=== PATIENT | female | born 1980 | race Caucasian/White ===

== ENCOUNTER 2023-02-23 18:36 | Emergency (ER) | payer BC, SELFPAY ==
[2023-02-23 18:38] VITALS: BP 162/80; PULSE 113; RESP 18; TEMP 36.6; O2SAT 100; BMI 31.6
--- NOTE | 2023-02-23 18:49 | EKG12_ITS ---
Test Reason : PALPS Blood Pressure : / mmHG Vent. Rate : 094 BPM Atrial Rate : 094 BPM P-R Int : 140 ms QRS Dur : 094 ms QT Int : 356 ms P-R-T Axes : 067 045 053 degrees QTc Int : 445 ms Normal sinus rhythm RSR' or QR pattern in V1 suggests right ventricular conduction delay Borderline ECG Confirmed by LEANDRA KRAFT ([id number]), scientific publications editor YESICA BARON ([id number]) on 02/25/2023 11:19:06 AM Referred By: AMIRA Confirmed By:LEANDRA KRAFT
[2023-02-23 19:04] LABS: Absolute Lymphocyte Count 4.34 X10^3/uL (0.83-4.51); Absolute Neutrophil Count 5.8 X10^3/uL (2.0-7.7); Basophil# 0.09 X10^3/uL; Basophil% 0.8 % (0-1); Eosinophil# 0.29 X10^3/uL; Eosinophils% 2.5 % (0-5); Hematocrit 42.1 % (37-47); Hemoglobin 13.9 g/dL (12.0-15.0); Lymphocyte # 4.34 X10^3/ul (0.83-4.51); Lymphocyte % 37.8 % (19-41); Mean Corpuscular Hgb 30.2 pg (27.0-32.0); Mean Corpuscular Volume 91.3 fL (81-99); Mean Platelet Vol. 9.3 fl (6.2-12.0); Monocyte# 0.88 X10^3/uL; Monocyte% 7.7 % (0-10); NRBC Flagged by Analyzer 0 % (0-5); Neutrophil # 5.82 X10^3/uL (2.7-7.7); Neutrophil % 50.8 % (47-70); Platelet Count 314 K/mm3 (150-450); RBC Distribution Width CV 12.6 % (11.6-14.6); RBC Distribution Width SD 41.4 fl (35.1-43.9); Red Blood Count 4.61 M/mm3 (4.2-5.4); White Blood Count 11.5 K/mm3 (4.4-11.0)
--- NOTE | 2023-02-23 19:10 | RAD_ITS ---
INDICATION: palpitations EXAMINATION/TECHNIQUE: X-RAY - XR Chest 1 View COMPARISON: None. FINDINGS: The lungs are clear. The cardiomediastinal silhouette is unremarkable. No pleural effusion or pneumothorax. No acute osseous abnormalities. RAD/Chest 1 View (Portable) IMPRESSION: No acute radiographic abnormalities. Electronically Signed: Tyrell Kruger MD at 19:52 EDT ,
[2023-02-23 19:27] LABS: Anion Gap 5 (5-15); BUN 9 mg/dL (7-18); BUN/Creat Ratio 10.4 RATIO (10-20); Calcium,Total 9.6 mg/dL (8.5-10.1); Chloride 109 mmol/L (98-107); Creatinine, Serum 0.86 mg/dL (0.55-1.02); EST Glomerular Filtration Rate 77 mL/min (>60); Est Glom Filt Rate - Afr Amer 93 mL/min (>60); Estimated Creatinine Clearance 68.77 ml/min; Glucose 118 mg/dL (74-106); Potassium 3.7 mmol/L (3.5-5.1); Sodium Level 139 mmol/L (136-145); Troponin-I HS (w/2H Reflex) < 3 pg/mL (3.0-54.0)
[2023-02-23 19:39] VITALS: BP 129/76; PULSE 89; RESP 16
--- NOTE | 2023-02-23 19:57 | ED.VIS.CHEST ---
HPI History of Present Illness Chief Complaint: Palpitations Informant: patient Narrative Narrative: Patient has had 2 major episodes since last night of feeling near syncopal, sweaty, and flushed. She has checked her blood pressure several times today, and it was high in the 150-160 range, systolic. She is very nervous about this. She had 1 episode last night and one this day around lunchtime. Since having the episode around lunchtime, she has had palpitations off and on for the rest of the afternoon and evening that have lasted 15 or 20 minutes and feel like skipping or racing. The palpitations have not been associated with these episodes necessarily. The 2 main episodes lasted 30-60 minutes each. States she drinks a lot of caffeine, she does not do any illicit drugs such as cocaine. States she had this happen a couple years ago, she wore a 30-day event monitor and followed up with cardiology, they released her after the event monitor was unremarkable, but she states she did not have any of the symptoms while wearing the 30-day monitor. She has not passed out from these episodes in the last 48 hours. She denies any dyspnea although at times the symptoms feel like they are taking my breath away. Also at times, she has sharp stabbing brief pains in her chest, just left of sternal when they occur. Currently asymptomatic. CVD Risk Factors: Positive for Hypercholesterolemia and Smoking; Negative for Hypertension, Diabetes or Family History 1' </=55 PE Risk Factors: Negative for Recent Travel/Surgery, Recent Immobilization, Prior DVT or PE, Cancer or OCP + Smoking + >/=35 PFSH [facility] Medical History Anxiety Bipolar 1 disorder Depression High cholesterol Home Medications aripiprazole 10 mg tablet (Abilify) 10 mg PO DAILY 02/23/23 [History Last Taken Unknown] atorvastatin 10 mg tablet 10 mg PO DAILY 02/23/23 [History Last Taken Unknown] buspirone 7.5 mg tablet 7.5 mg PO BID 02/23/23 [History Last Taken Unknown] lamotrigine 200 mg tablet (Lamictal) 200 mg PO DAILY 02/23/23 [History Last Taken Unknown] lithium carbonate 300 mg tablet,extended release 900 mg PO DAILY 02/23/23 [History Last Taken Unknown] Allergy/AdvReac Type Severity Reaction Status Date / Time doxycycline Allergy Hives Verified 02/23/23 18:40 methocarbamol [From Robaxin] Allergy Hives Verified 02/23/23 18:40 NSAIDS (Non-Steroidal Allergy Hives Verified 02/23/23 18:40 Anti-Inflamma sertraline [From Zoloft] Allergy HIVES Verified 02/23/23 18:40 tramadol Allergy Anaphylaxis Verified 02/23/23 18:40 Social History Smoking Status: Current every day smoker tobacco type: cigarettes ROS ROS ED Constitutional Constitutional ED: Denies chills or fever(s) Eyes Eyes: Denies change in vision or diplopia ENT ENT ED: Reports other Details: Facial flushing ; Denies rhinorrhea or sore throat Cardiovascular Cardiovascular: Reports as per HPI, chest pain and palpitations Respiratory/Chest Respiratory/Chest: Denies cough or dyspnea Gastrointestinal Gastrointestinal: Denies abdominal pain, diarrhea, nausea or vomiting Genitourinary Genitourinary ED: Denies dysuria or hematuria Musculoskeletal Musculoskeletal: Denies back pain or neck pain Integumentary Denies abscess or rash Neurologic Neurologic: Denies headache(s), paresthesias or weakness Psychiatric Psychiatric: Reports anxiety; Denies suicidal thoughts EXAM Physical Exam Const Vital Signs: 02/23/23 18:38 02/23/23 19:34 02/23/23 19:39 Temperature 97.8 F Temperature Source Temporal Pulse Rate 113 H 89 Respiratory Rate 18 16 Blood Pressure 162/80 H 129/76 H Blood Pressure Mean 107 93 Pulse Ox 100 Oxygen Delivery Method Room Air Room Air Room Air 02/23/23 20:00 02/23/23 21:00 Temperature Temperature Source Pulse Rate 82 85 Respiratory Rate 15 17 Blood Pressure 109/58 L 105/61 Blood Pressure Mean 75 75 Pulse Ox 96 96 Oxygen Delivery Method Positive well nourished and well developed General Appearance ED: well developed and NAD HEENT Reports moist mucous membranes normocephalic and atraumatic Eyes PERRL and EOMs intact bilaterally Neck full ROM and supple Chest Wall inspection of chest normal and palpation of chest normal Resp normal respiratory effort and clear to auscultation bilaterally Cardio regular rate, regular rhythm and no murmurs Rate: Negative for tachycardic GI non-tender and non-distended Auscultation: normoactive bowel sounds Palpation: soft Back/Spine no CVA tenderness General Back: other FROM Extremity normal to inspection and no calf tenderness General Extremety ED: Negative for edema, pulses abnormal or tenderness General Extremity: Negative for edema or pulses abnormal Neuro oriented x3, CN's II-XII intact bilaterally and no sensory deficits noted Sensorium / Orientation: awake and alert Motor Exam: strength 5/5 throughout Psych mental status grossly normal Skin no rashes or lesions noted and no wounds MDM MDM MDM Narrative Medical decision making narrative: Performed a cardiac work-up with 2 separate troponin measurements, both negative. TSH also negative, patient is on lithium and had a high level the last time she was measured, we sent that and it is actually on the low side, reassuring. Also did a D-dimer to rule out PE, it is negative ruling out pulmonary embolus in this acute situation. Patient was here for several hours on the monitor and had no symptoms or telemetry events. I advised that she decrease her caffeine intake and follow-up with her PCP, she has a scheduled appointment in a few days, and then she can decide with her PCP whether they want to do another event monitor or Holter monitor; when she saw cardiology in the past for this it was in [facility] [place], not here. She is comfortable with that overall plan. History & Record Review Additional record(s) reviewed:: No prior records Lab Data Attestation: I reviewed the patient's lab results. Labs: Laboratory Results - last 24 hr 02/23/23 02/23/23 18:56 21:08 WBC 11.5 H RBC 4.61 Hgb 13.9 Hct 42.1 MCV 91.3 MCH 30.2 MCHC 33.0 RDW Std Deviation 41.4 RDW Coeff of Cecile 12.6 Plt Count 314 MPV 9.3 Immature Gran % (Auto) 0.400 Neut % (Auto) 50.8 Lymph % (Auto) 37.8 [place] % (Auto) 7.7 Eos % (Auto) 2.5 Baso % (Auto) 0.8 Absolute Neuts (auto) 5.8 Absolute Lymphs (auto) 4.34 Nucleated RBC % 0 D-Dimer Quant (PE/DVT) < 0.27 L Sodium 139 Potassium 3.7 Chloride 109 H Carbon Dioxide 25.0 Anion Gap 5 BUN 9 Creatinine 0.86 Estim Creat Clear Calc 68.77 Est GFR (MDRD) Af Amer 93 Est GFR (MDRD) Non-Af 77 BUN/Creatinine Ratio 10.4 Glucose 118 H Calcium 9.6 Troponin I High Sens < 3 L 3 TSH 1.18 Crane 0.30 L Radiography Diagnostic Testing: Clinical Impression(s) from Imaging Studies Chest X-Ray 02/23/23 19:10 IMPRESSION: No acute radiographic abnormalities. Electronically Signed: Tyrell Kruger MD at 19:52 EDT , 2 view chest x-ray my interpretation negative/normal, radiology in agreement. Rhythm Strip Rhythm Strip: Sinus Rhythm Rate: 90 Ectopy: None EKG Initial EKG: Attestation: I personally reviewed and interpreted this EKG as follows: Interpretation: Sinus Rhythm and No Acute Injury Pattern Comments: nml Discharge Plan Triage Chief Complaint: Palpitations ED Provider: Wilfrido Issa Dx/Rx/DC Orders Clinical Impression: Palpitations, Near syncope Instructions: ED Palpitations Prescriptions: No Action atorvastatin 10 mg tablet 10 mg PO DAILY lithium carbonate 300 mg tablet extended release 900 mg PO DAILY lamotrigine [Lamictal] 200 mg tablet 200 mg PO DAILY aripiprazole [Abilify] 10 mg tablet 10 mg PO DAILY buspirone 7.5 mg tablet 7.5 mg PO BID Primary Care Provider: Krista Umanzor Referrals: Krista Umanzor, DEBEAKER-C [Primary Care Provider] - Keep Ever appointment Disposition Disposition: Home, Self Care
[2023-02-23 20:00] VITALS: BP 109/58; PULSE 82; RESP 15; O2SAT 96
[2023-02-23 20:14] LABS: D-Dimer Quantitative (DVT/PE) < 0.27 FEU/ug/m (0.27-0.49)
[2023-02-23 20:26] LABS: Thyroid Stim Hormone (TSH) 1.18 uIU/mL (0.358-3.74)
[2023-02-23 21:00] VITALS: BP 105/61; PULSE 85; RESP 17; O2SAT 96
[2023-02-23 21:00] LABS: Reflex Troponin-HS? (from REC) Y
[2023-02-23 21:40] LABS: Troponin-I HS 3 pg/mL (3.0-54.0)
[2023-02-23 22:49] VITALS: BP 110/65; PULSE 85; RESP 16; O2SAT 99
== END 2023-02-23 22:50 | disposition home or self-care (01) ==
PROVIDERS: Emergency Medicine; Emergency Provider Emergency Medicine; PCP Nurse Practitioner Family; Visit Provider Emergency Medicine
DX: R55 Syncope and collapse (principal); F31.9 Bipolar disorder, unspecified; F17.210 Nicotine dependence, cigarettes, uncomplicated; E78.00 Pure hypercholesterolemia, unspecified; R00.2 Palpitations; F41.9 Anxiety disorder, unspecified
CPT/HCPCS: 71045; 80048; 80178; 84443; 84484; 85025; 85379; 93005; 99284; A4216

== ENCOUNTER 2023-06-21 19:27 | Emergency (ER) | payer BC, SELFPAY ==
[2023-06-21 19:28] VITALS: BP 157/88; PULSE 101; RESP 16; TEMP 36.2; O2SAT 99; BMI 30.7
--- NOTE | 2023-06-21 20:35 | EX.ED.DYSGE1 ---
HPI History of Present Illness Chief Complaint: Other, Pain/Inj Informant: patient Narrative Narrative: Presents with some neck shoulder and intermittent left arm pain. Patient has a history of back pain spinal stenosis and disc disease. But this is mostly been lumbar. She states over the last couple days she has had pain in the left lower neck really in the suprascapular area. Sometimes it will radiate or shoot down her left arm to her elbow. She describes it as burning. She denies any injury. No fevers or chills. No chest pain or trouble breathing. No headaches. No weakness. PFSH [facility] Medical History Anxiety Bipolar 1 disorder Depression High cholesterol Home Medications aripiprazole 10 mg tablet (Abilify) 10 mg PO DAILY 02/23/23 [History Last Taken Unknown] atorvastatin 10 mg tablet 10 mg PO DAILY 02/23/23 [History Last Taken Unknown] buspirone 7.5 mg tablet 7.5 mg PO BID 02/23/23 [History Last Taken Unknown] lamotrigine 200 mg tablet (Lamictal) 200 mg PO DAILY 02/23/23 [History Last Taken Unknown] lithium carbonate 300 mg tablet,extended release 900 mg PO DAILY 02/23/23 [History Last Taken Unknown] oxycodone-acetaminophen 5 mg-325 mg tablet 1 tab PO Q6H PRN PRN Pain 3 days #10 TABLETS 06/21/23 [Rx Last Taken Unknown] prednisone 20 mg tablet 60 mg (3 x 20 mg) PO DAILY #15 TABLETS 06/21/23 [Rx Last Taken Unknown] Allergy/AdvReac Type Severity Reaction Status Date / Time doxycycline Allergy Hives Verified 06/21/23 20:28 methocarbamol [From Robaxin] Allergy Hives Verified 06/21/23 20:28 NSAIDS (Non-Steroidal Allergy Hives Verified 06/21/23 20:28 Anti-Inflamma sertraline [From Zoloft] Allergy HIVES Verified 06/21/23 20:28 tramadol Allergy Anaphylaxis Verified 06/21/23 20:28 Social History Smoking Status: Current every day smoker tobacco type: cigarettes ROS ROS ED Constitutional Constitutional ED: Denies chills, fever(s) or sweats Eyes Eyes: Denies blurry vision, change in vision or diplopia ENT ENT ED: Denies rhinorrhea Cardiovascular Cardiovascular: Denies chest pain, palpitations or racing heartbeat Respiratory/Chest Respiratory/Chest: Denies cough or dyspnea Gastrointestinal Gastrointestinal: Denies nausea or vomiting Musculoskeletal Musculoskeletal: Reports neck pain; Denies arthralgias Integumentary Denies abscess, Abrasions or rash Neurologic Neurologic: Reports paresthesias; Denies headache(s) or weakness Hematologic/Lymphatic Hematologic/Lymphatic: Denies easy bleeding or easy bruising Allergic/Immunologic Allergic/Immunologic ED: Denies urticaria EXAM Physical Exam Narrative Exam Narrative: General: Patient awake alert sitting comfortably on bed. She does have her left hand up on the left suprascapular region. HEENT.: No erythema of ears. No facial tenderness. No vesicles or rash. Mucous membranes are moist. Neck: Patient has tenderness most of the left paraspinal down very low. This is almost in the supraspinatus area. No midline tenderness. She can look to the right easily. When she looks to the left it causes some soreness but she can do so pretty well. No meningismus. Chest is clear bilaterally. Saturations are normal at 99% on room air showing no hypoxia. Heart is regular. I hear no murmur. Peripheral pulses including left upper extremity are normal. Abdomen nontender Extremities: There is no tenderness over the left arm. There is some supraspinatus tenderness on the left. Pulses are excellent in the left arm. Sensation is intact distally. She has excellent brick grader strength as well as bicep and tricep strength. There is no indication of neurologic deficit. By history she has paresthesias and burning but no loss of sensation or weakness. Const Vital Signs: 06/21/23 19:28 Temperature 97.2 F L Temperature Source Temporal Pulse Rate 101 H Respiratory Rate 16 Blood Pressure 157/88 H Blood Pressure Mean 111 Pulse Ox 99 Oxygen Delivery Method Room Air MDM MDM MDM Narrative Medical decision making narrative: Patient's history and exam are consistent more with a cervical radiculopathy. I did do an online prescribing report that shows no narcotics. She has problems with hives and has had her throat closed with Toradol. The chart says tramadol but it is Toradol that she tells me caused anaphylaxis. She has taken Percocet in the past without problems but it has been many years. She is also taken prednisone that has helped her back in the past. She does not have diabetes. Patient has no fevers chills or any indication of checking electrolytes. I do not think imaging including x-ray of the neck would be appropriate. I discussed with the patient and she agrees. We will start her on prednisone, few Percocet, ice rest and she will follow-up. I do not think this represents stroke and no indication for workup of that is appropriate. We did discuss reasons that would bring her back. Discharge Plan Triage Chief Complaint: Other, Pain/Inj ED Provider: Jw Ennis Dx/Rx/DC Orders Clinical Impression: Neck pain on left side, Cervical radiculopathy Instructions: ED Neck Pain, ED Radiculopathy, Cervical Prescriptions: New prednisone 20 mg tablet 60 mg PO DAILY Qty: 15 0RF oxycodone-acetaminophen [oxycodone-acetaminophen] 5-325 mg tablet 1 tab PO Q6H PRN PRN (Reason: Pain) 3 Days Qty: 10 0RF No Action atorvastatin 10 mg tablet 10 mg PO DAILY lithium carbonate 300 mg tablet extended release 900 mg PO DAILY lamotrigine [Lamictal] 200 mg tablet 200 mg PO DAILY aripiprazole [Abilify] 10 mg tablet 10 mg PO DAILY buspirone 7.5 mg tablet 7.5 mg PO BID Stand Alone Forms: ED Work / School Excuse Primary Care Provider: Krista Umanzor Referrals: Krista Umanzor, MICRO LAB ANALYST-C [Primary Care Provider] - 3-5 Days Disposition Disposition: Home, Self Care
[2023-06-21 20:59] VITALS: BP 135/57; PULSE 89; RESP 18
== END 2023-06-21 21:01 | disposition home or self-care (01) ==
PROVIDERS: Emergency Provider Emergency Medicine; PCP Nurse Practitioner Family; Referring Provider Emergency Medicine; Visit Provider Emergency Medicine
DX: M54.12 Radiculopathy, cervical region (principal); F31.9 Bipolar disorder, unspecified; E78.00 Pure hypercholesterolemia, unspecified; F17.210 Nicotine dependence, cigarettes, uncomplicated; M54.2 Cervicalgia; F41.9 Anxiety disorder, unspecified; Z79.899 Other long term (current) drug therapy
CPT/HCPCS: 99282

== ENCOUNTER 2024-10-11 13:42 | Emergency (ER) | payer BC, SELFPAY ==
[2024-10-11 13:43] VITALS: BP 148/81; PULSE 95; RESP 17; TEMP 36.4; O2SAT 99; BMI 33.5
--- NOTE | 2024-10-11 15:40 | VDLE_ITS ---
Reason For Study Reason For Study: Pain RIGHT LEFT GSV is normal. CFV is compressible, spontaneous, phasic, competent, CFV is compressible, spontaneous, phasic, competent and demonstrates normal augmentation. and demonstrates normal augmentation. FV is compressible, spontaneous, phasic, competent and demonstrates normal augmentation. POP V is compressible, spontaneous, phasic, competent and demonstrates normal augmentation. T/P Trunk is compressible. PTV is compressible. RT PerV is compressible. Procedure This is a venous duplex using B-mode, color flow and spectral Doppler. Exam performed portable in ED. A preliminary report was called and/or faxed to Dr. Pappas. VL/Venous Duplex US, Unilateral Interpretation Summary Deep veins of the right lower extremity are patent and compressible segmentally . There is no evidence of right lower extremity deep vein thrombosis. The right great saphenous vein appears patent a nd compressible segmentally. Ordering Physician: Shantell Gastelum Performed By: Heather Fox RVT
--- NOTE | 2024-10-11 15:41 | EDS_ITS ---
HPI History of Present Illness Chief Complaint: Lower Extremity Injury Detail of Chief Complaint: Right calf pain Informant: patient Narrative Narrative: Patient presents with right calf pain that started this morning around 9:00. Patient states that she stood up to walk and had sudden onset of severe pain in the right calf. Pain worse with certain movements and pushing on the calf. She denies recent travel or surgery. She denies chest pain or shortness of breath. She denies history of PE or DVT. [facility] Medical History Anxiety Bipolar 1 disorder Depression High cholesterol Home Medications ?Medication ?Instructions ?Recorded ?Last Taken ?Type aripiprazole 10 mg tablet (Abilify) 10 mg PO DAILY Unknown History atorvastatin 10 mg tablet 10 mg PO DAILY 02/23/23 Unkn own History lamotrigine 200 mg tablet 200 mg PO DAILY 02/23/23 Unk nown History (Lamictal) lithium carbonate 300 mg 750 mg PO DAILY 02/23/23 Unk nown History tablet,extended release escitalopram oxalate 10 mg tablet 10 mg PO DAILY 06/21 Unknown History (Lexapro) oxycodone-acetaminophen 5 mg-325 1 tab PO Q6H PRN PRN Pain 3 days 06/21/23 Unknown Rx mg tablet #10 TABLETS prednisone 20 mg tablet 60 mg (3 x 20 mg) PO DAILY # 15 06/21/23 Unknown Rx TABLETS oxycodone-acetaminophen 5 mg-325 1 tab PO Q6H PRN PRN Pain 3 days 10/11/24 Unknown Rx mg tablet #12 TABLETS Allergy/AdvReac Type Severity Reaction Status Date / Time acetaminophen (From Vicodin) Allergy Mild Hives Verified 10/11/24 13:43 hydrocodone (From Vicodin) Allergy Mild Hives Verified 10/11/24 13:43 doxycycline Allergy Hives Verified 10/11/24 13:42 methocarbamol (From Robaxin) Allergy Hives Verified 10/11/24 13:42 NSAIDS (Non-Steroidal Allergy Hives Verified 10/11/24 13:42 Anti-Inflamma sertraline (From Zoloft) Allergy HIVES Verified 10/11/24 13:42 tramadol Allergy Anaphylaxis Verified 10/11/24 13:42 Social History (Updated 10/11/24 @ 15:44 by Caity Harden) current occupational status: employed Smoking Status: Current every day smoker tobacco type: cigarettes ROS ROS ED Review of Systems ROS Unobtainable: other Constitutional Constitutional ED: Reports lethargy; Denies chills, fever(s), sweats or weight loss Eyes Eyes: Denies blurry vision, change in vision or diplopia ENT ENT ED: Denies rhinorrhea or sore throat Cardiovascular Cardiovascular: Denies chest pain, orthopnea or racing heartbeat Respiratory/Chest Respiratory/Chest: Denies cough, dyspnea, dyspnea on exertion, orthopnea or sputum Gastrointestinal Gastrointestinal: Denies abdominal pain, diarrhea, nausea or vomiting Genitourinary Genitourinary ED: Denies dysuria, hematuria or urinary frequency Musculoskeletal Musculoskeletal: Denies arthralgias, back pain, myalgias or neck pain Integumentary Reports other Details: Right calf pain ; Denies abscess, Abrasions or rash Neurologic Neurologic: Denies headache(s) or weakness Psychiatric Psychiatric: Denies anxiety, depression or suicidal thoughts Endocrine Endocrinology: Denies polydipsia, polyphagia or polyuria Hematologic/Lymphatic Hematologic/Lymphatic: Denies easy bleeding, easy bruising or lymphadenopathy Allergic/Immunologic Allergic/Immunologic ED: Denies mouth swelling, tongue swelling or urticaria EXAM Physical Exam Const Vital Signs: 10/11/24 13:43 Temperature 97.6 F L Temperature Source Temporal Pulse Rate 95 Respiratory Rate 17 Blood Pressure 148/81 H Blood Pressure Mean 103 Pulse Ox 99 Oxygen Delivery Method Room Air Positive well nourished and well developed General Appearance ED: well developed and NAD HEENT Reports TM's clear and moist mucous membranes normocephalic and atraumatic; Negative for trauma or tenderness Tympanic Membrane ED: Yes TM's clear Eyes PERRL and EOMs intact bilaterally General Eye ED: Negative for pale conjunctiva or scleral icterus Neck no lymphadenopathy, supple and no JVD General: Negative for tenderness Chest Wall inspection of chest normal and palpation of chest normal Chest: Negative for tenderness Resp normal respiratory effort and clear to auscultation bilaterally Effort and Inspection: Negative for respiratory distress or pain with movement Auscultation: Negative for rhonchi, wheezes or diminished lung sounds Cardio regular rate, regular rhythm, S1 normal heart sound, S2 normal heart sound and no murmurs Peripheral Pulses: pulses 2+ throughout GI normal to inspection, nondistended, normoactive bowel sounds, soft to palpation, non-tender, non-distended and no masses Back/Spine no CVA tenderness and no thoracic nor lumbar tenderness Extremity Extremity Narrative: Right lower extremity-patient has tenderness palpation over the lateral aspect of the right calf that seems to reproduce her pain. There is no significant ecchymosis or bruising noted. No erythema or cellulitic changes. She is neurovascular intact distally. She does have pain with plantarflexion of the f oot. General Extremety ED: Negative for edema General Extremity: Negative for edema Neuro oriented x3, CN's II-XII intact bilaterally, no sensory deficits noted and gait normal Sensorium / Orientation: awake, alert, oriented to person, oriented to place and oriented to time Motor Exam: strength 5/5 throughout and strength abnormal Psych mental status grossly normal Skin no rashes or lesions noted and no wounds MDM MDM MDM Narrative Medical decision making narrative: Patient presents with sudden onset of right calf pain. No trauma. I do not feel imaging is indicated. I did obtain a venous Doppler to rule out DVT and this was negative. This point suspect likely muscle strain. She does not want crutches. I will write her for a few [place] for pain. Will give work restrictions. Advised to follow-up with her primary care physician within next 5 to 7 days. Lab Data Attestation: I reviewed the patient's lab results. Discharge Plan Triage Chief Complaint: Lower Extremity Injury ED Provider: Shantell Gastelum Dx/Rx/DC Orders Clinical Impression: Strain of right calf muscle Instructions: ED Muscle Strain, Extremity Prescriptions: New oxycodone-acetaminophen 5-325 mg tablet 1 tab PO Q6H PRN PRN (Reason: Pain) 3 Days Qty: 12 0RF No Action atorvastatin 10 mg tablet 10 mg PO DAILY lithium carbonate 300 mg tablet extended release 750 mg PO DAILY lamotrigine [Lamictal] 200 mg tablet 200 mg PO DAILY aripiprazole [Abilify] 10 mg tablet 10 mg PO DAILY prednisone 20 mg tablet 60 mg PO DAILY Qty: 15 0RF oxycodone-acetaminophen [oxycodone-acetaminophen] 5-325 mg tablet 1 tab PO Q6H PRN PRN (Reason: Pain) 3 Days Qty: 10 0RF escitalopram oxalate [Lexapro] 10 mg tablet 10 mg PO DAILY Primary Care Provider: Krista Umanzor Referrals: Krista Umanzor, MANUFACTURER'S SERVICE REPRESENTATIVE-C [Primary Care Provider] - 5-7 Days Print Language: Macedonian Disposition Disposition: Home, Self Care
[2024-10-11 16:12] VITALS: BP 153/79; PULSE 85; RESP 16; TEMP 36.4; O2SAT 98
== END 2024-10-11 16:23 | disposition home or self-care (01) ==
LOC: ED 16:22
PROVIDERS: Emergency Provider Emergency Medicine; PCP Nurse Practitioner Family; Visit Provider Emergency Medicine
DX: S86.111A Strain of other muscle(s) and tendon(s) of posterior muscle group at lower leg level, right leg, initial encounter (principal); F31.9 Bipolar disorder, unspecified; X58.XXXA Exposure to other specified factors, initial encounter; Y93.01 Activity, walking, marching and hiking; E78.00 Pure hypercholesterolemia, unspecified; F17.210 Nicotine dependence, cigarettes, uncomplicated; Z79.899 Other long term (current) drug therapy
CPT/HCPCS: 93971; 99282

== ENCOUNTER 2024-12-10 13:15 | Emergency (ER) | payer BC, SELFPAY ==
[2024-12-10 13:15] VITALS: BP 139/84; PULSE 92; RESP 18; TEMP 36.7; O2SAT 100; BMI 32.9
--- NOTE | 2024-12-10 13:53 | EDS_ITS ---
HPI <LYLY Hernandez - Last Filed: 12/10/24 14:46> History of Present Illness Chief Complaint: Back Narrative Narrative: 44-year-old female presents with thoracic back pain. Yesterday she was moving houses and was lifting a lot of boxes and furniture. This morning she lifted a few more things. She was lifting her grocery bags out of the trunk when she developed bilateral thoracic back pain. If she sits completely still she has no pain but any movement it starts up again. She has no pain in her chest or abdomen. No pain in her upper or lower extremities. No weakness or paresthesias. She took Tylenol and used ice but it only helped a little bit. She cannot have NSAIDs because it causes hives and Toradol because of throat swelling. [facility] <LYLY Hernandez - Last Filed: 12/10/24 14:46> [facility] Medical History Anxiety Bipolar 1 disorder Depression High cholesterol Home Medications ?Medication ?Instructions ?Recorded ?Last Taken ?Type aripiprazole 10 mg tablet (Abilify) 10 mg PO DAILY Unknown History atorvastatin 10 mg tablet 10 mg PO DAILY 02/23/23 Unkn own History lamotrigine 200 mg tablet 200 mg PO DAILY 02/23/23 Unk nown History (Lamictal) lithium carbonate 300 mg 750 mg PO DAILY 02/23/23 Unk nown History tablet,extended release escitalopram oxalate 10 mg tablet 10 mg PO DAILY 06/21 Unknown History (Lexapro) oxycodone-acetaminophen 5 mg-325 1 tab PO Q6H PRN PRN Pain 3 days 06/21/23 Unknown Rx mg tablet #10 TABLETS prednisone 20 mg tablet 60 mg (3 x 20 mg) PO DAILY # 15 06/21/23 Unknown Rx TABLETS oxycodone-acetaminophen 5 mg-325 1 tab PO Q6H PRN PRN Pain 3 days 10/11/24 Unknown Rx mg tablet #12 TABLETS cyclobenzaprine 10 mg tablet 10 mg PO BID #14 TABLETS 12/10/24 Unknown Rx oxycodone-acetaminophen 5 mg-325 1 tab PO Q6H PRN PRN pain 3 days 12/10/24 Unknown Rx mg tablet (Percocet) #12 tabs Allergy/AdvReac Type Severity Reaction Status Date / Time acetaminophen (From Vicodin) Allergy Mild Hives Verified 12/10/24 13:16 hydrocodone (From Vicodin) Allergy Mild Hives Verified 12/10/24 13:16 doxycycline Allergy Hives Verified 12/10/24 13:16 methocarbamol (From Robaxin) Allergy Hives Verified 12/10/24 13:16 NSAIDS (Non-Steroidal Allergy Hives Verified 12/10/24 13:16 Anti-Inflamma sertraline (From Zoloft) Allergy HIVES Verified 12/10/24 13:16 tramadol Allergy Anaphylaxis Verified 12/10/24 13:16 Social History (Updated 10/11/24 @ 15:44 by Caity Harden) current occupational status: employed Smoking Status: Current every day smoker tobacco type: cigarettes ROS <LYLY Hernandez - Last Filed: 12/10/24 14:46> ROS ED ROS Narrative Constitutional: Negative for fever, chills, malaise. CVS: Negative for palpitations, chest pain, syncope. Respiratory: Negative for shortness of breath. GI: Negative for abdominal pain, nausea, vomiting. EXAM <LYLY Hernandez - Last Filed: 12/10/24 14:46> Physical Exam Narrative Exam Narrative: CONST: Patient sitting in no acute distress. EYES: Normal inspection. NECK: Normal inspection. RESP: No respiratory distress, CTAB. CVS: Regular rate and rhythm, no murmur, no gallop. ABD: Soft and nontender, no guarding or rebound, nondistended. Back: Normal inspection, no midline tenderness. Tender over bilateral thoracic musculature. SKIN: Color normal, no rash, warm, dry, intact. EXTREMITIES: Normal appearance, no pedal edema. Full range of motion upper and lower extremities, 5/5 strength, normal sensation to light touch, 2+ radial and DP pulses. NEURO: Alert and answering questions appropriately. PSYCH: Normal affect. Const Vital Signs: 12/10/24 13:15 Temperature 98.1 F Temperature Source Oral Pulse Rate 92 Respiratory Rate 18 Blood Pressure 139/84 H Blood Pressure Mean 102 Pulse Ox 100 Oxygen Delivery Method Room Air <Dr. Shantell Gastelum DO - Last Filed: 12/10/24 14:05> Physical Exam Const Vital Signs: 12/10/24 13:15 Temperature 98.1 F Temperature Source Oral Pulse Rate 92 Respiratory Rate 18 Blood Pressure 139/84 H Blood Pressure Mean 102 Pulse Ox 100 Oxygen Delivery Method Room Air [facility] <LYLY Hernandez - Last Filed: 12/10/24 14:46> [facility] Narrative Medical decision making narrative: Differential includes back strain, fracture, radiculopathy Patient has no midline tenderness and no focal neurological deficits so there is no indication for x-ray. Feeling better after Percocet and Norflex. She cannot take NSAIDs so I will prescribe muscle relaxers and Percocet for home. Lifting restrictions. Follow- up with PCP. I have personally performed a face to face assessment of the patient and have reviewed the CON Note. I performed a substantive portion of the visit including all aspects of the following. My spann findings include: History is [patient presents with back pain that started prior to arrival in the emergency department. Patient states that she was lifting some groceries when she had sudden onset of pain behind both scapulas. Pain only with movement and not pleuritic. She has history of chronic low back pain but this is different. Patient states that she was moving some furniture yesterday and was expecting today to have maybe some discomfort in her low back which did not happen. She denies recent travel or surgery. At rest she is not having any pain unless she moves.] Exam is [HEENT-PERRLA, EOMI. Cranial nerves II through XII grossly intact. TMs clear. Mucous membranes moist. No adenopathy. Cardiovascular-regular rate and rhythm without murmur or ectopy Lungs-clear to auscultation, chest wall stable without crepitus or subcu emphysema Abdomen-normoactive bowel sounds, soft, nontender, no rebound or rigidity, no peritoneal signs. Back exam-patient has tenderness palpation over the thoracic paraspinal musculature medial to the scapula bilaterally. This seems to reproduce her pain. She has no tenderness in the midline. Negative straight leg raises. Deep tendon reflexes plus 2 out of 4 bilaterally at the patella and Achilles. She has normal L5 extension bilaterally. She has normal sensation to light touch. Extremities-intact ?4, normal range of motion, normal pulses, atraumatic] Medical Decison Making [patient presents with sudden onset of back pain while lifting groceries. She had no fall or direct trauma. I do not think x-rays are indicated. Will treat with muscle relaxer and Percocet for pain. Recommended some heat to the area. Suspect likely muscle spasm. Advised to follow-up with primary care physician within next 3 to 5 days.] Other additions or changes: [None] <Dr. Shantell Gastelum, - Last Filed: 12/10/24 14:05> [facility] Narrative Medical decision making narrative: I have personally performed a face to face assessment of the patient and have reviewed the CON Note. I performed a substantive portion of the visit including all aspects of the following. My spann findings include: History is [patient presents with back pain that started prior to arrival in the emergency department. Patient states that she was lifting some groceries when she had sudden onset of pain behind both scapulas. Pain only with movement and not pleuritic. She has history of chronic low back pain but this is different. Patient states that she was moving some furniture yesterday and was expecting today to have maybe some discomfort in her low back which did not happen. She denies recent travel or surgery. At rest she is not having any pain unless she moves.] Exam is [HEENT-PERRLA, EOMI. Cranial nerves II through XII grossly intact. TMs clear. Mucous membranes moist. No adenopathy. Cardiovascular-regular rate and rhythm without murmur or ectopy Lungs-clear to auscultation, chest wall stable without crepitus or subcu emphysema Abdomen-normoactive bowel sounds, soft, nontender, no rebound or rigidity, no peritoneal signs. Back exam-patient has tenderness palpation over the thoracic paraspinal musculature medial to the scapula bilaterally. This seems to reproduce her pain. She has no tenderness in the midline. Negative straight leg raises. Deep tendon reflexes plus 2 out of 4 bilaterally at the patella and Achilles. She has normal L5 extension bilaterally. She has normal sensation to light touch. Extremities-intact ?4, normal range of motion, normal pulses, atraumatic] Medical Decison Making [patient presents with sudden onset of back pain while lifting groceries. She had no fall or direct trauma. I do not think x-rays are indicated. Will treat with muscle relaxer and Percocet for pain. Recommended some heat to the area. Suspect likely muscle spasm. Advised to follow-up with primary care physician within next 3 to 5 days.] Other additions or changes: [None] Discharge Plan Triage Chief Complaint: Back ED Midlevel Provider: Eileen Urbina ED Provider: Shantell Gastelum Dx/Rx/DC Orders Clinical Impression: Acute thoracic myofascial strain Instructions: ED Thoracic Spine Strain Prescriptions: New oxycodone-acetaminophen [Percocet] 5-325 mg tablet 1 tab PO Q6H PRN PRN (Reason: pain) 3 Days Qty: 12 0RF cyclobenzaprine 10 mg tablet 10 mg PO BID Qty: 14 0RF No Action atorvastatin 10 mg tablet 10 mg PO DAILY lithium carbonate 300 mg tablet extended release 750 mg PO DAILY lamotrigine [Lamictal] 200 mg tablet 200 mg PO DAILY aripiprazole [Abilify] 10 mg tablet 10 mg PO DAILY prednisone 20 mg tablet 60 mg PO DAILY Qty: 15 0RF oxycodone-acetaminophen [oxycodone-acetaminophen] 5-325 mg tablet 1 tab PO Q6H PRN PRN (Reason: Pain) 3 Days Qty: 10 0RF escitalopram oxalate [Lexapro] 10 mg tablet 10 mg PO DAILY oxycodone-acetaminophen 5-325 mg tablet 1 tab PO Q6H PRN PRN (Reason: Pain) 3 Days Qty: 12 0RF Primary Care Provider: Krista Umanzor Referrals: Krista Umanzor, [employer] [Primary Care Provider] - Activity Restrictions/Additional Instructions: You have a thoracic back muscle strain. Ice and 20-minute sessions multiple times a day. Take the Percocet as needed for pain. This medication has side effects of nausea, sedation, and constipation. I recommend taking a stool softener or MiraLAX while using it. I also prescribed muscle relaxers. Follow- up with your primary care doctor. Print Language: Italian Disposition Disposition: Home, Self Care
[2024-12-10] MEDS: oxyCODONE 5 MG Tablet PO (14:13)
[2024-12-10] MEDS: Orphenadrine 60 MG/2 ML Ampul IM (14:13)
[2024-12-10 14:54] VITALS: BP 139/84; PULSE 92; RESP 18; TEMP 36.7; O2SAT 100
== END 2024-12-10 14:55 | disposition home or self-care (01) ==
LOC: ED 14:10
PROVIDERS: Emergency Provider Emergency Medicine; PCP Nurse Practitioner Family; Visit Provider Emergency Medicine
DX: S29.012A Strain of muscle and tendon of back wall of thorax, initial encounter (principal); F31.9 Bipolar disorder, unspecified; X50.0XXA Overexertion from strenuous movement or load, initial encounter; Y92.019 Unspecified place in single-family (private) house as the place of occurrence of the external cause; E78.00 Pure hypercholesterolemia, unspecified; F41.9 Anxiety disorder, unspecified; F17.210 Nicotine dependence, cigarettes, uncomplicated; Z79.899 Other long term (current) drug therapy
CPT/HCPCS: 96372; 99282

== ENCOUNTER 2025-01-29 08:23 | Emergency (ER) | payer OTHER, SELFPAY ==
[2025-01-29 08:24] VITALS: BP 144/90; PULSE 78; RESP 16; TEMP 36.5; O2SAT 99; BMI 31.9
--- NOTE | 2025-01-29 08:39 | EKG12_ITS ---
Test Reason : Blood Pressure : */* mmHG Vent. Rate : 74 BPM Atrial Rate : 74 BPM P-R Int : 158 ms QRS Dur : 88 ms QT Int : 382 ms P-R-T Axes : 39 12 41 degrees QTcB Int : 424 ms Normal sinus rhythm Low voltage QRS Otherwise normal ECG Confirmed by Jonathan Puga ([id number]), web editor YESICA BARON ([id number]) on 01/30/2025 1:15:03 PM Referred By: TL/BB Confirmed By: Jonathan Puga
--- NOTE | 2025-01-29 08:39 | EX.ED.DYSGE1 ---
HPI History of Present Illness Chief Complaint: Syncope Detail of Chief Complaint: Near syncope while driving Informant: patient Onset/Context/Timing Onset: Today and Hours Context: Sudden Onset Timing: Intermittent Quality: Detailed HPI narrative Location: Driving to work Current Severity: Gone Maximum Severity: Severe Worsened by: Suspect menstrual cramps Relieved by: Not applicable Associated Symptoms Associated Symptoms: Vagal-like response Narrative Narrative: Patient is a 44-year-old woman. She has history of depression hypercholesterolemia who reports having similar episodes once monthly. She followed up with her PCP. She did blood work and determined that she had iron deficiency anemia. She is on iron. Today's episode occurred while driving to work. She felt she was a little behind. Apparently she had's significant menstrual cramps prior to having total bottle tingling followed by lightheadedness, nausea and vomiting and diaphoresis. Patient states when she felt the total body tingling which proceeds the other episodes she pulled the car off the road. She contacted her [id number]. She states this occurs about once a month. She denies black or maroon-colored stool. She denied headache. She denied double vision blurred vision loss of vision. She denies ringing or ears. She denied chest discomfort or shortness of breath. She denied blood or coffee-ground appearing emesis. She has had no change in her medications. She has never been referred to a flatwork finisher. Prior similar symptoms: Yes Recent Illness/Hospitalization: No PFSH PFS Medical History High cholesterol Anxiety Depression Bipolar 1 disorder Home Medications ?Medication ?Instructions ?Recorded ?Last Taken ?Type atorvastatin 10 mg tablet 10 mg PO DAILY 02/23/23 01/28/25 History lamotrigine 200 mg tablet 200 mg PO DAILY 02/23/23 01/29/25 History (Lamictal) amlodipine 2.5 mg tablet 2.5 mg PO DAILY 01/29/25 01/28/25 History cholecalciferol (vitamin D3) 50 50 mcg PO DAILY 01/29/25 01/29/25 History mcg (2,000 unit) capsule clonidine HCl 0.1 mg tablet 0.1 mg PO DAILY 01/29/25 01/29/25 History diphenhydramine HCl 25 mg capsule 25 mg PO Q8H PRN allergy symptoms 01/29/25 Unknown History (Allergy (diphenhydramine)) ferrous sulfate 325 mg (65 mg 325 mg PO DAILY 01/29/25 01/29/25 History iron) tablet (FeroSul) lithium carbonate 300 mg tablet 900 mg PO DAILY 01/29/25 01/29/25 History lurasidone 120 mg tablet (Latuda) 120 mg PO QPM 01/29/25 01/28/25 History Allergy/AdvReac Type Severity Reaction Status Date / Time acetaminophen (From Vicodin) Allergy Mild Hives Verified 01/29/25 08:27 hydrocodone (From Vicodin) Allergy Mild Hives Verified 01/29/25 08:27 doxycycline Allergy Hives Verified 01/29/25 08:27 ketorolac (From Toradol) Allergy THROAT Verified 01/29/25 08:27 ITCHING/CLOSING methocarbamol (From Robaxin) Allergy Hives Verified 01/29/25 08:27 NSAIDS (Non-Steroidal Allergy Hives Verified 01/29/25 08:27 Anti-Inflamma sertraline (From Zoloft) Allergy HIVES Verified 01/29/25 08:27 tramadol Allergy Anaphylaxis Verified 01/29/25 08:27 Social History housing: apartment current occupational status: employed Smoking Status: Current every day smoker tobacco type: cigarettes ROS ROS ED Constitutional Constitutional ED: Denies chills, fever(s), subjective or sweats Eyes Eyes: Denies blurry vision, change in vision or diplopia ENT ENT ED: Denies ear pain, rhinorrhea or sore throat Cardiovascular Cardiovascular: Reports other Details: Patient states when this occurred her heart rate was 43. She was able to monitor her heart rate on her watch. She was not able to record a tracing. ; Denies chest pain, orthopnea, palpitations, paroxysmal nocturnal dyspnea or racing heartbeat Respiratory/Chest Respiratory/Chest: Denies cough, dyspnea, dyspnea on exertion, orthopnea or paroxysmal nocturnal dyspnea Gastrointestinal Gastrointestinal: Reports abdominal pain, nausea and vomiting; Denies constipation, diarrhea or melena Genitourinary Genitourinary ED: Reports LMP (females 10-50) Details: Comment: (Presently); Denies dysuria, hematuria or urinary frequency Musculoskeletal Musculoskeletal: Denies arthralgias, back pain or myalgias Integumentary Denies rash Neurologic Neurologic: Reports paresthesias RUE, RLE, LUE and LLE; Denies headache(s) or weakness Psychiatric Psychiatric: Reports anxiety and depression Endocrine Endocrinology: Denies cold intolerance or heat intolerance Hematologic/Lymphatic Hematologic/Lymphatic: Reports systems reviewed and no addt'l complaints, except as documented EXAM Physical Exam Const Vital Signs: 01/29/25 08:24 01/29/25 08:53 01/29/25 08:54 Temperature 97.7 F L Temperature Source Oral Pulse Rate 78 Pulse Rate [Lying] 77 Pulse Rate [Sitting (for 1 minute prior to obtaining)] 88 Pulse Rate [Standing (for 1 minute prior to obtaining)] 82 Respiratory Rate 16 Respiratory Pattern Normal Blood Pressure 144/90 H Blood Pressure [Lying] 129/78 H Blood Pressure [Sitting (for 1 minute prior to obtaining)] 159/86 H Blood Pressure [Standing (for 1 minute prior to obtaining)] 135/88 H Blood Pressure Mean 108 Blood Pressure Mean [Lying] 95 Blood Pressure Mean [Sitting (for 1 minute prior to obtaining)] 110 Blood Pressure Mean [Standing (for 1 minute prior to obtaining)] 103 Pulse Ox 99 Oxygen Delivery Method Room Air 01/29/25 10:24 Temperature Temperature Source Pulse Rate Pulse Rate [Lying] Pulse Rate [Sitting (for 1 minute prior to obtaining)] Pulse Rate [Standing (for 1 minute prior to obtaining)] Respiratory Rate Respiratory Pattern Blood Pressure 114/74 Blood Pressure [Lying] Blood Pressure [Sitting (for 1 minute prior to obtaining)] Blood Pressure [Standing (for 1 minute prior to obtaining)] Blood Pressure Mean 87 Blood Pressure Mean [Lying] Blood Pressure Mean [Sitting (for 1 minute prior to obtaining)] Blood Pressure Mean [Standing (for 1 minute prior to obtaining)] Pulse Ox Oxygen Delivery Method Positive well nourished and well developed Constitutional Narrative: BMI 32.0. General Appearance ED: well developed and NAD; Negative for pallor HEENT Reports moist mucous membranes HEENT Narrative: Head is atraumatic and normocephalic. Ears are normal. Nares are patent. Mucosa is moist. Eyes PERRL and EOMs intact bilaterally Neck no lymphadenopathy, supple and no JVD Resp normal respiratory effort and clear to auscultation bilaterally Cardio regular rate, regular rhythm, S1 normal heart sound, S2 normal heart sound and no murmurs GI normal to inspection, nondistended, normoactive bowel sounds, non-tender, non-distended and no masses; Negative for hepatosplenomegaly Extremity normal to inspection General Extremety ED: Negative for edema or tenderness General Extremity: Negative for edema Neuro oriented x3, CN's II-XII intact bilaterally and no sensory deficits noted Sensorium / Orientation: alert Skin no rashes or lesions noted and no wounds General Skin Exam: elasticity normal; Negative for jaundice or pallor MDM MDM MDM Narrative Medical decision making narrative: Patient's history and physical is suggestive of a vasovagal episode. Since she has this once a month per patient and [id number] if workup is negative will refer to cardiology for possible table tilt test. Since she reports history of iron deficiency anemia will obtain CBC to assess H&H. BMP was obtained to assess electrolytes and specifically potassium. She states she was told she has SVT. When asked how fast her heart rate was she reported 140. This would be unlikely SVT. Will place on monitor to determine if there is any ectopy or dysrhythmia. EKG was obtained to assess for any inferior ischemic changes. History & Record Review Additional record(s) reviewed:: Prior ED visit (December 24 seen by physician chemist assistant and problem was acute thoracic myofascial strain. Seen in October of this year for right calf strain by Dr. Madrigal and in 2022 for cervical radiculopathy by Dr. Barroso.) and Prior labs (Blood work from February 23, 2023 was reviewed.) Lab Data Labs: Laboratory Results - last 24 hr 01/29/25 08:50 WBC 12.5 H RBC 4.57 Hgb 13.9 Hct 41.0 MCV 89.7 MCH 30.4 MCHC 33.9 RDW Std Deviation 39.8 RDW Coeff of Cecile 12.2 Plt Count 341 MPV 9.6 Sodium 139 Potassium 3.8 Chloride 106 Carbon Dioxide 20.8 L Anion Gap 12 BUN 6 Creatinine 0.93 Estim Creat Clear Calc 76.85 Est GFR (MDRD) Non-Af 78 BUN/Creatinine Ratio 6.9 L Glucose 146 H Calcium 9.5 EKG Initial EKG: Attestation: I personally reviewed and interpreted this EKG as follows: Interpretation: Sinus Rhythm (Rate is 74. There is low voltage. Parables 150 ms Rickers. 80 ms. QT duration [place] 82 ms. [place] is normal. There is an RR prime in V1 and V2. This is unchanged from EKG obtained February 23, 2023. There is artifact in V4 and V5 which the computer is reading ST T wave abnormality consider ische) Management Discussion w/another healthcare provider: Greige Goods Examiner (Spoke to Dr. Nilson Puga who is on-call for flatwork finisher. He is going to see the patient in the ER. He asked for me to order an event monitor. Currently we have not available. The litigation legal secretary will call and verify.) Treatment and Re-Evaluation :: Dr. Kaminski recommends discontinuing her Norvasc. He will set up outpatient echo and table tilt test. Discharge Plan Triage Chief Complaint: Syncope ED Provider: John Mcfadden Dx/Rx/DC Orders Clinical Impression: Vasovagal near syncope, Nondiabetic hyperglycemia, Adult BMI 32.0-32.9 kg/sq m Instructions: ED Near-Fainting- Vagal Reaction, ED Hyperglycemia New Poss Diabetes Prescriptions: No Action atorvastatin 10 mg tablet 10 mg PO DAILY lamotrigine [Lamictal] 200 mg tablet 200 mg PO DAILY clonidine HCl 0.1 mg tablet 0.1 mg PO DAILY amlodipine 2.5 mg tablet 2.5 mg PO DAILY ferrous sulfate [FeroSul] 325 mg (65 mg iron) tablet 325 mg PO DAILY lithium carbonate 300 mg tablet 900 mg PO DAILY cholecalciferol (vitamin D3) 50 mcg (2,000 unit) capsule 50 mcg PO DAILY lurasidone [Latuda] 120 mg tablet 120 mg PO QPM Rx Instructions: must administer with food (at least 350 calories) diphenhydramine HCl [Allergy (diphenhydramine)] 25 mg capsule 25 mg PO Q8H PRN (Reason: allergy symptoms) Primary Care Provider: Krista Umanzor Referrals: Jonathan Puga MD [Med Staff - Active Staff] - 5-7 Days Krista Umanzor [employer] [Primary Care Provider] - 1 Week Activity Restrictions/Additional Instructions: Stop your Norvasc. And call Dr. Kaminski for follow-up appointment Print Language: Czech Disposition Disposition: Home, Self Care
[2025-01-29 08:54] VITALS: BP 129/78; BP 135/88; BP 159/86; PULSE 77; PULSE 82; PULSE 88
[2025-01-29 09:13] LABS: Hematocrit 41.0 % (37-47); Hemoglobin 13.9 g/dL (12.0-15.0); Mean Corp Hgb Conc 33.9 g/dL (32-36); Mean Corpuscular Volume 89.7 fL (81-99); Mean Platelet Vol. 9.6 fl (6.2-12.0); Platelet Count 341 K/mm3 (150-450); RBC Distribution Width CV 12.2 % (11.6-14.6); RBC Distribution Width SD 39.8 fl (35.1-43.9); Red Blood Count 4.57 M/mm3 (4.2-5.4); White Blood Count 12.5 K/mm3 (4.4-11.0)
[2025-01-29 09:49] LABS: Anion Gap 12 (5-15); BUN 6 mg/dL (4-19); BUN/Creat Ratio 6.9 RATIO (10-20); Calcium,Total 9.5 mg/dL (7.6-11.0); Carbon Dioxide 20.8 mmol/L (21.0-32.0); Chloride 106 mmol/L (98-108); Estimated Creatinine Clearance 76.85 ml/min (50-250); Glucose 146 mg/dL (70-99); Potassium 3.8 mmol/L (3.3-5.1)
[2025-01-29 10:24] VITALS: BP 114/74
--- NOTE | 2025-01-29 11:07 | PCM.CONS.C ---
Assessment & Plan Assessment/Plan (1) Vasovagal near syncope: PLAN: This appears to be vasovagal syncope. There is always a prodrome where the patient feels a sensation coming over her she is able to sit down or lay down and with a cold towel the symptoms slowly resolved. These have been occurring about once per month for the last 18 months. The patient has not fallen or hurt herself. The patient had a -30-day event monitor but she had no symptoms during the wearing of the monitor. She has not had an echocardiogram done or tilt table. I feel the patient should discontinue the Norvasc but stay on the clonidine 0.1 mg daily. The patient should also have a tilt table test and mobile cardiac telemetry for 30 days. We will set this up through the [facility] the patient will be evaluated there in the next 7 days by advanced practitioner and an echocardiogram will also be performed. The patient and her family member voiced understanding of this plan and agreed to proceed. I did caution her about if she starts to feel the sensation she should not sit down but lay down and elevate her feet above her heart level. PLAN: Plan 1. DC Norvasc. 2. Patient instructed to follow-up with the [facility] in the next week. Will obtain echocardiogram, mobile cardiac telemetry for 30 days, and tilt table ordered at that time. Will also reevaluate her response to discontinuing Norvasc. 3. Encouraged the patient to increase her salt intake and consider compression stockings/hose. HPI Consult Data Date of Consult: 01/29/25 HPI Narrative Reason for Consultation: Syncope HPI Narrative: ALESIA SMITH, is a 44 F who presents with an 18-month history of episodic syncope and near syncope. The patient has worn an event monitor for 30 days within the past year but had no events and no significant arrhythmias by her report. This was done through the [facility]. Patient reports that these events are always preceded by a prodrome where she feels a sensation coming on she is able to sit down or lay down and it resolves spontaneously without chayito syncope. She has not passed out she did have an episode today when she had been driving. She did not pass completely out she did pull off the side of the road and resolved the issue without any significant intervention. The patient denies any symptoms at this point in time. ECG since admission has shown heart rate in the 60-80 bpm range. Telemetry in the emergency department shows sinus rhythm at 77 bpm. The patient's iWatch does not capture an ECG but it did notify her that her heart rate was 40 bpm during the time of this sensation. The patient notes that these have been happening about once a month they are not predictable as far as the time of the month she does seem to think they have become more prominent around the time of her menses. The patient has never fallen or hurt herself with 1 of these events. To her knowledge she has never had an echocardiogram or tilt table test she is on Norvasc 2.5 mg daily. She is also on clonidine 0.1 mg daily. The patient has been treated for iron deficiency anemia and her hemoglobin was normal in the emergency department. Electrolytes and renal function are normal as well. The patient carries a history of vasovagal near syncope. She has multiple drug intolerances and had anaphylaxis to tramadol. Patient also carries a history of anxiety and depression. 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 [facility] Medical History High cholesterol Anxiety Depression Bipolar 1 disorder Home Medications ?Medication ?Instructions ?Recorded ?Last Taken ?Type atorvastatin 10 mg tablet 10 mg PO DAILY 02/23/23 01/28/25 History lamotrigine 200 mg tablet 200 mg PO DAILY 02/23/23 01/29/25 History (Lamictal) amlodipine 2.5 mg tablet 2.5 mg PO DAILY 01/29/25 01/28/25 History cholecalciferol (vitamin D3) 50 50 mcg PO DAILY 01/29/25 01/29/25 History mcg (2,000 unit) capsule clonidine HCl 0.1 mg tablet 0.1 mg PO DAILY 01/29/25 01/29/25 History diphenhydramine HCl 25 mg capsule 25 mg PO Q8H PRN allergy symptoms 01/29/25 Unknown History (Allergy (diphenhydramine)) ferrous sulfate 325 mg (65 mg 325 mg PO DAILY 01/29/25 01/29/25 History iron) tablet (FeroSul) lithium carbonate 300 mg tablet 900 mg PO DAILY 01/29/25 01/29/25 History lurasidone 120 mg tablet (Latuda) 120 mg PO QPM 01/29/25 01/28/25 History Allergy/AdvReac Type Severity Reaction Status Date / Time acetaminophen (From Vicodin) Allergy Mild Hives Verified 01/29/25 08:27 hydrocodone (From Vicodin) Allergy Mild Hives Verified 01/29/25 08:27 doxycycline Allergy Hives Verified 01/29/25 08:27 ketorolac (From Toradol) Allergy THROAT Verified 01/29/25 08:27 ITCHING/CLOSING methocarbamol (From Robaxin) Allergy Hives Verified 01/29/25 08:27 NSAIDS (Non-Steroidal Allergy Hives Verified 01/29/25 08:27 Anti-Inflamma sertraline (From Zoloft) Allergy HIVES Verified 01/29/25 08:27 tramadol Allergy Anaphylaxis Verified 01/29/25 08:27 Social History housing: apartment current occupational status: employed Smoking Status: Current every day smoker tobacco type: cigarettes ROS Constitutional Constitutional: Reports as per HPI Eyes Eyes: Reports systems reviewed and no addt'l complaints, except as documented ENT HEENT: Reports systems reviewed and no addt'l complaints, except as documented Cardiovascular Cardiovascular: Reports as per HPI Respiratory/Chest Respiratory/Chest: Reports as per HPI Gastrointestinal Gastrointestinal: Reports systems reviewed and no addt'l complaints, except as documented Genitourinary Genitourinary: Reports systems reviewed and no addt'l complaints, except as documented Musculoskeletal Musculoskeletal: Reports systems reviewed and no addt'l complaints, except as documented Integumentary Integumentary: Reports systems reviewed and no addt'l complaints, except as documented Neurologic Neurologic: Reports as per HPI Psychiatric Psychiatric: Reports as per HPI Endocrine Endocrinology: Reports systems reviewed and no addt'l complaints, except as documented Hematologic/Lymphatic Hematologic/Lymphatic: Reports systems reviewed and no addt'l complaints, except as documented Allergic/Immunologic Allergic/Immunologic: Reports as per HPI Physical Exam Const alert and oriented x3 HEENT normocephalic Eyes EOMs intact bilaterally Neck no JVD and no carotid bruits Chest inspection of chest normal Resp normal respiratory effort and clear to auscultation bilaterally Cardio Rate: regular rate Rhythm: regular rhythm Heart Sounds: S1 normal and S2 normal; Negative for click, gallop or murmur GI soft to palpation Extremity no pedal edema Neuro Neuro Narrative: Alert and oriented x 3 Psych mental status grossly normal Risk Stratification Risk Stratification Applicable: No Charges/Coding Visit Charges Inpatient E&M: 61137 Init Hosp L2 Objective Data Vital Signs: Vital Signs Temp Pulse Resp BP Pulse Ox O2 Del Method 97.7 F L 77 16 114/74 99 Room Air 01/29/25 08:24 01/29/25 08:54 01/29/25 08:24 01/29/25 10:24 01/29/25 08:24 01/29/25 08:24 Oxygen Delivery Method Room Air Weight: 174 lb 12.8 oz Body Mass Index (BMI) 31.9 Lab / Micro Data Attestation: I reviewed the patient's lab results. 01/29/25 08:50 01/29/25 08:50 Labs: Laboratory Results - last 24 hr 01/29/25 08:50: WBC 12.5 H, RBC 4.57, Hgb 13.9, Hct 41.0, MCV 89.7, MCH 30.4, MCHC 33.9, RDW Std Deviation 39.8, RDW Coeff of Cecile 12.2, Plt Count 341, MPV 9.6, Sodium 139, Potassium 3.8, Chloride 106, Carbon Dioxide 20.8 L, Anion Gap 12, BUN 6, Creatinine 0.93, Estim Creat Clear Calc 76.85, Est GFR (MDRD) Non-Af 78, BUN/Creatinine Ratio 6.9 L, Glucose 146 H, Calcium 9.5 Rhythm Strip Rhythm Strip: Sinus Rhythm Rate: 77 Ectopy: None Cardiology Labs/Tests 01/29/25 08:50: WBC 12.5 H, RBC 4.57, Hgb 13.9, Hct 41.0, MCV 89.7, MCH 30.4, MCHC 33.9, Plt Count 341, MPV 9.6, Sodium 139, Potassium 3.8, Chloride 106, Carbon Dioxide 20.8 L, Anion Gap 12, BUN 6, Creatinine 0.93, Est GFR (MDRD) Non-Af 78, BUN/Creatinine Ratio 6.9 L, Glucose 146 H, Calcium 9.5 Rhythm: EKG: ECHO: Stress Test: Cardiac Cath: PCI: CT Surgery: Holter monitor: EPS: PPM: CXR: Chest CT Scan:
[2025-01-29 12:00] VITALS: PULSE 75; RESP 16; O2SAT 97
[2025-01-29 12:30] VITALS: BP 129/86; PULSE 77; RESP 18; TEMP 37.1; O2SAT 100
--- OUTSIDE RECORDS SUMMARY | 2025-01-29 18:28 | XMS RPT_ITS | CCD ---
Author Organization [facility] CliniSyid Care Team Providers Care Psychiatry Physician Name Role Phone Unavailable Primary Care Provider UnavailCATALINO Conde Attending Unavailable Knoble DIE STAMPER.OUTBOUND SALES EXECUTIVE, Scott Primary Care Provider KNOBLE, SCOTT Referring Unavailable KNOBLE, SCOTT Primary Care Unavailable Knoble DIE STAMPER.OUTBOUND SALES EXECUTIVE, Scott Primary Care Provider Unavailable Primary Care Provider Unavailmir Jones COMMERCIAL CARPENTER-C, Scott Primary Care Provider Dr. Shantell Gastelum DO Emergency Provider Dr. Shantell Gastelum DO Attending Provider [phone] Dr. Castro Serrano MD Attending Provider Oriana HAYWARD, Dr. Stinson Referring Provider [phone] KNOBLE, SCOTT Primary Care Unavailable ORAL MAYER Attending Unavailable KNOBLE, SCOTT Referring Unavailable KNOBLE, SCOTT Primary Care Unavailable KNOBLE, SCOTT Primary Care Unavailable KNOBLE, SCOTT Attending Unavailable KNOBLE, SCOTT Primary Care Unavailable DEREJE DEL VALLE Attending Unavailable KNOBLE, SCOTT Primary Care Unavailable KNOBLE, SCOTT Referring Unavailable KNOBLE, SCOTT Primary Care Unavailable KNOBLE, SCOTT Primary Care Unavailable KNOBLE, SCOTT Primary Care Unavailable WILFRIDO CHAPA Attending Unavailable KNOBLE, SCOTT Referring Unavailable KNOBLE, SCOTT Primary Care Unavailable Ungur, Remus Referring Unavailable Castro Serrano Attending Unavailable Knoble, Scott Primary Care Unavailable Knoble, Scott Primary Care Unavailable Ungur, Remus Attending Unavailable Knoble, Scott Primary Care Unavailable Ungur, Remus Attending Unavailable Bogdan CRISTOBAL, Dr. Lopez Emergency Provider [phone] Jonathan Puga MD Attending Provider Allergies Allergy Classification Reported Allergen(s) Allergy Type Date of Onset Reaction(s) Facility Doxycycline (1 source) Doxycycline Drug Allergy 2 [facility] Methocarbamol (1 source) Methocarbamol Drug Allergy 2 [facility] NSAIDs (3 sources) Ibuprofen Drug Allergy 2 [facility], [facility] Opioid Agonists (1 source) traMADol Drug Allergy 2 [facility] (20 sources) Doxycycline; Translations: [DOXYCYCLINE] Drug Allergy 2 [facility] (20 sources) Ibuprofen; Translations: [IBUPROFEN] Drug Allergy 2 [facility] (20 sources) Ketorolac; Translations: [KETOROLAC] Drug Allergy 2 [facility] (20 sources) Methocarbamol; Translations: [METHOCARBAMOL] Drug Allergy 2 [facility] (20 sources) Naproxen; Translations: [NAPROXEN SODIUM] Drug Allergy 2 [facility] (20 sources) Non-steroidal anti-inflammatory agent; Translations: [NSAIDS (NON-STEROIDAL ANTI-INFLAMMATORY DRUG)] Propensity to adverse reactions to drug 3 [facility] (20 sources) traMADol; Translations: [TRAMADOL] Drug Allergy 2 [facility] (4 sources) Nonsteroidal Anti-inflammatory Compounds Allergy to substance 3 [facility] (4 sources) Sertraline Drug Allergy 3 [facility] (3 sources) Acetaminophen Drug Allergy 5 [facility] (3 sources) HYDROcodone Drug Allergy 5 [facility] (1 source) Acetaminophen Drug Allergy 5 [facility] (1 source) Doxycycline Drug Allergy 5 [facility] (1 source) HYDROcodone Drug Allergy 5 [facility] (1 source) Methocarbamol Drug Allergy 5 [facility] (1 source) NSAIDs Drug allergy (disorder) 5 [facility] (1 source) Sertraline Drug Allergy 5 [facility] (1 source) traMADol Drug Allergy [facility] Medications Current Medications Medication Drug Class(es) Dates Sig (Normalized) Sig (Original) amLODIPine 2.5 mg oral tablet (20 sources) Dihydropyridine Calcium Channel Hermila Start: 01-29-2025 take 1 tablet by mouth once daily Amlodipine 2.5 mg tablet Active 2.5 mg PO DAILY January 29, 2025 12:00am Start: 01-01-2025 take 1 tablet by [facility] once daily amLODIPine (NORVASC) 2.5 mg tablet Indications: Hypertension, essential Take 1 tablet by mouth once daily. 30 tablet 01/01/2025 Active Start: 03-30-2024 End: 12-27-2024 take 1 tablet by mouth once daily amLODIPine (NORVASC) 2.5 mg tablet Indications: Hypertension, essential Take 1 tablet by mouth once daily. 30 tablet 11/17/2024 12/27/2024 Discontinued Start: 01-17-2024 End: 03-28-2024 take 1 tablet by mouth once daily amLODIPine (NORVASC) 2.5 mg tablet Indications: Hypertension, essential Take 1 tablet by mouth once daily. 30 tablet 02/22/2024 03/28/2024 Discontinued Start: 11-18-2023 End: 01-13-2024 take 1 tablet by mouth once daily amLODIPine (NORVASC) 2.5 mg tablet Indications: Hypertension, essential Take 1 tablet by mouth once daily. 30 tablet 11/18/2023 01/13/2024 Discontinued Start: 08-27-2023 End: 11-16-2023 take 1 tablet by mouth once daily amLODIPine (NORVASC) 2.5 mg tablet Indications: Hypertension, essential Take 1 tablet by mouth once daily. 30 tablet 0 10/04/2023 11/16/2023 Discontinued Start: 02-25-2023 End: 08-25-2023 take 1 tablet by mouth once daily amLODIPine (NORVASC) 2.5 mg tablet Indications: Hypertension, essential Take 1 tablet by mouth once daily. 30 tablet 05/05/2023 08/25/2023 Discontinued Comment on above: Take 1 tablet by [facility] once daily. amoxicillin 875 mg / clavulanate 125 mg oral tablet (1 source) Penicillin-class Antibacterial Start: 2023 End: 2023 take 1 tablet by mouth twice daily amoxicillin-clavulan ate potassium (AUGMENTIN) 875-125 mg per tablet Indications: Bronchitis Take 1 tablet by mouth two times a day for 5 days. 10 tablet 0 12/05/2023 12/10/2023 Active atorvastatin 10 mg oral tablet (20 sources) HMG-CoA Reductase Inhibitor Start: 2022 End: 2024 take 1 tablet by mouth once daily at bedtime for hyperlipidemia atorvastatin (LIPITOR) 10 mg tablet Indications: Hyperlipidemia, mixed Take 1 tablet by mouth daily at bedtime. For cholesterol. 90 tablet 1 07/28/2024 Active Comment on above: Take 1 tablet by [facility] daily at bedtime. For cholesterol. azithromycin 250 mg oral tablet (1 source) Macrolide Antimicrobial Start: 2023 End: 2023 take 2 tablets by mouth once daily, then take 1 tablet by mouth once daily azithromycin (ZITHROMAX) 250 mg tablet Indications: Bronchitis Take 2 tablets by mouth once daily for 1 day, THEN 1 tablet once daily for 4 days. 6 tablet 0 12/05/2023 12/10/2023 Active cholecalciferol 0.05 mg oral capsule (20 sources) Vitamin D Start: 2024 take 1 capsule by mouth once daily Cholecalciferol (Vitamin D3) 50 mcg (2,000 unit) capsule Active 50 ug PO DAILY January 29, 2025 12:00am Start: 08-25-2022 take 1 capsule by mo [facility] once daily VITAMIN D-3 50 mcg (2,000 unit) cap Take 1 capsule (2,000 units) by mouth daily 08/25/2022 Active Comment on above: Take 1 capsule (2,00 0 units) by mouth daily cloNIDine hydrochloride 0.1 mg oral tablet (5 sources) Central alpha-2 Adrenergic Agonist Start: take 1 tablet by mouth once daily Clonidine Hcl 0.1 mg tablet Active 0.1 mg PO DAILY January 29, 2025 12:00am Start: 08-22-2024 take 1 tablet by [facility] every twelve hours cloNIDine HCl (CATAPRES) 0.1 mg tablet Take 1 tablet by mouth every 12 hours. 08/22/2024 Active codeine phosphate 2 mg/ml / guaiFENesin 20 mg/ml oral solution (1 source) Opioid Agonist Start: 12-05-2023 End: 12-08-2023 take 10 mL by mouth four times daily as needed for cough codeine-guaiFENesin (GUAIFENESIN AC) 10-100 mg/5 mL syrup Indications: Bronchitis Take 10 mL by mouth four times a day as needed for cough for up to 3 days. 118 mL 0 12/05/2023 12/08/2023 Active diphenhydrAMINE hydrochloride 25 mg oral capsule (20 sources) Histamine-1 Receptor Antagonist Start: 01-29-2025 take 1 capsule by mouth every eight hours as needed Diphenhydramine Hcl (Allergy (Diphenhydramine)) 25 mg capsule Active 25 mg PO Q8H as needed for allergy symptoms January 29, 2025 12:00am take 1 tablet by [facility] every eight hours as needed diphenhydrAMINE (BENADRYL) 25 mg tablet Take 25 mg by mouth three times daily as needed. Active Comment on above: Take 25 mg by mouth three times daily as needed. ferrous sulfate 325 mg oral tablet (20 sources) Start: 11-04-19 End: 11-17-19 take 1 tablet by mouth once daily ferrous sulfate 325 mg (65 mg iron) tablet Indications: Iron deficiency anemia, unspecified iron deficiency anemia type Take 1 tablet by mouth once daily. 90 tablet 11/17/2024 Active Ferrous Sulfate (Ferrous Sulfate 325 Mg (65 Mg Iron) Tablet) 325 mg (65 mg iron) tablet (1 source) Start: 01-30-20 Ferrous Sulfate (Ferrous Sulfate 325 Mg (65 Mg Iron) Tablet) 325 mg (65 mg iron) tablet Active 325 mg PO DAILY January 29, 2025 12:00am fluticasone propionate 0.05 mg/actuat metered dose nasal spray (4 sources) Corticosteroid Start: 11-11-19 take 2 spray(s) by mouth once daily fluticasone (FLONASE) 50 mcg/actuation nasal spray Indications: Seasonal allergic rhinitis, unspecified trigger Use 2 sprays in each nostril once daily. Rinse mouth after use. 16 g 11/10/2024 Active Inhalational Spacing Device (1 source) Start: 08-16-19 End: 08-16-19 Inhalational Spacing Device Indications: Mild intermittent asthma, uncomplicated 1 Device one time only for 1 dose. 1 Each 08/16/2024 08/16/2024 Active lamoTRIgine 200 mg oral tablet (20 sources) Mood Stabilizer, Anti-epileptic Agent Start: 07-20-19 take 1 tablet by mouth once daily Lamotrigine (Lamictal) 200 mg tablet Active 200 mg PO DAILY February 23, 2023 12:00am Comment on above: Take 1 tablet by [facility] once daily. lithium carbonate 300 mg oral tablet (20 sources) Start: 01-30-20 take 3 tablets by mouth once daily [place] Carbonate 300 mg tablet Active 900 mg PO DAILY January 29, 2025 12:00am Start: 10-16-2024 take 3 tablets by mo uth once daily lithium carbonate 300 mg tablet Take 3 tablets by mouth once daily. 10/16/2024 Active Start: 02-23-2023 End: 01-29-2025 [place] Carbonate 300 mg tab let extended release Discontinued 750 mg PO DAILY February 23, 2023 12:00am January 29, 2025 9:41am Start: 02-23-2023 take 900 mg by mouth once ev y [place] Carbonate Active 900 MG PO DAILY February 23, 2023 12:00am Start: 07-20-2022 End: 11-10-2024 take 1 capsule by mouth once daily lithium carbonate 600 mg capsule Indications: Bipolar affective disorder, current episode mixed, current episode severity unspecified (HCC) Take 1 capsule by mouth once daily. 90 capsule 07/20/2022 11/10/2024 Discontinued Comment on above: Take 1 capsule by mo uth once daily. lurasidone hydrochloride 120 mg oral tablet (18 sources) Atypical Antipsychotic Start: 01-29-2025 Lurasidone (Latuda) 120 mg tablet Active 120 mg PO EVERY EVENING January 29, 2025 12:00am must administer with food (at least 350 calories) Start: 01-27-2024 End: 11-10-2024 lurasidone (LATUDA) 60 mg ta b tablet 60 mg daily with dinner. 120mg daily 01/27/2024 11/10/2024 Discontinued take 1 tablet by [facility] once daily LATUDA 120 mg tablet Take 120 mg by mouth once daily. Active predniSONE 20 mg oral tablet (10 sources) Start: 08-16-2024 End: 08-21-2024 take 1 tablet by mouth twice daily predniSONE (DELTASONE) 20 mg tablet Indications: Mild intermittent asthma, uncomplicated Take 1 tablet by mouth two times a day for 5 days. 10 tablet 08/16/2024 08/21/2024 Active Start: 12-05-2023 End: 12-10-2023 take 1 tablet by mouth once daily predniSONE (DELTASONE) 50 mg Indications: Bronchitis Take 1 tablet by mouth once daily for 5 days. 5 tablet 0 12/05/2023 12/10/2023 Active Start: 08-11-2023 End: 11-01-2023 predniSONE (DELTASONE) 10 mg tablet Take 4 tabs daily for 3 days, then 2 tabs daily for 3 days, then 1 tab daily for 3 days with food. 21 tablet 0 08/11/2023 11/01/2023 Discontinued Start: 06-21-2023 End: 01-29-2025 take 3 tablets by mouth once daily Prednisone 20 mg tablet Discontinued 60 mg PO DAILY 15 0 June 21, 2023 1:00am January 29, 2025 9:40am Comment on above: Take 4 tabs daily fo r 3 days, then 2 tabs daily for 3 days, then 1 tab daily for 3 days with food. Completed/Discontinued Medications Medication Drug Class(es) Dates Sig (Normalized) Sig (Original) acetaminophen 325 mg / oxyCODONE hydrochloride 5 mg oral tablet (8 sources) Opioid Agonist Start: 06-21-2023 End: 01-29-2025 Oxycodone-Acetamin ophen (Percocet) 5-325 mg tablet Discontinued 1 {tbl} PO EVERY 6 HOURS NEEDED as needed for pain 12 3 0 December 10, 2024 January 29, 2025 9:40am Acute thoracic myofascial strain Strain of muscle and tendon of unspecified wall of thorax, initial encounter [id number] actuat albuterol 0.09 mg/actuat metered dose inhaler (20 sources) beta2-Adrenergic Agonist Start: 12-05-2023 End: 11-10-2024 take 2 puff(s) by inhalation every four hours as needed for wheezing albuterol HFA (PROVENTIL HFA, VENTOLIN HFA) 90 mcg/actuation inhaler Indications: Bronchitis Inhale 2 Puffs as instructed every 4 hours as needed for wheezing/shortness of breath. 8 g 12/05/2023 11/10/2024 Discontinued Start: 03-17-2023 End: 11-10-2024 take 2 puff(s) by inhalation every four hours as needed for wheezing albuterol HFA (PROVENTIL HFA, VENTOLIN HFA) 90 mcg/actuation inhaler Indications: Moderate persistent asthma, uncomplicated (HCC) Inhale 2 Puffs as instructed every 4 hours as needed for wheezing/shortness of breath. 1 Each 3 03/17/2023 Active Comment on above: Inhale 2 Puffs as in structed every 4 hours as needed for wheezing/shortness of breath. ARIPiprazole 10 mg oral tablet (20 sources) Atypical Antipsychotic Start: 023 End: 025 take 1 tablet by mouth once daily Aripiprazole (Abilify) 10 mg tablet Discontinued 10 mg PO DAILY February 23, 2023 12:00am January 29, 2025 10:32am Start: 07-20-2022 End: 11-10-2024 take 1 tablet by mouth once daily ARIPiprazole (ABILIFY) 5 mg tablet Indications: Bipolar affective disorder, current episode mixed, current episode severity unspecified (HCC) Take 1 tablet by mouth once daily. 90 tablet 07/20/2022 11/10/2024 Discontinued Comment on above: Take 1 tablet by [facility] once daily. ascorbic acid 1000 mg oral tablet (20 sources) Vitamin C Start: 11-04-19 24 End: 11-11-19 take 1 tablet by mouth once daily Ascorbic Acid (VITAMIN C) 1,000 mg tablet Indications: Iron deficiency anemia, unspecified iron deficiency anemia type Take 1 tablet by mouth once daily. Take wit Iron supplement. 90 tablet 1 11/04/2023 11/10/2024 Discontinued benzonatate 100 mg oral capsule (5 sources) Non-narcotic Antitussive Start: 08-11-19 24 End: 11-01-19 take 1 capsule by mouth every eight hours as needed benzonatate (TESSALON PERLES) 100 mg capsule Take 1 capsule by mouth three times a day as needed for cough. 21 capsule 0 08/11/2023 11/01/2023 Discontinued Comment on above: Take 1 capsule by mo [facility] three times a day as needed for cough. busPIRone hydrochloride 7.5 mg oral tablet (20 sources) Start: 02-24-20 End: 06-21-20 take 1 tablet by mouth twice daily Buspirone 7.5 mg tablet Discontinued 7.5 mg PO TWICE A DAY February 23, 2023 12:00am June 21, 2023 9:53pm End: 11-01-2023 take 1 tablet by mouth twice daily busPIRone (BUSPAR) 5 mg tablet Take 5 mg by mouth twice daily. 11/01/2023 Discontinued Comment on above: Take 5 mg by mouth t wice daily. cyclobenzaprine hydrochloride 10 mg oral tablet (20 sources) Muscle Relaxant Start: 12-11-19 End: 01-30-20 take 1 tablet by mouth twice daily Cyclobenzaprine 10 mg tablet Discontinued 10 mg PO TWICE A DAY 14 0 December 10, 2024 12:00am January 29, 2025 10:33am Start: 08-05-2023 End: 11-10-2024 take 1 tablet by mouth every twenty-four hours as needed cyclobenzaprine (FLEXERIL) 5 mg tablet Take 1 tablet by mouth at bedtime as needed. 30 tablet 08/05/2023 11/10/2024 Discontinued Comment on above: Take 1 tablet by [facility] at bedtime as needed. escitalopram 10 mg oral tablet (20 sources) Serotonin Reuptake Inhibitor Start: End: take 1 tablet by mouth once daily Escitalopram Oxalate (Lexapro) 10 mg tablet Discontinued 10 mg PO DAILY June 21, 2023 1:00am January 29, 2025 10:33am Start: 05-31-2023 End: 11-10-2024 take 0.5 tablet by mouth once daily, then take 1 tablet by mouth once daily escitalopram oxalate (LEXAPRO) 10 mg tablet TAKE 1/2 (ONE-HALF) OF A TABLET BY MOUTH ONCE DAILY xd, then INCREASE to ONE TABLET ONCE DAILY 05/31/2023 11/10/2024 Discontinued Comment on above: TAKE 1/2 (ONE-HALF) OF A TABLET BY MOUTH ONCE DAILY xd, then INCREASE to ONE TABLET ONCE DAILY FLUoxetine 20 mg oral capsule (3 sources) Serotonin Reuptake Inhibitor Start: 07-20-19 End: 09-22-19 take 1 capsule by mouth once daily FLUoxetine (PROZAC) 20 mg capsule Indications: Bipolar affective disorder, current episode mixed, current episode severity unspecified (HCC) Take 1 capsule by mouth once daily. 90 capsule 07/20/2022 09/21/2022 Discontinued Comment on above: Take 1 capsule by [facility] once daily. fluticasone / salmeterol (20 sources) Corticosteroid, beta2-Adrenergic Agonist Start: 03-17-20 End: 11-11-19 take 1 puff(s) by inhalation twice daily fluticasone-salmetero l (ADVAIR DISKUS) 100-50 mcg/dose inhaler Indications: Moderate persistent asthma, uncomplicated (HCC) Inhale 1 Puff as instructed twice daily. 180 Each 1 03/17/2023 11/10/2024 Discontinued Start: 03-17-2023 take 1 puff(s) by in halation twice daily fluticasone-salmeterol (ADVAIR DISKUS) 100-50 mcg/dose inhaler Indications: Moderate persistent asthma, uncomplicated (HCC) Inhale 1 Puff as instructed twice daily. 180 Each 1 03/17/2023 Active Start: 03-17-2023 take 1 puff(s) by in halation twice daily fluticasone-salmeterol (ADVAIR DISKUS) 100-50 mcg/dose inhaler Indications: Moderate persistent asthma, uncomplicated Inhale 1 Puff as instructed twice daily. 180 Each 1 03/17/2023 Active Comment on above: Inhale 1 Puff as ins tructed twice daily. gabapentin 300 mg oral capsule (20 sources) Anti-epileptic Agent Start: 4 End: 5 take 1 capsule by mouth three times daily gabapentin (NEURONTIN) 300 mg capsule Take 1 capsule by mouth three times a day for 30 days. 90 capsule 08/05/2023 11/10/2024 Discontinued Comment on above: Take 1 capsule by [facility] three times a day for 30 days. propranolol hydrochloride 10 mg oral tablet (8 sources) beta-Adrenergic Hermila Start: 3 End: 4 take 1 tablet by mouth once daily propranolol (INDERAL) 10 mg tablet Indications: SVT (supraventricular tachycardia) (HCC) Take 1 tablet by mouth once daily. 30 tablet 04/05/2023 11/01/2023 Discontinued Comment on above: Take 1 tablet by [facility] once daily. Problems Active Problems Problem Classification Problem Date Documented Date Episodic/Chronic Acquired foot deformities (1 source) Acquired left hallux valgus; Translations: [Hallux valgus (acquired), left foot] Chronic Asthma (2 sources) Uncomplicated moderate persistent asthma; Translations: [Moderate persistent asthma, uncomplicated] 03-17-2023 Chronic Cardiac dysrhythmias (20 sources) Supraventricular tachycardia; Translations: [Supraventricular tachycardia] Onset: 03-28-2023 04-05-2023 Chronic Cardiac dysrhythmias (6 sources) Palpitations; Translations: [Palpitations] 02-23-2023 Episodic Chronic obstructive pulmonary disease and bronchiectasis (1 source) Bronchitis; Translations: [Bronchitis, not specified as acute or chronic] 12-05-2023 Episodic Deficiency and other anemia (4 sources) Iron deficiency anemia; Translations: [Iron deficiency anemia, unspecified] 11-04-2023 Episodic Diabetes mellitus without complication (1 source) Non-diabetic hyperglycemia; Translations: [Hyperglycemia, unspecified] 01-29-2025 Episodic Disorders of lipid metabolism (9 sources) Mixed hyperlipidemia; Translations: [Mixed hyperlipidemia] 08-25-2023 Chronic Essential hypertension (15 sources) Essential hypertension; Translations: [Essential (primary) hypertension] 02-25-2023 Chronic Mood disorders (1 source) Bipolar affective disorder, current episode mixed; Translations: [Bipolar disorder, current episode mixed, unspecified] Chronic Nutritional deficiencies (1 source) Vitamin D deficiency; Translations: [Vitamin D deficiency, unspecified] Chronic Other circulatory disease (1 source) Abnormal peripheral pulse; Translations: [Other specified symptoms and signs involving the circulatory and respiratory systems] Episodic Other connective tissue disease (3 sources) Pain of left hand; Translations: [Pain in left hand] 12-23-2023 Episodic Other connective tissue disease (1 source) Pain in left arm; Translations: [Pain in left arm] 07-26-2023 Episodic Other connective tissue disease (1 source) Pain in right lower leg; Translations: [Pain in right lower leg] Onset: 10-16-2024 Episodic Other nutritional; endocrine; and metabolic disorders (1 source) Body mass index 30+ - obesity; Translations: [Body mass index (BMI) 32.0-32.9, adult] 01-29-2025 Chronic Other screening for suspected conditions (not mental disorders or infectious disease) (4 sources) Patient encounter status; Translations: [Encounter for screening mammogram for malignant neoplasm of breast] Onset: 09-22-2024 02-24-2023 Episodic Other upper respiratory disease (1 source) Seasonal allergic rhinitis; Translations: [Other seasonal allergic rhinitis] 11-10-2024 Chronic Other upper respiratory disease (1 source) Other seasonal allergic rhinitis; Translations: [Seasonal allergic rhinitis, unspecified trigger] Onset: 11-10-2024 Chronic Residual codes; unclassified (1 source) Obstructive sleep apnea (adult) (pediatric); Translations: [JUAN R (obstructive sleep apnea)] Onset: 02-26-2023 Chronic Residual codes; unclassified (1 source) Obstructive sleep apnea syndrome; Translations: [Obstructive sleep apnea (adult) (pediatric)] 03-11-2023 Chronic Residual codes; unclassified (1 source) Pain; Translations: [Pain, unspecified] 11-02-2022 Episodic Residual codes; unclassified (1 source) Procedure not done; Translations: [Procedure and treatment not carried out, unspecified reason] 12-10-2024 Episodic Residual codes; unclassified (1 source) Procedure and treatment not carried out, unspecified reason; Translations: [Procedure not carried out] Onset: 12-10-2024 Episodic Spondylosis; intervertebral disc disorders; other back problems (7 sources) Neck pain; Translations: [Cervicalgia] Onset: 12-16-2024 06-29-2023 Episodic Sprains and strains (5 sources) Strain of calf muscle; Translations: [Strain of other muscle(s) and tendon(s) at lower leg level, right leg, initial encounter] 10-11-2024 Episodic Syncope (6 sources) Near syncope; Translations: [Syncope and collapse] 02-23-2023 Episodic Viral infection (1 source) Viral disease; Translations: [Viral infection, unspecified] 08-16-2024 Episodic Past or Other Problems Problem Classification Problem Date Documented Da te Episodic/Chronic Other aftercare (2 sources) Other intermodal dispatcher (current) drug therapy; Translations: [Drug therapy] Onset: 01-10-2024 Episodic Other aftercare (1 source) Encounter for therapeutic drug level monitoring; Translations: [Encounter for therapeutic drug monitoring] Onset: 01-10-2024 Episodic Other connective tissue disease (1 source) Pain in left hand; Translations: [Left hand pain] Onset: 12-23-2023 Episodic Results Test Name Value Interpretation Reference Range Facility Anion gap in Serum or Plasma Ordered By: John Mcfadden on 01-29-2025 Anion gap [Moles/Vol] 12 mmol/L 5-15 [facility] BUN/creatinine ratioOrdered By: John Mcfadden on 01-29-2025 Urea nitrogen/Creatinine [Mass ratio] 6.9 mg/mg Low 10-20 [facility] Carbon dioxide, total [Moles /volume] in Central venous bloodOrdered By: John Mcfadden on 01-29-2025 CO2 [Moles/Vol] 20.8 mmol/L Low 21.0-32.0 [facility] Chloride assayOrdered By: Leo Mcfadden on 01-29-2025 Chloride [Moles/Vol] 106 mmol/L 98-108 [facility] Erythrocyte distribution wid th ratioOrdered By: John Mcfadden on 01-29-2025 Erythrocyte distribution width (RBC) [Ratio] 12.2 % 11.6-14.6 [facility] Erythrocyte distribution wid th standard deviationOrdered By: Johnlance Mcfadden on 01-29-2025 Erythrocyte distribution width (RBC) [Ratio] 39.8 fl 35.1-43.9 [facility] Glomerular filtration rate ( GFR) estimation/1.73 sq m using serum, plasma, or whole bOrdered By: John Mcfadden on 01-29-2025 GFR/1.73 sq M.predicted among non-blacks MDRD (S/P/Bld) [Vol rate/Area] 78 mL/min/{1.73_m2} >60 [facility] Comment on above: mL/min/1.73m2 CKD-EP I Creatinine Equation (2020) Hematocrit Auto (Bld) [Volum e fraction]Ordered By: John Mcfadden on 01-29-2025 Hematocrit (Bld) [Volume fraction] 41.0 % 37-47 [facility] Hemoglobin measurementOrdere d By: John Mcfadden on 01-29-2025 Hemoglobin (Bld) [Mass/Vol] 13.9 g/dL 12.0-15.0 [facility] MCV (mean corpuscular volume ) determinationOrdered By: John Mcfadden on 01-29-2025 MCV (RBC) [Entitic vol] 89.7 fL 81-99 [facility] Mean corpuscular hemoglobin (MCH) determinationOrdered By: Johnlance Mcfadden on 01-29-2025 MCH (RBC) [Entitic mass] 30.4 pg 27.0-32.0 [facility] Mean corpuscular hemoglobin concentration (MCHC) determinationOrdered By: Johnlance Mcfadden on 01-29-2025 MCHC (RBC) [Mass/Vol] 33.9 g/dL 32-36 [facility] Mean platelet volume determi nationOrdered By: John Mcfaddne on 01-29-2025 Platelet mean volume (Bld) [Entitic vol] 9.6 fL 6.2-12.0 [facility] Platelet countOrdered By: [facility] Bogdan on 01-29-2025 Platelets (Bld) [#/Vol] 341 10*3/uL 150-450 [facility] Potassium measurement (mass/ volume)Ordered By: Johnlance Mcfadden on 01-29-2025 Potassium (Unsp spec) [Mass/Vol] 3.8 mmol/L 3.3-5.1 [facility] RBC Auto (Bld) [#/Vol]Ordere d By: John Mcfadden on 01-29-2025 RBC (Bld) [#/Vol] 4.57 10*6/uL 4.2-5.4 [facility] Serum creatinine measurement (mass/volume)Ordered By: John Mcfadden on 01-29-2025 Creatinine [Mass/Vol] 0.93 mg/dL 0.70-1.20 [facility] Serum glucose measurement (m ass/volume)Ordered By: John Mcfadden on 01-29-2025 Glucose [Mass/Vol] 146 mg/dL High 70-99 [facility] Serum or plasma calcium meagan urement (mass/volume)Ordered By: Johnlance Mcfadden on 01-29-2025 Calcium [Mass/Vol] 9.5 mg/dL 7.6-11.0 [facility] Serum or plasma urea nitroge n measurement (mass/volume)Ordered By: John Mcfadden on 01-29-2025 Urea nitrogen [Mass/Vol] 6 mg/dL 4-19 [facility] Sodium levelOrdered By: John Mcfadden on 01-29-2025 Sodium [Moles/Vol] 139 mmol/L 133-145 [facility] White blood cell (WBC) count Ordered By: John Mcfadden on 01-29-2025 WBC (Bld) [#/Vol] 12.5 10*3/uL High 4.4-11.0 [facility] CNOVon 12-10-2024 CNOV Office Visit (UCWSTR ) CADY VALLE ([id number]) 1980 F Date Time Provider Department 12/10/24 1:00 PM DEREJE DEL VALLE [facility] During your visit today, we recorded the following information about you: Dereje Del Valle APRN.CNP 12/10/2024 3:10 PM Signed 44-year-old female presents urgent care chief complaint severe back pain. Patient states back pain started this morning. Is on unable to find a comfortable position. Describes it as a sharp burning stabbing pain between her shoulder blades. Has taken Tylenol. States she cannot take NSAIDs or prednisone. We discussed treatment options. Patient states she would like to be seen in the ED for pain management. 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 - amLODIPine (NORVASC) 2.5 mg tablet Take 1 tablet by mouth once daily. - lithium carbonate 300 mg tablet Take 3 tablets by mouth once daily. - LATUDA 120 mg tablet Take 120 mg by mouth once daily. - cloNIDine HCl (CATAPRES) 0.1 mg tablet Take 1 tablet by mouth every 12 hours. - fluticasone (FLONASE) 50 mcg/actuation nasal spray Use 2 sprays in each nostril once daily. Rinse mouth after use. - atorvastatin (LIPITOR) 10 mg tablet Take 1 tablet by mouth daily at bedtime. For cholesterol. - albuterol HFA (PROVENTIL HFA, VENTOLIN HFA) 90 mcg/actuation inhaler Inhale 2 Puffs as instructed every 4 hours as needed for wheezing/shortness of breath. - VITAMIN D-3 50 mcg (2,000 unit) cap Take 1 capsule (2,000 units) by mouth daily - diphenhydrAMINE (BENADRYL) 25 mg tablet Take 25 mg by mouth three times daily as needed. - lamoTRIgine (LAMICTAL) 200 mg tablet Take 1 tablet by mouth once daily. Problem List As Of Date 12/10/2024 Noted Resolved SVT (supraventricular tachycardia) (HCC) [I47.1*03/28/2023 Encounter Status:Closed by DEREJE DEL VALLE on 12/10/24 Normal [facility] Emergency Department Summary on 12-10-2024 Emergency Department Summary [facility] Medical Records Department [address] [place] [address] Emergency Department Summary 12/10/24 MR#: [id number] Acct: [id number] Name: CADY VALLE Rep #: [id number] : 1980 44 From: Eileen DESOUZA PCP: YUMI Aburto Status:DEP ER Location: ED HPI History of Present Illness Chief Complaint: Back Narrative Narrative: 44-year-old female presents with thoracic back pain. Yesterday she was moving houses and was lifting a lot of boxes and furniture. This morning she lifted a few more things. She was lifting her grocery bags out of the trunk when she developed bilateral thoracic back pain. If she sits completely still she has no pain but any movement it starts up again. She has no pain in her chest or abdomen. No pain in her upper or lower extremities. No weakness or paresthesias. She took Tylenol and used ice but it only helped a little bit. She cannot have NSAIDs because it causes hives and Toradol because of throat swelling. [facility] Medical History Anxiety Bipolar 1 disorder Depression High cholesterol Home Medications ???Medication ???Instructions ???Recorded ???Last Taken ???Type aripiprazole 10 mg tablet (Abilify) 10 mg PO DAILY 02/23/23 Unknown History atorvastatin 10 mg tablet 10 mg PO DAILY 02/23/23 Unknown Hi story lamotrigine 200 mg tablet 200 mg PO DAILY 02/23/23 Unknown H istory (Lamictal) lithium carbonate 300 mg 750 mg PO DAILY 02/23/23 Unknown H istory tablet,extended release escitalopram oxalate 10 mg tablet 10 mg PO DAILY 06/21/23 Unknown H istory (Lexapro) oxycodone-acetaminoph en 5 mg-325 1 tab PO Q6H PRN PRN Pain 3 days 1 08/22/22 Unknown Rx mg tablet #10 TABLETS prednisone 20 mg tablet 60 mg (3 x 20 mg) PO DAILY #15 06/03 Unknown Rx TABLETS oxycodone-acetaminoph en 5 mg-325 1 tab PO Q6H PRN PRN Pain 3 days 0 10/11/24 Unknown Rx mg tablet #12 TABLETS cyclobenzaprine 10 mg tablet 10 mg PO BID #14 TABLETS 12/10/24 Unknown Rx oxycodone-acetaminoph en 5 mg-325 1 tab PO Q6H PRN PRN pain 3 days 0 12/10/24 Unknown Rx mg tablet (Percocet) #12 tabs Allergy/AdvReac Type Severity Reaction Status Date / Time acetaminophen (From Vicodin) Allergy Mild Hives Verified 12/10/24 13:16 hydrocodone (From Vicodin) Allergy Mild Hives Verified 12/10/24 13:16 doxycycline Allergy Hives Verified 12/10/24 13:16 methocarbamol (From Robaxin) Allergy Hives Verified 12/10/24 13:16 NSAIDS (Non-Steroidal Allergy Hives Verified 12/10/24 13:16 Anti-Inflamma sertraline (From Zoloft) Allergy HIVES Verified 12/10/24 13:16 tramadol Allergy Anaphylaxis Verified 12/10/24 13:16 Social History (Updated 10/11/24 @ 15:44 by Caity Harden) current occupational status: employed Smoking Status: Current every day smoker tobacco type: cigarettes ROS ROS ED ROS Narrative Constitutional: Negative for fever, chills, malaise. CVS: Negative for palpitations, chest pain, syncope. Respiratory: Negative for shortness of breath. GI: Negative for abdominal pain, nausea, vomiting. EXAM Physical Exam Narrative Exam Narrative: CONST: Patient sitting in no acute distress. EYES: Normal inspection. NECK: Normal inspection. RESP: No respiratory distress, CTAB. CVS: Regular rate and rhythm, no murmur, no gallop. ABD: Soft and nontender, no guarding or rebound, nondistended. Back: Normal inspection, no midline tenderness. Tender over bilateral thoracic musculature. SKIN: Color normal, no rash, warm, dry, intact. EXTREMITIES: Normal appearance, no pedal edema. Full range of motion upper and lower extremities, 5/5 strength, normal sensation to light touch, 2+ radial and DP pulses. NEURO: Alert and answering questions appropriately. PSYCH: Normal affect. Const Vital Signs: 12/10/24 13:15 Temperature 98.1 F Temperature Source Oral Pulse Rate 92 Respiratory Rate 18 Blood Pressure 139/84 H Blood Pressure Mean 102 Pulse Ox 100 Oxygen Delivery Method Room Air Physical Exam Const Vital Signs: 12/10/24 13:15 Temperature 98.1 F Temperature Source Oral Pulse Rate 92 Respiratory Rate 18 Blood Pressure 139/84 H Blood Pressure Mean 102 Pulse Ox 100 Oxygen Delivery Method Room Air MDM MDM MDM Narrative Medical decision making narrative: Differential includes back strain, fracture, radiculopathy Patient has no midline tenderness and no focal neurological deficits so there is no indication for x-ray. Feeling better after Percocet and Norflex. She cannot take NSAIDs so I will prescribe muscle relaxers and Percocet for home. Lifting restrictions. Follow-up with PCP. I have personally performed a face to f (more content not included)... 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 Patient presents with: Cough: Chest congestion, nasal congestion, loose barky wet productive cough, mucous changing colors, x 2 weeks Patient reports 10 to 14 days of alternating nasal congestion and rhinorrhea. She comes in for evaluation because she has developed a cough and chest congestion and her nasal mucus and chest phlegm has turned yellow. She has no sinus pain or pressure. She has had a slight headache and her chest romero after she coughs. Denies fever, sore throat, or shortness of breath. She uses Benadryl for seasonal allergies Cough Review of Systems Respiratory: Positive for cough. Objective BP 125/85 Pulse 85 Temp 37 ?C (98.6 ?F) Resp 18 Wt 81 kg (178 lb 9.2 oz) LMP 10/27/2024 (Approximate) SpO2 98% BMI 31.76 kg/m? Physical Exam Constitutional: General: She is not in acute distress. HENT: Right Ear: Tympanic membrane and ear canal normal. Left Ear: Tympanic membrane and ear canal normal. Nose: Congestion present. Right Sinus: No maxillary sinus tenderness or frontal sinus tenderness. Left Sinus: No maxillary sinus tenderness or frontal sinus tenderness. Mouth/Throat: Mouth: Mucous membranes are moist. Pharynx: No oropharyngeal exudate or posterior oropharyngeal erythema. Eyes: Extraocular Movements: Extraocular movements intact. Conjunctiva/sclera: Conjunctivae normal. Pupils: Pupils are equal, round, and reactive to light. Cardiovascular: Rate and Rhythm: Normal rate and regular rhythm. Heart sounds: No murmur heard. Pulmonary: Effort: No respiratory distress. Breath sounds: No wheezing, rhonchi or rales. Musculoskeletal: Cervical back: Neck supple. Lymphadenopathy: Cervical: No cervical adenopathy. Neurological: Mental Status: She is alert. {ASSESSMENT/PLAN: 1. Seasonal allergic rhinitis, unspecified trigger - ICD9: 477.9, ICD10: J30.2 Continue antihistamine Add - FLUTICASONE PROPIONATE 50 MCG/ACTUATION NASAL SPRAY,SUSPENSION Oral Mayer MD Differential Diagnoses - Seasonal allergies is more likely for the following reason(s): suggested by HANDP - Bacterial sinusitis or pneumonia is less likely for the following reason(s): HANDP not suggestive Procedures Allergies As of Date: 11/10/2024 Noted Allergy Reaction DOXYCYCLINE 01/26/2022 4 - Hives IBUPROFEN 01/26/2022 4 - Hives KETOROLAC 01/26/2022 16 - Unknown METHOCARBAMOL 01/26/2022 16 - Unknown NAPROXEN SODIUM 01/26/2022 16 - Unknown NSAIDS (NON-STEROIDAL ANTI-INFLAM* 3 4 - Hives TRAMADOL 01/26/2022 4 - Hives Date Reviewed: 11/10/2024 Reviewed by: Whitley Romano LPN - Fully Assessed Reason for Visit: Cough [28] Cmt: Chest congestion, nasal congestion, loose barky wet productive cough, mucous changing colors, x 2 weeks Primary Visit Diagnosis:Seasonal allergic rhinitis, unspecified trigger [J30.2] Order(s):fluticasone (FLONASE) 50 mcg/actuation nasal sprayUse 2 sprays in each nostril once daily. Rinse mouth after use.Disp: 16 gRfl: 0 Prescriptions as of 11/10/2024 - lithium carbonate 300 mg tablet Take 3 tablets by mouth once daily. - LATUDA 120 mg tablet Take 120 mg by mouth once daily. - cloNIDine HCl (CATAPRES) 0.1 mg tablet Take 1 tablet by mouth every 12 hours. - fluticasone (FLONASE) 50 mcg/actuation nasal spray Use 2 sprays in each nostril once daily. Rinse mouth after use. - amLODIPine (NORVASC) 2.5 mg tablet Take 1 tablet by mouth once daily. - atorvastatin (LIPITOR) 10 mg tablet Take 1 tablet by mouth daily at bedtime. For cholesterol. - ferrous sulfate 325 mg (65 mg iron) tablet Take 1 tablet by mouth once daily. - albuterol HFA (PROVENTIL HFA, VENTOLIN HFA) 90 mcg/actuation inhaler Inhale 2 Puffs as instructed every 4 hours as needed for wheezing/shortness of breath. - VITAMIN D-3 50 mcg (2,000 unit) cap Take 1 capsule (2,000 units) by mouth daily - diphenhydrAMINE (BENADRYL) 25 mg tablet Take 25 mg by mouth three times daily as needed. - lamoTRIgine (LAMICTAL) 200 mg tablet Take 1 tablet by mouth once daily. Problem List As Of Date 11/10/2024 Noted Resolved SVT (supraventricular tachycardia) (HCC) [I47.1*03/28/2023 Prescriptions ordered this encounter Disp Refills Start End FLUTICASONE PROPIONATE 50 MCG/ACTUAT* 16 g 0 11/10/2024 Route: EACH NOSTRIL Sig: Use 2 sprays in each nostril once daily. Rinse mouth after use. Medications Discontinued During This Encoun (more content not included)... Normal [facility] Emergency Department Summary on 10-11-2024 Emergency Department Summary [facility] Medical Records Department [address] [place] [address] Emergency Department Summary 10/11/24 MR#: [id number] Acct: [id number] Name: CADY VALLE Rep #: [id number] : 1980 44 From: Shantell Gastelum DO PCP: Scott Jones NP-C Status:DEP ER Location: ED HPI History of Present Illness Chief Complaint: Lower Extremity Injury Detail of Chief Complaint: Right calf pain Informant: patient Narrative Narrative: Patient presents with right calf pain that started this morning around 9:00. Patient states that she stood up to walk and had sudden onset of severe pain in the right calf. Pain worse with certain movements and pushing on the calf. She denies recent travel or surgery. She denies chest pain or shortness of breath. She denies history of PE or DVT. [facility] Medical History Anxiety Bipolar 1 disorder Depression High cholesterol Home Medications ???Medication ???Instructions ???Recorded ???Last Taken ???Type aripiprazole 10 mg tablet (Abilify) 10 mg PO DAILY 02/23/23 Unknown History atorvastatin 10 mg tablet 10 mg PO DAILY 02/23/23 Unknown Hi story lamotrigine 200 mg tablet 200 mg PO DAILY 02/23/23 Unknown H istory (Lamictal) lithium carbonate 300 mg 750 mg PO DAILY 02/23/23 Unknown H istory tablet,extended release escitalopram oxalate 10 mg tablet 10 mg PO DAILY 06/21/23 Unknown H istory (Lexapro) oxycodone-acetaminoph en 5 mg-325 1 tab PO Q6H PRN PRN Pain 3 days 1 08/22/22 Unknown Rx mg tablet #10 TABLETS prednisone 20 mg tablet 60 mg (3 x 20 mg) PO DAILY #15 06/03 Unknown Rx TABLETS oxycodone-acetaminoph en 5 mg-325 1 tab PO Q6H PRN PRN Pain 3 days 0 10/11/24 Unknown Rx mg tablet #12 TABLETS Allergy/AdvReac Type Severity Reaction Status Date / Time acetaminophen (From Vicodin) Allergy Mild Hives Verified 10/11/24 13:43 hydrocodone (From Vicodin) Allergy Mild Hives Verified 10/11/24 13:43 doxycycline Allergy Hives Verified 10/11/24 13:42 methocarbamol (From Robaxin) Allergy Hives Verified 10/11/24 13:42 NSAIDS (Non-Steroidal Allergy Hives Verified 10/11/24 13:42 Anti-Inflamma sertraline (From Zoloft) Allergy HIVES Verified 10/11/24 13:42 tramadol Allergy Anaphylaxis Verified 10/11/24 13:42 Social History (Updated 10/11/24 @ 15:44 by Caity Harden) current occupational status: employed Smoking Status: Current every day smoker tobacco type: cigarettes ROS ROS ED Review of Systems ROS Unobtainable: other Constitutional Constitutional ED: Reports lethargy; Denies chills, fever(s), sweats or weight loss Eyes Eyes: Denies blurry vision, change in vision or diplopia ENT ENT ED: Denies rhinorrhea or sore throat Cardiovascular Cardiovascular: Denies chest pain, orthopnea or racing heartbeat Respiratory/Chest Respiratory/Chest: Denies cough, dyspnea, dyspnea on exertion, orthopnea or sputum Gastrointestinal Gastrointestinal: Denies abdominal pain, diarrhea, nausea or vomiting Genitourinary Genitourinary ED: Denies dysuria, hematuria or urinary frequency Musculoskeletal Musculoskeletal: Denies arthralgias, back pain, myalgias or neck pain Integumentary Reports other Details: Right calf pain ; Denies abscess, Abrasions or rash Neurologic Neurologic: Denies headache(s) or weakness Psychiatric Psychiatric: Denies anxiety, depression or suicidal thoughts Endocrine Endocrinology: Denies polydipsia, polyphagia or polyuria Hematologic/Lymphatic Hematologic/Lymphatic : Denies easy bleeding, easy bruising or lymphadenopathy Allergic/Immunologic Allergic/Immunologic ED: Denies mouth swelling, tongue swelling or urticaria EXAM Physical Exam Const Vital Signs: 10/11/24 13:43 Temperature 97.6 F L Temperature Source Temporal Pulse Rate 95 Respiratory Rate 17 Blood Pressure 148/81 H Blood Pressure Mean 103 Pulse Ox 99 Oxygen Delivery Method Room Air Positive well nourished and well developed General Appearance ED: well developed and NAD HEENT Reports TM's clear and moist mucous membranes normocephalic and atraumatic; Negative for trauma or tenderness Tympanic Membrane ED: Yes TM's clear Eyes PERRL and EOMs intact bilaterally General Eye ED: Negative for pale conjunctiva or scleral icterus Neck no lymphadenopathy, supple and no JVD General: Negative for tenderness Chest Wall inspection of chest normal and palpation of chest normal Chest: Negative for tenderness Resp normal respiratory effort and clear to auscultation bilaterally Effort and Inspection: Negative for respiratory distress or pain with movement Auscultation: Negative for rhonchi, wheezes or diminished lung sounds Cardio regular rate, regular rhythm, S1 normal heart soun (more content not included)... Normal [facility] Venous Duplex US, Unilateral on 10-11-2024 Venous Duplex US, Unilateral [facility] [place] [address] Venous Duplex US, Unilateral 10/11/24 1544 MR#: [id number] Acct: [id number] Name: CADY VALLE Rep #: [id number] : 1980 44 From: Castro Serrano MD Attending Dr: Status: DEP ER Ordering Dr: Shantell Gastelum DO Date: 10/11/24 Location: ED Sex: F C Admitted: Reason For Study Reason For Study: Pain RIGHT LEFT GSV is normal. CFV is compressible, spontaneous, phasic, competent, CFV is compressible, spontaneous, phasic, competent and demonstrates normal augmentation. and demonstrates normal augmentation. FV is compressible, spontaneous, phasic, competent and demonstrates normal augmentation. POP V is compressible, spontaneous, phasic, competent and demonstrates normal augmentation. T/P Trunk is compressible. PTV is compressible. RT PerV is compressible. Procedure This is a venous duplex using B-mode, color flow and spectral Doppler. Exam performed portable in ED. A preliminary report was called and/or faxed to Dr. Pappas. VL/Venous Duplex US, Unilateral Interpretation Summary Deep veins of the right lower extremity are patent and compressible segmentally. There is no evidence of right lower extremity deep vein thrombosis. The right great saphenous vein appears patent and compressible segmentally. Ordering Physician: Shantell Gastelum Performed By: Heather Fox, RVT 10/11/24 1710 Date Castro Serrano MD CC: [employer]-Rusty Jones; Dr. Shantell Gastelum, Date Dictated: 10/11/24 1544 Date Transcribed: 10/11/24 1710 Bakery Machine Mechanic Supervisor: Signed Quinn [facility] SCREENING W TOMBia 09-22 MELVA SCREENING W DAYANARA * * *Final Report* * * DATE OF EXAM: Sep 22 2024 2:37PM W [id number] - MELVA SCREENING W DAYANARA / PROCEDURE REASON: Encounter for screening mammogram for breast cancer * * * * Physician Interpretation * * * * RESULT: [facility] [address] [place] [address] #[id number] - MELVA SCREENING W DAYANARA HISTORY: 44 year-old patient seen for screening. Patient is asymptomatic in both breasts. Patient states no personal history of breast cancer. COMPARISON STUDIES: This is a baseline study. MAMMOGRAM TECHNIQUE: The study was acquired using full field digital technology and interpreted from soft copy. Digital Breast Tomosynthesis (DBT) images were obtained and used to assist in the interpretation of this examination. MAMMOGRAM FINDINGS: There are scattered areas of fibroglandular density. No suspicious masses, calcifications or other abnormalities are seen in either breast. IMPRESSION: There is no mammographic evidence of malignancy in either breast. Routine screening mammogram is recommended. Annual mammogram will be due in 1 year. BI-RADS Category 1: Negative RISK: Based on the Tyrer-Cuzick (TC) risk assessment model, this patient has a 7.2% lifetime risk of developing breast cancer, meaning they are at average risk for developing breast cancer. However, this is only an estimate based on available history provided on the patient's questionnaire. We encourage all patients to talk with their providers about these results, further recommendations for managing breast health, and appropriate supplemental screening options if the patient has dense breast tissue. Interpreting Radiologist: Lisbeth Simmons M.D. Electronically signed on: 09/24/2024 Bakery Machine Mechanic Supervisor: CARLOTA Transcribe Date/Time: Sep 22 2024 2:35P Dictated by: LISBETH SIMMONS MD This examination was interpreted and the report reviewed and electronically signed by: LISBETH SIMMONS MD on Sep 24 2024 5:37PM EST [id number] Normal [facility] CNOVon 08-16-2024 CNOV Office Visit (UCWSTR ) CADY VALLE ([id number]) 1980 F Date Time Provider Department 08/16/24 11:00 AM ELEAZAR JOSE UCWSTR During your visit today, we recorded the following information about you: Temperature Pulse Respiration Blood pressure 98 degrees 96/minute 16/minute 122/80 Weight 81.9 kg Jose Bush PA-C 08/16/2024 11:24 AM Signed This note was created using Divvyshot. Subjective Cady Valle is a 44 year old female. Patient is a 44-year-old female who complains of fever, chills, body aches, throat irritation and cough that she has been experiencing for the past 6 days. Patient states that she actually was feeling improved yesterday, however her fever and bodyaches returned again this morning. Patient does have asthma but reports no increased episodes of wheezing. Patient does have an albuterol MDI, however she is not certain that it is current. Patient states that her niece and nephew recently developed similar symptoms and they both tested negative for group A strep. Patient reports that her niece and nephew were not tested for influenza. 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 Cough Associated symptoms include chills, sore throat and myalgias. Review of Systems Constitutional: Positive for chills and fever. HENT: Positive for sore throat. Respiratory: Positive for cough. Musculoskeletal: Positive for myalgias. All other systems reviewed and are negative. Objective BP 122/80 Pulse 96 Temp 36.7 ?C (98 ?F) Resp 16 Wt 81.9 kg (180 lb 8.9 oz) LMP 07/15/2023 (Approximate) SpO2 100% BMI 32.11 kg/m? Physical Exam Vitals and nursing note reviewed. Constitutional: Appearance: Normal appearance. She is normal weight. HENT: Head: Normocephalic and atraumatic. Right Ear: Tympanic membrane, ear canal and external ear normal. Left Ear: Tympanic membrane, ear canal and external ear normal. Nose: Nose normal. Mouth/Throat: Mouth: Mucous membranes are moist. Pharynx: Oropharynx is clear. Eyes: Extraocular Movements: Extraocular movements intact. Conjunctiva/sclera: Conjunctivae normal. Pupils: Pupils are equal, round, and reactive to light. Cardiovascular: Rate and Rhythm: Normal rate and regular rhythm. Pulses: Normal pulses. Heart sounds: Normal heart sounds. Pulmonary: Effort: Pulmonary effort is normal. Breath sounds: Normal breath sounds. Musculoskeletal: Cervical back: Normal range of motion and neck supple. Skin: General: Skin is warm and dry. Capillary Refill: Capillary refill takes less than 2 seconds. Neurological: General: No focal deficit present. Mental Status: She is alert and oriented to person, place, and time. Psychiatric: Mood and Affect: Mood normal. Behavior: Behavior normal. Thought Content: Thought content normal. Judgment: Judgment normal. Assessment and Plan Physical exam findings as noted above. Patient was provided with prescriptions for prednisone 20 mg and Tessalon 100 mg. Supportive care instructions were discussed and the patient verbalizes excellent understanding of same. CLINICAL IMPRESSION: Viral Illness; Asthma; Medication Refill ASSESSMENT/PLAN: 1. Viral illness - ICD9: 079.99, ICD10: B34.9 (primary diagnosis) 2. Mild intermittent asthma, uncomplicated - ICD9: 493.90, ICD10: J45.20 - PREDNISONE 20 MG TABLET - ALBUTEROL SULFATE HFA 90 MCG/ACTUATION AEROSOL INHALER - INHALATIONAL SPACING DEVICE Jose Bush PA-C Allergies As of Date: 08/16/2024 Noted Allergy Reaction DOXYCYCLINE 01/26/2022 4 - Hives IBUPROFEN 01/26/2022 4 - Hives KETOROLAC 01/26/2022 16 - Unknown METHOCARBAMOL 01/26/2022 16 - Unknown NAPROXEN SODIUM 01/26/2022 16 - Unknown NSAIDS (NON-STEROIDAL ANTI-INFLAM* 3 4 - Hives TRAMADOL 01/26/2022 4 - Hives Date Reviewed: 08/16/2024 Reviewed by: Irlanda Milan MA - Fully Assessed Reason for Visit: Cough [28] Cmt: nasal congestion, chills, bodyaches, headaches and fever x 6 days Primary Visit Diagnosis:Viral illness [B34.9] Other Visit Diagnosis:Mild intermittent asthma, uncomplicated [J45.20] Order(s):predniSONE (DELTASONE) 20 mg tabletTake 1 tablet by mouth two times a day for 5 days.Disp: 10 tabletRfl: 0 albuterol HFA (PROVENTIL HFA, VENTOLIN HFA) 90 mcg/actuation inhalerInhale 2 Puffs as instructed every 4 hours as needed for wheezing/shortness of breath.Disp: 1 EachRfl: 0 Inhalational Spacing Device1 Device one time only for 1 dose.Disp: 1 EachRfl: 0 Prescriptions as of 08/16/2024 - predniSONE (DELTASONE) 20 mg tablet Take 1 tablet by mouth two times a day for 5 days. - albuterol HFA (PROVENTIL HFA, VENTOLIN HFA) 90 mcg/actuation inhaler Inhale 2 Puffs as instructed every 4 hours as needed for wheezing/shortness of breath. - Inhalational Spacing Device 1 Device one time only for 1 (more content not included)... Normal [facility] CADY VALLE ([id number]) 1980 F Date Time Provider Department 05/23/24 SCOTT JONES [facility] During your visit today, we recorded the following information about you: Allergies As of Date: 05/23/2024 Noted Allergy Reaction DOXYCYCLINE 01/26/2022 4 - Hives IBUPROFEN 01/26/2022 4 - Hives KETOROLAC 01/26/2022 16 - Unknown METHOCARBAMOL 01/26/2022 16 - Unknown NAPROXEN SODIUM 01/26/2022 16 - Unknown NSAIDS (NON-STEROIDAL ANTI-INFLAM* 3 4 - Hives TRAMADOL 01/26/2022 4 - Hives Date Reviewed: 02/14/2024 Reviewed by: Kamala Brady MA - Fully Assessed Prescriptions as of 05/23/2024 - ferrous sulfate 325 mg (65 mg iron) tablet Take 1 tablet by mouth once daily. - atorvastatin (LIPITOR) 10 mg tablet Take 1 tablet by mouth daily at bedtime. For cholesterol. - amLODIPine (NORVASC) 2.5 mg tablet Take 1 tablet by mouth once daily. - lurasidone (LATUDA) 60 mg tab tablet 60 mg daily with dinner. - albuterol HFA (PROVENTIL HFA, VENTOLIN HFA) 90 mcg/actuation inhaler Inhale 2 Puffs as instructed every 4 hours as needed for wheezing/shortness of breath. - Ascorbic Acid (VITAMIN C) 1,000 mg tablet Take 1 tablet by mouth once daily. Take wit Iron supplement. - escitalopram oxalate (LEXAPRO) 10 mg tablet TAKE 1/2 (ONE-HALF) OF A TABLET BY MOUTH ONCE DAILY xd, then INCREASE to ONE TABLET ONCE DAILY - gabapentin (NEURONTIN) 300 mg capsule Take 1 capsule by mouth three times a day for 30 days. - cyclobenzaprine (FLEXERIL) 5 mg tablet Take 1 tablet by mouth at bedtime as needed. - albuterol HFA (PROVENTIL HFA, VENTOLIN HFA) 90 mcg/actuation inhaler Inhale 2 Puffs as instructed every 4 hours as needed for wheezing/shortness of breath. - fluticasone-salmetero l (ADVAIR DISKUS) 100-50 mcg/dose inhaler Inhale 1 Puff as instructed twice daily. - VITAMIN D-3 50 mcg (2,000 unit) cap Take 1 capsule (2,000 units) by mouth daily - diphenhydrAMINE (BENADRYL) 25 mg tablet Take 25 mg by mouth three times daily as needed. - lamoTRIgine (LAMICTAL) 200 mg tablet Take 1 tablet by mouth once daily. - lithium carbonate 600 mg capsule Take 1 capsule by mouth once daily. - ARIPiprazole (ABILIFY) 5 mg tablet Take 1 tablet by mouth once daily. Problem List As Of Date 05/23/2024 Noted Resolved SVT (supraventricular tachycardia) (HCC) [I47.1*03/28/2023 Encounter Status:Closed by SCOTT JONES on 05/23/24 Normal [facility] [place], Bld SerPl-sCncon [place] [Moles/Vol] 0.7 mmol/L Normal 0.6-1.2 [facility] Comment on above: Order Comment: Valentinei yan Type: BLOOD SPECIMENOrdering Facility: External Submitter Address: , , Result Comment: Refe rence ranges and high/low indicator flags are provided as general guidelines only. The treating physician must determine appropriate target levels/dosing based on the specific clinical situation. Performed By: #### 1 4334-7 ####[facility] [id number] [facility] [place] [address] [facility] CNOVon 02-14-2024 CNOV Office Visit (ORTHWS ) CADY VALLE ([id number]) 1980 F Date Time Provider Department 02/14/24 9:15 AM WILFRIDO CHAPA During your visit today, we recorded the following information about you: Wilfrido Chapa MD 02/14/2024 9:52 AM Signed Wilfrido Chapa MD Department of Orthopaedics Orthopaedics [address] [facility] [address] Dept: [phone] Dept February 14, 2024 CHIEF COMPLAINT: Established Patient and Pain of the Left Hand and Referred by Scott Jones (Last seen 09/17/22 Right shoulder impingement) HPI Patient here for evaluation for left hand pain. Patient states here middle and ring fingers are stuck. She is able to bend them but then they will go back to being stuck. Patient is right hand dominant. She had x-rays done on 12/23/23. Tried taking Tylenol for the pain but does not help. ASSESSMENT: M79.642 Left hand pain [M79.642] PLAN: It appears as she had an extensor tendon subluxation that she previously had surgery for about 2 years ago to rebalance the middle digit extensor. It looks to be in appropriate alignment at this time but may be just inflamed or aggravated for some reason. My recommendation is just for some anti-inflammatories. She certainly could also nelsy tape it the opposite way for some continued alignment exercises. Parenthetically, she has subluxation of the middle extensor tendon on the contralateral hand which does not cause her any troubles at this time. Ms. Cady Valle was advised as to contrast therapies and/or to take analgesics/anti-infla mmatories as needed and all contraindications were reviewed. OBJECTIVE: Ms. Cady Valle is a pleasant 43 year old in no apparent distress. Gen:LMP 07/15/2023 nl development, non obese, no deformities ENT: Normocephalic, normal hearing, moist mucosa CV: Pulses:Radial= 2+ and symmetric, capillary refill < 2 secs, no peripheral edema/varicosities Skin: no rash, bruising or lesions. Good turgor. Psych: cooperative and appropriate, alert and oriented x 3, good mood and affect. Musculoskeletal: Prior surgical scar noted over the middle MCP joint. She has just a slight asymmetry of the finger at resting posture. However with flexion and extension of the digit appears the tendon is in the midline. Just some very minor fullness which is typical of postoperative, however over the MCP and just in the first segment on the dorsal side. No signs or symptoms of infection however. Contralateral middle extensor tendon has slight subluxation. Nontender at the A1 jose sites and there is no locking catching or clicking secondary to a traditional trigger finger. Imaging: * * *Final Report* * * DATE OF EXAM: Dec 23 2023 5:29PM WOX [id number] - XR HAND 3V PA/LAT/OBL LT / PROCEDURE REASON: Left hand pain * * * * Physician Interpretation * * * * HAND RADIOGRAPHS - LEFT HISTORY: Left hand pain TECHNOLOGIST PROVIDED HISTORY (if applicable): Left hand pain x3 days, no known injury. Pain on dorsal side of hand in area of 3rd metacarpal. Hx of surgery of left hand. TECHNIQUE: XR HAND 3V PA/LAT/OBL LT COMPARISON: None available RESULT: Bone mineralization appears normal. Left hand: There are no visualized articular erosions in the hand. No focal bony abnormality is identified. Joint spaces are preserved, and there is no soft tissue swelling. Supporting Subjective Information Below: Past Surgical History: PAST SURGICAL HISTORY No date: PAST SURGICAL HISTORY OF Comment: Diskectomy L4-L5 x2 12/2021: PAST SURGICAL HISTORY OF; Left Comment: Left hand tendon surgery 09/2020: REPAIR UMBILICAL MAURICE,5+Y/O,REDUC Medications: Current Outpatient Medications Medication Sig lurasidone (LATUDA) 60 mg tab tablet 60 mg daily with dinner. amLODIPine (NORVASC) 2.5 mg tablet Take 1 tablet by mouth once daily. atorvastatin (LIPITOR) 10 mg tablet Take 1 tablet by mouth daily at bedtime. For cholesterol. albuterol HFA (PROVENTIL HFA, VENTOLIN HFA) 90 mcg/actuation inhaler Inhale 2 Puffs as instructed every 4 hours as needed for wheezing/shortness of breath. ferrous sulfate 325 mg (65 mg iron) tablet Take 1 tablet by mouth once daily. Ascorbic Acid (VITAMIN C) 1,000 mg tablet Take 1 tablet by mouth once daily. Take wit Iron supplement. cyclobenzaprine (FLEXERIL) 5 mg tablet Take 1 tablet by mouth at bedtime as needed. albuterol HFA (PROVENTIL HFA, VENTOLIN HFA) 90 mcg/actuation inhaler Inhale 2 Puffs as instructed every 4 hours as needed for wheezing/shortness of breath. VITAMIN D-3 50 mcg (2,000 unit) cap Take 1 capsule (2,000 units) by mouth daily diphenhydrAMINE (BENADRYL) 25 mg tablet Take 25 mg by mouth three times daily as needed. lamoTRIgine (LAMICTAL) 200 mg tablet Take 1 tablet by mouth once daily. lithium carbonate 600 mg capsule Take 1 capsule (more content not included)... [facility] CADY VALLE ([id number]) 1980 F Date Time Provider Department 01/27/24 SCOTT JONES During your visit today, we recorded the following information about you: Cecy Oro RN 01/27/2024 11:54 AM Signed Jessie from [place] [facility] calls and is requesting lab results from 01/10/2024 to be faxed to [phone]. Faxed as requested. Cecy Oro RN Allergies As of Date: 01/27/2024 Noted Allergy Reaction DOXYCYCLINE 01/26/2022 4 - Hives IBUPROFEN 01/26/2022 4 - Hives KETOROLAC 01/26/2022 16 - Unknown METHOCARBAMOL 01/26/2022 16 - Unknown NAPROXEN SODIUM 01/26/2022 16 - Unknown NSAIDS (NON-STEROIDAL ANTI-INFLAM* 3 4 - Hives TRAMADOL 01/26/2022 4 - Hives Date Reviewed: 12/23/2023 Reviewed by: Sarah Bowles MA - Fully Assessed Reason for Visit: Faxed Lab Results [Other] Prescriptions as of 01/27/2024 - amLODIPine (NORVASC) 2.5 mg tablet Take 1 tablet by mouth once daily. - atorvastatin (LIPITOR) 10 mg tablet Take 1 tablet by mouth daily at bedtime. For cholesterol. - albuterol HFA (PROVENTIL HFA, VENTOLIN HFA) 90 mcg/actuation inhaler Inhale 2 Puffs as instructed every 4 hours as needed for wheezing/shortness of breath. - ferrous sulfate 325 mg (65 mg iron) tablet Take 1 tablet by mouth once daily. - Ascorbic Acid (VITAMIN C) 1,000 mg tablet Take 1 tablet by mouth once daily. Take wit Iron supplement. - escitalopram oxalate (LEXAPRO) 10 mg tablet TAKE 1/2 (ONE-HALF) OF A TABLET BY MOUTH ONCE DAILY xd, then INCREASE to ONE TABLET ONCE DAILY - gabapentin (NEURONTIN) 300 mg capsule Take 1 capsule by mouth three times a day for 30 days. - cyclobenzaprine (FLEXERIL) 5 mg tablet Take 1 tablet by mouth at bedtime as needed. - albuterol HFA (PROVENTIL HFA, VENTOLIN HFA) 90 mcg/actuation inhaler Inhale 2 Puffs as instructed every 4 hours as needed for wheezing/shortness of breath. - fluticasone-salmetero l (ADVAIR DISKUS) 100-50 mcg/dose inhaler Inhale 1 Puff as instructed twice daily. - VITAMIN D-3 50 mcg (2,000 unit) cap Take 1 capsule (2,000 units) by mouth daily - diphenhydrAMINE (BENADRYL) 25 mg tablet Take 25 mg by mouth three times daily as needed. - lamoTRIgine (LAMICTAL) 200 mg tablet Take 1 tablet by mouth once daily. - lithium carbonate 600 mg capsule Take 1 capsule by mouth once daily. - ARIPiprazole (ABILIFY) 5 mg tablet Take 1 tablet by mouth once daily. Problem List As Of Date 01/27/2024 Noted Resolved SVT (supraventricular tachycardia) ([facility]) [I47.1*03/28/2023 Encounter Status:Closed by CECY ORO on 01/27/24 Normal [facility] 25(OH)D3 SerPl-ncon 2023 25-hydroxyvitamin D3 [Mass/Vol] 36.3 ng/mL Normal 31.0-80.0 [facility] Comment on above: Order Comment: Speci men Type: BLOOD SPECIMENOrdering Facility: External Submitter Address: , , Result Comment: Clas sification of 25 [place] Vitamin D status: Deficiency/Insufficiency: < or = 30 ng/ml. Sufficiency/Optimal Levels: 31-80 ng/mL Toxicity: > 100 ng/mL. Test performed by chemiluminescent immunoassay. Performed By: #### 1 989-3 ####[facility] LABIA [id number] [place] [address] [place] Basic metabolic 2000 panelon 01-10-2024 Anion gap [Moles/Vol] 11 mmol/L Normal 8-15 [facility] Comment on above: Order Comment: Speci men Type: BLOOD SPECIMENOrdering Facility: External Submitter Address: , , Performed By: #### 3 053-6, 80390-6, 9186-3, 1006-2 ####[facility]IA [id number] [address] [address] [place] Calcium [Mass/Vol] 9.9 mg/dL Normal 8.5-10.2 [facility] Comment on above: Order Comment: Speci men Type: BLOOD SPECIMENOrdering Facility: External Submitter Address: , , Performed By: #### 3 053-6, 51293-6, 3016-3, 302-2 ####[facility] LABCL[facility] [id number] [address] [address] [place] Chloride [Moles/Vol] 105 mmol/L Normal 98-107 [facility] Comment on above: Order Comment: Speci men Type: BLOOD SPECIMENOrdering Facility: External Submitter Address: , , Performed By: #### 3 053-6, 58486-3, 3015-3, 302-2 ####[facility]CL[facility] [id number] [place] [address] [place] CO2 [Moles/Vol] 23 mmol/L Normal 22-30 [facility] Comment on above: Order Comment: Speci men Type: BLOOD SPECIMENOrdering Facility: External Submitter Address: , , Performed By: #### 3 053-6, 06187-1, 3015-3, 302-2 ####[facility]CL[facility] [id number] [place] [address] [place] Creatinine [Mass/Vol] 0.76 mg/dL Normal 0.58-0.96 [facility] Comment on above: Order Comment: Speci men Type: BLOOD SPECIMENOrdering Facility: External Submitter Address: , , Performed By: #### 3 053-6, 15166-3, 3015-3, 3022 ####[facility] LABCLIA [id number] [place] [id number] [place] Creatinine and Glomerular filtration rate.predicted panel (S/P/Bld) 101 mL/min/1.73m??? Normal >=60 [facility] Comment on above: Order Comment: Speci men Type: BLOOD SPECIMENOrdering Facility: External Submitter Address: , , Result Comment: Elvia mated Glomerular Filtration Rate (eGFR) is calculated using the 2020 CKD-EPI creatinine equation. This equation utilizes serum creatinine, sex, and age as parameters. The creatinine assay has traceable calibration to isotope dilution-mass spectrometry. Refer to KDIGO guidelines for clinical interpretation. In patients with unstable renal function, e.g. those with acute kidney injury, the eGFR may not accurately reflect actual GFR. Performed By: #### 3 053-6, 47436-1, 3015-3, 3025- ####[facility] [id number] [place] [address] [place] Glucose [Mass/Vol] 96 mg/dL Normal 74-99 [facility] Comment on above: Order Comment: aJime heredia Type: BLOOD SPECIMENOrdering Facility: External Submitter Address: , , Result Comment: The [place] Diabetes Association (ADA) provides guidance for cutoff values for fasting glucose and random glucose. The ADA defines fasting as no caloric intake for at least 8 hours. Fasting plasma glucose results between 100 to 125 mg/dL indicate increased risk for diabetes (prediabetes). Fasting plasma glucose results greater than or equal to 126 mg/dL meet the criteria for diagnosis of diabetes. In the absence of unequivocal hyperglycemia, results should be confirmed by repeat testing. In a patient with classic symptoms of hyperglycemia or hyperglycemic crisis, random plasma glucose results greater than or equal to 200 mg/dL meet the criteria for diagnosis of diabetes. Reference: Standards of Medical Care in Diabetes 2016, [place] [employer] Association. Diabetes Care. 2016.39(Suppl 1). Performed By: #### 3 053-6, 28444-4, 3015-, 3025-08 ####[facility]IA [id number] [place] [id number] [place] Potassium [Moles/Vol] 4.2 mmol/L Normal 3.7-5.1 [facility] Comment on above: Order Comment: Jaime heredia Type: BLOOD SPECIMENOrdering Facility: External Submitter Address: , , Performed By: #### 3 053-6, 22870-2, 3015-3, 3025-2 ####[facility] LABIA [id number] [address] [address] [place] Sodium [Moles/Vol] 139 mmol/L Normal 136-144 [facility] Comment on above: Order Comment: Valentinei yan Type: BLOOD SPECIMENOrdering Facility: External Submitter Address: , , Performed By: #### 3 053-6, 20339-3, 3, 3025-08 ####[facility]CL[facility] [id number] [place] [address] [place] Urea nitrogen [Mass/Vol] 8 mg/dL Normal 7-21 [facility] Comment on above: Order Comment: Speci men Type: BLOOD SPECIMENOrdering Facility: External Submitter Address: , , Performed By: #### 3 053-6, 26116-8, 3015-09, 3025-08 ####[facility] LABCLIA [id number] [place] [address] [place], Bld SerPl-sCncon [place] [Moles/Vol] 0.7 mmol/L Normal 0.6-1.2 [facility] Comment on above: Order Comment: Jaime heredia Type: BLOOD SPECIMENOrdering Facility: External Submitter Address: , , Result Comment: Refe rence ranges and high/low indicator flags are provided as general guidelines only. The treating physician must determine appropriate target levels/dosing based on the specific clinical situation. Performed By: #### 1 4334-7 ####[facility]CL[facility] [id number] [place] [address] [place] T3 SerPl-mCncon 01-10-2024 T3 [Mass/Vol] 95 ng/dL Normal 79-165 [facility] Comment on above: Order Comment: Jaime heredia Type: BLOOD SPECIMENOrdering Facility: External Submitter Address: , , Performed By: #### 3 053-6, 10785-5, 3, 3025-08 ####[facility]CL[facility] [id number] [place] [address] [place] T4 SerPl-mCncon 01-10-2024 T4 [Mass/Vol] 6.6 ug/dL Normal 5.5-10.2 [facility] Comment on above: Order Comment: Jaime heredia Type: BLOOD SPECIMENOrdering Facility: External Submitter Address: , , Performed By: #### 3 053-6, 29842-5, 3016-3, 3026-2 ####[facility] LABIA [id number] [address] TSH SerPl-aCncon 01-10-2024 TSH Qn 0.972 m[IU]/L Normal 0.270-4.200 [facility] Comment on above: Order Comment: Jaime heredia Type: BLOOD SPECIMENOrdering Facility: External Submitter Address: , , Result Comment: If t he patient is , TSH reference range varies by gestational period: First Trimester (weeks 9-12): 0.180-2.990 mIU/L Second Trimester: 0.110-3.980 mIU/L Third Trimester: 0.480-4.710 mIU/L Marek Menjivar, et al. A Practical Approach for the Verifications and Determination of Site- and Trimester-Specific Reference Intervals for Thyroid Function tests in . Thyroid, 2019:29:3:412-420. Maikol Espitia, et al. 2017 Guidelines of the [place] Thyroid Association for the Diagnosis and Management of Thyroid Disease during and the . Thyroid, 2017:27:3:315-389. Performed By: #### 3 053-6, 51088-9, 6-3, 3026-2 ####[facility] [id number] [place] [id number] [facility] CNPMelissa 12-28-2023 CNPN Telephone ([facility]) CADY VALLE ([id number]) 1980 F Date Time Provider Department 12/28/23 SCOTT JONES During your visit today, we recorded the following information about you: Scott Jones APRN.OUTBOUND SALES EXECUTIVE 12/28/2023 8:34 AM Signed Please let patient know their xray is normal. Chencho Reyes RN 12/28/2023 9:03 AM Signed Patient calls and notified of results. Patient verbalizes understanding with no further questions. Chencho Reyes RN Allergies As of Date: 12/28/2023 Noted Allergy Reaction DOXYCYCLINE 01/26/2022 4 - Hives IBUPROFEN 01/26/2022 4 - Hives KETOROLAC 01/26/2022 16 - Unknown METHOCARBAMOL 01/26/2022 16 - Unknown NAPROXEN SODIUM 01/26/2022 16 - Unknown NSAIDS (NON-STEROIDAL ANTI-INFLAM* 3 4 - Hives TRAMADOL 01/26/2022 4 - Hives Date Reviewed: 12/23/2023 Reviewed by: Sarah Bowles MA - Fully Assessed Reason for Visit: Results [95] Prescriptions as of 12/28/2023 - albuterol HFA (PROVENTIL HFA, VENTOLIN HFA) 90 mcg/actuation inhaler Inhale 2 Puffs as instructed every 4 hours as needed for wheezing/shortness of breath. - amLODIPine (NORVASC) 2.5 mg tablet Take 1 tablet by mouth once daily. - atorvastatin (LIPITOR) 10 mg tablet Take 1 tablet by mouth daily at bedtime. For cholesterol. - ferrous sulfate 325 mg (65 mg iron) tablet Take 1 tablet by mouth once daily. - Ascorbic Acid (VITAMIN C) 1,000 mg tablet Take 1 tablet by mouth once daily. Take wit Iron supplement. - escitalopram oxalate (LEXAPRO) 10 mg tablet TAKE 1/2 (ONE-HALF) OF A TABLET BY MOUTH ONCE DAILY xd, then INCREASE to ONE TABLET ONCE DAILY - gabapentin (NEURONTIN) 300 mg capsule Take 1 capsule by mouth three times a day for 30 days. - cyclobenzaprine (FLEXERIL) 5 mg tablet Take 1 tablet by mouth at bedtime as needed. - albuterol HFA (PROVENTIL HFA, VENTOLIN HFA) 90 mcg/actuation inhaler Inhale 2 Puffs as instructed every 4 hours as needed for wheezing/shortness of breath. - fluticasone-salmetero l (ADVAIR DISKUS) 100-50 mcg/dose inhaler Inhale 1 Puff as instructed twice daily. - VITAMIN D-3 50 mcg (2,000 unit) cap Take 1 capsule (2,000 units) by mouth daily - diphenhydrAMINE (BENADRYL) 25 mg tablet Take 25 mg by mouth three times daily as needed. - lamoTRIgine (LAMICTAL) 200 mg tablet Take 1 tablet by mouth once daily. - lithium carbonate 600 mg capsule Take 1 capsule by mouth once daily. - ARIPiprazole (ABILIFY) 5 mg tablet Take 1 tablet by mouth once daily. Problem List As Of Date 12/28/2023 Noted Resolved SVT (supraventricular tachycardia) (HCC) [I47.1*03/28/2023 Encounter Status:Closed by CHENCHO REYES on 12/28/23 Normal [facility] XR Hand - left PA and Latera l and Obliqueon 12-27-2023 IMPRESSION: 1. 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 Pain on dorsal side of hand in area of 3rd metacarpal. Hx of surgery of left hand. TECHNIQUE: XR HAND 3V PA/LAT/OBL LT COMPARISON: None available RESULT: Bone mineralization appears normal. Left hand: There are no visualized articular erosions in the hand. No focal bony abnormality is identified. Joint spaces are preserved, and there is no soft tissue swelling. DIVISION OF RADIOLOGY Provider, Cc Juan Manuel [facility] - 12/27/2023 * * *Final Report* * * DATE OF EXAM: Dec 23 2023 5:29PM WOX 5345 - XR HAND 3V PA/LAT/OBL LT / PROCEDURE REASON: Left hand pain * * * * Physician Interpretation * * * * HAND RADIOGRAPHS - LEFT HISTORY: Left hand pain TECHNOLOGIST PROVIDED HISTORY (if applicable): Left hand pain x3 days, no known injury. Pain on dorsal side of hand in area of 3rd metacarpal. Hx of surgery of left hand. TECHNIQUE: XR HAND 3V PA/LAT/OBL LT COMPARISON: None available RESULT: Bone mineralization appears normal. Left hand: There are no visualized articular erosions in the hand. No focal bony abnormality is identified. Joint spaces are preserved, and there is no soft tissue swelling. IMPRESSION IMPRESSION: 1. No acute radiographic abnormality of the left hand Bakery Machine Mechanic Supervisor: [facility] Transcribe Date/Time: Dec 27 2023 5:00P Dictated by : SHADIA STEVE MD This examination was interpreted and the report reviewed and electronically signed by: SHADIA STEVE MD on Dec 27 2023 5:01PM EST [facility] XR Hand - left PA and Latera l and ObliqueOrdered By: Ccf Provider on 12-27-2023 [facility] CNOVon 12-23-2023 CNOV Office Visit (GWYNWS ) CADY VALLE ([id number]) 1980 F Date Time Provider Department 12/23/23 5:20 PM SCOTT JONES During your visit today, we recorded the following information about you: Pulse Respiration Blood pressure Weight 80/minute 14/minute 121/78 79.4 kg Scott Jones APRN.OUTBOUND SALES EXECUTIVE 12/23/2023 5:14 PM Signed Chief Complaint Patient presents with: Hand Pain: Left hand X 3 days HPI Cady Valle is a 43 year old female who presents here today for Above Complaints.. Patient presents for left hand pain x3 days. Has history of surgery on left hand in 2021. Patient reports reduced ROM, pain with movement and white spot that appears in knuckle of middle finger. Past medical history, appointments, medications, allergies reviewed. Previous Medical History PAST MEDICAL HISTORY Diagnosis Date Bipolar 1 disorder, mixed, full remission (HCC) DDD (degenerative disc disease), lumbar Generalized anxiety disorder Sleep apnea uses cpap Previous Surgical History PAST SURGICAL HISTORY Procedure Laterality Date PAST SURGICAL HISTORY OF Diskectomy L4-L5 x2 PAST SURGICAL HISTORY OF Left 12/2021 Left hand tendon surgery REPAIR UMBILICAL MAURICE,5+Y/O,REDUC 09/2020 Family History FAMILY HISTORY Problem Relation Age of Onset Hyperlipidemia Mother Hypertension Mother Rheumatologic disease Mother Fibromyalgia Mother Hyperlipidemia Father Glaucoma Father Cancer Father Esophageal Hyperlipidemia Maternal Grandmother Hyperlipidemia Paternal Grandmother Patient Allergies ALLERGIES Allergen Reactions Doxycycline Hives Ibuprofen Hives Ketorolac Unknown Methocarbamol Unknown Naproxen Sodium Unknown Nsaids (Non-Steroid* Hives Tramadol Hives Current Medications Current Outpatient Medications on File Prior to Visit Medication Sig albuterol HFA (PROVENTIL HFA, VENTOLIN HFA) 90 mcg/actuation inhaler Inhale 2 Puffs as instructed every 4 hours as needed for wheezing/shortness of breath. amLODIPine (NORVASC) 2.5 mg tablet Take 1 tablet by mouth once daily. atorvastatin (LIPITOR) 10 mg tablet Take 1 tablet by mouth daily at bedtime. For cholesterol. ferrous sulfate 325 mg (65 mg iron) tablet Take 1 tablet by mouth once daily. Ascorbic Acid (VITAMIN C) 1,000 mg tablet Take 1 tablet by mouth once daily. Take wit Iron supplement. escitalopram oxalate (LEXAPRO) 10 mg tablet TAKE 1/2 (ONE-HALF) OF A TABLET BY MOUTH ONCE DAILY xd, then INCREASE to ONE TABLET ONCE DAILY gabapentin (NEURONTIN) 300 mg capsule Take 1 capsule by mouth three times a day for 30 days. cyclobenzaprine (FLEXERIL) 5 mg tablet Take 1 tablet by mouth at bedtime as needed. albuterol HFA (PROVENTIL HFA, VENTOLIN HFA) 90 mcg/actuation inhaler Inhale 2 Puffs as instructed every 4 hours as needed for wheezing/shortness of breath. fluticasone-salmetero l (ADVAIR DISKUS) 100-50 mcg/dose inhaler Inhale 1 Puff as instructed twice daily. VITAMIN D-3 50 mcg (2,000 unit) cap Take 1 capsule (2,000 units) by mouth daily diphenhydrAMINE (BENADRYL) 25 mg tablet Take 25 mg by mouth three times daily as needed. lamoTRIgine (LAMICTAL) 200 mg tablet Take 1 tablet by mouth once daily. lithium carbonate 600 mg capsule Take 1 capsule by mouth once daily. ARIPiprazole (ABILIFY) 5 mg tablet Take 1 tablet by mouth once daily. No current facility-administered medications on file prior to visit. Social History Social History Tobacco Use Smoking status: Every Day Packs/day: 1 Types: Cigarettes Smokeless tobacco: Never Vaping Use Vaping Use: Never used Substance Use Topics Alcohol use: Not Currently Drug use: Not Currently Types: Marijuana, Cocaine, Opiates, Benzodiazepines, Crystal Meth Comment: Recovery for 5 years Review of Symptoms REVIEW OF SYSTEMS SEE HPI EXAM: BP 121/78 Pulse 80 Resp 14 Wt 79.4 kg (175 lb) LMP 07/15/2023 (Approximate) BMI 31.12 kg/m? General Appearance: Well appearing, alert, in no acute distress, well-hydrated, well nourished.. Extremities: Positive findings: joint location: third on left mcp(s) swelling, painful movement, loss of ROM, and tendonitis. Health Maintenance List Hepatitis C Screening Never done HIV Screening Never done Cervical Cancer Screening Never done Mammogram Screening Never done Covid-19 Vaccine(2 - 2022- season) due on 03/12/2023 Behavioral Health Screening Never done Pneumococcal Vaccine(2 of 2 - PCV) due on 09/22/2023 Influenza Vaccine(Season Ended) due on 03/12/2024 DTaP,Tdap,Td Vaccine(2 - Tdap) due on 01/10/2032 HPV Vaccine Aged Out Hepatitis B Vaccine Discontinued ASSESSMENT/PLAN: 1. Left hand pain [M79.642] - ICD9: 729.5, ICD10: M79.642 - XR HAND GENERAL 3V PA/LAT/OBL LEFT - CONSULT TO ORTHOPAEDICS - Continue ice, tylenol and ibuprofen prn Scott Jones, DIE STAMPER.OUTBOUND SALES EXECUTIVE Allergies As of Date: 06 (more content not included)... Normal [facility] XR HAND 3V PA/LAT/OBL LTon 0 12-23-2023 XR HAND 3V PA/LAT/OBL LT * * *Final Repo rt* * * DATE OF EXAM: Dec 23 2023 5:29PM WOX 5345 - XR HAND 3V PA/LAT/OBL LT / PROCEDURE REASON: Left hand pain * * * * Physician Interpretation * * * * HAND RADIOGRAPHS - LEFT HISTORY: Left hand pain TECHNOLOGIST PROVIDED HISTORY (if applicable): Left hand pain x3 days, no known injury. Pain on dorsal side of hand in area of 3rd metacarpal. Hx of surgery of left hand. TECHNIQUE: XR HAND 3V PA/LAT/OBL LT COMPARISON: None available RESULT: Bone mineralization appears normal. Left hand: There are no visualized articular erosions in the hand. No focal bony abnormality is identified. Joint spaces are preserved, and there is no soft tissue swelling. IMPRESSION: 1. No acute radiographic abnormality of the left hand Bakery Machine Mechanic Supervisor: [facility] Transcribe Date/Time: Dec 27 2023 5:00P Dictated by : SHADIA STEVE MD This examination was interpreted and the report reviewed and electronically signed by: SHADIA STEVE MD on Dec 27 2023 5:01PM EST [id number] Normal [facility] XR Hand - left PA and Latera l and Obliqueon 12-23-2023 Radiology Study observation (narrative) [facility] CBC W Auto Differential pane l (Bld)on 11-01-2023 Basophils (Bld) [#/Vol] 0.04 10*3/uL [facility] Basophils/100 WBC (Bld) 0.5 % [facility] Differential cell count method Nom (Bld) Auto [facility] Eosinophils (Bld) [#/Vol] 0.16 10*3/uL [facility] Eosinophils/100 WBC (Bld) 1.8 % [facility] Erythrocyte distribution width (RBC) [Ratio] 12.6 % 11.5 - 15.0 % [facility] Hematocrit (Bld) [Volume fraction] 43.1 % 36.0 - 46.0 % [facility] Hemoglobin (Bld) [Mass/Vol] 14.2 g/dL 11.5 - 15.5 g/dL [facility] Immature granulocytes (Bld) [#/Vol] 0.03 10*3/uL [facility] Immature granulocytes/100 WBC (Bld) 0.3 % [facility] Lymphocytes (Bld) [#/Vol] 2.51 10*3/uL [facility] Lymphocytes/100 WBC (Bld) 29.0 % [facility] MCH (RBC) [Entitic mass] 30.6 pg 26. 0 - 34.0 pg [facility] MCHC (RBC) [Mass/Vol] 32.9 g/dL 30.5 - 36.0 g/dL [facility] MCV (RBC) [Entitic vol] 92.9 fL 80.0 - 100.0 fL [facility] Monocytes (Bld) [#/Vol] 0.68 10*3/uL [facility] Monocytes/100 WBC (Bld) 7.9 % [facility] Neutrophils (Bld) [#/Vol] 5.23 10*3/uL [facility] Neutrophils/100 WBC (Bld) 60.5 % [facility] Nucleated RBC (Bld) [#/Vol] [facility] Nucleated RBC/100 WBC (Bld) [Ratio] 0.0 % /100 WBC [facility] Platelet mean volume (Bld) [Entitic vol] 10.0 fL 9.0 - 12.7 fL [facility] Platelets (Bld) [#/Vol] 326 10*3/uL [facility] RBC (Bld) [#/Vol] 4.64 10*6/uL 3.90 - 5.2 0 m/uL [facility] WBC (Bld) [#/Vol] 8.65 10*3/uL [facility] Comprehensive metabolic 2000 panelon 11-01-2023 Albumin [Mass/Vol] 4.5 g/dL 3.9 - 4.9 g/dL [facility] ALP [Catalytic activity/Vol] 83 U/L 34 - 123 U/L [facility] ALT [Catalytic activity/Vol] 19 U/L 7 - 38 U/L [facility] Anion gap [Moles/Vol] 10 mmol/L 9 - 18 mmol/L [facility] AST [Catalytic activity/Vol] 25 U/L 13 - 35 U/L [facility] Bilirubin [Mass/Vol] 0.5 mg/dL 0.2 - 1 .3 mg/dL [facility] Calcium [Mass/Vol] 9.8 mg/dL 8.5 - 10. 2 mg/dL [facility] Chloride [Moles/Vol] 105 mmol/L 97 - 10 5 mmol/L [facility] CO2 [Moles/Vol] 24 mmol/L 22 - 30 mmol/L [facility] Creatinine [Mass/Vol] 0.85 mg/dL 0.58 - 0.96 mg/dL [facility] GFR/1.73 sq M.predicted among non-blacks MDRD (S/P/Bld) [Vol rate/Area] 88 mL/min/{1.73_m2} - PINF [facility] Comment on above: Estimated Glomerular Filtration Rate (eGFR) is calculated using the 2020 CKD-EPI creatinine equation. This equation utilizes serum creatinine, sex, and age as parameters. The creatinine assay has traceable calibration to isotope dilution-mass spectrometry. Refer to KDIGO guidelines for clinical interpretation. In patients with unstable renal function, e.g. those with acute kidney injury, the eGFR may not accurately reflect actual GFR. Glucose [Mass/Vol] 89 mg/dL 74 - 99 mg/dL [facility] Comment on above: The [place] Diabete s Association (ADA) provides guidance for cutoff values for fasting glucose and random glucose. The ADA defines fasting as no caloric intake for at least 8 hours. Fasting plasma glucose results between 100 to 125 mg/dL indicate increased risk for diabetes (prediabetes). Fasting plasma glucose results greater than or equal to 126 mg/dL meet the criteria for diagnosis of diabetes. In the absence of unequivocal hyperglycemia, results should be confirmed by repeat testing. In a patient with classic symptoms of hyperglycemia or hyperglycemic crisis, random plasma glucose results greater than or equal to 200 mg/dL meet the criteria for diagnosis of diabetes. Reference: Standards of Medical Care in Diabetes 2016, [place] Diabetes Association. Diabetes Care. 2016.39(Suppl 1). Potassium [Moles/Vol] 3.9 mmol/L 3.7 - 5.1 mmol/L [facility] Protein [Mass/Vol] 7.5 g/dL 6.3 - 8.0 g/dL [facility] Sodium [Moles/Vol] 139 mmol/L 136 - 144 mmol/L [facility] Urea nitrogen [Mass/Vol] 6 mg/dL Low 7 - 21 mg/d L [facility] FERRITINon 11-01-2023 Ferritin [Mass/Vol] 111.0 ng/mL 14.7 - 2 05.1 ng/mL [facility] HbA1c (Bld)on 11-01-2023 Average glucose Estimated from glycated hemoglobin (Bld) [Mass/Vol] 97 mg/dL [facility] Comment on above: eAG: (Estimated aver age glucose) is a calculated value from HgbA1c and is termite control representative of the average blood glucose level in the last 2-3 month period. HbA1c (Bld) [Mass fraction] 5.0 % 4.3 - 5.6 % [facility] Comment on above: [place] Diabetes As sociation guidelines indicate that patients with HgbA1c in the range 5.7-6.4% are at increased risk for development of diabetes, and intervention by lifestyle modification may be beneficial. HgbA1c greater or equal to 6.5% is considered diagnostic of diabetes. [facility] Iron and Iron binding capaci ty panelon 11-01-2023 Iron [Mass/Vol] 30 ug/dL Low 41 - 186 ug/dL [facility] Iron binding capacity [Mass/Vol] 297 ug/dL 232 - 386 ug/dL [facility] Iron/TIBC [Molar ratio] 10.1 % Low 15.0 - 57.0 % [facility] LITHIUMon 11-01-2023 [place] [Moles/Vol] 0.4 mmol/L Low 0.6 - 1. 2 mmol/L [facility] Comment on above: Reference ranges and high/low indicator flags are provided as general guidelines only. The treating physician must determine appropriate target levels/dosing based on the specific clinical situation. [place] [Moles/Vol]on 2023 Interpretation and review of laboratory results Abnormal [facility] No Panel Informationon 10-31 Interpretation and review of laboratory results Normal [facility] Interpretation and review of laboratory results Abnormal [facility] THYROID STIMULATING HORMONEo n 11-01-2023 TSH Qn 2.200 m[IU]/L [facility] Comment on above: If the patient is pr egnant, TSH reference range varies by gestational period: First Trimester (weeks 9-12): 0.180-2.990 mIU/L Second Trimester: 0.110-3.980 mIU/L Third Trimester: 0.480-4.710 mIU/L Marek Menjivar et al. A Practical Approach for the Verifications and Determination of Site- and Trimester-Specific Reference Intervals for Thyroid Function tests in . Thyroid, 2019:29:3:412-420. Maikol Espitia, et al. 2017 Guidelines of the [place] Thyroid Association for the Diagnosis and Management of Thyroid Disease during and the . Thyroid, 2017:27:3:315-389. Urinalysis complete panel (U )on 11-01-2023 Bacteria LM.HPF (Urine sed) [#/Area] Negative Negative /HPF [facility] Bilirubin Ql (U) Negative Negative [facility] Clarity (Unsp spec) Clear Clear [facility] Color (U) Yellow Yellow [facility] Epithelial cells LM.HPF (Urine sed) [#/Area] Few /HPF [facility] Glucose Test strip (U) [Mass/Vol] Negative Negative [facility] Hemoglobin Ql (U) 1+ Abnormal Negative [facility] Hyaline casts (Urine sed) [#/Area] 0 /[LPF] 0 /LPF [facility] Interpretation and review of laboratory results Abnormal [facility] Ketones Ql (U) Negative Negative [facility] Leukocyte esterase Test strip Ql (U) Negative Negative [facility] Nitrite Ql (U) Negative Negative [facility] pH (U) 7.0 [pH] NINF - 8.5 [facility] Protein (U) [Mass/Vol] Negative Negative [facility] RBC LM.HPF (Urine sed) [#/Area] 0-2 /HPF 0-2 /HPF [facility] Specific gravity (U) [Rel density] 1.008 1.005 - 1.030 [facility] Urobilinogen Ql (U) 0.2 EU/dL 0.2-1.0 EU/dL [facility] WBC LM.HPF (Urine sed) [#/Area] 0-5 /HPF 0-5 /HPF [facility] This test was developed and its performance characteristics determined by [facility]'s Luis Fernando Lundy [facility] Pathology and Laboratory Medicine [place] [facility]). It has not been cleared or approved by the FDA. [facility] is regulated under CLIA as qualified to perform high-complexity testing. This test is used for clinical purposes. It should not be regarded as investigational or for research. [facility] XR Shoulder - left 2 Viewson 07-27-2023 Addendum by Provider , [facility] [place] on 07/27/2023 4:26 PM EST * * *Final Report* * * DATE OF EXAM: Jul 26 2023 9:56AM WOX 5254 - XR SHOULDER 2V AP/TRUE AP LT / PROCEDURE REASON: Left arm pain * * * * Physician Interpretation * * * * EXAM TITLE: XR SHOULDER 2V AP/TRUE AP LT EXAM DATE/TIME: 07/26/2023 9:56 AM COMPARISON: None. CLINICAL INDICATION/HISTORY: Left arm pain. TECHNIQUE: AP, true AP and Y views of the left shoulder are presented FINDINGS: No acute fractures or subluxations are noted. There is acromioclavicular joint space narrowing, with osteophyte formation. The glenohumeral joint appears unremarkable. Normal acromiohumeral interval. The mineralization of the bones is normal. There is no significant soft tissue swelling. IMPRESSION: Degenerative changes in the acromioclavicular joint as described above. Bakery Machine Mechanic Supervisor: BETTY Transcribe Date/Time: Jul 27 2023 4:22P Dictated by : TRISTEN BEAVER MD This examination was interpreted and the report reviewed and electronically signed by: TRISTEN BEAVER MD on Jul 27 2023 4:24PM EST [facility] No Panel Informationon 07-26 Radiology Study observation (narrative) [facility] XR Cervical spine AP and Lat eral and obliqueon 07-26-2023 IMPRESSION: DEGENERATIVE CHANGES DESCRIBED Bakery Machine Mechanic Supervisor: [facility] Transcribe Date/Time: Jul 26 2023 11:19A Dictated by : LIZZ HARDY MD This examination was interpreted and the report reviewed and electronically signed by: LIZZ HARDY MD on Jul 26 2023 11:21AM EST DIVISION OF RADIOLOGY * * *Final Report* * * DATE OF EXAM: Jul 26 2023 9:56AM WOX 5311 - XR CERVICAL 4V AP/LAT/OBL / PROCEDURE REASON: Left arm pain * * * * Physician Interpretation * * * * Examination: XR CERVICAL 4V AP/LAT/OBL History: Left arm pain Technique: XR CERVICAL 4V AP/LAT/OBL Comparison: None RESULT: Normal alignment. Normal lordosis. Normal mineralization. Moderate anterior osteophytosis at C4-5, C5-6 and to a lesser extent at C6-7. Disc spaces are maintained. No fracture or prevertebral swelling. Multilevel foraminal encroachment on the right from C3-4, to C7-T1. Foraminal encroachment on the left from C4-5, through C6 -C7, DIVISION OF RADIOLOGY Provider, Daly vyas [place] - 07/26/2023 * * *Final Report* * * DATE OF EXAM: Jul 26 2023 9:56AM WOX 5311 - XR CERVICAL 4V AP/LAT/OBL / PROCEDURE REASON: Left arm pain * * * * Physician Interpretation * * * * Examination: XR CERVICAL 4V AP/LAT/OBL History: Left arm pain Technique: XR CERVICAL 4V AP/LAT/OBL Comparison: None RESULT: Normal alignment. Normal lordosis. Normal mineralization. Moderate anterior osteophytosis at C4-5, C5-6 and to a lesser extent at C6-7. Disc spaces are maintained. No fracture or prevertebral swelling. Multilevel foraminal encroachment on the right from C3-4, to C7-T1. Foraminal encroachment on the left from C4-5, through C6 -C7, IMPRESSION IMPRESSION: DEGENERATIVE CHANGES DESCRIBED Bakery Machine Mechanic Supervisor: BETTY Transcribe Date/Time: Jul 26 2023 11:19A Dictated by : LIZZ HARDY MD This examination was interpreted and the report reviewed and electronically signed by: LIZZ HARDY MD on Jul 26 2023 11:21AM EST [facility] XR Cervical spine AP and Lat eral and obliqueOrdered By: [facility]cf Provider on 07-26-2023 [facility] Absolute lymphocyte countOrd ered By: ED PROVIDER on 02-23-2023 Lymphocytes Auto (Unsp spec) [#/Vol] 4.34 10*3/uL 0.83-4.51 [facility] Basophil percentageOrdered B y: ED PROVIDER on 02-23-2023 Basophils/100 WBC (Bld) 0.8 % 0-1 [facility] Chloride [Moles/Vol] 109 mmol/L 98-107 [facility] Eosinophils/100 WBC (Bld) 2.5 % 0-5 [facility] Glucose [Mass/Vol] 118 mg/dL 74-106 [facility] Comment on above: Fasting Glucose resu lt from 100 to 125 mg/dL suggests IMPAIRED HOMEOSTASIS per A.D.A. criteria. Neutrophils (Bld) [#/Vol] 5.8 10*3/uL 2.0-7.7 [facility] Neutrophils/100 WBC (Bld) 50.8 % 47-70 [facility] Potassium [Moles/Vol] 3.7 mmol/L 3.5-5.1 [facility] Sodium [Moles/Vol] 139 mmol/L 136-145 [facility] WBC (Bld) [#/Vol] 11.5 10*3/uL 4.4-11.0 [facility] Blood erythrocytes count (nu mber/volume)Ordered By: ED PROVIDER on 02-23-2023 RBC (Bld) [#/Vol] 4.61 10*6/uL 4.2-5.4 [facility] Blood hemoglobin measurement (mass/volume)Ordered By: ED PROVIDER on 02-23-2023 Hemoglobin (Bld) [Mass/Vol] 13.9 g/dL 12.0-15.0 [facility] Blood lymphocytes/100 leukoc ytesOrdered By: ED PROVIDER on 02-23-2023 Lymphocytes/100 WBC (Bld) 37.8 % 19-41 [facility] Blood monocytes/100 leukocyt esOrdered By: ED PROVIDER on 02-23-2023 Monocytes/100 WBC (Bld) 7.7 % 0-10 [facility] Blood platelet mean volumeOr dered By: ED PROVIDER on 02-23-2023 Platelet mean volume (Bld) [Entitic vol] 9.3 fL 6.2-12.0 [facility] Determination of erythrocyte mean corpuscular volume (MCV)Ordered By: ED PROVIDER on 02-23-2023 MCV (RBC) [Entitic vol] 91.3 fL 81-99 [facility] Hematocrit Auto (Bld) [Volum e fraction]Ordered By: ED PROVIDER on 02-23-2023 Hematocrit (Bld) [Volume fraction] 42.1 % 37-47 [facility] Laboratory - Chemistry and C hemistry - challengeOrdered By: ED PROVIDER on 02-23-2023 CO2 [Moles/Vol] 25.0 mmol/L 21.0-32.0 [facility] Urea nitrogen/Creatinine [Mass ratio] 10.4 mg/mg 10-20 [facility] - Hematology and Cell countsOrdered By: ED PROVIDER on 02-23-2023 Erythrocyte distribution width (RBC) [Entitic vol] 41.4 fL 35.1-43.9 [facility] Erythrocyte distribution width (RBC) [Ratio] 12.6 % 11.6-14.6 [facility] Immature granulocytes/100 WBC (Bld) 0.400 % 0.0-0.9 [facility] Comment on above: IG% - Immature Granu locytes (promyelocytes, myelocytes and metamyelocytes) > 1% indicates that a LEFT SHIFT is Present. MCH (RBC) [Entitic mass] 30.2 pg 27.0-32.0 [facility] Nucleated RBC/100 WBC (Bld) [Ratio] 0 % 0-5 [facility] MCHC Auto (RBC) [Mass/Vol]Or dered By: ED PROVIDER on 02-23-2023 MCHC (RBC) [Mass/Vol] 33.0 g/dL 32-36 [facility] No Panel InformationOrdered By: Wilfrido Issa on 02-23-2023 [place] Level 0.30 mmol/L 0.60-1.20 [facility] D-Dimer Quantitative (PE/DVT) < 0.27 FEU/ug/m 0.27-0.49 [facility] Comment on above: NORMAL D-Dimer level (<0.50) indicates no DVT or PE. No Panel InformationOrdered By: ED PROVIDER on 02-23-2023 Troponin I High Sensitivity 3 pg/mL 3.0-54.0 [facility] Comment on above: Please Note: New Abena t Units and Gender Specific Reference Ranges. For more information see Policy Stat Procedure [place] High Sensitivity Troponin (TNIH) and attachments. Estimated Creatinine Clearance Calc 68.77 ml/min [facility] Estimated GFR (MDRD) Amer 93 mL/min >60 [facility] Comment on above: GFR Calc Estimated GFR (MDRD) Non-Af Amer 77 mL/min >60 [facility] Comment on above: Non- GFR Calc No Panel InformationOrdered By: Marissa Cardoza on 02-23-2023 Thyroid Stimulating Hormone (TSH) 1.18 uIU/mL 0.358-3.74 [facility] Platelets bldOrdered By: ED PROVIDER on 02-23-2023 Platelets (Bld) [#/Vol] 314 10*3/uL 150-450 [facility] Serum or plasma calcium meagan urement (mass/volume)Ordered By: ED PROVIDER on 02-23-2023 Calcium [Mass/Vol] 9.6 mg/dL 8.5-10.1 [facility] Serum or plasma creatinine m easurement (mass/volume)Ordered By: ED PROVIDER on 02-23-2023 Creatinine [Mass/Vol] 0.86 mg/dL 0.55-1.02 [facility] Comment on above: The validity of the calculated GFR & GFRAA in patients over 70 years has not been determined. Clinical correlation is essential. Serum or plasma urea nitroge n measurement (mass/volume)Ordered By: ED PROVIDER on 02-23-2023 Urea nitrogen [Mass/Vol] 9 mg/dL 7-18 [facility] Thin prep Papanicolaou smear with manual screeningOrdered By: ED PROVIDER on 02-23-2023 Thin prep Papanicolaou smear with manual screening 5 5- [facility] XR FOOT GENERAL 3V AP/LAT/OB L BILATERALon 11-02-2022 [facility] XR Humerus - right AP and La teralon 08-25-2022 IMPRESSION: No radiographic evidence of acute osseous abnormality Bakery Machine Mechanic Supervisor: BETTY Transcribe Date/Time: Aug 25 2022 11:54A Dictated by : VALENTIN ROMAN MD This examination was interpreted and the report reviewed and electronically signed by: VALENTIN ROMAN MD on Aug 25 2022 11:55AM [facility] DIVISION OF RADIOLOGY * * *Final Report* * * DATE OF EXAM: Aug 25 2022 10:56AM [id number] - XR HUMERUS 2V AP/LAT RT / PROCEDURE REASON: Arm pain, central, right * * * * Physician Interpretation * * * * TITLE: XR HUMERUS 2V AP/LAT RT CLINICAL INDICATION: Pain TECHNIQUE: AP and lateral radiographs of the right humerus COMPARISON: None FINDINGS: No acute fracture or dislocation identified. No radiographic evidence of destructive osseous lesion. DIVISION OF RADIOLOGY Provider, [facility] Juan Manuel [facility] - 08/25/2022 * * *Final Report* * * DATE OF EXAM: Aug 25 2022 10:56AM [id number] - XR HUMERUS 2V AP/LAT RT / PROCEDURE REASON: Arm pain, central, right * * * * Physician Interpretation * * * * TITLE: XR HUMERUS 2V AP/LAT RT CLINICAL INDICATION: Pain TECHNIQUE: AP and lateral radiographs of the right humerus COMPARISON: None FINDINGS: No acute fracture or dislocation identified. No radiographic evidence of destructive osseous lesion. IMPRESSION IMPRESSION: No radiographic evidence of acute osseous abnormality Bakery Machine Mechanic Supervisor: BETTY Transcribe Date/Time: Aug 25 2022 11:54A Dictated by : VALENTIN ROMAN MD This examination was interpreted and the report reviewed and electronically signed by: VALENTIN ROMAN MD on Aug 25 2022 11:55AM EST [facility] Radiology Study observation (narrative) Mary Ellen franks [facility] XR Humerus - right AP and La teralOrdered By: Ccf Provider on 08-25-2022 [facility] CNPNon 07-21-2022 CNPN Telephone ([facility]) CADY VALLE ([id number]) 1980 F Date Time Provider Department 07/21/22 ELA HUITRON [facility] During your visit today, we recorded the following information about you: Nan Tyler 07/21/2022 2:39 PM Signed No Show Documentation Cady Valle no showed for an appointment on 07/20/2022 with Ela Huitron APRN.OUTBOUND SALES EXECUTIVE at 10:20am. She was scheduled for [facility] care. I called and spoke with the patient regarding her missed appointment. Cady stated that she had called and spoke to a nurse status controller on Wednesday and told them to cancel the appointment. She got rescheduled elsewhere. Resources discussed/offered to patient: n/a No show determined to be fault of patient: No This is the patients first no show in the last 12 months. Patient was rescheduled for n/a. Letter mailed : No Is this the Third or Fourth No Show? No Nan Tyler July 21, 2022 2:37 PM Allergies As of Date: 07/21/2022 (Not on File) Date Reviewed: 07/19/2022 Reviewed by: Janes Khan RN - Fully Assessed Reason for Visit: Missed Appointment [1304] Prescriptions as of 07/21/2022 - lamoTRIgine (LAMICTAL) 200 mg tablet Take 1 tablet by mouth once daily. - FLUoxetine (PROZAC) 20 mg capsule Take 1 capsule by mouth once daily. - lithium carbonate 600 mg capsule Take 1 capsule by mouth once daily. - ARIPiprazole (ABILIFY) 5 mg tablet Take 1 tablet by mouth once daily. Problem List As Of Date: 07/21/2022 (None) Encounter Status:Closed by NAN REAL on 07/21/22 Normal [facility] Vital Signs Date Time Vital Sign Value Performing Clinician Facility 01-29-2025 12:30-0400 Body temperature 98.7 [degF] Scott SANTANAC Work Phone: [facility] 01-29-2025 12:30-0400 Diastolic blood pressure 86 mm[Hg] Scott Jones NP-C Work Phone: [facility] 01-29-2025 12:30-0400 Heart rate 77 /min Scott Jones NP-C Work Phone: [facility] 01-29-2025 12:30-0400 Respiratory rate 18 /min Scott Jones NP-C Work Phone: [facility] 01-29-2025 12:30-0400 SaO2% (BldA) [Mass fraction] 100 % Scott Jones NP-C Work Phone: [facility] 01-29-2025 12:30-0400 Systolic blood pressure 129 mm[Hg] Scott Jones COMMERCIAL CARPENTER-C Work Phone: 4(870)877-983629 [place] [address] 01-29-2025 08:24-0400 Body height 157.48 cm Scott Jones COMMERCIAL CARPENTER-C Work Phone: 6(291)735-247066 [place] [address] 01-29-2025 08:24-0400 Body mass index (BMI) [Ratio] 31.9 kg/m2 Scott Jones COMMERCIAL CARPENTER-C Work Phone: 0(669)123-728866 [place] [address] 01-29-2025 08:24-0400 Body weight 79.28 kg Scott Jones COMMERCIAL CARPENTER-C Work Phone: 8(296)209-956166 [place] [address] 12-10-2024 14:54-0400 Body temperature 98.1 [degF] Scott Jones COMMERCIAL CARPENTER-C Work Phone: 3(477)861-169666 [place] [address] 12-10-2024 14:54-0400 Diastolic blood pressure 84 mm[Hg] Scott Jones COMMERCIAL CARPENTER-C Work Phone: 5(654)968-320566 [place] [address] 12-10-2024 14:54-0400 Heart rate 92 /min Scott Jones COMMERCIAL CARPENTER-C Work Phone: 8(312)757-174966 [place] [address] 12-10-2024 14:54-0400 Respiratory rate 18 /min Scott Jones COMMERCIAL CARPENTER-C Work Phone: 9(066)845-263866 [place] [address] 12-10-2024 14:54-0400 SaO2% (BldA) [Mass fraction] 100 % Scott Jones COMMERCIAL CARPENTER-C Work Phone: 1(978)096-054266 [place] [address] 12-10-2024 14:54-0400 Systolic blood pressure 139 mm[Hg] Scott Jones COMMERCIAL CARPENTER-C Work Phone: 2(546)788-916666 [place] [address] 12-10-2024 13:15-0400 Body height 157.48 cm Scott Jones COMMERCIAL CARPENTER-C Work Phone: 6(217)023-960566 [place] [address] 12-10-2024 13:15-0400 Body mass index (BMI) [Ratio] 32.9 kg/m2 Scott Jones COMMERCIAL CARPENTER-C Work Phone: 6(837)596-440466 [place] [address] 12-10-2024 13:15-0400 Body weight 81.73 kg Scott Jones COMMERCIAL CARPENTER-C Work Phone: [facility] 11-10-2024 13:20-0400 Body mass index (BMI) [Ratio] 31.76 kg/m2 Oral Mayer MD Work Phone: [facility] 11-10-2024 13:20-0400 Body temperature 98.6 [degF] Oral Mayer MD Work Phone: [facility] 11-10-2024 13:20-0400 Body weight 81 kg Oral Mayer MD Work Phone: [facility] 11-10-2024 13:20-0400 Diastolic blood pressure 85 mm[Hg] Oral Mayer MD Work Phone: [facility] 11-10-2024 13:20-0400 Heart rate 85 /min Oral Mayer MD Work Phone: [facility] 11-10-2024 13:20-0400 Respiratory rate 18 /min Oral Mayer MD Work Phone: [facility] 11-10-2024 13:20-0400 SaO2% (BldA) [Mass fraction] 98 % Oral Mayer MD Work Phone: [facility] 11-10-2024 13:20-0400 Systolic blood pressure 125 mm[Hg] Oral Mayer MD Work Phone: [facility] 10-11-2024 16:12-0400 Body temperature 97.5 [degF] Scott Jones COMMERCIAL CARPENTER-C Work Phone: [facility] 10-11-2024 16:12-0400 Diastolic blood pressure 79 mm[Hg] Scott Jones COMMERCIAL CARPENTER-C Work Phone: [facility] 10-11-2024 16:12-0400 Heart rate 85 /min Scott Jones COMMERCIAL CARPENTER-C Work Phone: [facility] 10-11-2024 16:12-0400 Respiratory rate 16 /min Scott Jones COMMERCIAL CARPENTER-C Work Phone: [facility] 10-11-2024 16:12-0400 SaO2% (BldA) [Mass fraction] 98 % Scott Jones COMMERCIAL CARPENTER-C Work Phone: [facility] 10-11-2024 16:12-0400 Systolic blood pressure 153 mm[Hg] Scott Jones COMMERCIAL CARPENTER-C Work Phone: [facility] 10-11-2024 13:43-0400 Body height 157.48 cm Scott Jones COMMERCIAL CARPENTER-C Work Phone: [facility] 10-11-2024 13:43-0400 Body mass index (BMI) [Ratio] 33.5 kg/m2 Scott Jones COMMERCIAL CARPENTER-C Work Phone: [facility] 10-11-2024 13:43-0400 Body weight 83.2 kg Scott Jones COMMERCIAL CARPENTER-C Work Phone: [facility] 08-16-2024 11:04-0500 Body mass index (BMI) [Ratio] 32.11 kg/m2 Jose Clutter PA-C Work Phone: [facility] 08-16-2024 11:04-0500 Body temperature 98.01 [degF] Jose Clutter PA-C Work Phone: [facility] 08-16-2024 11:04-0500 Body weight 81.9 kg Jose Clutter PA-C Work Phone: [facility] 08-16-2024 11:04-0500 Diastolic blood pressure 80 mm[Hg] Jose Clutter PA-C Work Phone: [facility] 08-16-2024 11:04-0500 Heart rate 96 /min Jose Clutter PA-C Work Phone: [facility] 08-16-2024 11:04-0500 Respiratory rate 16 /min Jose Clutter PA-C Work Phone: [facility] 08-16-2024 11:04-0500 SaO2% (BldA) [Mass fraction] 100 % Jose Clutter PA-C Work Phone: [facility] 08-16-2024 11:04-0500 Systolic blood pressure 122 mm[Hg] Jose Bush PA-C Work Phone: [facility] 12-23-2023 17:05-0400 Body mass index (BMI) [Ratio] 31.12 kg/m2 Scott Jones DIE STAMPER.OUTBOUND SALES EXECUTIVE Work Phone: [facility] 12-23-2023 17:05-0400 Body weight 79.38 kg Scott Jones DIE STAMPER.OUTBOUND SALES EXECUTIVE Work Phone: [facility] 12-23-2023 17:05-0400 Diastolic blood pressure 78 mm[Hg] Scott Jones DIE STAMPER.OUTBOUND SALES EXECUTIVE Work Phone: [facility] 12-23-2023 17:05-0400 Heart rate 80 /min Scott Jones DIE STAMPER.OUTBOUND SALES EXECUTIVE Work Phone: [facility] 12-23-2023 17:05-0400 Respiratory rate 14 /min Scott Jones DIE STAMPER.OUTBOUND SALES EXECUTIVE Work Phone: [facility] 12-23-2023 17:05-0400 Systolic blood pressure 121 mm[Hg] Scott Jones DIE STAMPER.OUTBOUND SALES EXECUTIVE Work Phone: [facility] 12-05-2023 08:19-0400 Body mass index (BMI) [Ratio] 30.74 kg/m2 Jose Kelly DIE STAMPER.OUTBOUND SALES EXECUTIVE Work Phone: [facility] 12-05-2023 08:19-0400 Body temperature 98.29 [degF] Jose Kelly DIE STAMPER.OUTBOUND SALES EXECUTIVE Work Phone: [facility] 12-05-2023 08:19-0400 Body weight 78.4 kg Jose Kelly DIE STAMPER.OUTBOUND SALES EXECUTIVE Work Phone: [facility] 12-05-2023 08:19-0400 Diastolic blood pressure 84 mm[Hg] Jose Velascoomaw DIE STAMPER.OUTBOUND SALES EXECUTIVE Work Phone: [facility] 12-05-2023 08:19-0400 Heart rate 110 /min Jose Moomaw DIE STAMPER.OUTBOUND SALES EXECUTIVE Work Phone: [facility] 12-05-2023 08:19-0400 Respiratory rate 21 /min Jose Moomaw DIE STAMPER.OUTBOUND SALES EXECUTIVE Work Phone: [facility] 12-05-2023 08:19-0400 SaO2% (BldA) [Mass fraction] 99 % Jose Moomaw DIE STAMPER.OUTBOUND SALES EXECUTIVE Work Phone: [facility] 12-05-2023 08:19-0400 Systolic blood pressure 110 mm[Hg] Jose Moomaw DIE STAMPER.OUTBOUND SALES EXECUTIVE Work Phone: [facility] 11-01-2023 09:01-0400 Body mass index (BMI) [Ratio] 30.59 kg/m2 Scott Jones DIE STAMPER.OUTBOUND SALES EXECUTIVE Work Phone: [facility] 11-01-2023 09:01-0400 Body weight 78.02 kg Scott Jones DIE STAMPER.OUTBOUND SALES EXECUTIVE Work Phone: [facility] 11-01-2023 09:01-0400 Diastolic blood pressure 78 mm[Hg] Scott Jones DIE STAMPER.OUTBOUND SALES EXECUTIVE Work Phone: [facility] 11-01-2023 09:01-0400 Heart rate 76 /min Scott Jones DIE STAMPER.OUTBOUND SALES EXECUTIVE Work Phone: [facility] 11-01-2023 09:01-0400 Respiratory rate 14 /min Scott Jones DIE STAMPER.OUTBOUND SALES EXECUTIVE Work Phone: [facility] 11-01-2023 09:01-0400 Systolic blood pressure 125 mm[Hg] Scott Jones DIE STAMPER.OUTBOUND SALES EXECUTIVE Work Phone: [facility] 04-05-2023 08:07-0400 Body weight 79.38 kg Scott Jones DIE STAMPER.OUTBOUND SALES EXECUTIVE Work Phone: [facility] 04-05-2023 08:07-0400 Diastolic blood pressure 72 mm[Hg] Scott Jones DIE STAMPER.OUTBOUND SALES EXECUTIVE Work Phone: [facility] 04-05-2023 08:07-0400 Heart rate 82 /min Scott Jones APRN.OUTBOUND SALES EXECUTIVE Work Phone: [facility] 04-05-2023 08:07-0400 Respiratory rate 16 /min Scott Jones APRN.OUTBOUND SALES EXECUTIVE Work Phone: [facility] 04-05-2023 08:07-0400 Systolic blood pressure 134 mm[Hg] Scott Jones APRN.OUTBOUND SALES EXECUTIVE Work Phone: [facility] 03-17-2023 14:19-0400 Body temperature 99.61 [degF] Scott Jones APRN.OUTBOUND SALES EXECUTIVE Work Phone: [facility] 03-17-2023 14:19-0400 Body weight 78.02 kg Scott Jones APRN.OUTBOUND SALES EXECUTIVE Work Phone: [facility] 03-17-2023 14:19-0400 Diastolic blood pressure 78 mm[Hg] Scott Jones APRN.OUTBOUND SALES EXECUTIVE Work Phone: [facility] 03-17-2023 14:19-0400 Heart rate 100 /min Scott Jones APRN.OUTBOUND SALES EXECUTIVE Work Phone: [facility] 03-17-2023 14:19-0400 Respiratory rate 14 /min Scott Jones APRN.OUTBOUND SALES EXECUTIVE Work Phone: [facility] 03-17-2023 14:19-0400 SaO2% (BldA) [Mass fraction] 97 % Scott Jones APRN.OUTBOUND SALES EXECUTIVE Work Phone: [facility] 03-17-2023 14:19-0400 Systolic blood pressure 140 mm[Hg] Scott Jones APRN.OUTBOUND SALES EXECUTIVE Work Phone: [facility] 03-11-2023 07:53-0400 Body weight 78.47 kg Scott Jones APRN.OUTBOUND SALES EXECUTIVE Work Phone: [facility] 03-11-2023 07:53-0400 Diastolic blood pressure 74 mm[Hg] Scott Jones APRN.OUTBOUND SALES EXECUTIVE Work Phone: [facility] 03-11-2023 07:53-0400 Heart rate 78 /min Scott Knoble DIE STAMPER.OUTBOUND SALES EXECUTIVE Work Phone: [facility] 03-11-2023 07:53-0400 Respiratory rate 14 /min Scott Erna DIE STAMPER.OUTBOUND SALES EXECUTIVE Work Phone: [facility] 03-11-2023 07:53-0400 Systolic blood pressure 122 mm[Hg] Scott Jones DIE STAMPER.OUTBOUND SALES EXECUTIVE Work Phone: [facility] 02-27-2023 04:21-0400 Body height 157.5 cm [facility] Work Phone: [facility] 02-27-2023 04:21-0400 Body weight 77.6 kg Sleep Main Work Phone: [facility] 02-25-2023 08:32-0400 Body weight 77.56 kg Scott Erna DIE STAMPER.OUTBOUND SALES EXECUTIVE Work Phone: [facility] 02-25-2023 08:32-0400 Diastolic blood pressure 80 mm[Hg] Scott Jones DIE STAMPER.OUTBOUND SALES EXECUTIVE Work Phone: [facility] 02-25-2023 08:32-0400 Heart rate 86 /min Scott Jones DIE STAMPER.OUTBOUND SALES EXECUTIVE Work Phone: [facility] 02-25-2023 08:32-0400 Respiratory rate 14 /min Scott Jones DIE STAMPER.OUTBOUND SALES EXECUTIVE Work Phone: [facility] 02-25-2023 08:32-0400 Systolic blood pressure 134 mm[Hg] Scott Jones DIE STAMPER.OUTBOUND SALES EXECUTIVE Work Phone: [facility] 02-23-2023 22:49-0400 Diastolic blood pressure 65 mm[Hg] [facility] 02-23-2023 22:49-0400 Heart rate 85 /min [facility] 02-23-2023 22:49-0400 Respiratory rate 16 /min [facility] 02-23-2023 22:49-0400 SaO2% (BldA) [Mass fraction] 99 % [facility] 02-23-2023 22:49-0400 Systolic blood pressure 110 mm[Hg] [facility] 02-23-2023 18:38-0400 Body height 157.48 cm [facility] 02-23-2023 18:38-0400 Body mass index (BMI) [Ratio] 31.6 kg/m2 [facility] 02-23-2023 18:38-0400 Body temperature 97.8 [degF] [facility] 02-23-2023 18:38-0400 Body weight 78.47 kg [facility] Encounters Encounter Date Encounter Type Care Provider Facility Start: 01-29-2025 Non-patient / Non-visit Dr. Jonathan Puga MD -[facility] Start: 01-29-2025 End: 01-29-2025 Emergency department patient visit Scott SANTANAC Work Phone: -Emergency Department Work Phone: Start: 12-27-2024 End: 01-01-2025 Refill Sumi PITTC Work Phone: [facility] Comment on above: Refill Request Start: 12-10-2024 End: 12-10-2024 Emergency department patient visit Soctt SANTANAC Work Phone: -Emergency Department Work Phone: Start: 12-10-2024 End: 12-10-2024 Patient encounter procedure Dereje Del Valle DIE STAMPER.OUTBOUND SALES EXECUTIVE Work Phone: [facility] Comment on above: Procedure not ruth d out (Primary Dx) Start: 12-10-2024 End: 12-10-2024 ambulatory SCOTT JONES Facility:[facility] Start: 11-16-2024 End: 11-17-2024 Refill Scott Jones DIE STAMPER.OUTBOUND SALES EXECUTIVE Work Phone: [facility] Comment on above: Refill Request Start: 11-10-2024 End: 11-10-2024 Office outpatient visit 15 minutes Oral Mayer MD Work Phone: [facility] Comment on above: Seasonal allergic rh initis, unspecified trigger (Primary Dx) Start: 11-10-2024 End: 11-10-2024 ambulatory SCOTT JONES Facility:[facility] Start: 10-11-2024 ambulatory Shantell Gastelum Facility:[facility] Start: 10-11-2024 Non-patient / Non-visit Dr. Castro xiao MD -[facility] Start: 10-11-2024 End: 10-11-2024 Emergency department patient visit Scott EASON Work Phone: -Emergency Department Work Phone: Start: 10-09-2024 End: 10-10-2024 Refill Sumi Roca PA-C Work Phone: [facility] Comment on above: Refill Request Start: 09-25-2024 End: 11-27-2024 Follow-up encounter Scott Jones APRN.CNP Work Phone: [facility] Start: 09-22-2024 End: 09-22-2024 ambulatory SCOTT JONES Facility:[facility] Start: 09-22-2024 End: 09-22-2024 Subsequent hospital visit by physician Screen Mammo [facility] Comment on above: Encounter for screen ing mammogram for breast cancer [Z12.31] Start: 09-05-2024 End: 09-13-2024 ambulatory Scott Jones APRN.CNP Work Phone: [facility] Comment on above: Vitamins Start: 08-30-2024 End: 08-30-2024 Refill Scott Jones APRN.CNP Work Phone: [facility] Comment on above: Refill Request Start: 08-16-2024 End: 08-16-2024 ambulatory SCOTT JONES Facility:[facility] Start: 08-16-2024 End: 08-16-2024 Office outpatient new 30 minutes Jose Bush PA-C Work Phone: [facility] Comment on above: Viral illness (Prima ry Dx); Mild intermittent asthma, uncomplicated Start: 07-28-2024 End: 07-28-2024 Refill Scott Jones APRN.CNP Work Phone: [facility] Comment on above: Refill Request Start: 06-26-2024 End: 06-27-2024 Refill Scott Jones DIE STAMPER.OUTBOUND SALES EXECUTIVE Work Phone: [facility] Comment on above: Refill Request Start: 05-23-2024 End: 05-23-2024 Telephone encounter Scott Jones APRN.OUTBOUND SALES EXECUTIVE Work Phone: [facility] [place] Start: 05-22-2024 End: 05-22-2024 ambulatory SCOTT JONES Facility:[facility] Start: 05-14-2024 End: 05-15-2024 Refill Scott Jones DIE STAMPER.OUTBOUND SALES EXECUTIVE Work Phone: [facility] Comment on above: Refill Request Start: 03-28-2024 End: 03-30-2024 Refill Scott Jones DIE STAMPER.OUTBOUND SALES EXECUTIVE Work Phone: [facility] Comment on above: Refill Request Start: 02-22-2024 Refill Scott espitia DIE STAMPER.OUTBOUND SALES EXECUTIVE Work Phone: [facility] Comment on above: Refill Request Start: 02-14-2024 End: 02-14-2024 ambulatory SCOTT JONES Facility:[facility] Start: 02-14-2024 End: 02-14-2024 Patient encounter procedure Wilfrido Chapa MD Work Phone: Orthopaedics Comment on above: Left hand pain [M79. 642] Start: 02-02-2024 ambulatory Scott espitia DIE STAMPER.OUTBOUND SALES EXECUTIVE Work Phone: [facility] [place] Start: 01-27-2024 Telephone encounter Scott kaiser APRN.OUTBOUND SALES EXECUTIVE Work Phone: [facility] [place] Comment on above: Faxed Lab Results Start: 01-13-2024 Refill Scott espitia DIE STAMPER.OUTBOUND SALES EXECUTIVE Work Phone: [facility] Comment on above: Refill Request Start: 01-10-2024 End: 01-10-2024 ambulatory SCOTT JONES Facility:[facility] Start: 12-28-2023 Telephone encounter Scott kaiser DIE STAMPER.OUTBOUND SALES EXECUTIVE Work Phone: [facility] Comment on above: Results Start: 12-23-2023 End: 12-23-2023 Patient encounter procedure Scott Jones APRN.OUTBOUND SALES EXECUTIVE Work Phone: [facility] Comment on above: Left hand pain [M79. 642] (Primary Dx) Start: 12-23-2023 End: 12-23-2023 Subsequent hospital visit by physician Xr [facility] Work Phone: Radiology Comment on above: Left hand pain [M79. 642] Start: 12-23-2023 End: 12-23-2023 ambulatory SCOTT JONES Facility:[facility] Start: 12-05-2023 End: 12-05-2023 Patient encounter procedure Jose Rodreji GONZALEZ.OUTBOUND SALES EXECUTIVE Work Phone: [facility] Comment on above: Bronchitis (Primary Dx) Start: 11-25-2023 Telephone encounter Scott kaiser APRN.OUTBOUND SALES EXECUTIVE Work Phone: [facility] [place] Comment on above: Results Start: 11-16-2023 Refill Scott espitia APRN.OUTBOUND SALES EXECUTIVE Work Phone: [facility] [place] Comment on above: Refill Request Start: 11-04-2023 Telephone encounter Scott kaiser APRN.OUTBOUND SALES EXECUTIVE Work Phone: [facility] Comment on above: Results Start: 11-03-2023 ambulatory Scott espitia APRN.OUTBOUND SALES EXECUTIVE Work Phone: [facility] Comment on above: Test results Start: 11-01-2023 End: 11-01-2023 Patient encounter procedure Scott Jones APRN.OUTBOUND SALES EXECUTIVE Work Phone: [facility] [place] Comment on above: Near syncope (Primar y Dx); Bradycardia Start: 10-14-2023 Telephone encounter Neurology Provid er Neurology Comment on above: Patient Update Start: 10-04-2023 Refill Scott espitia APRN.OUTBOUND SALES EXECUTIVE Work Phone: [facility] [place] Comment on above: Refill Request Start: 08-25-2023 ambulatory Megan Ojeda [facility] Comment on above: Refill Request Start: 07-26-2023 End: 07-26-2023 Subsequent hospital visit by physician Sarah [facility] Work Phone: Radiology Comment on above: Left arm pain [M79.6 02] Start: 05-04-2023 Refill Scott espiita APRN.OUTBOUND SALES EXECUTIVE Work Phone: [facility] [place] Comment on above: Refill Request Start: 04-05-2023 End: 04-05-2023 Patient encounter procedure Scott Jones APRN.OUTBOUND SALES EXECUTIVE Work Phone: [facility] Comment on above: SVT (supraventricula r tachycardia) (HCC) (Primary Dx) Start: 03-23-2023 Telephone encounter Scott kaiser APRN.OUTBOUND SALES EXECUTIVE Work Phone: [facility] [place] Comment on above: Results Start: 03-17-2023 End: 03-17-2023 Patient encounter procedure Scott Jones APRN.OUTBOUND SALES EXECUTIVE Work Phone: [facility] [place] Comment on above: Moderate persistent asthma, uncomplicated (Primary Dx) Start: 03-12-2023 Telephone encounter Scott kaiser APRN.OUTBOUND SALES EXECUTIVE Work Phone: [facility] [place] Comment on above: Results Start: 03-11-2023 End: 03-11-2023 Patient encounter procedure Scott Jones APRN.OUTBOUND SALES EXECUTIVE Work Phone: [facility] [place] Comment on above: JUAN R (obstructive sle ep apnea) (Primary Dx) Start: 03-04-2023 Telephone encounter Scott kaiser APRN.OUTBOUND SALES EXECUTIVE Work Phone: [facility] [place] Comment on above: Results Start: 02-26-2023 End: 02-27-2023 ambulatory SCOTT JONES Facility:[facility] Start: 02-25-2023 End: 02-25-2023 Patient encounter procedure Scott Jones APRN.OUTBOUND SALES EXECUTIVE Work Phone: [facility] [place] Comment on above: Heart palpitations ( Primary Dx); Hypertension, essential Start: 02-24-2023 ambulatory Scott espitia APRN.OUTBOUND SALES EXECUTIVE Work Phone: [facility] [place] Start: 02-23-2023 End: 02-23-2023 Emergency department patient visit [facility] Work Phone: Start: 02-18-2023 [facility] Work Phone: Neurology Start: 11-02-2022 End: 11-02-2022 Patient encounter procedure Frankie Simmons Work Phone: Podiatry Comment on above: Acquired hallux valg us of left foot (Primary Dx); Diminished pulses in lower extremity; Vitamin D deficiency Start: 11-02-2022 End: 11-02-2022 Subsequent hospital visit by physician Xr [facility] Work Phone: Radiology Comment on above: Pain [R52] Start: 08-25-2022 End: 08-25-2022 Subsequent hospital visit by physician Xr [facility] Work Phone: Radiology Comment on above: Arm pain, central, r ight [M79.601] Start: 07-21-2022 Telephone encounter Ela schneider DIE STAMPER.OUTBOUND SALES EXECUTIVE Work Phone: [facility] Comment on above: Missed Appointment Start: 07-21-2022 End: 07-21-2022 ambulatory [facility] Facility:[facility] Start: 07-20-2022 End: 07-20-2022 [facility] Ingrid Brown MD Work Phone: [facility] [place] Comment on above: Bipolar affective di sorder, current episode mixed, current episode severity unspecified (HCC) (Primary Dx) Procedures Date Procedure Procedure Detail Performing Clinician Start: 01-29-2025 Estimated creatinine clearance Scott Jones COMMERCIAL CARPENTER-C Work Phone: Start: 12-23-2023 Radex hand minimum 3 views Scott Jones DIE STAMPER.OUTBOUND SALES EXECUTIVE Work Phone: Start: 07-26-2023 Radex spine cervical 4 or 5 views Scott Jones DIE STAMPER.OUTBOUND SALES EXECUTIVE Work Phone: Start: 02-23-2023 Plain chest X-ray Start: 11-02-2022 Radex foot complete minimum 3 views Frankie Simmons Work Phone: Start: 08-25-2022 Radex humerus minimu m 2 views Louie King APRN.OUTBOUND SALES EXECUTIVE Work Phone: Plan of Treatment Date Care Activity Detail Author Start: 01-10-2032 Urine microalbumin profile [facility] Start: 09-22-2025 Screening for malign ant neoplasm of breast Mammogram Screening [facility] Start: 03-12-2025 Influenza vaccination Influenz a Vaccine (Season Ended) [facility] Start: 01-29-2025 [facility] Start: 12-22-2024 Annual PCP Team Gm/Svp [employer] carole Disease Visit Annual PCP Team Chronic Disease Visit [facility] Start: 12-10-2024 [facility] Start: 10-11-2024 [facility] Start: 10-11-2024 End: 10-11-2024 Patient encounter procedure 10/11/2024 10:45 AM EDT Office Visit OB/Gynecology [address] [place], [place] [id number] Caity Corado APRN.OUTBOUND SALES EXECUTIVE [address] [place] [id number] Annual OB/Gynecology Comment on above: Annual Start: 03-12-2024 Covid-19 Vaccine ( season) Covid-19 Vaccine ( season) [facility] Start: 03-12-2024 Covid-19 Vaccine ( season) Covid-19 Vaccine ( season) [facility] Start: 03-12-2024 Influenza vaccination [facility] Start: 02-14-2024 End: 02-14-2024 Patient encounter procedure 02/14/2024 9:15 AM EDT Office Visit Orthopaedics [address] [place] [id number] Wilfrido Chapa MD [address] [place] [id number] Left hand pain [M79.642] Orthopaedics Comment on above: Left hand pain [M79. 642] Start: 11-01-2023 End: 01-31-2024 lamoTRIgine [Mass/volume] in Serum or Plasma [facility] Work Phone: Comment on above: Expected: 11/01/2023 , Expires: 01/31/2024 Start: 09-22-2023 HEPATITIS C SCREENING HEPATITIS C [facility] Comment on above: Postponed from 07/31 (Declined at this time) Start: 09-22-2023 Hepatitis C screening Hepatitis C [facility] Comment on above: Postponed from 07/31 (Declined at this time) Start: 09-22-2023 HIV SCREENING HIV SCREENING [facility] Comment on above: Postponed from 07/31 (Declined at this time) Start: 09-22-2023 HIV screening HIV Screening [facility] Comment on above: Postponed from 07/31 (Declined at this time) Start: 09-22-2023 PNEUMOCOCCAL (2 - PCV) PNEUMOCOCCAL (2 - PCV) [facility] Start: 09-22-2023 Pneumococcal vaccination [facility] Start: 07-12-2023 Behavioral Health Screening Behavioral Health Screening [facility] Start: 07-12-2023 Depression Assessment Depression Ass essment [facility] Start: 03-12-2023 Covid-19 Vaccine ( season) Covid-19 Vaccine () [facility] Start: 03-12-2023 Influenza vaccination [facility] Start: 02-23-2023 [facility] Start: 11-02-2022 End: 01-02-2023 25-hydroxyvitamin D3 [Mass/volume] in Serum or Plasma VITAMIN D 25 HYDROXY Lab Routine Acquired hallux valgus of left foot Diminished pulses in lower extremity Vitamin D deficiency Expected: 11/02/2022, Expires: 01/02/2023 [facility] Work Phone: Comment on above: Expected: 11/02/2022 , Expires: 01/02/2023 Start: 10-12-2022 COVID-19 VACCINE (2 - Pfizer series) COVID-19 VACCINE (2 - Pfizer series) [facility] Start: 2022 Mammography [facility] Start: 2022 Screening for malign ant neoplasm of breast Mammogram Screening [facility] Start: 07-12-2022 DEPRESSION ASSESSMENT DEPRESSION ASS ESSMENT [facility] Start: 03-12-2022 Influenza vaccination INFLUENZA (#1) [facility] Start: 2012 HPV TESTING HPV TESTING [facility] Start: 2012 Screening for malign ant neoplasm of cervix HPV Testing [facility] Start: 2003 PAP TESTING PAP TESTING [facility] Start: 2003 Screening for malign ant neoplasm of cervix [facility] Start: 2001 Urine microalbumin profile DTAP,TDAP,TD (1 - Tdap) [facility] Start: 2000 Anxiety Screening Anxiety Screening [facility] Start: 2000 Depression Screening Depression Scre ening [facility] Start: 2000 HEPATITIS C SCREENING HEPATITIS C [facility] Start: 2000 Hepatitis C screening Hepatitis C [facility] Start: 2000 HIV SCREENING HIV SCREENING [facility] Start: 2000 HIV screening HIV Screening [facility] Start: 2000 Spirometry Spirometry [facility] Start: 01-28-1983 COVID-19 VACCINE (#1) COVID-19 VACCI NE (#1) [facility] Start: 1982 HEPATITIS B (1 of 3 - 3-dose series) HEPATITIS B (1 of 3 - 3-dose series) [facility] End: 03-03-2025 DBT Breast - bilateral screening MELVA SCREENING [facility] Radiology Routine Encounter for screening mammogram for breast cancer 1 Occurrences starting 02/02/2024 until 03/03/2025 [facility] Work Phone: Comment on above: 1 Occurrences starti ng 02/02/2024 until 03/03/2025 DBT Breast - bilater al screening MELVA SCREENING [facility] Radiology Routine Encounter for screening mammogram for breast cancer 09/22/2024 2:37 PM EDT [facility] Work Phone: ECG COMPLETE ECG COMPLETE ECG Routine Bradycardia Ordered: 11/01/2023 [facility] Comment on above: Ordered: 11/01/2023 End: 03-25-2024 MELVA SCREENING MELVA SCREENING Radiology Routine Encounter for screening mammogram for breast cancer 1 Occurrences starting 02/24/2023 until 03/25/2024 [facility] Work Phone: Comment on above: 1 Occurrences starti ng 02/24/2023 until 03/25/2024 OUTSIDE VENDOR CARDI AC OUTPATIENT EXTENDED RHYTHM RECORDING (WITHOUT TELEMETRY) OUTSIDE VENDOR CARDIAC OUTPATIENT EXTENDED RHYTHM RECORDING (WITHOUT TELEMETRY) Holter Routine Heart palpitations Ordered: 02/25/2023 [facility] Work Phone: Comment on above: Ordered: 02/25/2023 OUTSIDE VENDOR CARDI AC OUTPATIENT EXTENDED RHYTHM RECORDING (WITHOUT TELEMETRY) OUTSIDE VENDOR CARDIAC OUTPATIENT EXTENDED RHYTHM RECORDING (WITHOUT TELEMETRY) Holter Routine Near syncope Bradycardia Ordered: 11/01/2023 [facility] Comment on above: Ordered: 11/01/2023 Patient Education [facility] Work Phone: Patient referral [facility] Work Phone: End: 03-10-2024 Polysomnogram POLYSOMNOGRAM (PSG) Procedures Routine JUAN R (obstructive sleep apnea) 1 Occurrences starting 03/11/2023 until 03/10/2024 [facility] Work Phone: Comment on above: 1 Occurrences starti ng 03/11/2023 until 03/10/2024 End: 11-03-2023 PVR ANK PRESS SERENITY VAS LAB PVR ANK PRESS SERENITY VAS LAB Vascular Lab Routine Acquired hallux valgus of left foot Diminished pulses in lower extremity Vitamin D deficiency 1 Occurrences starting 11/02/2022 until 11/03/2023 [facility] Work Phone: Comment on above: 1 Occurrences starti ng 11/02/2022 until 11/03/2023 End: 01-21-2025 XR Hand - left PA and Lateral and Oblique XR HAND GENERAL 3V PA/LAT/OBL LEFT Radiology Routine Left hand pain [M79.642] 1 Occurrences starting 12/23/2023 until 01/21/2025 [facility] Work Phone: Comment on above: 1 Occurrences starti ng 12/23/2023 until 01/21/2025 XR Hand - left PA an d Lateral and Oblique XR HAND GENERAL 3V PA/LAT/OBL LEFT Radiology Routine Left hand pain [M79.642] 12/23/2023 5:29 PM EDT [facility] Immunizations Immunization Date Immunization Notes Care Provider Fa cility 09-21-2022 COVID-19 vaccine, ag e 12+ yr, bivalent ([employer]) Frankie Simmons Work Phone: [facility] 09-21-2022 pneumococcal polysaccharide vaccine, 23 valent Frankie Hopelajena Work Phone: [facility] 01-09-2022 diphtheria, tetanus toxoids and acellular pertussis vaccine, unspecified formulation Frankieab Simmons Work Phone: [facility] Work Phone: Payers Date Payer Category Payer Self-pay 2022 [employer] Blue Shield [id number] 2022 Unknown [employer] BLUE CARD PPO OOS [id number] 2022-Present [phone] [id number] [place] [address] PPO [id number] 2022 Unknown [id number] 2022 Unknown [id number] Unknown [id number] Unknown [id number] Unknown [id number] Social History Date Type Detail Facility [facility]: [facility] Start: 07-20-2022 History SDOH Alcohol Frequency 1 [facility] Start: 07-20-2022 History SDOH Alcohol Std Drinks 0 [facility] Start: 07-20-2022 History SDOH Social Connections Phone 5 [facility] Start: 07-20-2022 History SDOH Social Connections Membership 2 [facility] Start: 07-20-2022 History SDOH Social Connections Living 7 [facility] Start: 1980 Sex Assigned At Not on file [facility] Start: 09-17-2022 End: 01-29-2025 Tobacco smoking status NHIS Smokes tobacco daily [facility] History of tobacco use Cigarette Smoker [facility] Start: 09-17-2022 End: 02-18-2023 Cigarettes smoked current (pack per day) - Reported 0.5 [facility] Start: 09-17-2022 End: 08-16-2024 Tobacco use and exposure Smokeless tobacco non-user [facility] Start: 11-02-2022 End: 11-10-2024 Alcohol intake Ex-drinker (finding) [facility] Start: 1980 Sex Assigned At Female [facility] Start: 07-20-2022 End: 02-18-2023 Social connection and isolation panel [facility] Do you belong to any clubs or organizations such as rastafari groups, unions, fraternal or athletic groups, or school groups? No [facility] Are you now , , , , never or living with a partner? Never [facility] How often to you hav e a drink containing alcohol? Never [facility] How many standard drinks containing alcohol do you have on a typical day? Patient does not drink [facility] Do you feel stress - tense, restless, nervous, or anxious, or unable to sleep at night because your mind is troubled all the time - these days [OSQ] Very much [facility] (I/We) worried wheth er (my/our) food would run out before (I/we) got money to buy more. Never true [facility] Do you feel stress - tense, restless, nervous, or anxious, or unable to sleep at night because your mind is troubled all the time - these days [OSQ] Not at all [facility] Start: 08-25-2022 [facility] Start: 10-11-2024 Sex Female (finding) [facility] NEGATED: Highlighted row [facility] Mental Status Date Assessment Result Facility 01-29-2025 Cognitive function Level Of Cons ciousness Awake;Alert;Appropriate;Follow s Commands [facility] Work Phone: 02-23-2023 Cognitive function Awake;Alert;Appropriat e [facility] Work Phone: Clinical Notes 07-20-2022 to 01-29-2025 Telephone Encounter - Rebecca Conrell LPN - 01/01/2025 7:31 AM EDTTelephone Encounter - Rebecca Cornell LPN - 01/01/2025 7:31 AM Dereje Gomez APRN.OUTBOUND SALES EXECUTIVE - 12/10/2024 3:09 PM EDT Note Date & Type Note Facility 01-29-2025 Consult note [facility] 01-29-2025 Discharge summary [facility] 01-01-2025 Telephone encounter Note Pt was sent a My Chart message that she is due for her yearly physical and needs to schedule this Prescription Refill Information The patient has been identified by name and date of : Yes Caregiver verified no other encounters exist for this prescription request: Yes Caregiver confirmed with patient/requestor that no other refills are due, in the near future, with this provider at this time: Yes The last office visit in the department: 07/24/23 Does the patient have a future office visit with this provider/department: No Requested Prescriptions Pending Prescriptions Disp Refills amLODIPine (NORVASC) 2.5 mg tablet 30 tablet 0 Sig: Take 1 tablet by mouth once daily. Rebecca Cornell LPN January 01, 2025 7:31 AM [facility] 01-01-2025 Miscellaneous Notes Pt was sent a My Chart message that she is due for her yearly physical and needs to schedule this Prescription Refill Information The patient has been identified by name and date of : Yes Caregiver verified no other encounters exist for this prescription request: Yes Caregiver confirmed with patient/requestor that no other refills are due, in the near future, with this provider at this time: Yes The last office visit in the department: 07/24/23 Does the patient have a future office visit with this provider/department: No Requested Prescriptions Pending Prescriptions Disp Refills amLODIPine (NORVASC) 2.5 mg tablet 30 tablet 0 Sig: Take 1 tablet by mouth once daily. Rebecca Cornell LPN January 01, 2025 7:31 AM documented in this encounter [facility] 12-10-2024 Note HNO ID: [id number] Author: DEREJE DEL VALLE APRN.CHATO Service: ? Author Type: Nurse Practitioner Type: Progress Notes Filed: 12/10/2024 15:10 Note Text: 44-year-old female presents urgent care chief complaint severe back pain. Patient states back pain started this morning. Is on unable to find a comfortable position. Describes it as a sharp burning stabbing pain between her shoulder blades. Has taken Tylenol. States she cannot take NSAIDs or prednisone. We discussed treatment options. Patient states she would like to be seen in the ED for pain management. Will be seen at [facility] Dereje Del Valle APRN.CNP [facility] 12-10-2024 History of Present illness Narrative 44-year-old female presents urgent care chief complaint severe back pain. Patient states back pain started this morning. Is on unable to find a comfortable position. Describes it as a sharp burning stabbing pain between her shoulder blades. Has taken Tylenol. States she cannot take NSAIDs or prednisone. We discussed treatment options. Patient states she would like to be seen in the ED for pain management. Will be seen at [facility] Dereje Del Valle APRN.CNP documented in this encounter [facility] 11-17-2024 Telephone encounter Note Prescription Refill Information The patient has been identified by name and date of : Yes Caregiver verified no other encounters exist for this prescription request: Yes Caregiver confirmed with patient/requestor that no other refills are due, in the near future, with this provider at this time: Yes The last office visit in the department: 12/23/23 Does the patient have a future office visit with this provider/department: No Requested Prescriptions Pending Prescriptions Disp Refills ferrous sulfate 325 mg (65 mg iron) tablet 90 tablet 0 Sig: Take 1 tablet by mouth once daily. amLODIPine (NORVASC) 2.5 mg tablet 30 tablet 0 Sig: Take 1 tablet by mouth once daily. Sarah Bowles MA November 17, 2024 8:32 AM / [facility] 11-17-2024 Miscellaneous Notes Prescription Refill Information The patient has been identified by name and date of : Yes Caregiver verified no other encounters exist for this prescription request: Yes Caregiver confirmed with patient/requestor that no other refills are due, in the near future, with this provider at this time: Yes The last office visit in the department: 12/23/23 Does the patient have a future office visit with this provider/department: No Requested Prescriptions Pending Prescriptions Disp Refills ferrous sulfate 325 mg (65 mg iron) tablet 90 tablet 0 Sig: Take 1 tablet by mouth once daily. amLODIPine (NORVASC) 2.5 mg tablet 30 tablet 0 Sig: Take 1 tablet by mouth once daily. Sarah Bowles MA November 17, 2024 8:32 AM / documented in this encounter [facility] 11-10-2024 Note HNO ID: [id number] Author: ORAL MAYER MD Service: ? Author Type: Physician Type: Progress Notes Filed: 11/10/2024 13:39 Note Text: [facility] Subjective Cady Valle is a 44 year old female. Patient presents with: Cough: Chest congestion, nasal congestion, loose barky wet productive cough, mucous changing colors, x 2 weeks Patient reports 10 to 14 days of alternating nasal congestion and rhinorrhea. She comes in for evaluation because she has developed a cough and chest congestion and her nasal mucus and chest phlegm has turned yellow. She has no sinus pain or pressure. She has had a slight headache and her chest romero after she coughs. Denies fever, sore throat, or shortness of breath. She uses Benadryl for seasonal allergies Cough Review of Systems Respiratory: Positive for cough. Objective BP 125/85 Pulse 85 Temp 37 ?C (98.6 ?F) Resp 18 Wt 81 kg (178 lb 9.2 oz) LMP 10/27/2024 (Approximate) SpO2 98% BMI 31.76 kg/m? Physical Exam Constitutional: General: She is not in acute distress. HENT: Right Ear: Tympanic membrane and ear canal normal. Left Ear: Tympanic membrane and ear canal normal. Nose: Congestion present. Right Sinus: No maxillary sinus tenderness or frontal sinus tenderness. Left Sinus: No maxillary sinus tenderness or frontal sinus tenderness. Mouth/Throat: Mouth: Mucous membranes are moist. Pharynx: No oropharyngeal exudate or posterior oropharyngeal erythema. Eyes: Extraocular Movements: Extraocular movements intact. Conjunctiva/sclera: Conjunctivae normal. Pupils: Pupils are equal, round, and reactive to light. Cardiovascular: Rate and Rhythm: Normal rate and regular rhythm. Heart sounds: No murmur heard. Pulmonary: Effort: No respiratory distress. Breath sounds: No wheezing, rhonchi or rales. Musculoskeletal: Cervical back: Neck supple. Lymphadenopathy: Cervical: No cervical adenopathy. Neurological: Mental Status: She is alert. {ASSESSMENT/PLAN: 1. Seasonal allergic rhinitis, unspecified trigger - ICD9: 477.9, ICD10: J30.2 Continue antihistamine Add - FLUTICASONE PROPIONATE 50 MCG/ACTUATION NASAL SPRAY,SUSPENSION Oral Mayer MD Differential Diagnoses - Seasonal allergies is more likely for the following reason(s): suggested by HANDP - Bacterial sinusitis or pneumonia is less likely for the following reason(s): HANDP not suggestive Procedures [facility] 11-10-2024 History of Present illness Narrative [facility] Silvestre Cady Valle is a 44 year old female. Patient presents with: Cough: Chest congestion, nasal congestion, loose barky wet productive cough, mucous changing colors, x 2 weeks Patient reports 10 to 14 days of alternating nasal congestion and rhinorrhea. She comes in for evaluation because she has developed a cough and chest congestion and her nasal mucus and chest phlegm has turned yellow. She has no sinus pain or pressure. She has had a slight headache and her chest romero after she coughs. Denies fever, sore throat, or shortness of breath. She uses Benadryl for seasonal allergies Cough Review of Systems Respiratory: Positive for cough. Objective BP 125/85 Pulse 85 Temp 37 C (98.6 F) Resp 18 Wt 81 kg (178 lb 9.2 oz) LMP 10/27/2024 (Approximate) SpO2 98% BMI 31.76 kg/m Physical Exam Constitutional: General: She is not in acute distress. HENT: Right Ear: Tympanic membrane and ear canal normal. Left Ear: Tympanic membrane and ear canal normal. Nose: Congestion present. Right Sinus: No maxillary sinus tenderness or frontal sinus tenderness. Left Sinus: No maxillary sinus tenderness or frontal sinus tenderness. Mouth/Throat: Mouth: Mucous membranes are moist. Pharynx: No oropharyngeal exudate or posterior oropharyngeal erythema. Eyes: Extraocular Movements: Extraocular movements intact. Conjunctiva/sclera: Conjunctivae normal. Pupils: Pupils are equal, round, and reactive to light. Cardiovascular: Rate and Rhythm: Normal rate and regular rhythm. Heart sounds: No murmur heard. Pulmonary: Effort: No respiratory distress. Breath sounds: No wheezing, rhonchi or rales. Musculoskeletal: Cervical back: Neck supple. Lymphadenopathy: Cervical: No cervical adenopathy. Neurological: Mental Status: She is alert. {ASSESSMENT/PLAN: 1. Seasonal allergic rhinitis, unspecified trigger - ICD9: 477.9, ICD10: J30.2 Continue antihistamine Add - FLUTICASONE PROPIONATE 50 MCG/ACTUATION NASAL SPRAY,SUSPENSION Oral Mayer MD Differential Diagnoses - Seasonal allergies is more likely for the following reason(s): suggested by H&P - Bacterial sinusitis or pneumonia is less likely for the following reason(s): H&P not suggestive Procedures documented in this encounter [facility] 10-10-2024 Telephone encounter Note Prescription Refill Information The patient has been identified by name and date of : Yes Caregiver verified no other encounters exist for this prescription request: Yes Caregiver confirmed with patient/requestor that no other refills are due, in the near future, with this provider at this time: Yes The last office visit in the department: 12/23/2023 Does the patient have a future office visit with this provider/department: No Requested Prescriptions Pending Prescriptions Disp Refills amLODIPine (NORVASC) 2.5 mg tablet 30 tablet 0 Sig: Take 1 tablet by mouth once daily. Dianne Saha LPN October 10, 2024 7:12 AM [facility] 10-10-2024 Miscellaneous Notes Prescription Refill Information The patient has been identified by name and date of : Yes Caregiver verified no other encounters exist for this prescription request: Yes Caregiver confirmed with patient/requestor that no other refills are due, in the near future, with this provider at this time: Yes The last office visit in the department: 12/23/2023 Does the patient have a future office visit with this provider/department: No Requested Prescriptions Pending Prescriptions Disp Refills amLODIPine (NORVASC) 2.5 mg tablet 30 tablet 0 Sig: Take 1 tablet by mouth once daily. Dianne Saha LPN October 10, 2024 7:12 AM documented in this encounter [facility] 09-25-2024 Telephone encounter Note Pt active on [employer]- message sent Sarah Bowles MA [facility] 09-25-2024 Miscellaneous Notes Pt active on [employer]- message sent Sarah Bowles MA Please let patient know her mammogram is negative. Patient should continue with annual screenings. documented in this encounter [facility] 09-25-2024 Telephone encounter Note Please let patient know her mammogram is negative. Patient should continue with annual screenings. [facility] 09-22-2024 History of Present illness Narrative Radiology Service Progress Note PATIENT NAME: Cady Valle DATE OF SERVICE: September 22, 2024 TIME: 3:00 PM PATIENT IDENTITY VERIFICATION COMPLETED USING TWO (2) IDENTIFIERS: Name and Date of confirmed by patient verbally. FALL SCREENING: Has the patient had 2 falls in the last year or 1 fall with injury or currently using an Ambulatory Assistive Device (Walker, Cane, Wheelchair, Crutches, etc.)? No PATIENT GENDER DATA: Assigned female at . status: : No status: NO. PATIENT RELEVANT IMPLANT DATA REVIEWED: Not Applicable PATIENT PRESENTS WITH AN IMPLANTABLE OR ATTACHED OPERATIONS DEVELOPER: No RADIOLOGY DEPARTMENT: Mammography PERIPHERAL IV DATA: Not applicable SIGNED BY: ANISA Moore) September 22, 2024 3:00 PM documented in this encounter [facility] 09-22-2024 Note HNO ID: [id number] Author: GLORIA PÉREZ RT(R) Service: ? Author Type: Technologist Type: Progress Notes Filed: 09/22/2024 15:00 Note Text: Radiology Service Progress Note PATIENT NAME: Cady Valle DATE OF SERVICE: September 22, 2024 TIME: 3:00 PM PATIENT IDENTITY VERIFICATION COMPLETED USING TWO (2) IDENTIFIERS: Name and Date of confirmed by patient verbally. FALL SCREENING: Has the patient had 2 falls in the last year or 1 fall with injury or currently using an Ambulatory Assistive Device (Walker, Cane, Wheelchair, Crutches, etc.)? No PATIENT GENDER DATA: Assigned female at . status: : No status: NO. PATIENT RELEVANT IMPLANT DATA REVIEWED: Not Applicable PATIENT PRESENTS WITH AN IMPLANTABLE OR ATTACHED OPERATIONS DEVELOPER: No RADIOLOGY DEPARTMENT: Mammography PERIPHERAL IV DATA: Not applicable SIGNED BY: RT Teresa(R) September 22, 2024 3:00 PM [facility] 08-30-2024 Telephone encounter Note Prescription Refill Information The patient has been identified by name and date of : Yes Caregiver verified no other encounters exist for this prescription request: Yes Caregiver confirmed with patient/requestor that no other refills are due, in the near future, with this provider at this time: Yes The last office visit in the department: 12/23/23 Does the patient have a future office visit with this provider/department: No Requested Prescriptions Pending Prescriptions Disp Refills atorvastatin (LIPITOR) 10 mg tablet 90 tablet 1 Sig: Take 1 tablet by mouth daily at bedtime. For cholesterol. amLODIPine (NORVASC) 2.5 mg tablet 30 tablet 0 Sig: Take 1 tablet by mouth once daily. *Last rx Lipitor written 07/28/24 #90 with 1 refill. Pt not due for Lipitor. [facility] message to pt advising of the same. Janes Bal LPN August 30, 2024 12:45 PM [facility] 08-30-2024 Miscellaneous Notes Prescription Refill Information The patient has been identified by name and date of : Yes Caregiver verified no other encounters exist for this prescription request: Yes Caregiver confirmed with patient/requestor that no other refills are due, in the near future, with this provider at this time: Yes The last office visit in the department: 12/23/23 Does the patient have a future office visit with this provider/department: No Requested Prescriptions Pending Prescriptions Disp Refills atorvastatin (LIPITOR) 10 mg tablet 90 tablet 1 Sig: Take 1 tablet by mouth daily at bedtime. For cholesterol. amLODIPine (NORVASC) 2.5 mg tablet 30 tablet 0 Sig: Take 1 tablet by mouth once daily. *Last rx Lipitor written 07/28/24 #90 with 1 refill. Pt not due for Lipitor. MC message to pt advising of the same. Janes Bal LPN August 30, 2024 12:45 PM documented in this encounter [facility] 08-16-2024 Note HNO ID: [id number] Author: JOSE BUSH PA-C Service: ? Author Type: Physician Commercial Intelligence Manager Type: Progress Notes Filed: 08/16/2024 11:24 Note Text: This note was created using Divvyshot. Subjective Cady Valle is a 44 year old female. Patient is a 44-year-old female who complains of fever, chills, body aches, throat irritation and cough that she has been experiencing for the past 6 days. Patient states that she actually was feeling improved yesterday, however her fever and bodyaches returned again this morning. Patient does have asthma but reports no increased episodes of wheezing. Patient does have an albuterol MDI, however she is not certain that it is current. Patient states that her niece and nephew recently developed similar symptoms and they both tested negative for group A strep. Patient reports that her niece and nephew were not tested for influenza. 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 Cough Associated symptoms include chills, sore throat and myalgias. Review of Systems Constitutional: Positive for chills and fever. HENT: Positive for sore throat. Respiratory: Positive for cough. Musculoskeletal: Positive for myalgias. All other systems reviewed and are negative. Objective BP 122/80 Pulse 96 Temp 36.7 ?C (98 ?F) Resp 16 Wt 81.9 kg (180 lb 8.9 oz) LMP 07/15/2023 (Approximate) SpO2 100% BMI 32.11 kg/m? Physical Exam Vitals and nursing note reviewed. Constitutional: Appearance: Normal appearance. She is normal weight. HENT: Head: Normocephalic and atraumatic. Right Ear: Tympanic membrane, ear canal and external ear normal. Left Ear: Tympanic membrane, ear canal and external ear normal. Nose: Nose normal. Mouth/Throat: Mouth: Mucous membranes are moist. Pharynx: Oropharynx is clear. Eyes: Extraocular Movements: Extraocular movements intact. Conjunctiva/sclera: Conjunctivae normal. Pupils: Pupils are equal, round, and reactive to light. Cardiovascular: Rate and Rhythm: Normal rate and regular rhythm. Pulses: Normal pulses. Heart sounds: Normal heart sounds. Pulmonary: Effort: Pulmonary effort is normal. Breath sounds: Normal breath sounds. Musculoskeletal: Cervical back: Normal range of motion and neck supple. Skin: General: Skin is warm and dry. Capillary Refill: Capillary refill takes less than 2 seconds. Neurological: General: No focal deficit present. Mental Status: She is alert and oriented to person, place, and time. Psychiatric: Mood and Affect: Mood normal. Behavior: Behavior normal. Thought Content: Thought content normal. Judgment: Judgment normal. Assessment and Plan Physical exam findings as noted above. Patient was provided with prescriptions for prednisone 20 mg and Tessalon 100 mg. Supportive care instructions were discussed and the patient verbalizes excellent understanding of same. CLINICAL IMPRESSION: Viral Illness; Asthma; Medication Refill ASSESSMENT/PLAN: 1. Viral illness - ICD9: 079.99, ICD10: B34.9 (primary diagnosis) 2. Mild intermittent asthma, uncomplicated - ICD9: 493.90, ICD10: J45.20 - PREDNISONE 20 MG TABLET - ALBUTEROL SULFATE HFA 90 MCG/ACTUATION AEROSOL INHALER - INHALATIONAL SPACING DEVICE Jose Bush PA-C [facility] 08-16-2024 History of Present illness Narrative This note was created using Divvyshot. Subjective Cady Valle is a 44 year old female. Patient is a 44-year-old female who complains of fever, chills, body aches, throat irritation and cough that she has been experiencing for the past 6 days. Patient states that she actually was feeling improved yesterday, however her fever and bodyaches returned again this morning. Patient does have asthma but reports no increased episodes of wheezing. Patient does have an albuterol MDI, however she is not certain that it is current. Patient states that her niece and nephew recently developed similar symptoms and they both tested negative for group A strep. Patient reports that her niece and nephew were not tested for influenza. 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 Cough Associated symptoms include chills, sore throat and myalgias. Review of Systems Constitutional: Positive for chills and fever. HENT: Positive for sore throat. Respiratory: Positive for cough. Musculoskeletal: Positive for myalgias. All other systems reviewed and are negative. Objective BP 122/80 Pulse 96 Temp 36.7 C (98 F) Resp 16 Wt 81.9 kg (180 lb 8.9 oz) LMP 07/15/2023 (Approximate) SpO2 100% BMI 32.11 kg/m Physical Exam Vitals and nursing note reviewed. Constitutional: Appearance: Normal appearance. She is normal weight. HENT: Head: Normocephalic and atraumatic. Right Ear: Tympanic membrane, ear canal and external ear normal. Left Ear: Tympanic membrane, ear canal and external ear normal. Nose: Nose normal. Mouth/Throat: Mouth: Mucous membranes are moist. Pharynx: Oropharynx is clear. Eyes: Extraocular Movements: Extraocular movements intact. Conjunctiva/sclera: Conjunctivae normal. Pupils: Pupils are equal, round, and reactive to light. Cardiovascular: Rate and Rhythm: Normal rate and regular rhythm. Pulses: Normal pulses. Heart sounds: Normal heart sounds. Pulmonary: Effort: Pulmonary effort is normal. Breath sounds: Normal breath sounds. Musculoskeletal: Cervical back: Normal range of motion and neck supple. Skin: General: Skin is warm and dry. Capillary Refill: Capillary refill takes less than 2 seconds. Neurological: General: No focal deficit present. Mental Status: She is alert and oriented to person, place, and time. Psychiatric: Mood and Affect: Mood normal. Behavior: Behavior normal. Thought Content: Thought content normal. Judgment: Judgment normal. Assessment and Plan Physical exam findings as noted above. Patient was provided with prescriptions for prednisone 20 mg and Tessalon 100 mg. Supportive care instructions were discussed and the patient verbalizes excellent understanding of same. CLINICAL IMPRESSION: Viral Illness; Asthma; Medication Refill ASSESSMENT/PLAN: 1. Viral illness - ICD9: 079.99, ICD10: B34.9 (primary diagnosis) 2. Mild intermittent asthma, uncomplicated - ICD9: 493.90, ICD10: J45.20 - PREDNISONE 20 MG TABLET - ALBUTEROL SULFATE HFA 90 MCG/ACTUATION AEROSOL INHALER - INHALATIONAL SPACING DEVICE Jose Bush PA-C documented in this encounter [facility] 07-28-2024 Telephone encounter Note Records show valid rx t the pharmacy for Atorvastatin. The patient has been identified by name and date of : Yes Caregiver verified no other encounters exist for this prescription request: Yes Caregiver confirmed with patient/requestor that no other refills are due, in the near future, with this provider at this time: Yes The last office visit in the department: 12/23/2023 Does the patient have a future office visit with this provider/department: No Visit date not found Requested Prescriptions Pending Prescriptions Disp Refills amLODIPine (NORVASC) 2.5 mg tablet 30 tablet 0 Sig: Take 1 tablet by mouth once daily. Refused Prescriptions Disp Refills atorvastatin (LIPITOR) 10 mg tablet 90 tablet 1 Sig: Take 1 tablet by mouth daily at bedtime. For cholesterol. Astrid Grover LPN July 28, 2024 7:45 AM [facility] 07-28-2024 Miscellaneous Notes Records show valid rx t the pharmacy for Atorvastatin. The patient has been identified by name and date of : Yes Caregiver verified no other encounters exist for this prescription request: Yes Caregiver confirmed with patient/requestor that no other refills are due, in the near future, with this provider at this time: Yes The last office visit in the department: 12/23/2023 Does the patient have a future office visit with this provider/department: No Visit date not found Requested Prescriptions Pending Prescriptions Disp Refills amLODIPine (NORVASC) 2.5 mg tablet 30 tablet 0 Sig: Take 1 tablet by mouth once daily. Refused Prescriptions Disp Refills atorvastatin (LIPITOR) 10 mg tablet 90 tablet 1 Sig: Take 1 tablet by mouth daily at bedtime. For cholesterol. Astrid Grover LPN July 28, 2024 7:45 AM documented in this encounter [facility] 06-26-2024 Telephone encounter Note Prescription Refill Information The patient has been identified by name and date of : Yes Caregiver verified no other encounters exist for this prescription request: Yes Caregiver confirmed with patient/requestor that no other refills are due, in the near future, with this provider at this time: Yes The last office visit in the department: 12/23/23 with PCP Does the patient have a future office visit with this provider/department: No Requested Prescriptions Pending Prescriptions Disp Refills ferrous sulfate 325 mg (65 mg iron) tablet 90 tablet 0 Sig: Take 1 tablet by mouth once daily. atorvastatin (LIPITOR) 10 mg tablet 90 tablet 1 Sig: Take 1 tablet by mouth daily at bedtime. For cholesterol. amLODIPine (NORVASC) 2.5 mg tablet 30 tablet 0 Sig: Take 1 tablet by mouth once daily. Sarah Jimenez MA June 26, 2024 4:43 PM [facility] 06-26-2024 Miscellaneous Notes Prescription Refill Information The patient has been identified by name and date of : Yes Caregiver verified no other encounters exist for this prescription request: Yes Caregiver confirmed with patient/requestor that no other refills are due, in the near future, with this provider at this time: Yes The last office visit in the department: 12/23/23 with PCP Does the patient have a future office visit with this provider/department: No Requested Prescriptions Pending Prescriptions Disp Refills ferrous sulfate 325 mg (65 mg iron) tablet 90 tablet 0 Sig: Take 1 tablet by mouth once daily. atorvastatin (LIPITOR) 10 mg tablet 90 tablet 1 Sig: Take 1 tablet by mouth daily at bedtime. For cholesterol. amLODIPine (NORVASC) 2.5 mg tablet 30 tablet 0 Sig: Take 1 tablet by mouth once daily. Sarah Jimenez MA June 26, 2024 4:43 PM documented in this encounter [facility] 05-15-2024 Telephone encounter Note Prescription Refill Information The patient has been identified by name and date of : Yes Caregiver verified no other encounters exist for this prescription request: Yes Caregiver confirmed with patient/requestor that no other refills are due, in the near future, with this provider at this time: No The last office visit in the department: 12/23/23 Does the patient have a future office visit with this provider/department: No Requested Prescriptions Pending Prescriptions Disp Refills ferrous sulfate 325 mg (65 mg iron) tablet 90 tablet 0 Sig: Take 1 tablet by mouth once daily. atorvastatin (LIPITOR) 10 mg tablet 90 tablet 1 Sig: Take 1 tablet by mouth daily at bedtime. For cholesterol. amLODIPine (NORVASC) 2.5 mg tablet 30 tablet 0 Sig: Take 1 tablet by mouth once daily. Aixa Crespo MA May 15, 2024 10:20 AM [facility] 05-15-2024 Miscellaneous Notes Prescription Refill Information The patient has been identified by name and date of : Yes Caregiver verified no other encounters exist for this prescription request: Yes Caregiver confirmed with patient/requestor that no other refills are due, in the near future, with this provider at this time: No The last office visit in the department: 12/23/23 Does the patient have a future office visit with this provider/department: No Requested Prescriptions Pending Prescriptions Disp Refills ferrous sulfate 325 mg (65 mg iron) tablet 90 tablet 0 Sig: Take 1 tablet by mouth once daily. atorvastatin (LIPITOR) 10 mg tablet 90 tablet 1 Sig: Take 1 tablet by mouth daily at bedtime. For cholesterol. amLODIPine (NORVASC) 2.5 mg tablet 30 tablet 0 Sig: Take 1 tablet by mouth once daily. Aixa Crespo MA May 15, 2024 10:20 AM documented in this encounter [facility] 03-29-2024 Telephone encounter Note Prescription Refill Information The patient has been identified by name and date of : Yes Caregiver verified no other encounters exist for this prescription request: Yes Caregiver confirmed with patient/requestor that no other refills are due, in the near future, with this provider at this time: Yes The last office visit in the department: 12/23/23 Does the patient have a future office visit with this provider/department: No Requested Prescriptions Pending Prescriptions Disp Refills amLODIPine (NORVASC) 2.5 mg tablet 30 tablet 0 Sig: Take 1 tablet by mouth once daily. Janes Bal LPN March 29, 2024 11:07 AM [facility] 03-29-2024 Miscellaneous Notes Prescription Refill Information The patient has been identified by name and date of : Yes Caregiver verified no other encounters exist for this prescription request: Yes Caregiver confirmed with patient/requestor that no other refills are due, in the near future, with this provider at this time: Yes The last office visit in the department: 12/23/23 Does the patient have a future office visit with this provider/department: No Requested Prescriptions Pending Prescriptions Disp Refills amLODIPine (NORVASC) 2.5 mg tablet 30 tablet 0 Sig: Take 1 tablet by mouth once daily. Janes Bal LPN March 29, 2024 11:07 AM documented in this encounter [facility] 02-22-2024 Telephone encounter Note Prescription Refill Information The patient has been identified by name and date of : Yes Caregiver verified no other encounters exist for this prescription request: Yes Caregiver confirmed with patient/requestor that no other refills are due, in the near future, with this provider at this time: Yes The last office visit in the department: 04/05/2023 Does the patient have a future office visit with this provider/department: No Requested Prescriptions Pending Prescriptions Disp Refills amLODIPine (NORVASC) 2.5 mg tablet 30 tablet 0 Sig: Take 1 tablet by mouth once daily. Refused Prescriptions Disp Refills atorvastatin (LIPITOR) 10 mg tablet 90 tablet 1 Sig: Take 1 tablet by mouth daily at bedtime. For cholesterol. Dianne Saha LPN February 22, 2024 10:39 AM [facility] 02-22-2024 Miscellaneous Notes Prescription Refill Information The patient has been identified by name and date of : Yes Caregiver verified no other encounters exist for this prescription request: Yes Caregiver confirmed with patient/requestor that no other refills are due, in the near future, with this provider at this time: Yes The last office visit in the department: 04/05/2023 Does the patient have a future office visit with this provider/department: No Requested Prescriptions Pending Prescriptions Disp Refills amLODIPine (NORVASC) 2.5 mg tablet 30 tablet 0 Sig: Take 1 tablet by mouth once daily. Refused Prescriptions Disp Refills atorvastatin (LIPITOR) 10 mg tablet 90 tablet 1 Sig: Take 1 tablet by mouth daily at bedtime. For cholesterol. Dianne Saha LPN February 22, 2024 10:39 AM documented in this encounter [facility] 02-14-2024 Note HNO ID: [id number] Author: WILFRIDO CHAPA MD Service: ? Author Type: Physician Type: Progress Notes Filed: 02/14/2024 09:52 Note Text: Wilfrido Chapa MD Department of Orthopaedics Orthopaedics [address] [facility] [address] Dept: [phone] Dept February 14, 2024 CHIEF COMPLAINT: Established Patient and Pain of the Left Hand and Referred by Scott Jones (Last seen 09/17/22 Right shoulder impingement) HPI Patient here for evaluation for left hand pain. Patient states here middle and ring fingers are stuck. She is able to bend them but then they will go back to being stuck. Patient is right hand dominant. She had x-rays done on 12/23/23. Tried taking Tylenol for the pain but does not help. ASSESSMENT: M79.642 Left hand pain [M79.642] PLAN: It appears as she had an extensor tendon subluxation that she previously had surgery for about 2 years ago to rebalance the middle digit extensor. It looks to be in appropriate alignment at this time but may be just inflamed or aggravated for some reason. My recommendation is just for some anti-inflammatories. She certainly could also nelsy tape it the opposite way for some continued alignment exercises. Parenthetically, she has subluxation of the middle extensor tendon on the contralateral hand which does not cause her any troubles at this time. Ms. Cady Valle was advised as to contrast therapies and/or to take analgesics/anti-inflammatories as needed and all contraindications were reviewed. OBJECTIVE: Ms. Cady Valle is a pleasant 43 year old in no apparent distress. Gen:LMP 07/15/2023 nl development, non obese, no deformities ENT: Normocephalic, normal hearing, moist mucosa CV: Pulses:Radial= 2+ and symmetric, capillary refill < 2 secs, no peripheral edema/varicosities Skin: no rash, bruising or lesions. Good turgor. Psych: cooperative and appropriate, alert and oriented x 3, good mood and affect. Musculoskeletal: Prior surgical scar noted over the middle MCP joint. She has just a slight asymmetry of the finger at resting posture. However with flexion and extension of the digit appears the tendon is in the midline. Just some very minor fullness which is typical of postoperative, however over the MCP and just in the first segment on the dorsal side. No signs or symptoms of infection however. Contralateral middle extensor tendon has slight subluxation. Nontender at the A1 jose sites and there is no locking catching or clicking secondary to a traditional trigger finger. Imaging: * * *Final Report* * * DATE OF EXAM: Dec 23 2023 5:29PM WOX [id number] - XR HAND 3V PA/LAT/OBL LT / PROCEDURE REASON: Left hand pain * * * * Physician Interpretation * * * * HAND RADIOGRAPHS - LEFT HISTORY: Left hand pain TECHNOLOGIST PROVIDED HISTORY (if applicable): Left hand pain x3 days, no known injury. Pain on dorsal side of hand in area of 3rd metacarpal. Hx of surgery of left hand. TECHNIQUE: XR HAND 3V PA/LAT/OBL LT COMPARISON: None available RESULT: Bone mineralization appears normal. Left hand: There are no visualized articular erosions in the hand. No focal bony abnormality is identified. Joint spaces are preserved, and there is no soft tissue swelling. Supporting Subjective Information Below: Past Surgical History: PAST SURGICAL HISTORY No date: PAST SURGICAL HISTORY OF Comment: Diskectomy L4-L5 x2 12/2021: PAST SURGICAL HISTORY OF; Left Comment: Left hand tendon surgery 09/2020: REPAIR UMBILICAL MAURICE,5+Y/O,REDUC Medications: Current Outpatient Medications Medication Sig lurasidone (LATUDA) 60 mg tab tablet 60 mg daily with dinner. amLODIPine (NORVASC) 2.5 mg tablet Take 1 tablet by mouth once daily. atorvastatin (LIPITOR) 10 mg tablet Take 1 tablet by mouth daily at bedtime. For cholesterol. albuterol HFA (PROVENTIL HFA, VENTOLIN HFA) 90 mcg/actuation inhaler Inhale 2 Puffs as instructed every 4 hours as needed for wheezing/shortness of breath. ferrous sulfate 325 mg (65 mg iron) tablet Take 1 tablet by mouth once daily. Ascorbic Acid (VITAMIN C) 1,000 mg tablet Take 1 tablet by mouth once daily. Take wit Iron supplement. cyclobenzaprine (FLEXERIL) 5 mg tablet Take 1 tablet by mouth at bedtime as needed. albuterol HFA (PROVENTIL HFA, VENTOLIN HFA) 90 mcg/actuation inhaler Inhale 2 Puffs as instructed every 4 hours as needed for wheezing/shortness of breath. VITAMIN D-3 50 mcg (2,000 unit) cap Take 1 capsule (2,000 units) by mouth daily diphenhydrAMINE (BENADRYL) 25 mg tablet Take 25 mg by mouth three times daily as needed. lamoTRIgine (LAMICTAL) 200 mg tablet Take 1 tablet by mouth once daily. lithium carbonate 600 mg capsule Take 1 capsule by mouth once daily. escitalopram oxalate (LEXAPRO) 10 mg tablet TAKE 1/2 (ONE-HALF) OF A TABLET BY MOUTH ONCE DAILY xd, then INCREASE to ONE TABLET ONCE DAILY (Patient not taking: Reported on (more content not included)... [facility] 02-14-2024 History of Present illness Narrative Wilfrido Chapa MD Department of Orthopaedics Orthopaedics [address] [facility] [address] Dept: [phone] Dept February 14, 2024 CHIEF COMPLAINT: Established Patient and Pain of the Left Hand and Referred by Scott Jones (Last seen 09/17/22 Right shoulder impingement) HPI Patient here for evaluation for left hand pain. Patient states here middle and ring fingers are stuck. She is able to bend them but then they will go back to being stuck. Patient is right hand dominant. She had x-rays done on 12/23/23. Tried taking Tylenol for the pain but does not help. ASSESSMENT: M79.642 Left hand pain [M79.642] PLAN: It appears as she had an extensor tendon subluxation that she previously had surgery for about 2 years ago to rebalance the middle digit extensor. It looks to be in appropriate alignment at this time but may be just inflamed or aggravated for some reason. My recommendation is just for some anti-inflammatories. She certainly could also nelsy tape it the opposite way for some continued alignment exercises. Parenthetically, she has subluxation of the middle extensor tendon on the contralateral hand which does not cause her any troubles at this time. Ms. Cady Valle was advised as to contrast therapies and/or to take analgesics/anti-inflammatories as needed and all contraindications were reviewed. OBJECTIVE: Ms. Cady Valle is a pleasant 43 year old in no apparent distress. Gen:LMP 07/15/2023 nl development, non obese, no deformities ENT: Normocephalic, normal hearing, moist mucosa CV: Pulses:Radial= 2+ and symmetric, capillary refill < 2 secs, no peripheral edema/varicosities Skin: no rash, bruising or lesions. Good turgor. Psych: cooperative and appropriate, alert and oriented x 3, good mood and affect. Musculoskeletal: Prior surgical scar noted over the middle MCP joint. She has just a slight asymmetry of the finger at resting posture. However with flexion and extension of the digit appears the tendon is in the midline. Just some very minor fullness which is typical of postoperative, however over the MCP and just in the first segment on the dorsal side. No signs or symptoms of infection however. Contralateral middle extensor tendon has slight subluxation. Nontender at the A1 jose sites and there is no locking catching or clicking secondary to a traditional trigger finger. Imaging: * * *Final Report* * * DATE OF EXAM: Dec 23 2023 5:29PM WOX [id number] - XR HAND 3V PA/LAT/OBL LT / PROCEDURE REASON: Left hand pain * * * * Physician Interpretation * * * * HAND RADIOGRAPHS - LEFT HISTORY: Left hand pain TECHNOLOGIST PROVIDED HISTORY (if applicable): Left hand pain x3 days, no known injury. Pain on dorsal side of hand in area of 3rd metacarpal. Hx of surgery of left hand. TECHNIQUE: XR HAND 3V PA/LAT/OBL LT COMPARISON: None available RESULT: Bone mineralization appears normal. Left hand: There are no visualized articular erosions in the hand. No focal bony abnormality is identified. Joint spaces are preserved, and there is no soft tissue swelling. Supporting Subjective Information Below: Past Surgical History: PAST SURGICAL HISTORY No date: PAST SURGICAL HISTORY OF Comment: Diskectomy L4-L5 x2 12/2021: PAST SURGICAL HISTORY OF; Left Comment: Left hand tendon surgery 09/2020: REPAIR UMBILICAL MAURICE,5+Y/O,REDUC Medications: Current Outpatient Medications Medication Sig lurasidone (LATUDA) 60 mg tab tablet 60 mg daily with dinner. amLODIPine (NORVASC) 2.5 mg tablet Take 1 tablet by mouth once daily. atorvastatin (LIPITOR) 10 mg tablet Take 1 tablet by mouth daily at bedtime. For cholesterol. albuterol HFA (PROVENTIL HFA, VENTOLIN HFA) 90 mcg/actuation inhaler Inhale 2 Puffs as instructed every 4 hours as needed for wheezing/shortness of breath. ferrous sulfate 325 mg (65 mg iron) tablet Take 1 tablet by mouth once daily. Ascorbic Acid (VITAMIN C) 1,000 mg tablet Take 1 tablet by mouth once daily. Take wit Iron supplement. cyclobenzaprine (FLEXERIL) 5 mg tablet Take 1 tablet by mouth at bedtime as needed. albuterol HFA (PROVENTIL HFA, VENTOLIN HFA) 90 mcg/actuation inhaler Inhale 2 Puffs as instructed every 4 hours as needed for wheezing/shortness of breath. VITAMIN D-3 50 mcg (2,000 unit) cap Take 1 capsule (2,000 units) by mouth daily diphenhydrAMINE (BENADRYL) 25 mg tablet Take 25 mg by mouth three times daily as needed. lamoTRIgine (LAMICTAL) 200 mg tablet Take 1 tablet by mouth once daily. lithium carbonate 600 mg capsule Take 1 capsule by mouth once daily. escitalopram oxalate (LEXAPRO) 10 mg tablet TAKE 1/2 (ONE-HALF) OF A TABLET BY MOUTH ONCE DAILY xd, then INCREASE to ONE TABLET ONCE DAILY (Patient not taking: Reported on 02/14/2024) gabapentin (NEURONTIN) 300 mg capsule Take 1 capsule by mouth three times a day for 30 days. fluticasone-salmeterol (ADVAIR DISKUS) 100-50 mcg/dose inhaler Inhale 1 Puff as instructed twice daily. ARIPiprazole (ABILIFY) 5 mg tablet Take 1 tablet by mouth once daily. (Patient not taking: Reported on 02/14/2024) No current facility-administered medications for this visit. Allergies: Doxycycline, Ibuprofen, Ketorolac, Methocarbamol, Naproxen Sodium, Nsaids (Non-Steroidal Anti-Inflammatory Drug), and Tramadol ROS: General (negative for fatigue, malaise, weight loss/gain) HEENT (negative for headache, earache, recent vision changes, sinus pain, sore throat) Respiratory (no recent shortness of breath, hemoptysis) CV (negative for chest tightness, palpitations) Musculoskeletal (see HPI) Psych (no depression, anxiety) Wilfrido Chapa MD documented in this encounter [facility] 02-02-2024 Note Patient Outreach (IN [facility]) CADY VALLE ([id number]) 1980 F Date Time Provider Department 02/02/24 SCOTT JONES During your visit today, we recorded the following information about you: Allergies As of Date: 02/02/2024 Noted Allergy Reaction DOXYCYCLINE 01/26/2022 4 - Hives IBUPROFEN 01/26/2022 4 - Hives KETOROLAC 01/26/2022 16 - Unknown METHOCARBAMOL 01/26/2022 16 - Unknown NAPROXEN SODIUM 01/26/2022 16 - Unknown NSAIDS (NON-STEROIDAL ANTI-INFLAM*08/25/2022 4 - Hives TRAMADOL 01/26/2022 4 - Hives Date Reviewed: 12/23/2023 Reviewed by: Sarah Bowles MA - Fully Assessed Visit Diagnosis:Encounter for screening mammogram for breast cancer [Z12.31] Order(s):MELVA SCREENING W DAYANARA [[id number]] Order #: [id number] FUTURE Prescriptions as of 02/07/2024 - amLODIPine (NORVASC) 2.5 mg tablet Take 1 tablet by mouth once daily. - atorvastatin (LIPITOR) 10 mg tablet Take 1 tablet by mouth daily at bedtime. For cholesterol. - albuterol HFA (PROVENTIL HFA, VENTOLIN HFA) 90 mcg/actuation inhaler Inhale 2 Puffs as instructed every 4 hours as needed for wheezing/shortness of breath. - ferrous sulfate 325 mg (65 mg iron) tablet Take 1 tablet by mouth once daily. - Ascorbic Acid (VITAMIN C) 1,000 mg tablet Take 1 tablet by mouth once daily. Take wit Iron supplement. - escitalopram oxalate (LEXAPRO) 10 mg tablet TAKE 1/2 (ONE-HALF) OF A TABLET BY MOUTH ONCE DAILY xd, then INCREASE to ONE TABLET ONCE DAILY - gabapentin (NEURONTIN) 300 mg capsule Take 1 capsule by mouth three times a day for 30 days. - cyclobenzaprine (FLEXERIL) 5 mg tablet Take 1 tablet by mouth at bedtime as needed. - albuterol HFA (PROVENTIL HFA, VENTOLIN HFA) 90 mcg/actuation inhaler Inhale 2 Puffs as instructed every 4 hours as needed for wheezing/shortness of breath. - fluticasone-salmeterol (ADVAIR DISKUS) 100-50 mcg/dose inhaler Inhale 1 Puff as instructed twice daily. - VITAMIN D-3 50 mcg (2,000 unit) cap Take 1 capsule (2,000 units) by mouth daily - diphenhydrAMINE (BENADRYL) 25 mg tablet Take 25 mg by mouth three times daily as needed. - lamoTRIgine (LAMICTAL) 200 mg tablet Take 1 tablet by mouth once daily. - lithium carbonate 600 mg capsule Take 1 capsule by mouth once daily. - ARIPiprazole (ABILIFY) 5 mg tablet Take 1 tablet by mouth once daily. Problem List As Of Date 02/02/2024 Noted Resolved SVT (supraventricular tachycardia) (HCC) [I47.1*03/28/2023 Encounter Status:Closed by ANNABELLA OLIVAS on 02/07/24 [facility] 01-27-2024 Telephone encounter Note Jessie jc [facility] calls and is requesting lab results from 01/10/2024 to be faxed to [phone]. Faxed as requested. Cecy Oro RN [facility] 01-27-2024 Miscellaneous Notes Jessie from [phone] calls and is requesting lab results from 01/10/2024 to be faxed to [phone]. Faxed as requested. Cecy Oro RN documented in this encounter [facility] 01-14-2024 Telephone encounter Note Prescription Refill Information The patient has been identified by name and date of : Yes Caregiver verified no other encounters exist for this prescription request: Yes Caregiver confirmed with patient/requestor that no other refills are due, in the near future, with this provider at this time: Yes The last office visit in the department: 12/23/23 Does the patient have a future office visit with this provider/department: No Requested Prescriptions Pending Prescriptions Disp Refills amLODIPine (NORVASC) 2.5 mg tablet 30 tablet 0 Sig: Take 1 tablet by mouth once daily. atorvastatin (LIPITOR) 10 mg tablet 90 tablet 1 Sig: Take 1 tablet by mouth daily at bedtime. For cholesterol. Sarah Bowles MA January 14, 2024 9:36 AM [facility] 01-14-2024 Miscellaneous Notes Prescription Refill Information The patient has been identified by name and date of : Yes Caregiver verified no other encounters exist for this prescription request: Yes Caregiver confirmed with patient/requestor that no other refills are due, in the near future, with this provider at this time: Yes The last office visit in the department: 12/23/23 Does the patient have a future office visit with this provider/department: No Requested Prescriptions Pending Prescriptions Disp Refills amLODIPine (NORVASC) 2.5 mg tablet 30 tablet 0 Sig: Take 1 tablet by mouth once daily. atorvastatin (LIPITOR) 10 mg tablet 90 tablet 1 Sig: Take 1 tablet by mouth daily at bedtime. For cholesterol. Sarah Bowles MA January 14, 2024 9:36 AM documented in this encounter [facility] 12-28-2023 Telephone encounter Note Patient calls and notified of results. Patient verbalizes understanding with no further questions. Chencho Reyes RN [facility] 12-28-2023 Miscellaneous Notes Patient calls and notified of results. Patient verbalizes understanding with no further questions. Chencho Reyes RN Please let patient know their xray is normal. documented in this encounter [facility] 12-28-2023 Telephone encounter Note Please let patient know their xray is normal. [facility] 12-23-2023 History of Present illness Narrative Radiology Service Progress Note PATIENT NAME: Cady Valle DATE OF SERVICE: December 23, 2023 TIME: 5:19 PM PATIENT IDENTITY VERIFICATION COMPLETED USING TWO (2) IDENTIFIERS: Name and Date of confirmed by patient verbally. FALL SCREENING: Has the patient had 2 falls in the last year or 1 fall with injury or currently using an Ambulatory Assistive Device (Walker, Cane, Wheelchair, Crutches, etc.)? No PATIENT GENDER DATA: Female. status: : No status: NO. PATIENT RELEVANT IMPLANT DATA REVIEWED: Yes PATIENT PRESENTS WITH AN IMPLANTABLE OR ATTACHED OPERATIONS DEVELOPER: No RADIOLOGY DEPARTMENT: General X-ray: Exam(s) Completed: Upper Extremity X-Ray(s): Hand, left PERIPHERAL IV DATA: Not applicable SIGNED BY: RT Omar(Caroline) December 23, 2023 5:19 PM documented in this encounter [facility] 12-23-2023 Note HNO ID: [id number] Author: SARA CHAIDEZ RT(R) Service: ? Author Type: Business Office Director Type: Progress Notes Filed: 12/23/2023 17:28 Note Text: Radiology Service Progress Note PATIENT NAME: Cady Valle DATE OF SERVICE: December 23, 2023 TIME: 5:19 PM PATIENT IDENTITY VERIFICATION COMPLETED USING TWO (2) IDENTIFIERS: Name and Date of confirmed by patient verbally. FALL SCREENING: Has the patient had 2 falls in the last year or 1 fall with injury or currently using an Ambulatory Assistive Device (Walker, Cane, Wheelchair, Crutches, etc.)? No PATIENT GENDER DATA: Female. status: : No status: NO. PATIENT RELEVANT IMPLANT DATA REVIEWED: Yes PATIENT PRESENTS WITH AN IMPLANTABLE OR ATTACHED OPERATIONS DEVELOPER: No RADIOLOGY DEPARTMENT: General X-ray: Exam(s) Completed: Upper Extremity X-Ray(s): Hand, left PERIPHERAL IV DATA: Not applicable SIGNED BY: RT Omar(Caroline) December 23, 2023 5:19 PM [facility] 12-23-2023 Note HNO ID: [id number] Author: SCOTT JONES APRN.OUTBOUND SALES EXECUTIVE Service: ? Author Type: Nurse Practitioner Type: Progress Notes Filed: 12/23/2023 17:14 Note Text: Chief Complaint Patient presents with: Hand Pain: Left hand X 3 days HPI Cady Valle is a 43 year old female who presents here today for Above Complaints.. Patient presents for left hand pain x3 days. Has history of surgery on left hand in 2021. Patient reports reduced ROM, pain with movement and white spot that appears in knuckle of middle finger. Past medical history, appointments, medications, allergies reviewed. Previous Medical History PAST MEDICAL HISTORY Diagnosis Date Bipolar 1 disorder, mixed, full remission (HCC) DDD (degenerative disc disease), lumbar Generalized anxiety disorder Sleep apnea uses cpap Previous Surgical History PAST SURGICAL HISTORY Procedure Laterality Date PAST SURGICAL HISTORY OF Diskectomy L4-L5 x2 PAST SURGICAL HISTORY OF Left 12/2021 Left hand tendon surgery REPAIR UMBILICAL MAURICE,5+Y/O,REDUC 09/2020 Family History FAMILY HISTORY Problem Relation Age of Onset Hyperlipidemia Mother Hypertension Mother Rheumatologic disease Mother Fibromyalgia Mother Hyperlipidemia Father Glaucoma Father Cancer Father Esophageal Hyperlipidemia Maternal Grandmother Hyperlipidemia Paternal Grandmother Patient Allergies ALLERGIES Allergen Reactions Doxycycline Hives Ibuprofen Hives Ketorolac Unknown Methocarbamol Unknown Naproxen Sodium Unknown Nsaids (Non-Steroid* Hives Tramadol Hives Current Medications Current Outpatient Medications on File Prior to Visit Medication Sig albuterol HFA (PROVENTIL HFA, VENTOLIN HFA) 90 mcg/actuation inhaler Inhale 2 Puffs as instructed every 4 hours as needed for wheezing/shortness of breath. amLODIPine (NORVASC) 2.5 mg tablet Take 1 tablet by mouth once daily. atorvastatin (LIPITOR) 10 mg tablet Take 1 tablet by mouth daily at bedtime. For cholesterol. ferrous sulfate 325 mg (65 mg iron) tablet Take 1 tablet by mouth once daily. Ascorbic Acid (VITAMIN C) 1,000 mg tablet Take 1 tablet by mouth once daily. Take wit Iron supplement. escitalopram oxalate (LEXAPRO) 10 mg tablet TAKE 1/2 (ONE-HALF) OF A TABLET BY MOUTH ONCE DAILY xd, then INCREASE to ONE TABLET ONCE DAILY gabapentin (NEURONTIN) 300 mg capsule Take 1 capsule by mouth three times a day for 30 days. cyclobenzaprine (FLEXERIL) 5 mg tablet Take 1 tablet by mouth at bedtime as needed. albuterol HFA (PROVENTIL HFA, VENTOLIN HFA) 90 mcg/actuation inhaler Inhale 2 Puffs as instructed every 4 hours as needed for wheezing/shortness of breath. fluticasone-salmeterol (ADVAIR DISKUS) 100-50 mcg/dose inhaler Inhale 1 Puff as instructed twice daily. VITAMIN D-3 50 mcg (2,000 unit) cap Take 1 capsule (2,000 units) by mouth daily diphenhydrAMINE (BENADRYL) 25 mg tablet Take 25 mg by mouth three times daily as needed. lamoTRIgine (LAMICTAL) 200 mg tablet Take 1 tablet by mouth once daily. lithium carbonate 600 mg capsule Take 1 capsule by mouth once daily. ARIPiprazole (ABILIFY) 5 mg tablet Take 1 tablet by mouth once daily. No current facility-administered medications on file prior to visit. Social History Social History Tobacco Use Smoking status: Every Day Packs/day: 1 Types: Cigarettes Smokeless tobacco: Never Vaping Use Vaping Use: Never used Substance Use Topics Alcohol use: Not Currently Drug use: Not Currently Types: Marijuana, Cocaine, Opiates, Benzodiazepines, Crystal Meth Comment: Recovery for 5 years Review of Symptoms REVIEW OF SYSTEMS SEE HPI EXAM: BP 121/78 Pulse 80 Resp 14 Wt 79.4 kg (175 lb) LMP 07/15/2023 (Approximate) BMI 31.12 kg/m? General Appearance: Well appearing, alert, in no acute distress, well-hydrated, well nourished.. Extremities: Positive findings: joint location: third on left mcp(s) swelling, painful movement, loss of ROM, and tendonitis. Health Maintenance List Hepatitis C Screening Never done HIV Screening Never done Cervical Cancer Screening Never done Mammogram Screening Never done Covid-19 Vaccine(2 - 2022- season) due on 03/12/2023 Behavioral Health Screening Never done Pneumococcal Vaccine(2 of 2 - PCV) due on 09/22/2023 Influenza Vaccine(Season Ended) due on 03/12/2024 DTaP,Tdap,Td Vaccine(2 - Tdap) due on 01/10/2032 HPV Vaccine Aged Out Hepatitis B Vaccine Discontinued ASSESSMENT/PLAN: 1. Left hand pain [M79.642] - ICD9: 729.5, ICD10: M79.642 - XR HAND GENERAL 3V PA/LAT/OBL LEFT - CONSULT TO ORTHOPAEDICS - Continue ice, tylenol and ibuprofen prn Scott Jones, DIE STAMPER.OUTBOUND SALES EXECUTIVE [facility] 12-23-2023 History of Present illness Narrative Chief Complaint Patient presents with: Hand Pain: Left hand X 3 days HPI Cady Valle is a 43 year old female who presents here today for Above Complaints.. Patient presents for left hand pain x3 days. Has history of surgery on left hand in 2021. Patient reports reduced ROM, pain with movement and white spot that appears in knuckle of middle finger. Past medical history, appointments, medications, allergies reviewed. Previous Medical History PAST MEDICAL HISTORY Diagnosis Date Bipolar 1 disorder, mixed, full remission (HCC) DDD (degenerative disc disease), lumbar Generalized anxiety disorder Sleep apnea uses cpap Previous Surgical History PAST SURGICAL HISTORY Procedure Laterality Date PAST SURGICAL HISTORY OF Diskectomy L4-L5 x2 PAST SURGICAL HISTORY OF Left 12/2021 Left hand tendon surgery REPAIR UMBILICAL MAURICE,5+Y/O,REDUC 09/2020 Family History FAMILY HISTORY Problem Relation Age of Onset Hyperlipidemia Mother Hypertension Mother Rheumatologic disease Mother Fibromyalgia Mother Hyperlipidemia Father Glaucoma Father Cancer Father Esophageal Hyperlipidemia Maternal Grandmother Hyperlipidemia Paternal Grandmother Patient Allergies ALLERGIES Allergen Reactions Doxycycline Hives Ibuprofen Hives Ketorolac Unknown Methocarbamol Unknown Naproxen Sodium Unknown Nsaids (Non-Steroid* Hives Tramadol Hives Current Medications Current Outpatient Medications on File Prior to Visit Medication Sig albuterol HFA (PROVENTIL HFA, VENTOLIN HFA) 90 mcg/actuation inhaler Inhale 2 Puffs as instructed every 4 hours as needed for wheezing/shortness of breath. amLODIPine (NORVASC) 2.5 mg tablet Take 1 tablet by mouth once daily. atorvastatin (LIPITOR) 10 mg tablet Take 1 tablet by mouth daily at bedtime. For cholesterol. ferrous sulfate 325 mg (65 mg iron) tablet Take 1 tablet by mouth once daily. Ascorbic Acid (VITAMIN C) 1,000 mg tablet Take 1 tablet by mouth once daily. Take wit Iron supplement. escitalopram oxalate (LEXAPRO) 10 mg tablet TAKE 1/2 (ONE-HALF) OF A TABLET BY MOUTH ONCE DAILY xd, then INCREASE to ONE TABLET ONCE DAILY gabapentin (NEURONTIN) 300 mg capsule Take 1 capsule by mouth three times a day for 30 days. cyclobenzaprine (FLEXERIL) 5 mg tablet Take 1 tablet by mouth at bedtime as needed. albuterol HFA (PROVENTIL HFA, VENTOLIN HFA) 90 mcg/actuation inhaler Inhale 2 Puffs as instructed every 4 hours as needed for wheezing/shortness of breath. fluticasone-salmeterol (ADVAIR DISKUS) 100-50 mcg/dose inhaler Inhale 1 Puff as instructed twice daily. VITAMIN D-3 50 mcg (2,000 unit) cap Take 1 capsule (2,000 units) by mouth daily diphenhydrAMINE (BENADRYL) 25 mg tablet Take 25 mg by mouth three times daily as needed. lamoTRIgine (LAMICTAL) 200 mg tablet Take 1 tablet by mouth once daily. lithium carbonate 600 mg capsule Take 1 capsule by mouth once daily. ARIPiprazole (ABILIFY) 5 mg tablet Take 1 tablet by mouth once daily. No current facility-administered medications on file prior to visit. Social History Social History Tobacco Use Smoking status: Every Day Packs/day: 1 Types: Cigarettes Smokeless tobacco: Never Vaping Use Vaping Use: Never used Substance Use Topics Alcohol use: Not Currently Drug use: Not Currently Types: Marijuana, Cocaine, Opiates, Benzodiazepines, Crystal Meth Comment: Recovery for 5 years Review of Symptoms REVIEW OF SYSTEMS SEE HPI EXAM: BP 121/78 Pulse 80 Resp 14 Wt 79.4 kg (175 lb) LMP 07/15/2023 (Approximate) BMI 31.12 kg/m General Appearance: Well appearing, alert, in no acute distress, well-hydrated, well nourished.. Extremities: Positive findings: joint location: third on left mcp(s) swelling, painful movement, loss of ROM, and tendonitis. Health Maintenance List Hepatitis C Screening Never done HIV Screening Never done Cervical Cancer Screening Never done Mammogram Screening Never done Covid-19 Vaccine(2 - 2022- season) due on 03/12/2023 Behavioral Health Screening Never done Pneumococcal Vaccine(2 of 2 - PCV) due on 09/22/2023 Influenza Vaccine(Season Ended) due on 03/12/2024 DTaP,Tdap,Td Vaccine(2 - Tdap) due on 01/10/2032 HPV Vaccine Aged Out Hepatitis B Vaccine Discontinued ASSESSMENT/PLAN: 1. Left hand pain [M79.642] - ICD9: 729.5, ICD10: M79.642 - XR HAND GENERAL 3V PA/LAT/OBL LEFT - CONSULT TO ORTHOPAEDICS - Continue ice, tylenol and ibuprofen prn Scott Jones APRN.OUTBOUND SALES EXECUTIVE documented in this encounter [facility] 12-05-2023 History of Present illness Narrative This note was created using adBriteter. Subjective Cady Valle is a 43 year old female. HPI Pt complains of nasal congestion, cough, chest tightness, and chest burning that started about 5 days ago with gradual worsening. She did have a fever that has resolved. Review of Systems Constitutional: Positive for chills, diaphoresis and fever. HENT: Positive for congestion. Respiratory: Positive for cough and shortness of breath. Objective BP 110/84 Pulse 110 Temp 36.8 C (98.3 F) Resp 21 Wt 78.4 kg (172 lb 13.5 oz) LMP 07/15/2023 (Approximate) SpO2 99% BMI 30.74 kg/m Physical Exam Vitals and nursing note reviewed. Constitutional: General: She is not in acute distress. Appearance: Normal appearance. She is not ill-appearing. HENT: Head: Normocephalic. Mouth/Throat: Mouth: Mucous membranes are moist. Eyes: Conjunctiva/sclera: Conjunctivae normal. Cardiovascular: Rate and Rhythm: Regular rhythm. Tachycardia present. Pulmonary: Effort: Pulmonary effort is normal. Breath sounds: Normal breath sounds. Musculoskeletal: General: Normal range of motion. Cervical back: Normal range of motion. Skin: General: Skin is warm and dry. Neurological: General: No focal deficit present. Mental Status: She is alert. Psychiatric: Mood and Affect: Mood normal. Behavior: Behavior normal. Assessment and Plan ASSESSMENT/PLAN: 1. Bronchitis - ICD9: 490, ICD10: J40 As patient notes worsening symptoms for the last 4-5 days she was given prescriptions for antibiotics, prednisone, cough medicine, and a ProAir inhaler. Discussed with her viral versus bacterial origin however in the end patient prefers to initiate antibiotics. - AMOXICILLIN 875 MG-POTASSIUM CLAVULANATE 125 MG TABLET - AZITHROMYCIN 250 MG TABLET - PREDNISONE 50 MG TABLET - ALBUTEROL SULFATE HFA 90 MCG/ACTUATION AEROSOL INHALER - CODEINE 10 MG-GUAIFENESIN 100 MG/5 ML ORAL LIQUID Jose Kelly APRN.CHATO documented in this encounter [facility] 11-25-2023 Telephone encounter Note Pt called and is notified of providers results. Pt voices understanding. Elizabeth Guerrero RN [facility] 11-25-2023 Miscellaneous Notes Pt called and is notified of providers results. Pt voices understanding. Elizabeth Guerrero RN Please let patient know her heart monitor is normal. documented in this encounter [facility] 11-25-2023 Telephone encounter Note Please let patient know her heart monitor is normal. [facility] 11-17-2023 Miscellaneous Notes Patient has been identified by name and date of : yes Patient phones for refill(s): Requested Prescriptions Pending Prescriptions Disp Refills amLODIPine (NORVASC) 2.5 mg tablet 30 tablet 0 Sig: Take 1 tablet by mouth once daily. atorvastatin (LIPITOR) 10 mg tablet 90 tablet 1 Sig: Take 1 tablet by mouth daily at bedtime. For cholesterol. Date of last office visit in primary care: 11/01/2023 Date of next office visit in primary care: Visit date not found Please advise. Thank you. Sandy Landa MA. documented in this encounter [facility] 11-17-2023 Telephone encounter Note Patient has been identified by name and date of : yes Patient phones for refill(s): Requested Prescriptions Pending Prescriptions Disp Refills amLODIPine (NORVASC) 2.5 mg tablet 30 tablet 0 Sig: Take 1 tablet by mouth once daily. atorvastatin (LIPITOR) 10 mg tablet 90 tablet 1 Sig: Take 1 tablet by mouth daily at bedtime. For cholesterol. Date of last office visit in primary care: 11/01/2023 Date of next office visit in primary care: Visit date not found Please advise. Thank you. Sandy Landa MA. [facility] 11-05-2023 Telephone encounter Note [employer] message sent to patient Sarah Bowles MA [facility] 11-05-2023 Miscellaneous Notes [employer] message sent to patient Sarah Bowles MA Lamotrigine level is normal. documented in this encounter [facility] 11-04-2023 Telephone encounter Note Lamotrigine level is normal. [facility] 11-01-2023 History of Present illness Narrative EVENT MONITOR DISPOSABLE PATCH INSTRUCTIONS Patient Name: Cady Valle [facility] Number: [id number] Skin prepped and cleansed with alcohol Patch secured to prepped area Monitor Activated Serial #: [id number] Patient Instructed: Prescribed order timeframe Bathing guidelines Usage of event button and diary documentation Return of monitor at the end of prescribed order Call with problems [phone] or [phone] ext. [phone] Patient expresses a good understanding of instructions Sarah Bowles MA Chief Complaint Patient presents with: Dizziness: X 3 months HPI Cady Valle is a 43 year old female who presents here today for Above Complaints.. Patient presents for dizzy episodes x3 months. Patient reports episodes always happen in the morning but do not happen every day. Patient reports episode yesterday her HR was 46. Reports episodes last about 10 minutes she gest cold clammy and nauseated. Denies syncope, changes in medications, CP, SOB, vision changes. Past medical history, appointments, medications, allergies reviewed. Previous Medical History PAST MEDICAL HISTORY Diagnosis Date Bipolar 1 disorder, mixed, full remission (HCC) DDD (degenerative disc disease), lumbar Generalized anxiety disorder Sleep apnea uses cpap Previous Surgical History PAST SURGICAL HISTORY Procedure Laterality Date PAST SURGICAL HISTORY OF Diskectomy L4-L5 x2 PAST SURGICAL HISTORY OF Left 12/2021 Left hand tendon surgery REPAIR UMBILICAL MAURICE,5+Y/O,REDUC 09/2020 Family History FAMILY HISTORY Problem Relation Age of Onset Hyperlipidemia Mother Hypertension Mother Rheumatologic disease Mother Fibromyalgia Mother Hyperlipidemia Father Glaucoma Father Cancer Father Esophageal Hyperlipidemia Maternal Grandmother Hyperlipidemia Paternal Grandmother Patient Allergies ALLERGIES Allergen Reactions Doxycycline Hives Ibuprofen Hives Ketorolac Unknown Methocarbamol Unknown Naproxen Sodium Unknown Nsaids (Non-Steroid* Hives Tramadol Hives Current Medications Current Outpatient Medications on File Prior to Visit Medication Sig amLODIPine (NORVASC) 2.5 mg tablet Take 1 tablet by mouth once daily. atorvastatin (LIPITOR) 10 mg tablet Take 1 tablet by mouth daily at bedtime. For cholesterol. benzonatate (TESSALON PERLES) 100 mg capsule Take 1 capsule by mouth three times a day as needed for cough. predniSONE (DELTASONE) 10 mg tablet Take 4 tabs daily for 3 days, then 2 tabs daily for 3 days, then 1 tab daily for 3 days with food. escitalopram oxalate (LEXAPRO) 10 mg tablet TAKE 1/2 (ONE-HALF) OF A TABLET BY MOUTH ONCE DAILY xd, then INCREASE to ONE TABLET ONCE DAILY gabapentin (NEURONTIN) 300 mg capsule Take 1 capsule by mouth three times a day for 30 days. cyclobenzaprine (FLEXERIL) 5 mg tablet Take 1 tablet by mouth at bedtime as needed. propranolol (INDERAL) 10 mg tablet Take 1 tablet by mouth once daily. albuterol HFA (PROVENTIL HFA, VENTOLIN HFA) 90 mcg/actuation inhaler Inhale 2 Puffs as instructed every 4 hours as needed for wheezing/shortness of breath. fluticasone-salmeterol (ADVAIR DISKUS) 100-50 mcg/dose inhaler Inhale 1 Puff as instructed twice daily. busPIRone (BUSPAR) 5 mg tablet Take 5 mg by mouth twice daily. VITAMIN D-3 50 mcg (2,000 unit) cap Take 1 capsule (2,000 units) by mouth daily diphenhydrAMINE (BENADRYL) 25 mg tablet Take 25 mg by mouth three times daily as needed. lamoTRIgine (LAMICTAL) 200 mg tablet Take 1 tablet by mouth once daily. lithium carbonate 600 mg capsule Take 1 capsule by mouth once daily. ARIPiprazole (ABILIFY) 5 mg tablet Take 1 tablet by mouth once daily. No current facility-administered medications on file prior to visit. Social History Social History Tobacco Use Smoking status: Every Day Packs/day: 1 Types: Cigarettes Smokeless tobacco: Never Vaping Use Vaping Use: Never used Substance Use Topics Alcohol use: Not Currently Drug use: Not Currently Types: Marijuana, Cocaine, Opiates, Benzodiazepines, Crystal Meth Comment: Recovery for 5 years Review of Symptoms REVIEW OF SYSTEMS SEE HPI EXAM: BP 125/78 Pulse 76 Resp 14 Wt 78 kg (172 lb) LMP 07/15/2023 (Approximate) BMI 30.59 kg/m General Appearance: Well appearing, alert, in no acute distress, well-hydrated, well nourished.. Lungs: Lungs clear to auscultation. No wheezing, rhonchi, rales.. Heart: RRR without murmur, gallop, or rubs. No ectopy. Peripheral Pulses: Normal. Health Maintenance List Hepatitis C Screening Never done HIV Screening Never done Pap Testing Never done HPV Testing Never done Mammogram Screening Never done Covid-19 Vaccine(2 - 2022- season) due on 03/12/2023 Behavioral Health Screening Never done Pneumococcal Vaccine(2 of 2 - PCV) due on 09/22/2023 Influenza Vaccine(Season Ended) due on 03/12/2024 DTaP,Tdap,Td Vaccine(2 - Tdap) due on 01/10/2032 HPV Vaccine Aged Out Hepatitis B Vaccine Discontinued ASSESSMENT/PLAN: 1. Near syncope - ICD9: 780.2, ICD10: R55 (primary diagnosis) - COMPLETE BLOOD COUNT AND DIFFERENTIAL - COMPREHENSIVE METABOLIC PANEL - LITHIUM - HEMOGLOBIN A1C - THYROID STIMULATING HORMONE - IRON AND TIBC - FERRITIN - URINALYSIS, WITH MICROSCOPIC - LAMOTRIGINE - OUTSIDE VENDOR CARDIAC OUTPATIENT EXTENDED RHYTHM RECORDING (WITHOUT TELEMETRY) 2. Bradycardia - ICD9: 427.89, ICD10: R00.1 - COMPLETE BLOOD COUNT AND DIFFERENTIAL - COMPREHENSIVE METABOLIC PANEL - LITHIUM - HEMOGLOBIN A1C - THYROID STIMULATING HORMONE - IRON AND TIBC - FERRITIN - URINALYSIS, WITH MICROSCOPIC - LAMOTRIGINE - ECG COMPLETE - OUTSIDE VENDOR CARDIAC OUTPATIENT EXTENDED RHYTHM RECORDING (WITHOUT TELEMETRY) Scott Jones APRN.OUTBOUND SALES EXECUTIVE documented in this encounter [facility] 10-14-2023 Telephone encounter Note Phone call placed no answer unable to leave a message. [employer] logon 10/07/2023 message sent to update current CPAP usage, [employer], OV 10/18/23. Dayanara Grover LPN [facility] 10-14-2023 Miscellaneous Notes Phone call placed no answer unable to leave a message. [employer] logon 10/07/2023 message sent to update current CPAP usage, [employer], OV 10/18/23. Dayanara Grover LPN documented in this encounter [facility] 10-04-2023 Miscellaneous Notes Patient [employer] message requesting the following refill Refill(s) Requested: Requested Prescriptions Pending Prescriptions Disp Refills amLODIPine (NORVASC) 2.5 mg tablet 30 tablet 0 Sig: Take 1 tablet by mouth once daily. atorvastatin (LIPITOR) 10 mg tablet 90 tablet 1 Sig: Take 1 tablet by mouth daily at bedtime. For cholesterol. ALLERGIES Allergen Reactions Doxycycline Hives Ibuprofen Hives Ketorolac Unknown Methocarbamol Unknown Naproxen Sodium Unknown Nsaids (Non-Steroid* Hives Tramadol Hives (home) [phone] (cell) Last Office Visit Date: 07/26/2023 Last Distance Health Visit: Visit date not found Future Appointment: Visit date not found The patients preferred pharmacy has been captured for this encounter? yes Request is for script(s) to be escript to pharmacy. Lula Horn LPN documented in this encounter [facility] 08-26-2023 Miscellaneous Notes [facility]-07/26/23 Labs-08/19/22 NOV-none Vilma Valdez LPN documented in this encounter [facility] 08-26-2023 Miscellaneous Notes [facility]-07/26/23 Labs-08/19/22 NOV-none Vilma Valdez LPN documented in this encounter [facility] 08-25-2023 History of Present illness Narrative POPULATION HEALTH NAVIGATION OUTREACH Action/FYI declined Patient Identified by Name and : YES, via phone Outreach Outcome/Action Spoke to patient / parent / legal guardian: Patient scheduled Did you use a PCP flex slot to schedule this appointment? No Reason for Outreach Care Gap or Scheduling/Wellness visits Payer: Payor: [employer] / Plan: BLUE CARD PPO OOS / Product Type: PPO / Care Gap Reviewed:: DASH Reminder: Reminder note to check Health Maintenance for items below Health Maintenance items due: Pap Testing Never done HPV Testing Never done Mammogram Screening Never done Influenza Vaccine(1) Never done Covid-19 Vaccine(2 - 2022- season) due on 03/12/2023 Depression Assessment due on 07/12/2023 Pneumococcal Vaccine(2 of 2 - PCV) due on 09/22/2023 Navigation Signature: Radha Chavez August 25, 2023 10:27 AM documented in this encounter [facility] 07-26-2023 History of Present illness Narrative Radiology Service Progress Note PATIENT NAME: Cady Valle DATE OF SERVICE: July 26, 2023 TIME: 9:44 AM PATIENT IDENTITY VERIFICATION COMPLETED USING TWO (2) IDENTIFIERS: Name and Date of confirmed by patient verbally. FALL SCREENING: Has the patient had 2 falls in the last year or 1 fall with injury or currently using an Ambulatory Assistive Device (Walker, Cane, Wheelchair, Crutches, etc.)? No PATIENT GENDER DATA: Female. status: : No status: NO. PATIENT RELEVANT IMPLANT DATA REVIEWED: Yes RADIOLOGY DEPARTMENT: General X-ray: Exam(s) Completed: Spine X-Ray(s): Cervical AP / LAT / OBL Upper Extremity X-Ray(s): Shoulder, AP / TRUE AP left PERIPHERAL IV DATA: Not applicable SIGNED BY: RT Ulises(R) July 26, 2023 9:44 AM documented in this encounter [facility] 05-05-2023 Miscellaneous Notes Pcp is out of office the rest of the week. Last refill 30 with 0 refills RAFA 04/05/23 NOV none scheduled. Pt was advised at ov 04/05 to f/u in 4 weeks. Left for pt to call and schedule f/u appointment with Scott Jones. Rebecca Cornell LPN documented in this encounter [facility] 04-05-2023 History of Present illness Narrative Chief Complaint Patient presents with: Recheck HPI Cady Valle is a 42 year old female who presents here today for Above Complaints.. Patient presents for folow up for zio patch. Cardiac monitoring showed a few runs of SVT. Past medical history, appointments, medications, allergies reviewed. Previous Medical History PAST MEDICAL HISTORY Diagnosis Date Bipolar 1 disorder, mixed, full remission (HCC) DDD (degenerative disc disease), lumbar Generalized anxiety disorder Sleep apnea uses cpap Previous Surgical History PAST SURGICAL HISTORY Procedure Laterality Date PAST SURGICAL HISTORY OF Diskectomy L4-L5 x2 PAST SURGICAL HISTORY OF Left 12/2021 Left hand tendon surgery REPAIR UMBILICAL MAURICE,5+Y/O,REDUC 09/2020 Family History FAMILY HISTORY Problem Relation Age of Onset Hyperlipidemia Mother Hypertension Mother Rheumatologic disease Mother Fibromyalgia Mother Hyperlipidemia Father Glaucoma Father Cancer Father Esophageal Hyperlipidemia Maternal Grandmother Hyperlipidemia Paternal Grandmother Patient Allergies ALLERGIES Allergen Reactions Doxycycline Hives Ibuprofen Hives Ketorolac Unknown Methocarbamol Unknown Naproxen Sodium Unknown Nsaids (Non-Steroid* Hives Tramadol Hives Current Medications Current Outpatient Medications on File Prior to Visit Medication Sig albuterol HFA (PROVENTIL HFA, VENTOLIN HFA) 90 mcg/actuation inhaler Inhale 2 Puffs as instructed every 4 hours as needed for wheezing/shortness of breath. fluticasone-salmeterol (ADVAIR DISKUS) 100-50 mcg/dose inhaler Inhale 1 Puff as instructed twice daily. amLODIPine (NORVASC) 2.5 mg tablet Take 1 tablet by mouth once daily. busPIRone (BUSPAR) 5 mg tablet Take 5 mg by mouth twice daily. atorvastatin (LIPITOR) 10 mg tablet Take 1 tablet by mouth daily at bedtime. For cholesterol. VITAMIN D-3 50 mcg (2,000 unit) cap Take 1 capsule (2,000 units) by mouth daily diphenhydrAMINE (BENADRYL) 25 mg tablet Take 25 mg by mouth three times daily as needed. lamoTRIgine (LAMICTAL) 200 mg tablet Take 1 tablet by mouth once daily. lithium carbonate 600 mg capsule Take 1 capsule by mouth once daily. ARIPiprazole (ABILIFY) 5 mg tablet Take 1 tablet by mouth once daily. No current facility-administered medications on file prior to visit. Social History Social History Tobacco Use Smoking status: Every Day Packs/day: .5 Types: Cigarettes Smokeless tobacco: Never Vaping Use Vaping Use: Never used Substance Use Topics Alcohol use: Not Currently Drug use: Not Currently Types: Marijuana, Cocaine, Opiates, Benzodiazepines, Crystal Meth Comment: Recovery for 5 years Review of Symptoms REVIEW OF SYSTEMS SEE HPI EXAM: BP 134/72 Pulse 82 Resp 16 Wt 79.4 kg (175 lb) BMI 32.00 kg/m General Appearance: Well appearing, alert, in no acute distress, well-hydrated, well nourished.. Lungs: Lungs clear to auscultation. No wheezing, rhonchi, rales.. Heart: RRR without murmur, gallop, or rubs. No ectopy. Health Maintenance List Pap Testing Never done HPV Testing Never done Mammogram Screening Never done Influenza Vaccine(1) due on 03/12/2023 Hepatitis C Screening due on 09/22/2023 HIV Screening due on 09/22/2023 Pneumococcal Vaccine(2 - PCV) due on 09/22/2023 DTaP,Tdap,Td Vaccine(2 - Tdap) due on 01/10/2032 Depression Assessment Completed Covid-19 Vaccine Completed HPV Vaccine Aged Out Hepatitis B Vaccine Discontinued ASSESSMENT/PLAN: 1. SVT (supraventricular tachycardia) (HCC) - ICD9: 427.89, ICD10: I47.1 - PROPRANOLOL 10 MG TABLET Discussed with patient possibility that propranolol may make asthma worse and if her asthma starts to get worse to stop propranolol right away and notify me. Scott Jones APRN.OUTBOUND SALES EXECUTIVE documented in this encounter [facility] 03-23-2023 Miscellaneous Notes Please let patient know her cardiac monitoring shows 1 short episode of SVT but no other arrhythmias. documented in this encounter [facility] 03-17-2023 History of Present illness Narrative Chief Complaint Patient presents with: Cough HPI Cady Valle is a 42 year old female who presents here today for Above Complaints.. Patient presents with increased wheezing and coughing. Patient reports she has a history of asthma but it had not been bothering her so she didn't get refills of her albuterol or advair. Past medical history, appointments, medications, allergies reviewed. Previous Medical History PAST MEDICAL HISTORY Diagnosis Date Bipolar 1 disorder, mixed, full remission (HCC) DDD (degenerative disc disease), lumbar Generalized anxiety disorder Sleep apnea uses cpap Previous Surgical History PAST SURGICAL HISTORY Procedure Laterality Date PAST SURGICAL HISTORY OF Diskectomy L4-L5 x2 PAST SURGICAL HISTORY OF Left 12/2021 Left hand tendon surgery REPAIR UMBILICAL MAURICE,5+Y/O,REDUC 09/2020 Family History FAMILY HISTORY Problem Relation Age of Onset Hyperlipidemia Mother Hypertension Mother Rheumatologic disease Mother Fibromyalgia Mother Hyperlipidemia Father Glaucoma Father Cancer Father Esophageal Hyperlipidemia Maternal Grandmother Hyperlipidemia Paternal Grandmother Patient Allergies ALLERGIES Allergen Reactions Doxycycline Hives Ibuprofen Hives Ketorolac Unknown Methocarbamol Unknown Naproxen Sodium Unknown Nsaids (Non-Steroid* Hives Tramadol Hives Current Medications Current Outpatient Medications on File Prior to Visit Medication Sig amLODIPine (NORVASC) 2.5 mg tablet Take 1 tablet by mouth once daily. busPIRone (BUSPAR) 5 mg tablet Take 5 mg by mouth twice daily. atorvastatin (LIPITOR) 10 mg tablet Take 1 tablet by mouth daily at bedtime. For cholesterol. VITAMIN D-3 50 mcg (2,000 unit) cap Take 1 capsule (2,000 units) by mouth daily diphenhydrAMINE (BENADRYL) 25 mg tablet Take 25 mg by mouth three times daily as needed. lamoTRIgine (LAMICTAL) 200 mg tablet Take 1 tablet by mouth once daily. lithium carbonate 600 mg capsule Take 1 capsule by mouth once daily. ARIPiprazole (ABILIFY) 5 mg tablet Take 1 tablet by mouth once daily. No current facility-administered medications on file prior to visit. Social History Social History Tobacco Use Smoking status: Every Day Packs/day: .5 Types: Cigarettes Smokeless tobacco: Never Vaping Use Vaping Use: Never used Substance Use Topics Alcohol use: Not Currently Drug use: Not Currently Types: Marijuana, Cocaine, Opiates, Benzodiazepines, Crystal Meth Comment: Recovery for 5 years Review of Symptoms REVIEW OF SYSTEMS SEE HPI EXAM: BP 140/78 Pulse 100 Temp 37.6 C (99.6 F) Resp 14 Wt 78 kg (172 lb) SpO2 97% BMI 31.45 kg/m General Appearance: Well appearing, alert, in no acute distress, well-hydrated, well nourished.. Lungs: Lungs clear to auscultation. No wheezing, rhonchi, rales.. Heart: RRR without murmur, gallop, or rubs. No ectopy. Health Maintenance List PAP TESTING Never done HPV TESTING Never done MAMMOGRAM Never done INFLUENZA(1) due on 03/12/2023 HEPATITIS C SCREENING due on 09/22/2023 HIV SCREENING due on 09/22/2023 PNEUMOCOCCAL(2 - PCV) due on 09/22/2023 DTAP,TDAP,TD(2 - Tdap) due on 01/10/2032 DEPRESSION ASSESSMENT Completed COVID-19 VACCINE Completed HPV VACCINE Aged Out HEPATITIS B Discontinued ASSESSMENT/PLAN: 1. Moderate persistent asthma, uncomplicated - ICD9: 493.90, ICD10: J45.40 - Moderate persistent asthma acute excacerbation without status and no respiratory distress - Continue current medications - Avoidance of triggers recommended - ALBUTEROL SULFATE HFA 90 MCG/ACTUATION AEROSOL INHALER - FLUTICASONE 100 MCG-SALMETEROL 50 MCG/DOSE BLISTR POWDR FOR INHALATION Scott Jones APRN.OUTBOUND SALES EXECUTIVE documented in this encounter [facility] 03-12-2023 Miscellaneous Notes [facility] called and reports fax # is [phone]. Faxed [place] level over to [facility]. I update provider information to have Psychiatric information in it. Please let patient know her lithium level is low. Also get contact info for her psychiatrist so we can fax lab results to them documented in this encounter [facility] 03-11-2023 History of Present illness Narrative Chief Complaint Patient presents with: Follow Up HPI Cady Valle is a 42 year old female who presents here today for Above Complaints.. Patient presents to discuss sleep study results. Patient had been diagnosed with moderate to severe sleep apnea 5 years ago and study was repeated due to weight gain. Patient reports she completed sleep study through [facility] at [facility] and was unable to sleep well due to [facility] being creepy. Patient feels sleep study is not accurate. Past medical history, appointments, medications, allergies reviewed. Previous Medical History PAST MEDICAL HISTORY Diagnosis Date Bipolar 1 disorder, mixed, full remission (HCC) DDD (degenerative disc disease), lumbar Generalized anxiety disorder Sleep apnea uses cpap Previous Surgical History PAST SURGICAL HISTORY Procedure Laterality Date PAST SURGICAL HISTORY OF Diskectomy L4-L5 x2 PAST SURGICAL HISTORY OF Left 12/2021 Left hand tendon surgery REPAIR UMBILICAL MAURICE,5+Y/O,REDUC 09/2020 Family History FAMILY HISTORY Problem Relation Age of Onset Hyperlipidemia Mother Hypertension Mother Rheumatologic disease Mother Fibromyalgia Mother Hyperlipidemia Father Glaucoma Father Cancer Father Esophageal Hyperlipidemia Maternal Grandmother Hyperlipidemia Paternal Grandmother Patient Allergies ALLERGIES Allergen Reactions Doxycycline Hives Ibuprofen Hives Ketorolac Unknown Methocarbamol Unknown Naproxen Sodium Unknown Nsaids (Non-Steroid* Hives Tramadol Hives Current Medications Current Outpatient Medications on File Prior to Visit Medication Sig amLODIPine (NORVASC) 2.5 mg tablet Take 1 tablet by mouth once daily. busPIRone (BUSPAR) 5 mg tablet Take 5 mg by mouth twice daily. atorvastatin (LIPITOR) 10 mg tablet Take 1 tablet by mouth daily at bedtime. For cholesterol. VITAMIN D-3 50 mcg (2,000 unit) cap Take 1 capsule (2,000 units) by mouth daily diphenhydrAMINE (BENADRYL) 25 mg tablet Take 25 mg by mouth three times daily as needed. lamoTRIgine (LAMICTAL) 200 mg tablet Take 1 tablet by mouth once daily. lithium carbonate 600 mg capsule Take 1 capsule by mouth once daily. ARIPiprazole (ABILIFY) 5 mg tablet Take 1 tablet by mouth once daily. No current facility-administered medications on file prior to visit. Social History Social History Tobacco Use Smoking status: Every Day Packs/day: .5 Types: Cigarettes Smokeless tobacco: Never Vaping Use Vaping Use: Never used Substance Use Topics Alcohol use: Not Currently Drug use: Not Currently Types: Marijuana, Cocaine, Opiates, Benzodiazepines, Crystal Meth Comment: Recovery for 5 years Review of Symptoms REVIEW OF SYSTEMS SEE HPI EXAM: BP 122/74 Pulse 78 Resp 14 Wt 78.5 kg (173 lb) BMI 31.63 kg/m General Appearance: Well appearing, alert, in no acute distress, well-hydrated, well nourished.. Health Maintenance List PAP TESTING Never done HPV TESTING Never done MAMMOGRAM Never done HEPATITIS C SCREENING due on 09/22/2023 HIV SCREENING due on 09/22/2023 INFLUENZA(1) due on 03/12/2023 PNEUMOCOCCAL(2 - PCV) due on 09/22/2023 DTAP,TDAP,TD(2 - Tdap) due on 01/10/2032 DEPRESSION ASSESSMENT Completed COVID-19 VACCINE Completed HPV VACCINE Aged Out HEPATITIS B Discontinued ASSESSMENT/PLAN: 1. JUAN R (obstructive sleep apnea) - ICD9: 327.23, ICD10: G47.33 - POLYSOMNOGRAM (PSG) Scott Jones APRN.CHATO documented in this encounter [facility] 03-04-2023 Miscellaneous Notes Pt notified with information listed below. Pt has further questions and concerns that testing may not be accurate. Pt has been scheduled for a test with pcp to discuss further. Astrid Grover LPN Called and left a voicemail for the Patient to call back and ask for a nurse to receive the providers message. Elizabeth Guerrero RN Please let patient know following are her sleep study results. Mild obstructive sleep apnea exacerbated during supine sleep. 2. Treatment options for mild sleep apnea include oral appliance, conservative measures (avoidance of alcohol, sedative medications and sleeping in the back positions, management of nasal obstruction, and weight loss), surgery and potentially PAP therapy if daytime symptoms and certain comorbidities are present. documented in this encounter [facility] 02-27-2023 History of Present illness Narrative Sleep Study Check-In Documentation Date: February 27, 2023 Name: Cady Valle Patient was accompanied by Self. Location: [place] Latex allergy: No Tape allergy: No Current medications were reviewed with the patient:Yes Sleep aid taken by patient for the sleep study: Not applicable Name of sleep aid: Not Applicable Procedure was explained to the patient and all questions were answered. PAP treatment discussed and shown to patient: Yes Knowledge Program (KP): KP was not completed in epic by patient and accepted Study type: Polysomnogram Adverse Event: No Comments: Patient was advised to follow up with their ordering provider regarding test results Naima Curiel February 26, 2023 Standing PSG Orders signed in the last 90 days None Future PSG Orders signed in the last 90 days Ordered Auth. provider POLYSOMNOGRAM (PSG) [[id number]] 02/18/23 Scott Jones APRN.OUTBOUND SALES EXECUTIVE Assoc. diagnoses: JUAN R (obstructive sleep apnea) [G47.33] Q: Indications - Select All That Apply: A: Obstructive sleep apnea Q: STOP-BANG conditions - Select All That Apply: A: SNORING that is loud or disruptive A2: OBSERVED sleep apnea A3: TIREDNESS, fatigue or sleepiness during the day A4: high blood PRESSURE Q: Comorbidities: A: NONE Q: Is the patient non-ambulatory or will they be accompanied by a caregiver?: A: No Q: Current use of supplemental oxygen during sleep period?: A: No Q: Add supplemental oxygen if needed per sleep lab policy?: A: Yes Q: Is this a repeat Sleep Study?: A: Yes Q: Select the indication for the repeat Sleep Study.: A: Change in BMI >5 kg/m2 CONSULT TO SLEEP MEDICINE - ADULT [[id number]] 02/18/23 Scott Jones APRN.OUTBOUND SALES EXECUTIVE Assoc. diagnoses: JUAN R (obstructive sleep apnea) [G47.33] Q: Does consulting provider have [facility] access?: A: Yes All Prior Sleep Studies (past 365 days) Some values may be hidden. Unless noted otherwise, only the newest values recorded on each date are displayed. Sleep Studies CONSULT TO SLEEP MEDICINE - ADULT Future Expected: Expires: 02/18/24 POLYSOMNOGRAM (PSG) Future Expected: Expires: 02/18/24 BMI Readings from Last 2 Encounters: No data found for BMI PAST MEDICAL HISTORY Diagnosis Date Bipolar 1 disorder, mixed, full remission (HCC) DDD (degenerative disc disease), lumbar Generalized anxiety disorder Sleep apnea uses cpap The medical record was reviewed to determine if the proposed sleep study conforms to the [facility] Practice Parameters for the Indications for Polysomnography and Related Procedures, or if the sleep study is indicated for other reasons. Indications for study: JUAN R suspected without comorbid medical or sleep disorders Sleep study to be performed: Split Study-Polysomnogram with PAP titration Special instructions: Split night study if AHI > 15. Start with 5 cmH2O then titrate per protocol Target REM/supine sleep Add EtCO2 or Transcutaneous CO2 if available Cand[facility] Staff Note: I have read the above protocol, edited as needed, and agree to the plan. Jay Louis MD 2:37 PM, 02/26/2023 February 18, 2023 An order has been received for Polysomnogram (PSG) from [facility] Staff. Visit prep complete. Comments :No The sleep study is scheduled for 02/26. Insurance: Payor: ANTHEM / Plan: BLUE CARD PPO OOS / Product Type: PPO / Payer/Plan Subscr Sex Relation Sub. Ins. ID Effective Group Num 1. JULIEN PIMENTEL* KATELYN VALLE* 1980 Female Self [id number] 07/[birth year]/22 [id number] [id number] Irlanda Adam documented in this encounter [facility] 02-25-2023 History of Present illness Narrative EVENT MONITOR DISPOSABLE PATCH INSTRUCTIONS Patient Name: Cady Valle Clinic Number: [id number] Skin prepped and cleansed with alcohol Patch secured to prepped area Monitor Activated Serial #: [id number] Patient Instructed: Prescribed order timeframe Bathing guidelines Usage of event button and diary documentation Return of monitor at the end of prescribed order Call with problems [phone] or [phone] ext. [phone] Patient expresses a good understanding of instructions Sarah Bowles Cma Chief Complaint Patient presents with: ED Follow-up HPI Cady Valle is a 42 year old female who presents here today for Above Complaints.. Patient presents for ER follow up. Patient was seen in the ER for palpitations, dizziness and high blood pressure. Patient reports she has been taking her BP at home and SBP has been 140-150's. Patient reports she had palpitations in the past and underwent cardiac testing in [place] which was negative. ER workup is negative. Past medical history, appointments, medications, allergies reviewed. Previous Medical History PAST MEDICAL HISTORY Diagnosis Date Bipolar 1 disorder, mixed, full remission (HCC) DDD (degenerative disc disease), lumbar Generalized anxiety disorder Sleep apnea uses cpap Previous Surgical History PAST SURGICAL HISTORY Procedure Laterality Date PAST SURGICAL HISTORY OF Diskectomy L4-L5 x2 PAST SURGICAL HISTORY OF Left 12/2021 Left hand tendon surgery REPAIR UMBILICAL MAURICE,5+Y/O,REDUC 09/2020 Family History FAMILY HISTORY Problem Relation Age of Onset Hyperlipidemia Mother Hypertension Mother Rheumatologic disease Mother Fibromyalgia Mother Hyperlipidemia Father Glaucoma Father Cancer Father Esophageal Hyperlipidemia Maternal Grandmother Hyperlipidemia Paternal Grandmother Patient Allergies ALLERGIES Allergen Reactions Doxycycline Hives Ibuprofen Hives Ketorolac Unknown Methocarbamol Unknown Naproxen Sodium Unknown Nsaids (Non-Steroid* Hives Tramadol Hives Current Medications Current Outpatient Medications on File Prior to Visit Medication Sig busPIRone (BUSPAR) 5 mg tablet Take 5 mg by mouth twice daily. atorvastatin (LIPITOR) 10 mg tablet Take 1 tablet by mouth daily at bedtime. For cholesterol. VITAMIN D-3 50 mcg (2,000 unit) cap Take 1 capsule (2,000 units) by mouth daily diphenhydrAMINE (BENADRYL) 25 mg tablet Take 25 mg by mouth three times daily as needed. lamoTRIgine (LAMICTAL) 200 mg tablet Take 1 tablet by mouth once daily. lithium carbonate 600 mg capsule Take 1 capsule by mouth once daily. ARIPiprazole (ABILIFY) 5 mg tablet Take 1 tablet by mouth once daily. No current facility-administered medications on file prior to visit. Social History Social History Tobacco Use Smoking status: Every Day Packs/day: .5 Types: Cigarettes Smokeless tobacco: Never Vaping Use Vaping Use: Never used Substance Use Topics Alcohol use: Not Currently Drug use: Not Currently Types: Marijuana, Cocaine, Opiates, Benzodiazepines, Crystal Meth Comment: Recovery for 5 years Review of Symptoms REVIEW OF SYSTEMS SEE HPI EXAM: BP 134/80 Pulse 86 Resp 14 Wt 77.6 kg (171 lb) General Appearance: Well appearing, alert, in no acute distress, well-hydrated, well nourished.. Lungs: Lungs clear to auscultation. No wheezing, rhonchi, rales.. Heart: RRR without murmur, gallop, or rubs. No ectopy. Peripheral Pulses: Normal. Health Maintenance List PAP TESTING Never done HPV TESTING Never done MAMMOGRAM Never done HEPATITIS C SCREENING due on 09/22/2023 HIV SCREENING due on 09/22/2023 INFLUENZA(1) due on 03/12/2023 PNEUMOCOCCAL(2 - PCV) due on 09/22/2023 DTAP,TDAP,TD(2 - Tdap) due on 01/10/2032 DEPRESSION ASSESSMENT Completed COVID-19 VACCINE Completed HPV VACCINE Aged Out HEPATITIS B Discontinued ASSESSMENT/PLAN: 1. Heart palpitations - ICD9: 785.1, ICD10: R00.2 (primary diagnosis) - OUTSIDE VENDOR CARDIAC OUTPATIENT EXTENDED RHYTHM RECORDING (WITHOUT TELEMETRY) 2. Hypertension, essential - ICD9: 401.9, ICD10: I10 - New diagnosis - Start amlodipine - Recommend home blood pressure monitoring, to bring results to next visit - Encouraged sodium restriction, DASH or Mediterranean diet - Recommend regular aerobic exercise - Discussed need for and benefit of weight loss. There is no height on file. - Reviewed risks of hypertension and principles of treatment - AMLODIPINE 2.5 MG TABLET Scott Jones, DIE STAMPER.OUTBOUND SALES EXECUTIVE documented in this encounter [facility] 02-23-2023 Discharge summary Note Date/Time February 23, 2023 8:00pm [facility] Medical Records Department [address] [place] [address] Emergency Department Summary 02/23/23 MR#: [id number] Acct: [id number] Name: CADY VALLE Rep #:[id number] : 1980 42 From: Wilfrido Issa MD PCP: Scott Jones, COMMERCIAL CARPENTER-C Status:REG ER Location: ED HPI History of Present Illness Chief Complaint: Palpitations Informant: patient Narrative Narrative: Patient has had 2 major episodes since last night of feeling near syncopal, sweaty, and flushed. She has checked her blood pressure several times today, and it was high in the 150-160 range, systolic. She is very nervous about this. She had 1 episode last night and one this day around lunchtime. Since having the episode around lunchtime, she has had palpitations off and on for the rest of the afternoon and evening that have lasted 15 or 20 minutes and feel like skipping or racing. The palpitations have not been associated with these episodes necessarily. The 2 main episodes lasted 30-60 minutes each. States she drinks a lot of caffeine, she does not do any illicit drugs such as cocaine. States she had this happen a couple years ago, she wore a 30-day event monitor and followed up with cardiology, they released her after the event monitor was unremarkable, but she states she did not have any of the symptoms while wearing the 30-day monitor. She has not passed out from these episodes in the last 48 hours. She denies anydyspnea although at times the symptoms feel like they are taking my breath away. Also at times, she has sharp stabbing brief pains in her chest, just left of sternal when they occur. Currently asymptomatic. CVD Risk Factors: Positive for Hypercholesterolemia and Smoking; Negative for Hypertension, Diabetes or Family History 1' </=55 PE Risk Factors: Negative for Recent Travel/Surgery, Recent Immobilization, Prior DVT or PE, Cancer or OCP + Smoking + >/=35 PFSH PFSH Medical History Anxiety Bipolar 1 disorder Depression High cholesterol Home Medications aripiprazole 10 mg tablet (Abilify) 10 mg PO DAILY 02/23/23 [History Last Taken Unknown] atorvastatin 10 mg tablet 10 mg PO DAILY 02/23/23 [History Last Taken Unknown] buspirone 7.5 mg tablet 7.5 mg PO BID 02/23/23 [History Last Taken Unknown] lamotrigine 200 mg tablet (Lamictal) 200 mg PO DAILY 02/23/23 [History Last Taken Unknown] lithium carbonate 300 mg tablet,extended release 900 mg PO DAILY 02/23/23 [History Last Taken Unknown] Allergy/AdvReac Type Severity Reaction Status Date / Time doxycycline Allergy Hives Verified 02/23/23 18:40 methocarbamol [From Robaxin] Allergy Hives Verified 02/23/23 18:40 NSAIDS (Non-Steroidal Allergy Hives Verified 02/23/23 18:40 Anti-Inflamma sertraline [From Zoloft] Allergy HIVES Verified 02/23/23 18:40 tramadol Allergy Anaphylaxis Verified 02/23/23 18:40 Social History Smoking Status: Current every day smoker tobacco type: cigarettes ROS ROS ED Constitutional Constitutional ED: Denies chills or fever(s) Eyes Eyes: Denies change in vision or diplopia ENT ENT ED: Reports other Details: Facial flushing ; Denies rhinorrhea or sore throat Cardiovascular Cardiovascular: Reports as per HPI, chest pain and palpitations Respiratory/Chest Respiratory/Chest: Denies cough or dyspnea Gastrointestinal Gastrointestinal: Denies abdominal pain, diarrhea, nausea or vomiting Genitourinary Genitourinary ED: Denies dysuria or hematuria Musculoskeletal Musculoskeletal: Denies back pain or neck pain Integumentary Denies abscess or rash Neurologic Neurologic: Denies headache(s), paresthesias or weakness Psychiatric Psychiatric: Reports anxiety; Denies suicidal thoughts EXAM Physical Exam Const Vital Signs: 02/23/23 18:38 02/23/23 19:34 02/23/23 19:39 Temperature 97.8 F Temperature Source Temporal Pulse Rate 113 H 89 Respiratory Rate 18 16 Blood Pressure 162/80 H 129/76 H Blood Pressure Mean 107 93 Pulse Ox 100 Oxygen Delivery Method Room Air Room Air Room Air 02/23/23 20:00 02/23/23 21:00 Temperature Temperature Source Pulse Rate 82 85 Respiratory Rate 15 17 Blood Pressure 109/58 L 105/61 Blood Pressure Mean 75 75 Pulse Ox 96 96 Oxygen Delivery Method Positive well nourished and well developed General Appearance ED: well developed and NAD HEENT Reports moist mucous membranes normocephalic and atraumatic Eyes PERRL and EOMs intact bilaterally Neck full ROM and supple Chest Wall inspection of chest normal and palpation of chest normal Resp normal respiratory effort and clear to auscultation bilaterally Cardio regular rate, regular rhythm and no murmurs Rate: Negative for tachycardic GI non-tender and non-distended Auscultation: normoactive bowel sounds Palpation: soft Back/Spine no CVA tenderness General Back: other FROM Extremity normal to inspection and no calf tenderness General Extremety ED: Negative for edema, pulses abnormal or tenderness General Extremity: Negative for edema or pulses abnormal Neuro oriented x3, CN's II-XII intact bilaterally and no sensory deficits noted Sensorium / Orientation: awake and alert Motor Exam: strength 5/5 throughout Psych mental status grossly normal Skin no rashes or lesions noted and no wounds MDM MDM MDM Narrative Medical decision making narrative: Performed a cardiac work-up with 2 separate troponin measurements, both negative. TSH also negative, patient is on lithium and had a high level the last time she was measured, we sent that and it is actually on the low side, reassuring. Also did a D-dimer to rule out PE, it is negative ruling out pulmonary embolus in this acute situation. Patient was here for several hours on the monitor and had no symptoms or telemetry events. I advised that she decrease her caffeine intake and follow-up with her PCP, she has a scheduled appointment in a few days, and then she can decide with her PCP whether they want to do another event monitor or Holter monitor; when she saw cardiology in the past for this it was in [facility], not here. She is comfortable with that overall plan. History & Record Review Additional record(s) reviewed:: No prior records Lab Data Attestation: I reviewed the patient's lab results. Labs: Laboratory Results - last 24 hr 02/23/23 02/23/23 18:56 21:08 WBC 11.5 H RBC 4.61 Hgb 13.9 Hct 42.1 MCV 91.3 MCH 30.2 MCHC 33.0 RDW Std Deviation 41.4 RDW Coeff of Cecile 12.6 Plt Count 314 MPV 9.3 Immature Gran % (Auto) 0.400 Neut % (Auto) 50.8 Lymph % (Auto) 37.8 [place] % (Auto) 7.7 Eos % (Auto) 2.5 Baso % (Auto) 0.8 Absolute Neuts (auto) 5.8 Absolute Lymphs (auto) 4.34 Nucleated RBC % 0 D-Dimer Quant (PE/DVT) < 0.27 L Sodium 139 Potassium 3.7 Chloride 109 H Carbon Dioxide 25.0 Anion Gap 5 BUN 9 Creatinine 0.86 Estim Creat Clear Calc 68.77 Est GFR (MDRD) Af Amer 93 Est GFR (MDRD) Non-Af 77 BUN/Creatinine Ratio 10.4 Glucose 118 H Calcium 9.6 Troponin I High Sens < 3 L 3 TSH 1.18 [place] 0.30 L Radiography Diagnostic Testing: Clinical Impression(s) from Imaging Studies Chest X-Ray 02/23/23 19:10 IMPRESSION: No acute radiographic abnormalities. Electronically Signed: Tyrell Kruger MD at 19:52 EDT , 2 view chest x-ray my interpretation negative/normal, radiology in agreement. Rhythm Strip Rhythm Strip: Sinus Rhythm Rate: 90 Ectopy: None EKG Initial EKG: Attestation: I personally reviewed and interpreted this EKG as follows: Interpretation: Sinus Rhythm and No Acute Injury Pattern Comments: nml Discharge Plan Triage Chief Complaint: Palpitations ED Provider: Wilfrido Issa Dx/Rx/DC Orders Clinical Impression: Palpitations, Near syncope Instructions: ED Palpitations Prescriptions: No Action atorvastatin 10 mg tablet 10 mg PO DAILY lithium carbonate 300 mg tablet extended release 900 mg PO DAILY lamotrigine [Lamictal] 200 mg tablet 200 mg PO DAILY aripiprazole [Abilify] 10 mg tablet 10 mg PO DAILY buspirone 7.5 mg tablet 7.5 mg PO BID Primary Care Provider: Scott Jones Referrals: Scott Jones, MYKEL-C [Primary Care Provider] - [facility] appointment Disposition Disposition: Home, Self Care What to do if you have Problems For any increased pain, shortness of breath, bleeding, nausea or vomiting, chestpain, or any unexpected problems, contact your Primary Care Provider. Call [facility] ([phone]) or report to the closest Emergency Room. Call 911 if necessary. 02/23/23 2240 <Electronically signed by Wilfrido Issa MD> Cosigner Signature (if applicable): CC: COMMERCIAL CARPENTERDaina Jones ~ Signed [facility] Work Phone: [phone] 602-524904-24-2023 History of Present illness Narrative* Frankie Simmons - 11/02/2022 8:52 AM EDT Images from the original note were not included. Initial Podiatric Office Visit: Chief Complaint: This 42 year old female who presents with chief complaint:painful bunion of b/l feet HPI Patient presents to clinic for evaluation of b/l feet. She complains of painful bunion L>R. She states that with certain shoes, she has more pain. She went camping over the weekend and she was in significant pain. She really has not done anything for the pain other than remove her shoes. Patient smokes 1/2-3/4 pack of cigarettes/day. Patient does have vitamin d deficiency and is currently taking 2000 units/day. PAIN EVALUATION 11/01/2022 1431 Pain Level: 6 Pain Location: Foot-Left Description: Burning;Sore;Throbbing Duration Units: Months Frequency: Intermittent Intervention/Comfort measure: Medication;Relaxation Hemoglobin A1C (%) Date Value 08/19/2022 5.2 PCP: No primary care provider on file. PAST MEDICAL HISTORY Diagnosis Date Bipolar 1 disorder, mixed, full remission (HCC) DDD (degenerative disc disease), lumbar Generalized anxiety disorder Sleep apnea uses cpap Current Outpatient Medications Medication Sig atorvastatin (LIPITOR) 10 mg tablet Take 1 tablet by mouth daily at bedtime. For cholesterol. VITAMIN D-3 50 mcg (2,000 unit) cap Take 1 capsule (2,000 units) by mouth daily diphenhydrAMINE (BENADRYL) 25 mg tablet Take 25 mg by mouth three times daily as needed. lamoTRIgine (LAMICTAL) 200 mg tablet Take 1 tablet by mouth once daily. lithium carbonate 600 mg capsule Take 1 capsule by mouth once daily. ARIPiprazole (ABILIFY) 5 mg tablet Take 1 tablet by mouth once daily. No current facility-administered medications for this visit. ALLERGIES Allergen Reactions Doxycycline Hives Ibuprofen Hives Ketorolac Unknown Methocarbamol Unknown Naproxen Sodium Unknown Nsaids (Non-Steroid* Hives Tramadol Hives PAST SURGICAL HISTORY Procedure Laterality Date PAST SURGICAL HISTORY OF Diskectomy L4-L5 x2 PAST SURGICAL HISTORY OF Left 12/2021 Left hand tendon surgery REPAIR UMBILICAL MAURICE,5+Y/O,REDUC 09/2020 FAMILY HISTORY Problem Relation Age of Onset Hyperlipidemia Mother Hypertension Mother Rheumatologic disease Mother Fibromyalgia Mother Hyperlipidemia Father Glaucoma Father Cancer Father Esophageal Hyperlipidemia Maternal Grandmother Hyperlipidemia Paternal Grandmother Social History Tobacco Use Smoking status: Every Day Packs/day: 0.50 Types: Cigarettes Smokeless tobacco: Never Vaping Use Vaping Use: Never used Substance Use Topics Alcohol use: Not Currently Drug use: Not Currently Types: Marijuana, Cocaine, Opiates, Benzodiazepines, Crystal Meth Comment: Recovery for 5 years REVIEW OF SYSTEMS GENERAL: Negative for Malaise, significant weight loss, fever RESPIRATORY: Negative for cough, wheezing and shortness of breath CARDIOVASCULAR: Negative for chest pain, leg swelling and palpitations GI: Negative for abdominal discomfort, blood in stools or black stools and change in bowel habits : Negative for dysuria, frequency and incontinence MUSCULOSKELETAL: Negative for joint pain or swelling, back pain, and muscle pain. SKIN: Negative for lesions, rash, and itching. HEMATOLOGY/LYMPHOLOGY Negative for prolonged bleeding, bruising easily, and swollen nodes. ENDOCRINE: Negative for cold or heat intolerance, polyuria, polydipsia and goiter. NEURO: negative Physical Exam: Constitutional: Pt is a well developed 42 year old female who is alert, oriented and cooperative Eyes: Following during examination. No redness or drainage. Respiratory: RR normal and nonlabored. Even breathing. No evidence of distress or shortness of breath. Psychology: Patient is engaged during conversation. Normal affect and mood. Does not appear depressed or anxious during encounter. Vascular: Dorsalis pedis and posterior tibial pulses faintly palpable as b/l Capillary Fill time < 5 seconds to digits 1-5 b/l Skin temperature warm to cool proximal to distal b/l Hair growth present to digits Neurological: intact light touch/epicritic sensation b/l intact protective sensation no significant neurological deficits Dermatological: Nails 1-5 b/l appear normal. Webspaces clean and dry 1-4 b/l. Skin appears well hydrated and supple. good color, texture, turgor. No open lesions present. No callosities present. Musculoskeletal/Orthopaedic: Patient has pain to palpation of left medial eminence. Mild bunion is noted b/l. Pain present with dorsiflexion and plantarflexion of first mtpj. Pain with palpation of plantar sesamoid Foot type is neutral structurally AJ ROM is full with knee extended and flexed 1st MPJ is decreased when loaded and mild pain or crepitus are noted with ROM. MTJ, STJ are full and free of pain and crepitus. +5/5 muscle strength dorsiflexion, plantarflexion, inversion, eversion b/l Radiographs: 3 views b/l foot ordered November 02, 2022: I have personally reviewed and interpreted these XR myself: there is mild bunion of b/l feet. Mild first mtpj joint space narrowing ASSESSMENT: (M20.12) Acquired hallux valgus of left foot (primary encounter diagnosis) (R09.89) Diminished pulses in lower extremity (E55.9) Vitamin D deficiency PLAN: 1. History and physical examination performed. 2. XR reviewed with patient and interpreted today 3. Discussed bunion of b/l feet. She has mild bunion L>R with mild to moderate first mtpj arthritis. Discussed wider shoes and padding to prevent rubbing on bunion. Discussed conservative care notlimited to wider shoes, padding, good supportive shoes. Surgical options discussed include distal metatarsal osteotomy vs first mtpj fusion. Given the mild to moderate arthritis with pain to plantar sesamoid, could benefit from fusion. Would recommend surgery after she stops smoking, has normal vitamin d levels and access perfusion. Frankie Simmons DPM Podiatry [address] [facility] [address] Dept: [phone] Dept * Anisa Jack LPN - 11/02/2022 8:30 AM EDT AMB ROOMING INTAKE FLOWSHEET DATA Pain Pain Level: 6 Pain Location: Foot-Left Description: Burning, Sore, Throbbing Duration Units: Months Frequency: Intermittent Intervention/Comfort measure: Medication, Relaxation Patient presents with: Left Foot - Bunion, New, Pain Right Foot - New, Bunion Patient states bunion of left foot is worse than right. Patient states by the end of day her left foot is red and pain is 6/10 on pain scale. Anisa Jack LPN [facility] History of Present illness Narrative* Irlanda Noonan RT(R) - 11/02/2022 8:00 AM EDT Radiology Service Progress Note PATIENT NAME: Cady Valle DATE OF SERVICE: November 02, 2022 TIME: 8:25 AM PATIENT IDENTITY VERIFICATION COMPLETED USING TWO (2) IDENTIFIERS: Name and Date of confirmedby patient verbally. FALL SCREENING: Has the patient had 2 falls in the last year or 1 fall with injury or currently using an Ambulatory Assistive Device (Walker, Cane, Wheelchair, Crutches, etc.)? No PATIENT GENDER DATA: Female. status: : No status: NO. PATIENT RELEVANT IMPLANT DATA REVIEWED: Not Applicable RADIOLOGY DEPARTMENT: General X-ray: Exam(s) Completed: Lower Extremity X- Ray(s): Feet, Bilateral and Wt. Bearing PERIPHERAL IV DATA: Not applicable SIGNED BY: RT Khushi(R) November 02, 2022 8:25 AM documented in this encounterPar[facility] History of Present illness Narrative* Anel Tirado RT(R) - 08/25/2022 10:50 AM EST Radiology Service Progress Note PATIENT NAME: Cady Valle DATE OF SERVICE: August 25, 2022 TIME: 10:48 AM PATIENT IDENTITY VERIFICATION COMPLETED USING TWO (2) IDENTIFIERS: Name and Date of confirmedby patient verbally. FALL SCREENING: Has the patient had 2 falls in the last year or 1 fall with injury or currently using an Ambulatory Assistive Device (Walker, Cane, Wheelchair, Crutches, etc.)? No PATIENT GENDER DATA: Female. status: : No status: NO. PATIENT RELEVANT IMPLANT DATA REVIEWED: Not Applicable RADIOLOGY DEPARTMENT: General X-ray: Exam(s) Completed: Upper Extremity X- Ray(s): Humerus, right PERIPHERAL IV DATA: Not applicable SIGNED BY: RT Rao(R) August 25, 2022 10:48 AM documented in this encounterParma [facility]01-12-2023 NoteHNO ID: [id number] Author: Catalino Briones MD Service: ? Author Type: Resident Type: Progress Notes Filed: 07/24/2022 7:12 PM Note Text: [facility] Catalino Briones MD VIRTUAL VISIT PROGRESS NOTE This is a virtual visit using [employer] video visit. It required patient-provider interaction for the medical decision making as documented below. Cady Valle is a 41 year old female seen for getting anxiety meds and establishing care. She saw family medicine via [facility] yesterday and was given medications for Bipolar disorder. She was advised to call psych and get her anti anxiety meds. Patient stated she was about to call psych and set up an appointment right after this visit. She stated she is from [place] and has an appointment to establish care with a PCP in [place] itself in November. She would like to establish with someone closer and not in [place]. Also, when told that it would be better to come in person for physical and 1st appointment, she decided she would continue with her PCP in [place] and try to get her appointment moved up. She did not have any acute complaints at present. HISTORY REVIEWED (electronic chart updated): No past medical history on file. No past surgical history on file. No family history on file. Current Outpatient Medications Medication Sig lamoTRIgine (LAMICTAL) 200 mg tablet Take 1 tablet by mouth once daily. FLUoxetine (PROZAC) 20 mg capsule Take 1 capsule by mouth once daily. lithium carbonate 600 mg capsule Take 1 capsule by mouth once daily. ARIPiprazole (ABILIFY) 5 mg tablet Take 1 tablet by mouth once daily. No current facility-administered medications for this visit. ALLERGIES Not on File REVIEW OF SYSTEMS: As noted in HPI PHYSICAL EXAMINATION: VIDEO EXAM: (if completed, performed via video enabled technology) No exam performed There are no Patient Instructions on file for this visit. I spent a total of 15 minutes on the date of the service which included preparing to see the patient, [id number] patient care, and completing clinical documentation Catalino Briones [facility]01-10-2023 Miscellaneous Notes* Telephone Encounter - Nan Tyler - 07/21/2022 2:37 PM EST No Show Documentation Cady Gonzalezkland no showed for an appointment on 07/20/2022 with Ela Huitron APRN.CNP at 10:20am. She was scheduled for new est care. I called and spoke with the patient regarding her missed appointment. Cady stated that she had called and spoke to a nurse status controller on Wednesday and told them to cancelthe appointment. She got rescheduled elsewhere. Resources discussed/offered to patient: n/a No show determined to be fault of patient: No This is the patients first no show in the last 12 months. Patient was rescheduled for n/a. Letter mailed : No Is this the Third or Fourth No Show? No Nan Tyler July 21, 2022 2:37 PM documented in this encounterPar[facility]01-09-2023 History of Present illness Narrative* Ingrid Brown MD - 07/20/2022 7:41 AM EST DISTANCE HEALTH VISIT ASSESSMENT & PLAN ASSESSMENT/PLAN: 1. Bipolar affective disorder, current episode mixed, current episode severity unspecified (HCC) - ICD9: 296.60, ICD10: F31.60 - Agreeable to restart previous regimen for bipolar disease until she can establish with a psychiatrist. 90 day supply sent with no refill. -Instructed to establish with psychiatry -Instructed to establish with PCP in her area, lives in [place] which is too far from or office. - LAMOTRIGINE 200 MG TABLET - FLUOXETINE 20 MG CAPSULE - LITHIUM CARBONATE 600 MG CAPSULE - ARIPIPRAZOLE 5 MG TABLET Ingrid Brown MD Medical Decision Making: Problems: Moderate: 1+ chronic illnesses with change Risk: Moderate: Drug management Medical Decision Making Level: 4 - Moderate This Team Access Model visit is a virtual encounter. It required patient- provider interaction for the medical decision making as documented below. The patient agrees to have telehealth encounter today in place of in person visit. Patient presents with: Bipolar Disorder Cady Valle is a 41 year old female seen for Bipolar: Her and her son moved from [place] in February, didn't have any insurance until 07/12 She's been off her bipolar medications for 6 weeks now She denies feeling suicidal. She endorses severe anxiety, tearfulness, spending excessive money, not sleeping She had been previously stable for 5 years She is a recovering addict, and she notes it is risky for chio to b off her medications because sheused to self medicate - alcohol, drugs. She has not relapsed since being off her medication. She had otherwise been established with a psychiatrist in [place], had a therapist before she moved here Her prior regimen was: -Lamictal 200 mg once daily -Fluoxetine 20 mg once daily -[place] 300 mg 2 tablets once a day -Abilify 5 mg once daily Other PMH DDD Spinal stenosis Sleep apnea, uses a CPAP She lives in [place] Social: Single mom of her 11 year old son, moved here to live wit her brother and [id number] and niece and nephew Works at [employer] HISTORY REVIEWED (electronic chart updated): - medical history - medications - allergies REVIEW OF SYSTEMS: As noted in HPI PHYSICAL EXAMINATION: VIDEO EXAM: (if done, performed via video enabled technology) GENERAL: alert and appropriate, in no distress, well-hydrated, well nourished, and tearful at times documented in this encounterSelect [facility] note Author Jonathan Puga [facility] Note Date/Time January 29, 2025 11:1 8am [facility] Medical Records Department [address] [place] [address] Consultation - Cardiology 01/29/25 1107 MR#: [id number] Acct: [id number] Name: CADY VALLE Rep #:[id number] : 1980 44 From: Jonathan Puga MD PCP: Scott Jones [employer]P[facility] Status:REG ER Location: ED Assessment & Plan Assessment/Plan (1) Vasovagal near syncope: PLAN: This appears to be vasovagal syncope. There is always a prodrome where the patient feels a sensation coming over her she is able to sit down or lay down and with a cold towel the symptoms slowly resolved. These have been occurring about once per month for the last 18 months. The patient has not fallen or hurt herself. The patient had a -30-day event monitor but she had no symptoms during the wearing of the monitor. She has not had an echocardiogram done or tilt table. I feel the patient should discontinue the Norvasc but stay on the clonidine 0.1 mg daily. The patient should also have a tilt table test and mobile cardiac telemetry for 30 days. We will set this up through the [place] [facility] thepatient will be evaluated there in the next 7 days by advanced practitioner and an echocardiogram will also be performed. The patient and her family member voiced understanding of this plan and agreed to proceed. I did caution her about if she starts to feel the sensation she should not sit down but lay down and elevate her feet above her heart level. PLAN: Plan 1. DC Norvasc. 2. Patient instructed to follow-up with the [place] [facility] in the next week. Will obtain echocardiogram, mobile cardiac telemetry for 30 days, and tilt table ordered at that time. Will also reevaluate her response to discontinuing Norvasc. 3. Encouraged the patient to increase her salt intake and consider compression stockings/hose. HPI Consult Data Date of Consult: 01/29/25 HPI Narrative Reason for Consultation: Syncope HPI Narrative: CADY VALLE, is a 44 F who presents with an 18-month history of episodic syncope and near syncope. The patient has worn an event monitor for 30 days within the past year but had no events and no significant arrhythmias by her report. This was done through the [facility]. Patient reports that these events are always preceded by a prodrome where she feels a sensation coming on she is able to sit down or lay down and it resolves spontaneously without chayito syncope. She has not passed out she did have an episode today when she had been driving. She did not pass completely out she did pull off the side of the road and resolved the issue without any significantintervention. The patient denies any symptoms at this point in time. ECG sinceadmission has shown heart rate in the 60-80 bpm range. Telemetry in the emergency department shows sinus rhythm at 77 bpm. The patient's iWatch does not capture an ECG but it did notify her that her heart rate was 40 bpm during the time of this sensation. The patient notes that these have been happening about once a month they are notpredictable as far as the time of the month she does seem to think they have become more prominent around the time of her menses. The patient has never fallen or hurt herself with 1 of these events. To her knowledge she has never had an echocardiogram or tilt table test she is on Norvasc 2.5 mg daily. She isalso on clonidine 0.1 mg daily. The patient has been treated for iron deficiency anemia and her hemoglobin was normal in the emergency department. Electrolytes and renal function are normal as well. The patient carries a history of vasovagal near syncope. She has multiple drug intolerances and had anaphylaxis to tramadol. Patient also carries a history ofanxiety and depression. She is very anxious according to her family engagement executive. ON LICENSE OF [facility] Medical History High cholesterol Anxiety Depression Bipolar 1 disorder Home Medications ?Medication ?Instructions ?Recorded ?Last Taken ?Type atorvastatin 10 mg tablet 10 mg PO DAILY 02/23/2301/10 History lamotrigine 200 mg tablet 200 mg PO DAILY 02/23/23 History (Lamictal) amlodipine 2.5 mg tablet 2.5 mg PO DAILY 01/29/25 History cholecalciferol (vitamin D3) 50 50 mcg PO DAILY 01/29/25 History mcg (2,000 unit) capsule clonidine HCl 0.1 mg tablet 0.1 mg PO DAILY 01/29/25 0 01/29/25 History diphenhydramine HCl 25 mg capsule 25 mg PO Q8H PRN all ergy symptoms 01/29/25 Unknown History (Allergy (diphenhydramine)) ferrous sulfate 325 mg (65 mg 325 mg PO DAILY 01/29/25 01/29/25 History iron) tablet (FeroSul) lithium carbonate 300 mg tablet 900 mg PO DAILY 01/29/25 History lurasidone 120 mg tablet (Latuda) 120 mg PO QPM 01/28/25 History Allergy/AdvReac Type Severity Reaction Status Date / Time acetaminophen (From Vicodin) Allergy Mild Hives Verified 01/29/25 08:27 hydrocodone (From Vicodin) Allergy Mild Hives Verified 01/29/25 08:27 doxycycline Allergy Hives Verified 01/29/25 08:27 ketorolac (From Toradol) Allergy THROAT Verified 01/29/25 08:27 ITCHING/CLOSING methocarbamol (From Robaxin) Allergy Hives Verified 01/29/25 08:27 NSAIDS (Non-Steroidal Allergy Hives Verified 01/29/25 08:27 Anti-Inflamma sertraline (From Zoloft) Allergy HIVES Verified 01/29/25 08:27 tramadol Allergy Anaphylaxis Verified 01/29/25 08:27 Social History housing: apartment current occupational status: employed Smoking Status: Current every day smoker tobacco type: cigarettes ROS Constitutional Constitutional: Reports as per HPI Eyes Eyes: Reports systems reviewed and no addt'l complaints, except as documented ENT HEENT: Reports systems reviewed and no addt'l complaints, except as documented Cardiovascular Cardiovascular: Reports as per HPI Respiratory/Chest Respiratory/Chest: Reports as per HPI Gastrointestinal Gastrointestinal: Reports systems reviewed and no addt'l complaints, except as documented Genitourinary Genitourinary: Reports systems reviewed and no addt'l complaints, except as documented Musculoskeletal Musculoskeletal: Reports systems reviewed and no addt'l complaints, except as documented Integumentary Integumentary: Reports systems reviewed and no addt'l complaints, except as documented Neurologic Neurologic: Reports as per HPI Psychiatric Psychiatric: Reports as per HPI Endocrine Endocrinology: Reports systems reviewed and no addt'l complaints, except as documented Hematologic/Lymphatic Hematologic/Lymphatic: Reports systems reviewed and no addt'l complaints, exceptas documented Allergic/Immunologic Allergic/Immunologic: Reports as per HPI Physical Exam Const alert and oriented x3 HEENT normocephalic Eyes EOMs intact bilaterally Neck no JVD and no carotid bruits Chest inspection of chest normal Resp normal respiratory effort and clear to auscultation bilaterally Cardio Rate: regular rate Rhythm: regular rhythm Heart Sounds: S1 normal and S2 normal; Negative for click, gallop or murmur GI soft to palpation Extremity no pedal edema Neuro Neuro Narrative: Alert and oriented x 3 Psych mental status grossly normal Risk Stratification Risk Stratification Applicable: No Charges/Coding Visit Charges Inpatient E&M: 75674 Init Hosp L2 Objective Data Vital Signs: Vital Signs Temp Pulse Resp BP Pulse Ox O2 Del Method 97.7 F L 77 16 114/74 99 Room Air 01/29/25 08:24 01/29/25 08:54 01/29/25 08:24 01/29/25 10:24 01/29/25 08:24 01/29/25 08:24 Oxygen Delivery Method Room Air Weight: 174 lb 12.8 oz Body Mass Index (BMI) 31.9 Lab / Micro Data Attestation: I reviewed the patient's lab results. 01/29/25 08:50 01/29/25 08:50 Labs: Laboratory Results - last 24 hr 01/29/25 08:50: WBC 12.5 H, RBC 4.57, Hgb 13.9, Hct 41.0, MCV 89.7, MCH 30.4, MCHC 33.9, RDW Std Deviation 39.8, RDW Coeff of Cecile 12.2, Plt Count 341, MPV 9.6, Sodium 139, Potassium 3.8, Chloride 106, Carbon Dioxide 20.8 L, Anion Gap 12, BUN 6, Creatinine 0.93, Estim Creat Clear Calc 76.85, Est GFR (MDRD) Non-Af 78, BUN/Creatinine Ratio 6.9 L, Glucose 146 H, Calcium 9.5 Rhythm Strip Rhythm Strip: Sinus Rhythm Rate: 77 Ectopy: None Cardiology Labs/Tests 01/29/25 08:50: WBC 12.5 H, RBC 4.57, Hgb 13.9, Hct 41.0, MCV 89.7, MCH 30.4, MCHC 33.9, Plt Count 341, MPV 9.6, Sodium 139, Potassium 3.8, Chloride 106, Carbon Dioxide 20.8 L, Anion Gap 12, BUN 6, Creatinine 0.93, Est GFR (MDRD) Non-Af 78, BUN/Creatinine Ratio 6.9 L, Glucose 146 H, Calcium 9.5 Rhythm: EKG: ECHO: Stress Test: Cardiac Cath: PCI: CT Surgery: Holter monitor: EPS: PPM: CXR: Chest CT Scan: 01/29/25 1118 <Electronically signed by Jonathan Puga MD> Cosigner Signature (if applicable): CC: MYKEL-Rusty Jones~ Signed [facility] Work Phone: Discharge summary Author John Mcfadden [facility] Note Date/Time January 29, 2025 11:1 0am [facility] Medical Records Department [address] [place] [address] Emergency Department Summary 01/29/25 MR#: [id number] Acct: [id number] Name: CADY VALLE Rep #:[id number] : 1980 44 From: John Mcfadden MD PCP: YUMI Aburto Status:REG ER Location: ED HPI History of Present Illness Chief Complaint: Syncope Detail of Chief Complaint: Near syncope while driving Informant: patient Onset/Context/Timing Onset: Today and Hours Context: Sudden Onset Timing: Intermittent Quality: Detailed HPI narrative Location: Driving to work Current Severity: Gone Maximum Severity: Severe Worsened by: Suspect menstrual cramps Relieved by: Not applicable Associated Symptoms Associated Symptoms: Vagal-like response Narrative Narrative: Patient is a 44-year-old woman. She has history of depression hypercholesterolemia who reports having similar episodes once monthly. She followed up with her PCP. She did blood work and determined that she had iron deficiency anemia. She is on iron. Today's episode occurred while driving to work. She felt she was a little behind. Apparently she had's significant menstrual cramps prior to having total bottle tingling followed by lightheadedness, nausea and vomiting and diaphoresis. Patient states when she felt the total body tingling which proceeds the other episodes she pulled the car off the road. She contacted her atyxkl-uk-wio. She states this occurs about once a month. She denies black or maroon-colored stool. She denied headache. She denied double vision blurred vision loss of vision. She denies ringing or ears. She denied chest discomfort or shortness of breath. She denied blood or coffee-ground appearing emesis. She has had no change in her medications. She has never been referred to a oncology physician assistant. Prior similar symptoms: Yes Recent Ill[facility] Medical History High cholesterol Anxiety Depression Bipolar 1 disorder Home Medications ?Medication ?Instructions ?Recorded ?Last Taken ?Type atorvastatin 10 mg tablet 10 mg PO DAILY 02/23/23 07/ History lamotrigine 200 mg tablet 200 mg PO DAILY 02/23/23 History (Lamictal) amlodipine 2.5 mg tablet 2.5 mg PO DAILY 01/29/25 History cholecalciferol (vitamin D3) 50 50 mcg PO DAILY 01/29/25 History mcg (2,000 unit) capsule clonidine HCl 0.1 mg tablet 0.1 mg PO DAILY 01/29/25 0 01/29/25 History diphenhydramine HCl 25 mg capsule 25 mg PO Q8H PRN all ergy symptoms 01/29/25 Unknown History (Allergy (diphenhydramine)) ferrous sulfate 325 mg (65 mg 325 mg PO DAILY 01/29/25 01/29/25 History iron) tablet (FeroSul) lithium carbonate 300 mg tablet 900 mg PO DAILY 01/29/25 History lurasidone 120 mg tablet (Latuda) 120 mg PO QPM 01/28/25 History Allergy/AdvReac Type Severity Reaction Status Date / Time acetaminophen (From Vicodin) Allergy Mild Hives Verified 01/29/25 08:27 hydrocodone (From Vicodin) Allergy Mild Hives Verified 01/29/25 08:27 doxycycline Allergy Hives Verified 01/29/25 08:27 ketorolac (From Toradol) Allergy THROAT Verified 01/29/25 08:27 ITCHING/CLOSING methocarbamol (From Robaxin) Allergy Hives Verified 01/29/25 08:27 NSAIDS (Non-Steroidal Allergy Hives Verified 01/29/25 08:27 Anti-Inflamma sertraline (From Zoloft) Allergy HIVES Verified 01/29/25 08:27 tramadol Allergy Anaphylaxis Verified 01/29/25 08:27 Social History housing: apartment current occupational status: employed Smoking Status: Current every day smoker tobacco type: cigarettes ROS ROS ED Constitutional Constitutional ED: Denies chills, fever(s), subjective or sweats Eyes Eyes: Denies blurry vision, change in vision or diplopia ENT ENT ED: Denies ear pain, rhinorrhea or sore throat Cardiovascular Cardiovascular: Reports other Details: Patient states when this occurred her heart rate was 43. She was able to monitor her heart rate on her watch. She was not able to record a tracing. ; Denies chest pain, orthopnea, palpitations, paroxysmal nocturnal dyspnea or racing heartbeat Respiratory/Chest Respiratory/Chest: Denies cough, dyspnea, dyspnea on exertion, orthopnea or paroxysmal nocturnal dyspnea Gastrointestinal Gastrointestinal: Reports abdominal pain, nausea and vomiting; Denies constipation, diarrhea or melena Genitourinary Genitourinary ED: Reports LMP (females 10-50) Details: Comment: (Presently); Denies dysuria, hematuria or urinary frequency Musculoskeletal Musculoskeletal: Denies arthralgias, back pain or myalgias Integumentary Denies rash Neurologic Neurologic: Reports paresthesias RUE, RLE, LUE and LLE; Denies headache(s) or weakness Psychiatric Psychiatric: Reports anxiety and depression Endocrine Endocrinology: Denies cold intolerance or heat intolerance Hematologic/Lymphatic Hematologic/Lymphatic: Reports systems reviewed and no addt'l complaints, exceptas documented EXAM Physical Exam Const Vital Signs: 01/29/25 08:24 01/29/25 08:53 01/29/25 08:54 Temperature 97.7 F L Temperature Source Oral Pulse Rate 78 Pulse Rate [Lying] 77 Pulse Rate [Sitting (for 1 minute prior to obtaining)] 88 Pulse Rate [Standing (for 1 minute prior to obtaining)] 82 Respiratory Rate 16 Respiratory Pattern Normal Blood Pressure 144/90 H Blood Pressure [Lying] 129/78 H Blood Pressure [Sitting (for 1 minute prior to obtaining)] 159/86 H Blood Pressure [Standing (for 1 minute prior to obtaining)] 135/88 H Blood Pressure Mean 108 Blood Pressure Mean [Lying] 95 Blood Pressure Mean [Sitting (for 1 minute prior to obtaining)] 110 Blood Pressure Mean [Standing (for 1 minute prior to obtaining)] 103 Pulse Ox 99 Oxygen Delivery Method Room Air 01/29/25 10:24 Temperature Temperature Source Pulse Rate Pulse Rate [Lying] Pulse Rate [Sitting (for 1 minute prior to obtaining)] Pulse Rate [Standing (for 1 minute prior to obtaining)] Respiratory Rate Respiratory Pattern Blood Pressure 114/74 Blood Pressure [Lying] Blood Pressure [Sitting (for 1 minute prior to obtaining)] Blood Pressure [Standing (for 1 minute prior to obtaining)] Blood Pressure Mean 87 Blood Pressure Mean [Lying] Blood Pressure Mean [Sitting (for 1 minute prior to obtaining)] Blood Pressure Mean [Standing (for 1 minute prior to obtaining)] Pulse Ox Oxygen Delivery Method Positive well nourished and well developed Constitutional Narrative: BMI 32.0. General Appearance ED: well developed and NAD; Negative for pallor HEENT Reports moist mucous membranes HEENT Narrative: Head is atraumatic and normocephalic. Ears are normal. Nares are patent. Mucosa is moist. Eyes PERRL and EOMs intact bilaterally Neck no lymphadenopathy, supple and no JVD Resp normal respiratory effort and clear to auscultation bilaterally Cardio regular rate, regular rhythm, S1 normal heart sound, S2 normal heart sound and no murmurs GI normal to inspection, nondistended, normoactive bowel sounds, non-tender, non-distended and no masses; Negative for hepatosplenomegaly Extremity normal to inspection General Extremety ED: Negative for edema or tenderness General Extremity: Negative for edema Neuro oriented x3, CN's II-XII intact bilaterally and no sensory deficits noted Sensorium / Orientation: alert Skin no rashes or lesions noted and no wounds General Skin Exam: elasticity normal; Negative for jaundice or pallor MDM MDM MDM Narrative Medical decision making narrative: Patient's history and physical is suggestive of a vasovagal episode. Since she has this once a month per patient and [id number] if workup is negative will refer to cardiology for possible table tilt test. Since she reports history of iron deficiency anemia will obtain CBC to assess H&H. BMP was obtained to assess electrolytes and specifically potassium. She states she was told she hasSVT. When asked how fast her heart rate was she reported 140. This would be unlikely SVT. Will place on monitor to determine if there is any ectopy or dysrhythmia. EKG was obtained to assess for any inferior ischemic changes. History & Record Review Additional record(s) reviewed:: Prior ED visit (December 24 seen by physician plastic surgery assistant and problem was acute thoracic myofascial strain. Seen in October of this year for right calf strain by Dr. Madrigal and in 2022 for cervical radiculopathy by Dr. Barroso.) and Prior labs (Blood work from February 23, 2023 was reviewed.) Lab Data Labs: Laboratory Results - last 24 hr 01/29/25 08:50 WBC 12.5 H RBC 4.57 Hgb 13.9 Hct 41.0 MCV 89.7 MCH 30.4 MCHC 33.9 RDW Std Deviation 39.8 RDW Coeff of Cecile 12.2 Plt Count 341 MPV 9.6 Sodium 139 Potassium 3.8 Chloride 106 Carbon Dioxide 20.8 L Anion Gap 12 BUN 6 Creatinine 0.93 Estim Creat Clear Calc 76.85 Est GFR (MDRD) Non-Af 78 BUN/Creatinine Ratio 6.9 L Glucose 146 H Calcium 9.5 EKG Initial EKG: Attestation: I personally reviewed and interpreted this EKG as follows: Interpretation: Sinus Rhythm (Rate is 74. There is low voltage. [id number] ms Rickers. 80 ms. QT duration Frank[place] 82 ms. [place] is normal. There is an RR prime in V1 and V2. This is unchanged from EKG obtained February 23, 2023. There is artifact in V4 and V5 which the computer is reading ST T wave abnormality consider ische) Management Discussion w/another healthcare provider: [employer] (Spoke to Dr. Nilson Puga who is on-call for oncology physician assistant. He is going to see the patient in the ER. He asked for me to order an event monitor. Currently we have not available. The police department secretary will call and verify.) Treatment and Re-Evaluation :: Dr. Beaver's recommends discontinuing her Norvasc. He will set up outpatient echo and table tilt test. Discharge Plan Triage Chief Complaint: Syncope ED Provider: John Mcfadden Dx/Rx/DC Orders Clinical Impression: Vasovagal near syncope, Nondiabetic hyperglycemia, Adult BMI 32.0-32.9 kg/sq m Instructions: ED Near-Fainting- Vagal Reaction, ED Hyperglycemia New Poss Diabetes Prescriptions: No Action atorvastatin 10 mg tablet 10 mg PO DAILY lamotrigine [Lamictal] 200 mg tablet 200 mg PO DAILY clonidine HCl 0.1 mg tablet 0.1 mg PO DAILY amlodipine 2.5 mg tablet 2.5 mg PO DAILY ferrous sulfate [FeroSul] 325 mg (65 mg iron) tablet 325 mg PO DAILY lithium carbonate 300 mg tablet 900 mg PO DAILY cholecalciferol (vitamin D3) 50 mcg (2,000 unit) capsule 50 mcg PO DAILY lurasidone [Latuda] 120 mg tablet 120 mg PO QPM Rx Instructions: must administer with food (at least 350 calories) diphenhydramine HCl [Allergy (diphenhydramine)] 25 mg capsule 25 mg PO Q8H PRN (Reason: allergy symptoms) Primary Care Provider: Scott Jones Referrals: Jonathan Puga MD [Med Staff - Active Staff] - 5-7 Days Scott Jones NP-C [Primary Care Provider] - 1 Week Activity Restrictions/Additional Instructions: Stop your Norvasc. And call Dr. Fields for follow-up appointment Print Language: Maltese Disposition Disposition: Home, Self Care What to do if you have Problems For any increased pain, shortness of breath, bleeding, nausea or vomiting, chestpain, or any unexpected problems, contact your Primary Care Provider. Call [facility] ([phone]) or report to the closest Emergency Room. Call 911 if necessary. 01/29/25 1110 <Electronically signed by John Mcfadden MD> Cosigner Signature (if applicable): CC: [employer]PENTER[employer]ackC Scott Jones ~ Signed [facility] Work Phone: Evaluation note* Diagnosis Bipolar affective disorder, current episode mixed, current episode severity unspecified (HCC)- Primary [facility]* Diagnosis Acquired hallux valgus of left foot- Primary Hallux valgus (acquired) Diminished pulses in lower extremity Other symptoms involving cardiovascular system Vitamin D deficiency Unspecified vitamin D deficiency documented in this encounter [facility] noteNo assessment information availableWAshtabula [facility] Hospital Work Phone: Evaluation note* Diagnosis Heart palpitations- Primary Palpitations Hypertension, essential Unspecified essential hypertension documented in this encounter [facility] note* Diagnosis Encounter for screening mammogram for breast cancer [facility]* Diagnosis JUAN R (obstructive sleep apnea)- Primary Obstructive sleep apnea (adult) (pediatric) documented in this encounter [facility] note* Diagnosis Moderate persistent asthma, uncomplicated- Primary Unspecified asthma documented in this encounter [facility] note* Diagnosis SVT (supraventricular tachycardia)- Primary Other specified cardiac dysrhythmias documented in this encounter [facility] note* Diagnosis Hypertension, essential Unspecified essential hypertension documented in this encounter [facility] note* Diagnosis Pain Generalized pain documented in this encounter [facility] note* Diagnosis Hypertension, essential Unspecified essential hypertension documented in this encounter [facility] note* Diagnosis Hyperlipidemia, mixed Mixed hyperlipidemia documented in this encounter [facility] note* Diagnosis Hypertension, essential Unspecified essential hypertension Hyperlipidemia, mixed Mixed hyperlipidemia documented in this encounter [facility] note* Diagnosis Near syncope- Primary Syncope and collapse Bradycardia Other specified cardiac dysrhythmias documented in this encounter [facility] note* Diagnosis Iron deficiency anemia, unspecified iron deficiency anemia type- Primary documented in this encounter [facility] note* Diagnosis Hypertension, essential Unspecified essential hypertension Hyperlipidemia, mixed Mixed hyperlipidemia documented in this encounter [facility] note* Diagnosis Bronchitis- Primary Bronchitis, not specified as acute or chronic documented in this encounter [facility] note* Diagnosis Left hand pain [M79.642]- Primary Pain in limb documented in this encounter [facility] note* Diagnosis Encounter for screening mammogram for breast cancer [facility]* Diagnosis Left hand pain [M79.642] Pain in limb documented in this encounter [facility] note* Diagnosis Left hand pain [M79.642] Pain in limb documented in this encounter [facility] note* Diagnosis Left arm pain Pain in limb documented in this encounter [facility] note* Diagnosis Iron deficiency anemia, unspecified iron deficiency anemia type Hyperlipidemia, mixed Mixed hyperlipidemia Hypertension, essential Unspecified essential hypertension documented in this encounter [facility] note* Diagnosis Iron deficiency anemia, unspecified iron deficiency anemia type Hyperlipidemia, mixed Mixed hyperlipidemia Hypertension, essential Unspecified essential hypertension documented in this encounter [facility] note* Diagnosis Hyperlipidemia, mixed Mixed hyperlipidemia Hypertension, essential Unspecified essential hypertension documented in this encounter [facility] note* Diagnosis Viral illness- Primary Unspecified viral infection, in conditions classified elsewhere and of unspecified site Mild intermittent asthma, uncomplicated Unspecified asthma documented in this encounter [facility] note* Diagnosis Hyperlipidemia, mixed Mixed hyperlipidemia Hypertension, essential Unspecified essential hypertension [facility] Diagnosis Encounter for screening mammogram for breast cancer [facility]* Diagnosis Hypertension, essential Unspecified essential hypertension documented in this encounter [facility] note* Diagnosis Seasonal allergic rhinitis, unspecified trigger- Primary documented in this encounter [facility] note* Diagnosis Iron deficiency anemia, unspecified iron deficiency anemia type Hypertension, essential Unspecified essential hypertension documented in this encounter [facility] note* Diagnosis Procedure not carried out- Primary Procedure not carried out for other reasons [facility] Additional Instructions You have a thoracic back muscle strain. Ice and 20-minute sessions multiple times a day. Take the Percocet as needed for pain. This medication has side effects of nausea, sedation, and constipation. I recommend taking a stool softener or MiraLAX while using it. I also prescribed muscle relaxers. Follow-up with your primary care doctor.[facility] Work Phone: Hospital Discharge instructionsAdditional Instructions Stop your Norvasc. And call Dr. Beaver's for follow-up appointmentWAshtabula General Hospital Work Phone: Reason for referral (narrative)* Outpatient Procedure (Routine) - Pending Review Specialty Diagnoses / Procedures Referred By Mini blandon Referred [facility] Diagnoses Acquired hallux valgus of left foot Diminished pulses in lower extremity Vitamin D deficiency Procedures PVR ANK PRESS SERENITY VAS LAB NON-INVAS PHYSIOLOGIC STD EXTREMITY ART 2 LEVEL Frankie Simmons [address] [place] [address] [facility] [address] [address] Referral ID Status Reason Start Date Expiration Date Visits Requested Visits Authorized [id number] Pending Review Auto-Generat ed Referral 11/02/2022 11/02/2023 1 1 [facility] for referral (narrative)* Diagnostic Procedure Only (Routine) - Pending Review Specialty Diagnoses / Procedures Referred By Mini blandon Referred To Contact [facility] Diagnoses Encounter for screening mammogram for breast cancer Procedures MELVA SCREENING SCREENING MAMMOGRAPHY BI 2-VIEW BREAST INC CAD Scott Jones APRN.CNP [address] [place] [address] [facility] [address] [place] [phone] Referral ID Status Reason Start Date Expiration Date Visits Requested Visits Authorized [id number] Pending Review Auto-Generat ed Referral 02/24/2023 03/25/2024 1 1 [facility] for referral (narrative)* Diagnostic Procedure Only (Routine) - Closed Specialty Diagnoses / Procedures Referred By Contac t Referred To Contact [facility] Diagnoses Pain Procedures XR FOOT GENERAL 3V AP/LAT/OBL BILATERAL RADEX FOOT COMPLETE MINIMUM 3 VIEWS Frankie Simmons [address] [place] [address] [place] [address] Referral ID Status Reason Start Date Expiration Date V isits Requested Visits Authorized [id number] Closed Auto-Generate d Referral 10/08/2022 11/07/2023 1 1 T [facility] for referral (narrative)* Outpatient Procedure (Routine) - Pending Review Specialty Diagnoses / Procedures Referred By Horaceac t Referred To [facility] Diagnoses Bradycardia Procedures ECG COMPLETE ECG ROUTINE ECG W/LEAST 12 LDS W/I&R Scott Jones APRN.OUTBOUND SALES EXECUTIVE [address] [place] [address] [facility] [place] [address] [place] [id number] Referral ID Status Reason Start Date Expiration Date Visits Requested Visits Authorized [id number] Pending Review Auto-Generat ed Referral 11/01/2023 10/31/2024 1 1 [facility] for referral (narrative)* Diagnostic Procedure Only (Routine) - New Request Specialty Diagnoses / Procedures Referred By Contac t Referred To Contact [facility] Diagnoses Encounter for screening mammogram for breast cancer Procedures MELVA SCREENING W DAYANARA SCREENING DIGITAL BREAST TOMOSYNTHESIS BI SCREENING MAMMOGRAPHY BI 2-VIEW BREAST INC CAD Scott Jones APRN.CNP [address] [place] [id number] [facility] [address] [place] [address] Referral ID Status Reason Start Date Expiration Date Visits Requested Visits Authorized [id number] New Request Auto-Generat ed Referral 02/02/2024 03/03/2025 1 1 [facility] for referral (narrative)* Diagnostic Procedure Only (Routine) - Closed Specialty Diagnoses / Procedures Referred By Contac t Referred To Contact [facility] Diagnoses Left hand pain Procedures XR HAND GENERAL 3V PA/LAT/OBL LEFT RADEX HAND MINIMUM 3 VIEWS Scott Jones APRN.OUTBOUND SALES EXECUTIVE [address] [place] [address] [place] [address] Referral ID Status Reason Start Date Expiration Date V isits Requested Visits Authorized [id number] Closed Auto-Generate d Referral 12/23/2023 01/21/2025 1 1 [facility] for referral (narrative)* Diagnostic Procedure Only (Routine) - Closed Specialty Diagnoses / Procedures Referred By Contac t Referred To Contact [facility] Diagnoses Left arm pain Procedures XR SHOULDER LIMITED 2V AP/TRUE AP LEFT RADEX SHOULDER COMPLETE MINIMUM 2 VIEWS Scott Jones APRN.OUTBOUND SALES EXECUTIVE [address] [place] [address] [place] [address] Referral ID Status Reason Start Date Expiration Date V isits Requested Visits Authorized [id number] Closed Auto-Generate d Referral 07/26/2023 08/24/2024 1 1 * Diagnostic Procedure Only (Routine) - Closed Specialty Diagnoses / Procedures Referred By Contac t Referred To Contact [facility] Diagnoses Left arm pain Procedures XR CERV OTHER 4V AP/LAT/OBL RADEX SPINE CERVICAL 4 OR 5 VIEWS Scott Jones APRN.OUTBOUND SALES EXECUTIVE [address] [place] [address] [place] [address] Referral ID Status Reason Start Date Expiration Date V isits Requested Visits Authorized [id number] Closed Auto-Generate d Referral 07/26/2023 08/24/2024 1 1 [facility] for referral (narrative)No reason for referral information availableWAshtabula General Hospital Work Phone: [facility] for visit Narrative* Diagnostic Procedure Only (Routine) - Closed Specialty Diagnoses / Procedures Referred By Contac t Referred To Contact [facility] Diagnoses Pain Procedures XR FOOT GENERAL 3V AP/LAT/OBL BILATERAL RADEX FOOT COMPLETE MINIMUM 3 VIEWS Frankie Simmons [address] [place] [address] [place] [address] Referral ID Status Reason Start Date Expiration Date V isits Requested Visits Authorized [id number] Closed Auto-Generate d Referral 10/08/2022 11/07/2023 1 1 [facility] for visit Narrative* Diagnostic Procedure Only (Routine) - Closed Specialty Diagnoses / Procedures Referred By Contac t Referred To Contact [facility] Diagnoses Left hand pain Procedures XR HAND GENERAL 3V PA/LAT/OBL LEFT RADEX HAND MINIMUM 3 VIEWS Scott Jones APRN.OUTBOUND SALES EXECUTIVE [address] [place] [address] [place] [address] Referral ID Status Reason Start Date Expiration Date V isits Requested Visits Authorized [id number] Closed Auto-Generate d Referral 12/23/2023 01/21/2025 1 1 [facility] for visit Narrative* Diagnostic Procedure Only (Routine) - Closed Specialty Diagnoses / Procedures Referred By Contac t Referred To Contact [facility] Diagnoses Left arm pain Procedures XR SHOULDER LIMITED 2V AP/TRUE AP LEFT RADEX SHOULDER COMPLETE MINIMUM 2 VIEWS Scott Jones APRN.OUTBOUND SALES EXECUTIVE [address] [place] [address] [place] [address] Referral ID Status Reason Start Date Expiration Date V isits Requested Visits Authorized [id number] Closed Auto-Generate d Referral 07/26/2023 08/24/2024 1 1 [facility] for visit Narrative* Diagnostic Procedure Only (Urgent) - Closed Specialty Diagnoses / Procedures Referred By Contac t Referred To Contact [facility] Diagnoses Arm pain, central, right Procedures XR HUMERUS 2V AP/LAT RIGHT RADEX HUMERUS MINIMUM 2 VIEWS Louie King, DIE STAMPER.OUTBOUND SALES EXECUTIVE [address] [place] [address] [place] [address] Referral ID Status Reason Start Date Expiration Date V isits Requested Visits Authorized [id number] Closed Auto-Generate d Referral 08/25/2022 09/24/2023 1 1 [facility] for visit Narrative* Diagnostic Procedure Only (Routine) - Closed Specialty Diagnoses / Procedures Referred By Contac t Referred To Contact [facility] Diagnoses Encounter for screening mammogram for breast cancer Procedures MELVA SCREENING W DAYANARA SCREENING DIGITAL BREAST TOMOSYNTHESIS BI SCREENING MAMMOGRAPHY BI 2-VIEW BREAST INC CAD Scott Jones, DIE STAMPER.OUTBOUND SALES EXECUTIVE [address] [place] [address] Phone: tel: fax: [facility] [address] [place] [address] Referral ID Status Reason Start Date Expiration Date V isits Requested Visits Authorized [id number] Closed Auto-Generate d Referral 02/02/2024 03/03/2025 1 1 [facility] Summary Purpose Family History No Family History Records FoundNo Family History Records FoundNo Family History Records FoundNo Family History Records Found Advance Directives Advance Directive Response Recorded Date/ Time Living Will No February 23 7:39pm Power of Corporate Health Consultant No February 23 7:39pm Advance Directive Response Recorded Date/ Time Living Will No October 11, 2024 3:44pm Do you have a Healthcare Power of Corporate Health Consultant? No October 11, 2024 3:44pm Advance Directive Response Recorded Date/ Time Living Will No October 11, 2024 3:44pm Do you have a Healthcare Power of Corporate Health Consultant? No October 11, 2024 3:44pm Do you have a Healthcare Power of Corporate Health Consultant? No December 10, 2024 2:53pm Advance Directive Response Recorded Date/ Time Living Will No October 11, 2024 3:44pm Do you have a Healthcare Power of Corporate Health Consultant? No October 11, 2024 3:44pm Do you have a Healthcare Power of Corporate Health Consultant? No December 10, 2024 2:53pm Do you have a Healthcare Power of Corporate Health Consultant? No January 29, 2025 8:53am Chief Complaint and Reason for Visit Chief Complaint PALPITATIONS Chief Complaint Admit Date R CALF PAIN October 11, 2024 1:42 pm Chief Complaint Admit Date R CALF PAIN October 11, 2024 1:42 pm UPPER BACK PAIN December 10, 2024 1:15p m Chief Complaint Admit Date R CALF PAIN October 11, 2024 1:42 pm UPPER BACK PAIN December 10, 2024 1:15p m SYNCOPE January 29, 2025 8:23 am Syncope January 29, 2025 11:0 7am Reason for Referral Specialty Diagnoses / Procedures Referred By Contac t Referred To Contact Orthopedics Diagnoses Left hand pain Procedures CONSULT TO ORTHOPAEDICS OFFICE/OUTPATIENT [facility] 60 MINUTES Scott Jones APRN.OUTBOUND SALES EXECUTIVE [address] [place] [address] Referral ID Status Reason Start Date Expiration Date Visits Requested Visits Authorized [id number] Authorized PCP Requested Referral 12/23/2023 12/22/2024 1 1 Specialty Diagnoses / Procedures Referred By Contac t Referred To Contact X[facility] IMAG[facility] Diagnoses Left hand pain Procedures XR HAND GENERAL 3V PA/LAT/OBL LEFT RADEX HAND MINIMUM 3 VIEWS Scott Jones APRN.OUTBOUND SALES EXECUTIVE [address] [place] [id number] [place] [address] Referral ID Status Reason Start Date Expiration Date V isits Requested Visits Authorized [id number] Closed Auto-Generate d Referral 12/23/2023 01/21/2025 1 1 Additional Source Comments Source Comments (unrecognize d section and content) In the event this informatio n is protected by the Federal Confidentiality of Alcohol and Drug Abuse Patient Records regulations: The Federal rules restrict any use of the information to criminally investigate or prosecute any alcohol or drug abuse patient.[facility] the event this information is protected by the Federal Confidentiality of Alcohol and Drug Abuse Patient Records regulations: The Federal rules restrict any use of the information to criminally investigate or prosecute any alcohol or drug abuse patient.[facility] Hospital[facility] the event this information is protected by the Federal Confidentiality of Alcohol and Drug Abuse Patient Records regulations: The Federal rules restrict any use of the information to criminally investigate or prosecute any alcohol or drug abuse patient.[facility] HospitalIn the event this information is protected by the Federal Confidentiality of Alcohol and Drug Abuse Patient Records regulations: The Federal rules restrict any use of the information to criminally investigate or prosecute any alcohol or drug abuse patient.[facility] HospitalIn the event this information is protected by the Federal Confidentiality of Alcohol and Drug Abuse Patient Records regulations: The Federal rules restrict any use of the information to criminally investigate or prosecute any alcohol or drug abuse patient.[facility] HospitalIn the event this information is protected by the Federal Confidentiality of Alcohol and Drug Abuse Patient Records regulations: The Federal rules restrict any use of the information to criminally investigate or prosecute any alcohol or drug abuse patient.[facility] HospitalIn the event this information is protected by the Federal Confidentiality of Alcohol and Drug Abuse Patient Records regulations: The Federal rules restrict any use of the information to criminally investigate or prosecute any alcohol or drug abuse patient.[facility] Hospital[facility] the event this information is protected by the Federal Confidentiality of Alcohol and Drug Abuse Patient Records regulations: The Federal rules restrict any use of the information to criminally investigate or prosecute any alcohol or drug abuse patient.[facility] HospitalIn the event this information is protected by the Federal Confidentiality of Alcohol and Drug Abuse Patient Records regulations: The Federal rules restrict any use of the information to criminally investigate or prosecute any alcohol or drug abuse patient.[facility] HospitalIn the event this information is protected by the Federal Confidentiality of Alcohol and Drug Abuse Patient Records regulations: The Federal rules restrict any use of the information to criminally investigate or prosecute any alcohol or drug abuse patient.[facility] Hospital[facility] the event this information is protected by the Federal Confidentiality of Alcohol and Drug Abuse Patient Records regulations: The Federal rules restrict any use of the information to criminally investigate or prosecute any alcohol or drug abuse patient.[facility] Hospital[facility] the event this information is protected by the Federal Confidentiality of Alcohol and Drug Abuse Patient Records regulations: The Federal rules restrict any use of the information to criminally investigate or prosecute any alcohol or drug abuse patient.[facility] Hospital[facility] the event this information is protected by the Federal Confidentiality of Alcohol and Drug Abuse Patient Records regulations: The Federal rules restrict any use of the information to criminally investigate or prosecute any alcohol or drug abuse patient.[facility] Hospital[facility] the event this information is protected by the Federal Confidentiality of Alcohol and Drug Abuse Patient Records regulations: The Federal rules restrict any use of the information to criminally investigate or prosecute any alcohol or drug abuse patient.[facility] HospitalIn the event this information is protected by the Federal Confidentiality of Alcohol and Drug Abuse Patient Records regulations: The Federal rules restrict any use of the information to criminally investigate or prosecute any alcohol or drug abuse patient.[facility] HospitalIn the event this information is protected by the Federal Confidentiality of Alcohol and Drug Abuse Patient Records regulations: The Federal rules restrict any use of the information to criminally investigate or prosecute any alcohol or drug abuse patient.[facility] HospitalIn the event this information is protected by the Federal Confidentiality of Alcohol and Drug Abuse Patient Records regulations: The Federal rules restrict any use of the information to criminally investigate or prosecute any alcohol or drug abuse patient.[facility] HospitalIn the event this information is protected by the Federal Confidentiality of Alcohol and Drug Abuse Patient Records regulations: The Federal rules restrict any use of the information to criminally investigate or prosecute any alcohol or drug abuse patient.[facility] HospitalIn the event this information is protected by the Federal Confidentiality of Alcohol and Drug Abuse Patient Records regulations: The Federal rules restrict any use of the information to criminally investigate or prosecute any alcohol or drug abuse patient.[facility] HospitalIn the event this information is protected by the Federal Confidentiality of Alcohol and Drug Abuse Patient Records regulations: The Federal rules restrict any use of the information to criminally investigate or prosecute any alcohol or drug abuse patient.[facility] HospitalIn the event this information is protected by the Federal Confidentiality of Alcohol and Drug Abuse Patient Records regulations: The Federal rules restrict any use of the information to criminally investigate or prosecute any alcohol or drug abuse patient.[facility] HospitalIn the event this information is protected by the Federal Confidentiality of Alcohol and Drug Abuse Patient Records regulations: The Federal rules restrict any use of the information to criminally investigate or prosecute any alcohol or drug abuse patient.[facility] HospitalIn the event this information is protected by the Federal Confidentiality of Alcohol and Drug Abuse Patient Records regulations: The Federal rules restrict any use of the information to criminally investigate or prosecute any alcohol or drug abuse patient.[facility] HospitalIn the event this information is protected by the Federal Confidentiality of Alcohol and Drug Abuse Patient Records regulations: The Federal rules restrict any use of the information to criminally investigate or prosecute any alcohol or drug abuse patient.[facility] HospitalIn the event this information is protected by the Federal Confidentiality of Alcohol and Drug Abuse Patient Records regulations: The Federal rules restrict any use of the information to criminally investigate or prosecute any alcohol or drug abuse patient.[facility] HospitalIn the event this information is protected by the Federal Confidentiality of Alcohol and Drug Abuse Patient Records regulations: The Federal rules restrict any use of the information to criminally investigate or prosecute any alcohol or drug abuse patient.[facility] HospitalIn the event this information is protected by the Federal Confidentiality of Alcohol and Drug Abuse Patient Records regulations: The Federal rules restrict any use of the information to criminally investigate or prosecute any alcohol or drug abuse patient.[facility] HospitalIn the event this information is protected by the Federal Confidentiality of Alcohol and Drug Abuse Patient Records regulations: The Federal rules restrict any use of the information to criminally investigate or prosecute any alcohol or drug abuse patient.[facility] HospitalIn the event this information is protected by the Federal Confidentiality of Alcohol and Drug Abuse Patient Records regulations: The Federal rules restrict any use of the information to criminally investigate or prosecute any alcohol or drug abuse patient.[facility] HospitalIn the event this information is protected by the Federal Confidentiality of Alcohol and Drug Abuse Patient Records regulations: The Federal rules restrict any use of the information to criminally investigate or prosecute any alcohol or drug abuse patient.[facility] HospitalIn the event this information is protected by the Federal Confidentiality of Alcohol and Drug Abuse Patient Records regulations: The Federal rules restrict any use of the information to criminally investigate or prosecute any alcohol or drug abuse patient.[facility] HospitalIn the event this information is protected by the Federal Confidentiality of Alcohol and Drug Abuse Patient Records regulations: The Federal rules restrict any use of the information to criminally investigate or prosecute any alcohol or drug abuse patient.[facility] HospitalIn the event this information is protected by the Federal Confidentiality of Alcohol and Drug Abuse Patient Records regulations: The Federal rules restrict any use of the information to criminally investigate or prosecute any alcohol or drug abuse patient.[facility] HospitalIn the event this information is protected by the Federal Confidentiality of Alcohol and Drug Abuse Patient Records regulations: The Federal rules restrict any use of the information to criminally investigate or prosecute any alcohol or drug abuse patient.[facility] HospitalIn the event this information is protected by the Federal Confidentiality of Alcohol and Drug Abuse Patient Records regulations: The Federal rules restrict any use of the information to criminally investigate or prosecute any alcohol or drug abuse patient.[facility] the event this information is protected by the Federal Confidentiality of Alcohol and Drug Abuse Patient Records regulations: The Federal rules restrict any use of the information to criminally investigate or prosecute any alcohol or drug abuse patient.[facility] HospitalIn the event this information is protected by the Federal Confidentiality of Alcohol and Drug Abuse Patient Records regulations: The Federal rules restrict any use of the information to criminally investigate or prosecute any alcohol or drug abuse patient.[facility] HospitalIn the event this information is protected by the Federal Confidentiality of Alcohol and Drug Abuse Patient Records regulations: The Federal rules restrict any use of the information to criminally investigate or prosecute any alcohol or drug abuse patient.[facility] HospitalIn the event this information is protected by the Federal Confidentiality of Alcohol and Drug Abuse Patient Records regulations: The Federal rules restrict any use of the information to criminally investigate or prosecute any alcohol or drug abuse patient.[facility] HospitalIn the event this information is protected by the Federal Confidentiality of Alcohol and Drug Abuse Patient Records regulations: The Federal rules restrict any use of the information to criminally investigate or prosecute any alcohol or drug abuse patient.[facility] HospitalIn the event this information is protected by the Federal Confidentiality of Alcohol and Drug Abuse Patient Records regulations: The Federal rules restrict any use of the information to criminally investigate or prosecute any alcohol or drug abuse patient.[facility] HospitalIn the event this information is protected by the Federal Confidentiality of Alcohol and Drug Abuse Patient Records regulations: The Federal rules restrict any use of the information to criminally investigate or prosecute any alcohol or drug abuse patient.[facility] HospitalIn the event this information is protected by the Federal Confidentiality of Alcohol and Drug Abuse Patient Records regulations: The Federal rules restrict any use of the information to criminally investigate or prosecute any alcohol or drug abuse patient.[facility] HospitalIn the event this information is protected by the Federal Confidentiality of Alcohol and Drug Abuse Patient Records regulations: The Federal rules restrict any use of the information to criminally investigate or prosecute any alcohol or drug abuse patient.[facility] HospitalIn the event this information is protected by the Federal Confidentiality of Alcohol and Drug Abuse Patient Records regulations: The Federal rules restrict any use of the information to criminally investigate or prosecute any alcohol or drug abuse patient.[facility] HospitalIn the event this information is protected by the Federal Confidentiality of Alcohol and Drug Abuse Patient Records regulations: The Federal rules restrict any use of the information to criminally investigate or prosecute any alcohol or drug abuse patient.[facility] HospitalIn the event this information is protected by the Federal Confidentiality of Alcohol and Drug Abuse Patient Records regulations: The Federal rules restrict any use of the information to criminally investigate or prosecute any alcohol or drug abuse patient.[facility] HospitalIn the event this information is protected by the Federal Confidentiality of Alcohol and Drug Abuse Patient Records regulations: The Federal rules restrict any use of the information to criminally investigate or prosecute any alcohol or drug abuse patient.[facility] HospitalIn the event this information is protected by the Federal Confidentiality of Alcohol and Drug Abuse Patient Records regulations: The Federal rules restrict any use of the information to criminally investigate or prosecute any alcohol or drug abuse patient.[facility] Reason for Visit (unrecogniz ed section and content) Reason Comments Bipolar Disorder Reason Comments Missed Appointment Reason Comments Bunion New Pain Reason Comments ED Follow-up Reason Comments Results Reason Comments Follow Up Reason Comments Cough Reason Comments Recheck Reason Onset Date Comments Refill Request 05/04/2023 Reason Onset Date Comments Refill Request 08/25/2023 Reason Onset Date Comments Refill Request 10/04/2023 Reason Comments Dizziness X 3 months Reason Onset Date Comments Refill Request 11/16/2023 Reason Comments Cough Congestion, chest pa in and tightness, body aches x 3 days Reason Comments Patient Update Reason Comments Hand Pain Left hand X 3 days Reason Onset Date Comments Refill Request 01/13/2024 Reason Comments Faxed Lab Results Reason Comments Established Patient Pain Referred by Scott Jones Last seen 3/ 9/23 Right shoulder impingement Specialty Diagnoses / Procedures Referred By Mini blandon Referred To Contact Orthopedics Diagnoses Left hand pain Procedures CONSULT TO ORTHOPAEDICS OFFICE/OUTPATIENT [facility] 60 MINUTES Scott Jones APRN.CNP [address] [place] [address] Referral ID Status Reason Start Date Expiration Date V isits Requested Visits Authorized [id number] Closed PCP Requested Referral 12/23/2023 12/22/2024 1 1 Reason Onset Date Comments Refill Request 02/22/2024 Reason Onset Date Comments Refill Request 03/28/2024 Reason Onset Date Comments Refill Request 05/14/2024 Reason Onset Date Comments Refill Request 06/26/2024 Reason Onset Date Comments Refill Request 07/28/2024 Reason Comments Cough nasal congestion, ch ills, bodyaches, headaches and fever x 6 days Reason Onset Date Comments Refill Request 08/30/2024 Reason Onset Date Comments Refill Request 10/09/2024 Reason Comments Cough Chest congestion, na yi congestion, loose barky wet productive cough, mucous changing colors, x 2 weeks Reason Onset Date Comments Refill Request 11/16/2024 Reason Onset Date Comments Refill Request 12/27/2024 INFORMATION SOURCE (unrecogn ized section and content) DATE CREATED AUTHOR 07/25/2022 [facility] DATE CREATED AUTHOR AUTHOR'S ORGANIZ ATION 03/02/2023 [facility] DATE CREATED AUTHOR AUTHOR'S ORGANIZ ATION 12/11/2024 [facility] DATE CREATED AUTHOR AUTHOR'S ORGANIZ ATION 12/17/2024 [facility] Care Teams (unrecognized sec tion and content) Team Status: Active Member Role Status Dates Scott Jones NP-C Primary Care Provider Active Team Status: Inactive Member Role Status Dates YUMI Aburto Primary Care Provider Active Dr. Wilfrido Issa MD Emergency Provider Active Psychiatry Physician Relationship Specialty Start Date End Date Scott Jones APRN.CNP [address] [place] [address] PCP - General Family Medicine 02/18/23 Psychiatry Physician Relationship Specialty Start Date End Date Scott Jones APRN.CNP [address] [facility] [place] [address] PCP - General Family Medicine 02/18/23 Psychiatry Physician Relationship Specialty Start Date End Date Scott Jones APRN.OUT[employer]OUND SALES EXECUTIVE [address] [facility] [address] PCP - General Family Medicine 02/18/23 Psychiatry Physician Relationship Specialty Start Date End Date Scott Jones DIE STAMPER.OUTBOUND SALES EXECUTIVE [address] [facility] [address] PCP - General Family Medicine 02/18/23 Psychiatry Physician Relationship Specialty Start Date End Date Scott Jones, DIE STAMPER.[employer]BOUND SALES EXECUTIVE [address] [place] [address] PCP - General Family Medicine 02/18/23 Shahnaz Oro [address] [facility] [place] [address] Psychiatrist 03/12/23 Psychiatry Physician Relationship Specialty Start Date End Date Scott Jones DIE STAMPER.OUTBOUND SALES EXECUTIVE [address] [facility] [place] [address] PCP - General Family Medicine 02/18/23 Shahnaz Oro [address] [facility] [place] [address] Psychiatrist 03/12/23 Psychiatry Physician Relationship Specialty Start Date End Date Scott Jones, DIE STAMPER.OUTBOUND SALES EXECUTIVE [address] [facility] [place] [address] PCP - General Family Medicine 02/18/23 Shahnaz Oro [address] [facility] [place] [address] Psychiatrist 03/12/23 Psychiatry Physician Relationship Specialty Start Date End Date Scott Jones APRN.OUTBOUND SALES EXECUTIVE [address] [place] [address] PCP - General Family Medicine 02/18/23 Shahnaz Oro [address] [facility] [place] [address] Psychiatrist 03/12/23 Psychiatry Physician Relationship Specialty Start Date End Date Scott Jones DIE STAMPER.OUTBOUND SALES EXECUTIVE [address] [place] [address] PCP - General Family Medicine 02/18/23 Shahnaz Oro [address] [facility] [place] [address] Psychiatrist 03/12/23 Psychiatry Physician Relationship Specialty Start Date End Date Scott Jones, DIE STAMPER.[employer]OUND SALES EXECUTIVE [address] [place] [address] PCP - General Family Medicine 02/18/23 Shahnaz Oro [address] [facility] [place] [address] Psychiatrist 03/12/23 Psychiatry Physician Relationship Specialty Start Date End Date Scott Jones, DIE STAMPER.OUTBOUND SALES EXECUTIVE [address] [facility] [place] [address] PCP - General Family Medicine 02/18/23 Shahnaz Oro [address] [facility] [place] [address] Psychiatrist 03/12/23 Psychiatry Physician Relationship Specialty Start Date End Date Scott Jones, DIE STAMPER.OUT[employer]OUND SALES EXECUTIVE [address] [place] [address] PCP - General Family Medicine 02/18/23 Shahnaz Oro [address] [facility] [place] [address] Psychiatrist 03/12/23 Psychiatry Physician Relationship Specialty Start Date End Date Scott Jones APRN.OUT[employer]OUND SALES EXECUTIVE [address] [place] [address] PCP - General Family Medicine 02/18/23 Shahnaz Oro [address] [facility] [place] [address] Psychiatrist 03/12/23 Psychiatry Physician Relationship Specialty Start Date End Date Scott Jones APRN.OUTBOUND SALES EXECUTIVE [address] [place] [address] PCP - General Family Medicine 02/18/23 Shahnaz Oro [address] [facility] [address] Psychiatrist 03/12/23 Psychiatry Physician Relationship Specialty Start Date End Date Scott Jones APRN.OUTBOUND SALES EXECUTIVE [address] [place] [address] PCP - General Family Medicine 02/18/23 Shahnaz Oro [address] [facility] [place] [address] Psychiatrist 03/12/23 Psychiatry Physician Relationship Specialty Start Date End Date Scott Jones APRN.OUTBOUND SALES EXECUTIVE [address] [place] [address] PCP - General Family Medicine 02/18/23 Shahnaz Oro [address] [facility] [place] [address] Psychiatrist 03/12/23 Psychiatry Physician Relationship Specialty Start Date End Date Scott Jones APRN.OUTBOUND SALES EXECUTIVE [address] [place] [address] PCP - General Family Medicine 02/18/23 Shahnaz Oro [address] [facility] [place] [address] Psychiatrist 03/12/23 Psychiatry Physician Relationship Specialty Start Date End Date Scott Jones APRN.OUTBOUND SALES EXECUTIVE [address] [facility] [place] [address] PCP - General Family Medicine 02/18/23 Shahnaz Oro [address] [facility] [place] [address] Psychiatrist 03/12/23 Psychiatry Physician Relationship Specialty Start Date End Date Scott Jones APRN.OUTBOUND SALES EXECUTIVE [address] [facility] [place] [address] PCP - General Family Medicine 02/18/23 Shahnaz Oro [address] [facility] [place] [address] Psychiatrist 03/12/23 Psychiatry Physician Relationship Specialty Start Date End Date Scott Jones DIE STAMPER.OUTBOUND SALES EXECUTIVE [facility] [place] [address] PCP - General Family Medicine 02/18/23 Shahnaz Oro [address] [facility] [place] [address] Psychiatrist 03/12/23 Psychiatry Physician Relationship Specialty Start Date End Date Scott Jones DIE STAMPER.OUTBOUND SALES EXECUTIVE [address] [facility] [place] [address] PCP - General Family Medicine 02/18/23 Shahnaz Oro [address] [facility] [address] Psychiatrist 03/12/23 Psychiatry Physician Relationship Specialty Start Date End Date Scott Jones APRN.OUTBOUND SALES EXECUTIVE [address] [place] [address] PCP - General Family Medicine 02/18/23 Shahnaz Oro [address] [facility] [address] Psychiatrist 03/12/23 Psychiatry Physician Relationship Specialty Start Date End Date Scott Jones APRN.OUTBOUND SALES EXECUTIVE [address] [place] [address] PCP - General Family Medicine 02/18/23 Shahnaz Oro [address] [facility] [address] Psychiatrist 03/12/23 Psychiatry Physician Relationship Specialty Start Date End Date Scott Jones APRN.OUTBOUND SALES EXECUTIVE [address] [place] [address] PCP - General Family Medicine 02/18/23 Shahnaz Oro [address] [facility] [place] [address] Psychiatrist 03/12/23 Psychiatry Physician Relationship Specialty Start Date End Date Scott Jones, CARLOS.OUTBOUND SALES EXECUTIVE [address] [place] [address] PCP - General Family Medicine 02/18/23 Shahnaz Oro [address] [facility] [place] [address] Psychiatrist 03/12/23 Psychiatry Physician Relationship Specialty Start Date End Date Scott Jones APRN.OUTBOUND SALES EXECUTIVE [address] [place] [address] PCP - General Family Medicine 02/18/23 Shahnaz Oro [address] [facility] 224281 Psychiatrist 03/12/23 Psychiatry Physician Relationship Specialty Start Date End Date Scott Jones APRN.OUTBOUND SALES EXECUTIVE [address] [place] [address] PCP - General Family Medicine 02/18/23 Shahnaz Oro [address] [facility] [phone] Psychiatrist 03/12/23 Team Status: Inactive Member Role Status Dates Scott Jones COMMERCIAL CARPENTER-C Primary Care Provider Active Start: October 11, 2024 End: October 11, 2024 Dr. Shantell Gastelum , Emergency Provider Active S tart: October 11, 2024 End: October 11, 2024 Psychiatry Physician Relationship Specialty Start Date End Date Scott Jones APRN.OUTBOUND SALES EXECUTIVE [address] [place] [address] PCP - General Family Medicine 02/18/23 Shahnaz Oro [address] [facility] [phone] Psychiatrist 03/12/23 Team Status: Inactive Member Role Status Dates Scott Jones NP-C Primary Care Provider Active Start: October 11, 2024 End: October 11, 2024 Dr. Shantell Gastelum DO Attending Provider Active S tart: October 11, 2024 End: October 11, 2024 Dr. Shantell Gastelum DO Emergency Provider Active S tart: October 11, 2024 End: October 11, 2024 Team Status: Active Member Role Status Dates Scott Jones COMMERCIAL CARPENTER-C Primary Care Provider Active Start: October 11, 2024 Dr. Castro Serrano MD Attending Provider Active S tart: October 11, 2024 Dr. Shantell Gastelum DO Referring Provider Active S tart: October 11, 2024 Team Status: Inactive Member Role Status Dates Scott Jones COMMERCIAL CARPENTER-C Primary Care Provider Active Start: December 10, 2024 End: December 10, 2024 Dr. Shantell Gastelum DO Emergency Provider Active S tart: December 10, 2024 End: December 10, 2024 Psychiatry Physician Relationship Specialty Start Date End Date Scott Jones APRN.OUTBOUND SALES EXECUTIVE [address] [facility], [place] [id number] PCP - General Family Medicine 02/18/23 Shahnaz Oro [address] [facility] [address] Psychiatrist 03/12/23 Team Status: Active Member Role/Relationship Status Dates Scott Jones COMMERCIAL CARPENTER-C Primary Care Provider Active Team Status: Inactive Member Role/Relationship Status Dates Scott Jones COMMERCIAL CARPENTER-C Primary Care Provider Active Start: October 11, 2024 End: October 11, 2024 Dr. Shantell Gastelum DO Attending Provider Active S tart: October 11, 2024 End: October 11, 2024 Dr. Shantell Gastelum DO Emergency Provider Active S tart: October 11, 2024 End: October 11, 2024 Team Status: Active Member Role/Relationship Status Dates Scott Jones COMMERCIAL CARPENTER-C Primary Care Provider Active Start: October 11, 2024 Dr. Castro Serrano MD Attending Provider Active S tart: October 11, 2024 Dr. Shantell Gastelum DO Referring Provider Active S tart: October 11, 2024 Team Status: Inactive Member Role/Relationship Status Dates Scott Jones COMMERCIAL CARPENTER-C Primary Care Provider Active Start: December 10, 2024 End: December 10, 2024 Dr. Shantell Gastelum DO Attending Provider Active S tart: December 10, 2024 End: December 10, 2024 Dr. Shantell Gastelum DO Emergency Provider Active S tart: December 10, 2024 End: December 10, 2024 Team Status: Inactive Member Role/Relationship Status Dates Scott Jones COMMERCIAL CARPENTER-C Primary Care Provider Active Start: January 29, 2025 End: January 29, 2025 Dr. John Mcfadden MD Emergency Provider Active Sta rt: January 29, 2025 End: January 29, 2025 Team Status: Active Member Role/Relationship Status Dates Scott Jones , MYKEL-C Primary Care Provider Active Start: January 29, 2025 Dr. John Mcfadden MD Emergency Provider Active Sta rt: January 29, 2025 Dr. Jonathan Puga MD Attending Provider Active Start: January 29, 2025 Goals (unrecognized section and content) Goals may be documented in a n alternate sectionGoals may be documented in an alternate sectionGoals may be documented in an alternate sectionGoals may be documented in an alternate section FOR RECORDS PERTAINING TO PATIENTS WHO ARE OR HAVE BEEN ENROLLED IN A CHEMICAL DEPENDENCY/SUBSTANCEABUSE PROGRAM, SOME INFORMATION MAY BE OMITTED. This clinical summary was aggregated from multiple sources. Caution should be exercised in using it in the provision of clinical care. This summary normalizes information from multiple sources, and as a consequence, information in this document may materially change the coding, format and clinical context of patient data. In addition, data may be omitted in some cases. CLINICAL DECISIONS SHOULD BE BASED ON THE PRIMARY CLINICAL RECORDS. [employer] provides no warranty or guarantee of the accuracy or completeness of information in this document.
== END 2025-01-29 12:39 | disposition home or self-care (01) ==
PROVIDERS: Emergency Provider Emergency Medicine; PCP Nurse Practitioner Family; Visit Provider Emergency Medicine
DX: R55 Syncope and collapse (principal); F31.9 Bipolar disorder, unspecified; R73.9 Hyperglycemia, unspecified; R11.2 Nausea with vomiting, unspecified; D50.9 Iron deficiency anemia, unspecified; F41.9 Anxiety disorder, unspecified; E78.00 Pure hypercholesterolemia, unspecified; F17.210 Nicotine dependence, cigarettes, uncomplicated; Z79.899 Other long term (current) drug therapy
CPT/HCPCS: 80048; 85027; 93005; 99284; A4216

== ENCOUNTER → 2025-02-09 | Outpatient (CLI) | payer OTHER, SELFPAY ==
--- NOTE | 2025-02-09 12:42 | ECHOD_ITS ---
Reason For Study Reason For Study: Near Syncope Procedure This was a 2D Doppler, Color Flow transthoracic echocardiogram. Exam performed in department. Left Ventricle Normal LV size. The left ventricular ejection fraction is 60 %. No regional wall motion abnormalities noted. Right Ventricle Normal RV size. Normal systolic function. Atria Normal left atrium. Normal right atrium. Mitral Valve Normal mitral valve. Tricuspid Valve Normal tricuspid valve. Mild (1+) tricuspid valve insufficiency. Pulmonary artery systolic pressure is 25 mmHg. Aortic Valve Trisinus/trileaflet aortic valve. Pulmonic Valve Normal pulmonic valve. Great Vessels Normal aortic root. The pulmonary artery is normal size. Inferior vena cava collapse with respiration. Pericardium/Pleural No pericardial effusion. MMode/2D Measurements & Calculations LVIDd: 4.2 cm IVSd: 0.87 cm Ao root diam: 2.5 cm LVIDs: 2.4 cm LVPWd: 0.89 cm RVDd: 2.8 cm FS: 41.8 % LAV(MOD-bp): 24.7 ml LVAd ap4: 25.3 cm2 LVAd ap2: 23.9 cm2 LAV(MOD-bp) Indexed: 13.7 ml/m2 LVLd ap4: 6.9 cm LVLd ap2: 7.5 cm LAV(MOD-sp2): 20.5 ml EDV(MOD-sp4): 76.0 ml EDV(MOD-sp2): 63.0 ml LAV(MOD-sp4): 28.1 ml EDV(sp4-el): 78.3 ml EDV(sp2-el): 64.8 ml LVAs ap4: 14.5 cm2 LVAs ap2: 12.6 cm2 LVLs ap4: 6.1 cm LVLs ap2: 6.4 cm ESV(MOD-sp4): 29.1 ml ESV(MOD-sp2): 20.3 ml ESV(sp4-el): 29.1 ml ESV(sp2-el): 21.3 ml EF(MOD-sp4): 61.8 % EF(MOD-sp2): 67.8 % EF(sp4-el): 62.8 % SV(MOD-sp4): 47.0 ml SV(MOD-sp2): 42.7 ml SV(sp4-el): 49.2 ml SI(MOD-sp4): 26.1 ml/m2 SI(MOD-sp2): 23.7 ml/m2 LA A4 area: 11.7 cm2 LA dimension(2D): 3.2 cm RA A4 area: 8.5 cm2 TAPSE: 2.1 cm Time Measurements MV dec time: 0.20 sec Doppler Measurements & Calculations MV E max emir: 80.4 cm/sec Lat Peak E' Emir: 11.4 cm/sec Med Peak E' Emir: 8.2 cm/sec MV A max emir: 71.3 cm/sec E/E' lat: 7.1 E/E' med: 9.8 MV E/A: 1.1 Ao V2 max: 173.8 cm/sec LV V1 max: 124.2 cm/sec MV dec slope: 401.8 cm/sec2 Ao max P.1 mmHg LV V1 max P.2 mmHg Ao V2 mean: 114.3 cm/sec LV V1 mean P.5 mmHg Ao mean P.1 mmHg LV V1 mean: 86.8 cm/sec Ao V2 VTI: 34.3 cm LV V1 VTI: 28.0 cm AV (velocity ratio): 0.82 PA V2 max: 121.0 cm/sec TR max emir: 237.4 cm/sec TR max P.5 mmHg ECHO/Echo Complete Interpretation Summary Normal LV size. The left ventricular ejection fraction is 60 %. Mild (1+) tricuspid valve insufficiency. Pulmonary artery systolic pressure is 25 mmHg. Ordering Physician: Jonathan Puga Referring Physician: Krista Umanzor Performed By: Geetha Marks RDCS
== END | disposition home or self-care (01) ==
LOC: CVS 12:41
PROVIDERS: PCP Nurse Practitioner Family; Referring Provider Internal Medicine Cardiovascular Disease; Visit Provider Internal Medicine Cardiovascular Disease
DX: R55 Syncope and collapse (principal)
CPT/HCPCS: 93306

== ENCOUNTER 2025-02-11 14:32 | Emergency (ER) | payer OTHER, SELFPAY ==
[2025-02-11] VITALS (7 sets, daily range): BP systolic 125–152; BP diastolic 84–96; PULSE 72–108; RESP 16–18; TEMP 36.8–37.5; O2SAT 99; BMI 31.5
--- NOTE | 2025-02-11 14:54 | CT_ITS ---
PROCEDURE: ABDOMEN/PELVIS W IV CONT ONLY 02/11/2025 REASON FOR EXAM: PAIN, CONSTIPATION History of hernia repair TECHNIQUE: ABDOMEN/PELVIS W IV CONT ONLY Coronal and Sagittal reconstruction series were provided. CONTRAST: Isovue 370 VOLUME: 100 mL One or more dose reduction techniques were used (e.g., Automated exposure control, adjustment of the mA and/or kV according to patient size, use of iterative reconstruction technique. RADIATION DOSE SUMMARY: CTDlvol: 19.87 mGy DLP: 995.52 mGycm COMPARISON: None. FINDINGS: Lung bases: Clear. Small hiatal hernia Liver: Unremarkable Gallbladder: Normal Spleen: Normal Pancreas: Normal Adrenals: Normal Kidneys: Normal Bladder: Normal Reproductive Organs: Retroverted uterus, otherwise unremarkable Bowel: Prominent fecal pattern in the colon and especially in the rectal vault consistent with constipation Appendix: No acute process detected in the right lower quadrant Lymph nodes: No adenopathy Vasculature: Normal Peritoneum / Retroperitoneum: No free air or free fluid. Bones: No aggressive process. Multilevel degenerative disc disease in the lumbar spine CT/Abdomen/Pelvis W IV Cont ONLY IMPRESSION: Prominent fecal pattern, especially in the rectum consistent with constipation [facility]
--- OUTSIDE RECORDS SUMMARY | 2025-02-11 15:03 | XMS RPT_ITS | CCD ---
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 activity/Vol] 83 U/L 34 - 123 U/L [facility] ALT [Catalytic activity/Vol] 19 U/L 7 - 38 U/L [facility] Anion gap [Moles/Vol] 10 mmol/L 9 - 18 mmol/L [facility] AST [Catalytic activity/Vol] 25 U/L 13 - 35 U/L [facility] Bilirubin [Mass/Vol] 0.5 mg/dL 0.2 - 1 .3 mg/dL [facility] Calcium [Mass/Vol] 9.8 mg/dL 8.5 - 10. 2 mg/dL [facility] Chloride [Moles/Vol] 105 mmol/L 97 - 10 5 mmol/L [facility] CO2 [Moles/Vol] 24 mmol/L 22 - 30 mmol/L [facility] Creatinine [Mass/Vol] 0.85 mg/dL 0.58 - 0.96 mg/dL [facility] GFR/1.73 sq M.predicted among non-blacks MDRD (S/P/Bld) [Vol rate/Area] 88 mL/min/{1.73_m2} - PINF [facility] Comment on above: Estimated Glomerular Filtration [...] [Mass/Vol] 89 mg/dL 74 - 99 mg/dL [facility] Comment on above: The [place] Diabete s Association (ADA) provides guidance for [...] Standards of Medical Care in Diabetes 2016, [place] Diabetes Association. Diabetes Care. 2016.39(Suppl 1). Potassium [Moles/Vol] 3.9 mmol/L 3.7 - 5.1 mmol/L [facility] Protein [Mass/Vol] 7.5 g/dL 6.3 - 8.0 g/dL [facility] Sodium [Moles/Vol] 139 mmol/L 136 - 144 mmol/L [facility] Urea nitrogen [Mass/Vol] 6 mg/dL Low 7 - 21 mg/dL [facility] FERRITINon 11-01-2023 Ferritin [Mass/Vol] 111.0 ng/mL 14.7 - 2 05.1 ng/mL [facility] HbA1c (Bld)on 11-01-2023 Average glucose Estimated from glycated hemoglobin (Bld) [Mass/Vol] 97 mg/dL [facility] Comment on above: eAG: (Estimated aver age glucose) is a calculated value from HgbA1c and is access representative of the average blood glucose level in the last 2-3 month period. HbA1c (Bld) [Mass fraction] 5.0 % 4.3 - 5.6 % [facility] Comment on above: [place] Diabetes As sociation guidelines indicate that patients with HgbA1c in the range 5.7-6.4% are at increased risk for development of diabetes, and intervention by lifestyle modification may be beneficial. HgbA1c greater or equal to 6.5% is considered diagnostic of diabetes. [facility] Iron and Iron binding capaci ty panelon 11-01-2023 Iron [Mass/Vol] 30 ug/dL Low 41 - 186 ug/dL [facility] Iron binding capacity [Mass/Vol] 297 ug/dL 232 - 386 ug/dL [facility] Iron/TIBC [Molar ratio] 10.1 % Low 15.0 - 57.0 % [facility] LITHIUMon 11-01-2023 [place] [Moles/Vol] 0.4 mmol/L Low 0.6 - 1. 2 mmol/L [facility] Comment on above: Reference ranges and high/low indicator flags are provided as general guidelines only. The treating physician must determine appropriate target levels/dosing based on the specific clinical situation. [place] [Moles/Vol]on 2023 Interpretation and review of laboratory results Abnormal [facility] No Panel Informationon 10-31 Interpretation and review of laboratory results Normal [facility] Interpretation and review of laboratory results Abnormal [facility] THYROID STIMULATING HORMONEo n 11-01-2023 TSH Qn 2.200 m[IU]/L [facility] Comment on above: If the patient is pr egnant, TSH reference range varies by gestational period: First Trimester (weeks 9-12): 0.180-2.990 mIU/L Second Trimester: 0.110-3.980 mIU/L Third Trimester: 0.480-4.710 mIU/L Marek Menjivar et al. A Practical Approach for the Verifications and Determination of Site- and Trimester-Specific Reference Intervals for Thyroid Function tests in . Thyroid, 2019:29:3:412-420. Maikol E, et al. 2017 Guidelines of the [place] Thyroid Association for the Diagnosis and Management of Thyroid Disease during and the . Thyroid, 2017:27:3:315-389. Urinalysis complete panel (U )on 11-01-2023 Bacteria LM.HPF (Urine sed) [#/Area] Negative Negative /HPF [facility] Bilirubin Ql (U) Negative Negative [facility] Clarity (Unsp spec) Clear Clear [facility] Color (U) Yellow Yellow [facility] Epithelial cells LM.HPF (Urine sed) [#/Area] Few /HPF [facility] Glucose Test strip (U) [Mass/Vol] Negative Negative [facility] Hemoglobin Ql (U) 1+ Abnormal Negative [facility] Hyaline casts (Urine sed) [#/Area] 0 /[LPF] 0 /LPF [facility] Interpretation and review of laboratory results Abnormal [facility] Ketones Ql (U) Negative Negative [facility] Leukocyte esterase Test strip Ql (U) Negative Negative [facility] Nitrite Ql (U) Negative Negative [facility] pH (U) 7.0 [pH] NINF - 8.5 [facility] Protein (U) [Mass/Vol] Negative Negative Cl [facility] RBC LM.HPF (Urine sed) [#/Area] 0-2 /HPF 0-2 /HPF [facility] Specific gravity (U) [Rel density] 1.008 1.005 - 1.030 [facility] Urobilinogen Ql (U) 0.2 EU/dL 0.2-1.0 EU/dL [facility] WBC LM.HPF (Urine sed) [#/Area] 0-5 /HPF 0-5 /HPF [facility] This test was develo ped and its performance characteristics determined by [facility]'s Luis Fernando Lundy [facility] Pathology and Laboratory Medicine [place] (RTPLMI). It has not been cleared or approved by the FDA. -[facility] is regulated under CLIA as qualified to perform high-complexity testing. This test is used for clinical purposes. It should not be regarded as investigational or for research. [facility] XR Shoulder - left 2 Viewson 07-27-2023 Addendum by Provider , [facility] [place] on 07/27/2023 4:26 PM EST * * [...] in the acromioclavicular joint as described above. Returned Goods Inspector: BETTY Transcribe Date/Time: Jul 27 2023 4:22P Dictated by : TRISTEN BEAVER MD This examination was interpreted and the report reviewed and electronically signed by: TRISTEN BEAVER MD on Jul 27 2023 4:24PM EST [facility] No Panel Informationon 07-26 Radiology [facility]narrative[facility] XR Cervical spine AP and Lat eral and obliqueon 07-26-2023 IMPRESSION: DEGENERATIVE CHANGES DESCRIBED Returned Goods Inspector: BETTY Transcribe Date/Time: Jul 26 2023 11:19A [...] through C6 -C7, DIVISION OF RADIOLOGY Provider, [facility] - 07/26/2023 * * *Final Report* * [...] C6 -C7, IMPRESSION IMPRESSION: DEGENERATIVE CHANGES DESCRIBED Returned Goods Inspector: PSCB Transcribe Date/Time: Jul 26 2023 11:19A Dictated by : LIZZ HARDY MD This examination was interpreted and the report reviewed and electronically signed by: LIZZ HARDY MD on Jul 26 2023 11:21AM [facility] XR Cervical spine AP and Lat eral and obliqueOrdered By: Ccf Provider on 07-26-2023 [facility] Absolute lymphocyte countOrd ered By: ED PROVIDER on 02-23-2023 Lymphocytes Auto (Unsp spec) [#/Vol] 4.34 10*3/uL 0.83-4.51 [facility] Basophil percentageOrdered B y: ED PROVIDER on 02-23-2023 Basophils/100 WBC (Bld) 0.8 % 0-1 [facility] Chloride [Moles/Vol] 109 mmol/L 98-107 [facility] Eosinophils/100 WBC (Bld) 2.5 % 0-5 [facility] Glucose [Mass/Vol] 118 mg/dL 74-106 [facility] Comment on above: Fasting Glucose resu lt from 100 to 125 mg/dL suggests IMPAIRED HOMEOSTASIS per A.D.A. criteria. Neutrophils (Bld) [#/Vol] 5.8 10*3/uL 2.0-7.7 [facility] Neutrophils/100 WBC (Bld) 50.8 % 47-70 [facility] Potassium [Moles/Vol] 3.7 mmol/L 3.5-5.1 [facility] Sodium [Moles/Vol] 139 mmol/L 136-145 [facility] WBC (Bld) [#/Vol] 11.5 10*3/uL 4.4-11.0 [facility] Blood erythrocytes count (nu mber/volume)Ordered By: ED PROVIDER on 02-23-2023 RBC (Bld) [#/Vol] 4.61 10*6/uL 4.2-5.4 [facility] Blood hemoglobin measurement (mass/volume)Ordered By: ED PROVIDER on 02-23-2023 Hemoglobin (Bld) [Mass/Vol] 13.9 g/dL 12.0-15.0 [facility] Blood lymphocytes/100 leukoc ytesOrdered By: ED PROVIDER on 02-23-2023 Lymphocytes/100 WBC (Bld) 37.8 % 19-41 [facility] Blood monocytes/100 leukocyt esOrdered By: ED PROVIDER on 02-23-2023 Monocytes/100 WBC (Bld) 7.7 % 0-10 [facility] Blood platelet mean volumeOr dered By: ED PROVIDER on 02-23-2023 Platelet mean volume (Bld) [Entitic vol] 9.3 fL 6.2-12.0 [facility] Determination of erythrocyte mean corpuscular volume (MCV)Ordered By: ED PROVIDER on 02-23-2023 MCV (RBC) [Entitic vol] 91.3 fL 81-99 [facility] Hematocrit Auto (Bld) [Volum e fraction]Ordered By: ED PROVIDER on 02-23-2023 Hematocrit (Bld) [Volume fraction] 42.1 % 37-47 [facility] Laboratory - Chemistry and C hemistry - challengeOrdered By: ED PROVIDER on 02-23-2023 CO2 [Moles/Vol] 25.0 mmol/L 21.0-32.0 [facility] Urea nitrogen/Creatinine [Mass ratio] 10.4 mg/mg 10-20 [facility] Laboratory - Hematology and Cell countsOrdered By: ED PROVIDER on 02-23-2023 Erythrocyte distribution width (RBC) [Entitic vol] 41.4 fL 35.1-43.9 [facility] Erythrocyte distribution width (RBC) [Ratio] 12.6 % 11.6-14.6 [facility] Immature granulocytes/100 WBC (Bld) 0.400 % 0.0-0.9 [facility] Comment on above: IG% - Immature Granu locytes (promyelocytes, myelocytes and metamyelocytes) > 1% indicates that a LEFT SHIFT is Present. MCH (RBC) [Entitic mass] 30.2 pg 27.0-32.0 [facility] Nucleated RBC/100 WBC (Bld) [Ratio] 0 % 0-5 [facility] MCHC Auto (RBC) [Mass/Vol]Or dered By: ED PROVIDER on 02-23-2023 MCHC (RBC) [Mass/Vol] 33.0 g/dL 32-36 [facility] No Panel InformationOrdered By: Wilfrido Issa on 02-23-2023 [place] Level 0.30 mmol/L 0.60-1.20 [facility] D-Dimer Quantitative (PE/DVT) < 0.27 FEU/ug/m 0.27-0.49 [facility] Comment on above: NORMAL D-Dimer level (<0.50) indicates no DVT or PE. No Panel InformationOrdered By: ED PROVIDER on 02-23-2023 Troponin I High Sensitivity 3 pg/mL 3.0-54.0 [facility] Comment on above: Please Note: New Abena t Units and Gender Specific Reference Ranges. For more information see Policy Stat Procedure [place] High Sensitivity Troponin (TNIH) and attachments. Estimated Creatinine Clearance Calc 68.77 ml/min [facility] Estimated GFR (MDRD) Amer 93 mL/min >60 [facility] Comment on above: GFR Calc Estimated GFR (MDRD) Non-Af Amer 77 mL/min >60 [facility] Comment on above: Non- GFR Calc No Panel InformationOrdered By: Marissa Cardoza on 02-23-2023 Thyroid Stimulating Hormone (TSH) 1.18 uIU/mL 0.358-3.74 [facility] Platelets bldOrdered By: ED PROVIDER on 02-23-2023 Platelets (Bld) [#/Vol] 314 10*3/uL 150-450 [facility] Serum or plasma calcium meagan urement (mass/volume)Ordered By: ED PROVIDER on 02-23-2023 Calcium [Mass/Vol] 9.6 mg/dL 8.5-10.1 [facility] Serum or plasma creatinine m easurement (mass/volume)Ordered By: ED PROVIDER on 02-23-2023 Creatinine [Mass/Vol] 0.86 mg/dL 0.55-1.02 [facility] Comment on above: The validity of the calculated GFR & GFRAA in patients over 70 years has not been determined. Clinical correlation is essential. Serum or plasma urea nitroge n measurement (mass/volume)Ordered By: ED PROVIDER on 02-23-2023 Urea nitrogen [Mass/Vol] 9 mg/dL 7-18 [facility] Thin prep Papanicolaou smear with manual screeningOrdered By: ED PROVIDER on 02-23-2023 Thin prep Papanicolaou smear with manual screening 5 5-15 [facility] XR FOOT GENERAL 3V AP/LAT/OB L BILATERALon 11-02-2022 [facility] XR Humerus - right AP and La teralon 08-25-2022 IMPRESSION: No radiographic evidence of acute osseous abnormality Returned Goods Inspector: BETTY Transcribe Date/Time: Aug 25 2022 11:54A Dictated by : VALENTIN ROMAN MD This examination was interpreted and the report reviewed and electronically signed by: VALENTIN ROMAN MD on Aug 25 2022 11:55AM EST DIVISION OF RADIOLOGY * * *Final [...] destructive osseous lesion. DIVISION OF RADIOLOGY Provider, [facility] Juan Manuel [facility] - 08/25/2022 * * *Final Report* * [...] No radiographic evidence of acute osseous abnormality [facility] Transcribe Date/Time: Aug 25 2022 11:54A Dictated by : VALENTIN ROMAN MD This examination was interpreted and the report reviewed and electronically signed by: VALENTIN ROMAN MD on Aug 25 2022 11:55AM [facility] Radiology Study observation (narrative) [facility] XR Humerus - right AP and La teralOrdered By: [facility] Provider on 08-25-2022 [facility] Hussein 07-21-2022 [facility] ([facility]) CADY VALLE ([id number]) 1980 F Date Time Provider Department 07/21/22 ELA HUITRON [facility] During your visit today, we recorded the following information about you: Nan Tyler 07/21/2022 2:39 PM Signed No Show Documentation Cady Valle no showed for an appointment on 07/20/2022 with Ela Huitron APRN.CNP at 10:20am. She was scheduled for [facility] care. I called and spoke with the patient regarding her missed appointment. Cady stated that she had called and spoke to a nurse conventions assistant on Wednesday and told them to cancel [...] Encounter Status:Closed by NAN REAL on 07/21/22 [facility] Vital Signs Date Time Vital Sign Value Performing Clinician Facility 02-05-2025 10:22-040 Body height 157.48 cm Scott EASON Work Phone: [facility] 02-05-2025 10:22-0400 Body mass index (BMI) [Ratio] 31.8 kg/m2 Scott EASON Work Phone: [facility] 02-05-2025 10:22-0400 Body weight 78.92 kg Scott EASON Work Phone: [facility] 02-05-2025 10:22-0400 Diastolic blood pressure 84 mm[Hg] Scott Jones SURGEON CHIEF-C Work Phone: [facility] 02-05-2025 10:22-0400 Heart rate 75 /min Scott Jones SURGEON CHIEF-C Work Phone: [facility] 02-05-2025 10:22-0400 Respiratory rate 14 /min Scott Jones SURGEON CHIEF-C Work Phone: [facility] 02-05-2025 10:22-0400 SaO2% (BldA) [Mass fraction] 98 % Scott Jones SURGEON CHIEF-C Work Phone: 7(011)407-024186 [place] [address] 02-05-2025 10:22-0400 Systolic blood pressure 127 mm[Hg] Scott Jones SURGEON CHIEF-C Work Phone: 8(733)058-790386 [place] [address] 01-29-2025 12:30-0400 Body temperature 98.7 [degF] Scott Jones SURGEON CHIEF-C Work Phone: 5(455)951-577986 [place] [address] 01-29-2025 12:30-0400 Diastolic blood pressure 86 mm[Hg] Scott Jnoes SURGEON CHIEF-C Work Phone: 8(827)683-923832 [place] [address] 01-29-2025 12:30-0400 Heart rate 77 /min Scott Jones SURGEON CHIEF-C Work Phone: 3(408)636-324586 [place] [address] 01-29-2025 12:30-0400 Respiratory rate 18 /min Scott Jones SURGEON CHIEF-C Work Phone: 6(518)918-537732 [place] [address] 01-29-2025 12:30-0400 SaO2% (BldA) [Mass fraction] 100 % Scott Jones SURGEON CHIEF-C Work Phone: 7(452)080-672032 [place] [address] 01-29-2025 12:30-0400 Systolic blood pressure 129 mm[Hg] Scott Jones SURGEON CHIEF-C Work Phone: [facility] 01-29-2025 08:24-0400 Body height 157.48 cm Scott Jones SURGEON CHIEF-C Work Phone: 4(665)728-834686 [place] [address] 01-29-2025 08:24-0400 Body mass index (BMI) [Ratio] 31.9 kg/m2 Scott Jones SURGEON CHIEF-C Work Phone: 1(140)923-799232 [place] [address] 01-29-2025 08:24-0400 Body weight 79.28 kg Scott Jones SURGEON CHIEF-C Work Phone: 2(057)720-724386 [place] [address] 12-10-2024 14:54-0400 Body temperature 98.1 [degF] Scott Jones SURGEON CHIEF-C Work Phone: 3(279)290-156286 [place] [address] 12-10-2024 14:54-0400 Diastolic blood pressure 84 mm[Hg] Scott Jones SURGEON CHIEF-C Work Phone: 8(158)634-302586 [place] [address] 12-10-2024 14:54-0400 Heart rate 92 /min Scott Jones SURGEON CHIEF-C Work Phone: 1(605)941-582386 [place] [address] 12-10-2024 14:54-0400 Respiratory rate 18 /min Scott Jones SURGEON CHIEF-C Work Phone: 9(992)639-940486 [place] [address] 12-10-2024 14:54-0400 SaO2% (BldA) [Mass fraction] 100 % Scott Jones SURGEON CHIEF-C Work Phone: 0(781)056-216486 [place] [address] 12-10-2024 14:54-0400 Systolic blood pressure 139 mm[Hg] Scott Jones SURGEON CHIEF-C Work Phone: 3(188)749-137586 [place] [address] 12-10-2024 13:15-0400 Body height 157.48 cm Scott Jones NP-C Work Phone: 0(881)636-452486 [place] [address] 12-10-2024 13:15-0400 Body mass index (BMI) [Ratio] 32.9 kg/m2 Scott Jones SURGEON CHIEF-C Work Phone: 1(061)906-632886 [place] [address] 12-10-2024 13:15-0400 Body weight 81.73 kg Scott Jones SURGEON CHIEF-C Work Phone: 7(817)556-818186 [place] [address] 11-10-2024 13:20-0400 Body mass index (BMI) [Ratio] 31.76 kg/m2 Oral Mayer MD Work Phone: [facility] 11-10-2024 13:20-0400 Body temperature 98.6 [degF] Oral Mayer MD Work Phone: [facility] 11-10-2024 13:20-0400 Body weight 81 kg Oral Mayer MD Work Phone: [facility] 11-10-2024 13:20-0400 Diastolic blood pressure 85 mm[Hg] Oral Mayer MD Work Phone: [facility] 11-10-2024 13:20-0400 Heart rate 85 /min Oral Mayer MD Work Phone: [facility] 11-10-2024 13:20-0400 Respiratory rate 18 /min Oral Mayer MD Work Phone: [facility] 11-10-2024 13:20-0400 SaO2% (BldA) [Mass fraction] 98 % Oral Mayer MD Work Phone: [facility] 11-10-2024 13:20-0400 Systolic blood pressure 125 mm[Hg] Oral Mayer MD Work Phone: [facility] 10-11-2024 16:12-0400 Body temperature 97.5 [degF] Scott Jones SURGEON CHIEF-C Work Phone: [facility] 10-11-2024 16:12-0400 Diastolic blood pressure 79 mm[Hg] Scott Jones SURGEON CHIEF-C Work Phone: [facility] 10-11-2024 16:12-0400 Heart rate 85 /min Scott Jones SURGEON CHIEF-C Work Phone: [facility] 10-11-2024 16:12-0400 Respiratory rate 16 /min Scott Jonse SURGEON CHIEF-C Work Phone: [facility] 10-11-2024 16:12-0400 SaO2% (BldA) [Mass fraction] 98 % Scott Jones SURGEON CHIEF-C Work Phone: [facility] 10-11-2024 16:12-0400 Systolic blood pressure 153 mm[Hg] Scott Jones SURGEON CHIEF-C Work Phone: [facility] [facility] 10[facility]11-2024 13:43-0400 Body height 157.48 cm Scott Jones SURGEON CHIEF-C Work Phone: [facility] 10-11-2024 13:43-0400 Body mass index (BMI) [Ratio] 33.5 kg/m2 Scott Jones SURGEON CHIEF-C Work Phone: [facility] 10-11-2024 13:43-0400 Body weight 83.2 kg Scott Jones SURGEON CHIEF-C Work Phone: [facility] 08-16-2024 11:04-0500 Body mass index (BMI) [Ratio] 32.11 kg/m2 Jose Clutter PA-C Work Phone: [facility] 08-16-2024 11:04-0500 Body temperature 98.01 [degF] Jose Clutter PA-C Work Phone: [facility] 08-16-2024 11:04-0500 Body weight 81.9 kg Jose Clutter PA-C Work Phone: [facility] 08-16-2024 11:04-0500 Diastolic blood pressure 80 mm[Hg] Jose Clutter PA-C Work Phone: [facility] 08-16-2024 11:04-0500 Heart rate 96 /min Jose Clutter PA-C Work Phone: [facility] 08-16-2024 11:04-0500 Respiratory rate 16 /min Jose Clutter PA-C Work Phone: [facility] 08-16-2024 11:04-0500 SaO2% (BldA) [Mass fraction] 100 % Jose Clutter PA-C Work Phone: [facility] 08-16-2024 11:04-0500 Systolic blood pressure 122 mm[Hg] Jose Clutter PA-C Work Phone: [facility] 06-13-2024 17:05-0400 Body mass index (BMI) [Ratio] 31.12 kg/m2 Scott Erna RN PALLIATIVE.WOOD BORER Work Phone: [facility] 12-23-2023 17:05-0400 Body weight 79.38 kg Scott Erna RN PALLIATIVE.WOOD BORER Work Phone: [facility] 12-23-2023 17:05-0400 Diastolic blood pressure 78 mm[Hg] Scott Vasyloble RN PALLIATIVE.WOOD BORER Work Phone: [facility] 12-23-2023 17:05-0400 Heart rate 80 /min Scott Erna RN PALLIATIVE.WOOD BORER Work Phone: [facility] 12-23-2023 17:05-0400 Respiratory rate 14 /min Scott Jones RN PALLIATIVE.WOOD BORER Work Phone: [facility] 12-23-2023 17:05-0400 Systolic blood pressure 121 mm[Hg] Scott Vasyloble RN PALLIATIVE.WOOD BORER Work Phone: [facility] 12-05-2023 08:19-0400 Body mass index (BMI) [Ratio] 30.74 kg/m2 Jose Moomaw RN PALLIATIVE.WOOD BORER Work Phone: [facility] 12-05-2023 08:19-0400 Body temperature 98.29 [degF] Jose Moomaw RN PALLIATIVE.WOOD BORER Work Phone: [facility] 12-05-2023 08:19-0400 Body weight 78.4 kg Jose Moomaw RN PALLIATIVE.WOOD BORER Work Phone: [facility] 12-05-2023 08:19-0400 Diastolic blood pressure 84 mm[Hg] Jose Moomaw RN PALLIATIVE.WOOD BORER Work Phone: [facility] 12-05-2023 08:19-0400 Heart rate 110 /min Jose Moomaw RN PALLIATIVE.WOOD BORER Work Phone: [facility] 12-05-2023 08:19-0400 Respiratory rate 21 /min Jose Moomaw RN PALLIATIVE.WOOD BORER Work Phone: [facility] 12-05-2023 08:19-0400 SaO2% (BldA) [Mass fraction] 99 % Jose Kelly RN PALLIATIVE.WOOD BORER Work Phone: [facility] 12-05-2023 08:19-0400 Systolic blood pressure 110 mm[Hg] Jose Kelly APRN.WOOD BORER Work Phone: [facility] 11-01-2023 09:01-0400 Body mass index (BMI) [Ratio] 30.59 kg/m2 Scott Jones RN PALLIATIVE.WOOD BORER Work Phone: [facility] 11-01-2023 09:01-0400 Body weight 78.02 kg Scott Jones RN PALLIATIVE.WOOD BORER Work Phone: [facility] 11-01-2023 09:01-0400 Diastolic blood pressure 78 mm[Hg] Scott Jones RN PALLIATIVE.WOOD BORER Work Phone: [facility] 11-01-2023 09:01-0400 Heart rate 76 /min Scott Jones RN PALLIATIVE.WOOD BORER Work Phone: [facility] 11-01-2023 09:01-0400 Respiratory rate 14 /min Scott Jones RN PALLIATIVE.WOOD BORER Work Phone: [facility] 11-01-2023 09:01-0400 Systolic blood pressure 125 mm[Hg] Scott Jones RN PALLIATIVE.WOOD BORER Work Phone: [facility] 04-05-2023 08:07-0400 Body weight 79.38 kg Scott Jones RN PALLIATIVE.WOOD BORER Work Phone: [facility] 04-05-2023 08:07-0400 Diastolic blood pressure 72 mm[Hg] Scott Jones RN PALLIATIVE.WOOD BORER Work Phone: [facility] 04-05-2023 08:07-0400 Heart rate 82 /min Scott Jones RN PALLIATIVE.WOOD BORER Work Phone: [facility] 04-05-2023 08:07-0400 Respiratory rate 16 /min Scott Jones RN PALLIATIVE.WOOD BORER Work Phone: [facility] 04-05-2023 08:07-0400 Systolic blood pressure 134 mm[Hg] Scott Jones APRN.WOOD BORER Work Phone: [facility] 03-17-2023 14:19-0400 Body temperature 99.61 [degF] Scott Jones APRN.WOOD BORER Work Phone: [facility] 03-17-2023 14:19-0400 Body weight 78.02 kg Scott Jones APRN.WOOD BORER Work Phone: [facility] 03-17-2023 14:19-0400 Diastolic blood pressure 78 mm[Hg] Scott Jones RN PALLIATIVE.WOOD BORER Work Phone: [facility] 03-17-2023 14:19-0400 Heart rate 100 /min Scott Jones APRN.WOOD BORER Work Phone: [facility] 03-17-2023 14:19-0400 Respiratory rate 14 /min Scott Jones APRN.WOOD BORER Work Phone: [facility] 03-17-2023 14:19-0400 SaO2% (BldA) [Mass fraction] 97 % Scott Jones RN PALLIATIVE.WOOD BORER Work Phone: [facility] 03-17-2023 14:19-0400 Systolic blood pressure 140 mm[Hg] Scott Jones RN PALLIATIVE.WOOD BORER Work Phone: [facility] 03-11-2023 07:53-0400 Body weight 78.47 kg Scott Jones APRN.WOOD BORER Work Phone: [facility] 03-11-2023 07:53-0400 Diastolic blood pressure 74 mm[Hg] Scott Jones RN PALLIATIVE.WOOD BORER Work Phone: [facility] 03-11-2023 07:53-0400 Heart rate 78 /min Scott Jones APRN.WOOD BORER Work Phone: [facility] 03-11-2023 07:53-0400 Respiratory rate 14 /min Scott Jones APRN.WOOD BORER Work Phone: [facility] 03-11-2023 07:53-0400 Systolic blood pressure 122 mm[Hg] Scott Jones APRN.WOOD BORER Work Phone: [facility] 02-27-2023 04:21-0400 Body height 157.5 cm Sleep Main Work Phone: [facility] 02-27-2023 04:21-0400 Body weight 77.6 kg Sleep Main Work Phone: [facility] 02-25-2023 08:32-0400 Body weight 77.56 kg Scott Jones RN PALLIATIVE.WOOD BORER Work Phone: [facility] 02-25-2023 08:32-0400 Diastolic blood pressure 80 mm[Hg] Scott Jones APRN.WOOD BORER Work Phone: [facility] 02-25-2023 08:32-0400 Heart rate 86 /min Scott Jones APRN.WOOD BORER Work Phone: [facility] 02-25-2023 08:32-0400 Respiratory rate 14 /min Scott Jones APRN.WOOD BORER Work Phone: [facility] 02-25-2023 08:32-0400 Systolic blood pressure 134 mm[Hg] Scott Jones APRN.WOOD BORER Work Phone: [facility] 02-23-2023 22:49-0400 Diastolic blood pressure 65 mm[Hg] [facility] 02-23-2023 22:49-0400 Heart rate 85 /min [facility] 02-23-2023 22:49-0400 Respiratory rate 16 /min [facility] 02-23-2023 22:49-0400 SaO2% (BldA) [Mass fraction] 99 % [facility] 02-23-2023 22:49-0400 Systolic blood pressure 110 mm[Hg] [facility] 02-23-2023 18:38-0400 Body height 157.[address] [facility] 02-23-2023 18:38-0400 Body mass index (BMI) [Ratio] 31.6 kg/m2 [facility] 02-23-2023 18:38-0400 Body temperature 97.8 [degF] [facility] 02-23-2023 18:38-0400 Body weight 78.47 kg [facility] Hospital Encounters Encounter Date Encounter Type Care Provider Facility Start: 02-09-2025 ambulatory Scott Jones Facilit y:[facility] Start: 02-05-2025 End: 02-05-2025 Patient encounter procedure Tia Smith SURGEON CHIEF-C -[facility] Work Phone: Start: 02-05-2025 End: 02-05-2025 ambulatory Scott Jones SURGEON CHIEF-C Work Phone: -[facility] Start: 02-05-2025 ambulatory Jonathan Puga Facility :[facility] Start: 01-29-2025 ambulatory Jonathan Puga Facility :[facility] Start: 01-29-2025 Non-patient / Non-visit Dr. Jonathan Puga MD -[facility] Start: 01-29-2025 End: 01-29-2025 Emergency department patient visit Sctot Jones SURGEON CHIEFZackC Work Phone: -Emergency Department Work Phone: Start: 12-27-2024 End: 01-01-2025 Refill Sumi Roca PAZackC Work Phone: [facility] Comment on above: Refill Request Start: 12-10-2024 End: 12-10-2024 Emergency department patient visit Scott Jones SURGEON CHIEF-C Work Phone: -Emergency Department Work Phone: Start: 12-10-2024 End: 12-10-2024 Patient encounter procedure Dereje Del Valle RN PALLIATIVE.WOOD BORER Work Phone: [facility] Comment on above: Procedure not ruth d out (Primary Dx) Start: 12-10-2024 End: 12-10-2024 ambulatory SCOTT JONES Facility:[facility] Start: 11-16-2024 End: 11-17-2024 Refill Scott Jones APRN.WOOD BORER Work Phone: [facility] Comment on above: Refill Request Start: 11-10-2024 End: 11-10-2024 Office outpatient visit 15 minutes Oral Mayer MD Work Phone: [facility] Comment on above: Seasonal allergic rh initis, unspecified trigger (Primary Dx) Start: 11-10-2024 End: 11-10-2024 ambulatory SCOTT JONES Facility:[facility] Start: 10-11-2024 ambulatory Scott Jones Facilit y:[facility] Start: 10-11-2024 Non-patient / Non-visit Dr. Castro xiao MD -[facility] Start: 10-11-2024 End: 10-11-2024 Emergency department patient visit Scott SANTANAC Work Phone: -Emergency Department Work Phone: Start: 10-09-2024 End: 10-10-2024 Refill Sumi Roca PA-C Work Phone: [facility] Comment on above: Refill Request Start: 09-25-2024 End: 11-27-2024 Follow-up encounter Scott Jones APRN.CNP Work Phone: [facility] Start: 09-22-2024 End: 09-22-2024 ambulatory SCOTT JONES Facility:[facility] Start: 09-22-2024 End: 09-22-2024 Subsequent hospital visit by physician Screen Mammo [facility] Comment on above: Encounter for screen ing mammogram for breast cancer [Z12.31] Start: 09-05-2024 End: 09-13-2024 ambulatory Scott Jones APRN.CNP Work Phone: [facility] Comment on above: Vitamins Start: 08-30-2024 End: 08-30-2024 Refill Scott Jones APRN.WOOD BORER Work Phone: [facility] Comment on above: Refill Request Start: 08-16-2024 End: 08-16-2024 ambulatory SCOTT JONES Facility:[facility] Start: 08-16-2024 End: 08-16-2024 Office outpatient new 30 minutes Jose Bush PA-C Work Phone: [facility] Comment on above: Viral illness (Prima ry Dx); Mild intermittent asthma, uncomplicated Start: 07-28-2024 End: 07-28-2024 Refill Scott Jones RN PALLIATIVE.WOOD BORER Work Phone: [facility] Comment on above: Refill Request Start: 06-26-2024 End: 06-27-2024 Refill Scott Jones RN PALLIATIVE.WOOD BORER Work Phone: [facility] [place] Comment on above: Refill Request Start: 05-23-2024 End: 05-23-2024 Telephone encounter Scott Jones APRN.WOOD BORER Work Phone: [facility] [place] Start: 05-22-2024 End: 05-22-2024 ambulatory SCOTT JONES Facility:[facility] Start: 05-14-2024 End: 05-15-2024 Refill Scott Jones RN PALLIATIVE.WOOD BORER Work Phone: [facility] Comment on above: Refill Request Start: 03-28-2024 End: 03-30-2024 Refill Scott Jones RN PALLIATIVE.WOOD BORER Work Phone: [facility] [place] Comment on above: Refill Request Start: 02-22-2024 Refill Scott leo APRN.WOOD BORER Work Phone: [facility] Comment on above: Refill Request Start: 02-14-2024 End: 02-14-2024 ambulatory SCOTT JONES Facility:[facility] Start: 02-14-2024 End: 02-14-2024 Patient encounter procedure Wilfrido Chapa MD Work Phone: Orthopaedics Comment on above: Left hand pain [M79. 642] Start: 02-02-2024 ambulatory Scott leo RN PALLIATIVE.WOOD BORER Work Phone: Internal Medicine [facility] [place] Start: 01-27-2024 Telephone encounter Scott kaiser APRN.WOOD BORER Work Phone: [facility] [place] Comment on above: Faxed Lab Results Start: 01-13-2024 Refill Scott leo APRN.WOOD BORER Work Phone: [facility] [place] Comment on above: Refill Request Start: 01-10-2024 End: 01-10-2024 ambulatory SCOTT JONES Facility:[facility] Start: 12-28-2023 Telephone encounter Scott kaiser APRN.WOOD BORER Work Phone: [facility] [place] Comment on above: Results Start: 12-23-2023 End: 12-23-2023 Patient encounter procedure Scott Jones RN PALLIATIVE.WOOD BORER Work Phone: [facility] [place] Comment on above: Left hand pain [M79. 642] (Primary Dx) Start: 12-23-2023 End: 12-23-2023 Subsequent hospital visit by physician Xr [facility] [place] Work Phone: Radiology Comment on above: Left hand pain [M79. 642] Start: 12-23-2023 End: 12-23-2023 ambulatory SCOTT JONES Facility:[facility] Start: 12-05-2023 End: 12-05-2023 Patient encounter procedure Jose Rodomaw RN PALLIATIVE.WOOD BORER Work Phone: [facility] Comment on above: Bronchitis (Primary Dx) Start: 11-25-2023 Telephone encounter Scott kaiser APRN.WOOD BORER Work Phone: [facility] [place] Comment on above: Results Start: 11-16-2023 Refill Scott leo RN PALLIATIVE.WOOD BORER Work Phone: [facility] Comment on above: Refill Request Start: 11-04-2023 Telephone encounter Scott kaiser APRN.WOOD BORER Work Phone: [facility] [place] Comment on above: Results Start: 11-03-2023 ambulatory Scott Ortega e RN PALLIATIVE.WOOD BORER Work Phone: [facility] [place] Comment on above: Test results Start: 11-01-2023 End: 11-01-2023 Patient encounter procedure Scott Jones RN PALLIATIVE.WOOD BORER Work Phone: [facility] [place] Comment on above: Near syncope (Primar y Dx); Bradycardia Start: 10-14-2023 Telephone encounter Neurology Provid er Neurology Comment on above: Patient Update Start: 10-04-2023 Refill Scott leo APRN.WOOD BORER Work Phone: [facility] [place] Comment on above: Refill Request Start: 08-25-2023 ambulatory Megan [address] Comment on above: Refill Request Start: 07-26-2023 End: 07-26-2023 Subsequent hospital visit by physician Sarah [facility] [place] Work Phone: Radiology Comment on above: Left arm pain [M79.6 02] Start: 05-04-2023 Refill Scott leo APRN.WOOD BORER Work Phone: [facility] [place] Comment on above: Refill Request Start: 04-05-2023 End: 04-05-2023 Patient encounter procedure Scott Jones APRN.WOOD BORER Work Phone: Family [facility] [place] Comment on above: SVT (supraventricula r tachycardia) (HCC) (Primary Dx) Start: 03-23-2023 Telephone encounter Scott kaiser APRN.WOOD BORER Work Phone: [facility] [place] Comment on above: Results Start: 03-17-2023 End: 03-17-2023 Patient encounter procedure Scott Jones APRN.WOOD BORER Work Phone: [facility] [place] Comment on above: Moderate persistent asthma, uncomplicated (Primary Dx) Start: 03-12-2023 Telephone encounter Scott kaiser APRN.WOOD BORER Work Phone: [facility] [place] Comment on above: Results Start: 03-11-2023 End: 03-11-2023 Patient encounter procedure Scott Jones APRN.WOOD BORER Work Phone: [facility] [place] Comment on above: JUAN R (obstructive sle ep apnea) (Primary Dx) Start: 03-04-2023 Telephone encounter Scott kaiser APRN.WOOD BORER Work Phone: [facility] [place] Comment on above: Results Start: 02-26-2023 End: 02-27-2023 ambulatory SCOTT JONES Facility:[facility] Start: 02-25-2023 End: 02-25-2023 Patient encounter procedure Scott Jones APRN.WOOD BORER Work Phone: Family [facility] Comment on above: Heart palpitations ( Primary Dx); Hypertension, essential Start: 02-24-2023 ambulatory Scott leo APRN.CNP Work Phone: Internal Medicine [facility] Start: 02-23-2023 End: 02-23-2023 Emergency department patient visit [facility]-Emergency Department Work Phone: Start: 02-18-2023 Chart abstracting [facility] Work Phone: Neurology Start: 11-02-2022 End: 11-02-2022 Patient encounter procedure Frankie Simmons Work Phone: Podiatry Comment on above: Acquired hallux valg us of left foot (Primary Dx); Diminished pulses in lower extremity; Vitamin D deficiency Start: 11-02-2022 End: 11-02-2022 Subsequent hospital visit by physician Xr [facility] Work Phone: Radiology Comment on above: Pain [R52] Start: 08-25-2022 End: 08-25-2022 Subsequent hospital visit by physician Xr [facility] Work Phone: Radiology Comment on above: Arm pain, central, r ight [M79.601] Start: 07-21-2022 Telephone encounter Ela schneider APRN.WOOD BORER Work Phone: [facility] Comment on above: Missed Appointment Start: 07-21-2022 End: 07-21-2022 ambulatory [facility] Facility:[facility] Start: 07-20-2022 End: 07-20-2022 [facility] Ingrid Brown MD Work Phone: Family [facility] [place] Comment on above: Bipolar affective di sorder, current episode mixed, current episode severity unspecified (HCC) (Primary Dx) Procedures Date Procedure Procedure Detail Performing Clinician Start: 01-29-2025 Estimated creatinine clearance Scott Jones SURGEON CHIEF-C Work Phone: Start: 12-23-2023 Radex hand minimum 3 views Scott Jones APRN.WOOD BORER Work Phone: Start: 07-26-2023 Radex spine cervical 4 or 5 views Scott Jones RN PALLIATIVE.WOOD BORER Work Phone: Start: 02-23-2023 Plain chest X-ray Start: 11-02-2022 Radex foot complete minimum 3 views Frankie Simmons Work Phone: Start: 08-25-2022 Radex humerus minimu m 2 views Louie King RN PALLIATIVE.WOOD BORER Work Phone: Plan of Treatment Date Care Activity Detail Author Start: 01-10-2032 Urine microalbumin profile [facility] Start: 09-22-2025 Screening for malign ant neoplasm of breast Mammogram Screening [facility] Start: 03-12-2025 Influenza vaccination Influenz a Vaccine (Season Ended) [facility] Start: 01-29-2025 [facility] Start: 12-22-2024 Annual PCP Team [employer] Machine [employer] Helper carole Disease Visit Annual PCP Team Chronic Disease Visit [facility] Start: 12-10-2024 [facility] Start: 10-11-2024 [facility] Start: 10-11-2024 End: 10-11-2024 Patient encounter procedure 10/11/2024 10:45 AM EDT Office Visit OB/Gynecology [address] [place] [address] Caity Corado APRN.WOOD BORER [address] [place] [address] Annual OB/Gynecology Comment on above: Annual Start: 03-12-2024 Covid-19 Vaccine ( season) Covid-19 Vaccine ( season) [facility] Start: 03-12-2024 Covid-19 Vaccine ( season) Covid-19 Vaccine ( season) [facility] Start: 03-12-2024 Influenza vaccination C [facility] Start: 02-14-2024 End: 02-14-2024 Patient encounter procedure 02/14/2024 9:15 AM EDT Office Visit Orthopaedics [address] [place] [address] Wilfrido Chapa MD [address] [place] [address] Left hand pain [M79.642] Orthopaedics Comment on above: Left hand pain [M79. 642] Start: 11-01-2023 End: 01-31-2024 lamoTRIgine [Mass/volume] in Serum or Plasma [facility] Work Phone: Comment on above: Expected: 11/01/2023 , Expires: 01/31/2024 Start: 09-22-2023 HEPATITIS C SCREENING HEPATITIS C [facility] Comment on above: Postponed from 07/31 (Declined at this time) Start: 09-22-2023 Hepatitis C screening Hepatitis C [facility] Comment on above: Postponed from 07/31 (Declined at this time) Start: 09-22-2023 HIV SCREENING HIV SCREENING [facility] Comment on above: Postponed from 07/31 (Declined at this time) Start: 09-22-2023 HIV screening HIV Screening [facility] Comment on above: Postponed from 07/31 (Declined at this time) Start: 09-22-2023 PNEUMOCOCCAL (2 - PCV) PNEUMOCOCCAL (2 - PCV) [facility] Start: 09-22-2023 Pneumococcal vaccination [facility] Start: 07-12-2023 Behavioral Health Screening Behavioral Health Screening [facility] Start: 07-12-2023 Depression Assessment Depression Ass essment [facility] Start: 03-12-2023 Covid-19 Vaccine ( season) Covid-19 Vaccine ( season) [facility] Start: 03-12-2023 Influenza vaccination [facility] Start: 02-23-2023 [facility] Start: 11-02-2022 End: 01-02-2023 25-hydroxyvitamin D3 [Mass/volume] in Serum or Plasma VITAMIN D 25 HYDROXY Lab Routine Acquired hallux valgus of left foot Diminished pulses in lower extremity Vitamin D deficiency Expected: 11/02/2022, Expires: 01/02/2023 [facility] Work Phone: Comment on above: Expected: 11/02/2022 , Expires: 01/02/2023 Start: 10-12-2022 COVID-19 VACCINE (2 - Pfizer series) COVID-19 VACCINE (2 - Pfizer series) [facility] Start: 2022 Mammography [facility] Start: 2022 Screening for malign ant neoplasm of breast Mammogram Screening [facility] Start: 07-12-2022 DEPRESSION ASSESSMENT DEPRESSION ASS ESSMENT [facility] Start: 03-12-2022 Influenza vaccination INFLUENZA (#1) [facility] Start: 2012 HPV TESTING HPV TESTING [facility] Start: 2012 Screening for malign ant neoplasm of cervix HPV Testing [facility] Start: 2003 PAP TESTING PAP TESTING [facility] Start: 2003 Screening for malign ant neoplasm of cervix [facility] Start: 2001 Urine microalbumin profile DTAP,TDAP,TD (1 - Tdap) [facility] Start: 2000 Anxiety Screening Anxiety Screening [facility] Start: 2000 Depression Screening Depression Scre ening [facility] Start: 2000 HEPATITIS C SCREENING HEPATITIS C [facility] Start: 2000 Hepatitis C screening Hepatitis C [facility] Start: 2000 HIV SCREENING HIV SCREENING [facility] Start: 2000 HIV screening HIV Screening [facility] Start: 2000 Spirometry Spirometry [facility] Start: 01-28-1983 COVID-19 VACCINE (#1) COVID-19 VACCI NE (#1) [facility] Start: 1982 HEPATITIS B (1 of 3 - 3-dose series) HEPATITIS B (1 of 3 - 3-dose series) [facility] End: 03-03-2025 DBT Breast - bilateral screening MELVA SCREENING [facility] Radiology Routine Encounter for screening mammogram for breast cancer 1 Occurrences starting 02/02/2024 until 03/03/2025 [facility] Work Phone: Comment on above: 1 Occurrences starti ng 02/02/2024 until 03/03/2025 DBT Breast - bilater al screening MELVA SCREENING [facility] Radiology Routine Encounter for screening mammogram for breast cancer 09/22/2024 2:37 PM EDT [facility] Work Phone: ECG COMPLETE ECG COMPLETE ECG Routine Bradycardia Ordered: 11/01/2023 [facility] Comment on above: Ordered: 11/01/2023 End: 03-25-2024 MELVA SCREENING MELVA SCREENING Radiology Routine Encounter for screening mammogram for breast cancer 1 Occurrences starting 02/24/2023 until 03/25/2024 [facility] Work Phone: Comment on above: 1 Occurrences starti ng 02/24/2023 until 03/25/2024 OUTSIDE VENDOR CARDI AC OUTPATIENT EXTENDED RHYTHM RECORDING (WITHOUT TELEMETRY) OUTSIDE VENDOR CARDIAC OUTPATIENT EXTENDED RHYTHM RECORDING (WITHOUT TELEMETRY) Holter Routine Heart palpitations Ordered: 02/25/2023 [facility] Work Phone: Comment on above: Ordered: 02/25/2023 OUTSIDE VENDOR CARDI AC OUTPATIENT EXTENDED RHYTHM RECORDING (WITHOUT TELEMETRY) OUTSIDE VENDOR CARDIAC OUTPATIENT EXTENDED RHYTHM RECORDING (WITHOUT TELEMETRY) Holter Routine Near syncope Bradycardia Ordered: 11/01/2023 [facility] Comment on above: Ordered: 11/01/2023 Patient Education [facility] Work Phone: Patient referral [facility] Work Phone: End: 03-10-2024 Polysomnogram POLYSOMNOGRAM (PSG) Procedures Routine JUAN R (obstructive sleep apnea) 1 Occurrences starting 03/11/2023 until 03/10/2024 [facility] Work Phone: Comment on above: 1 Occurrences starti ng 03/11/2023 until 03/10/2024 End: 11-03-2023 PVR ANK PRESS SERENITY VAS LAB PVR ANK PRESS SERENITY VAS LAB Vascular Lab Routine Acquired hallux valgus of left foot Diminished pulses in lower extremity Vitamin D deficiency 1 Occurrences starting 11/02/2022 until 11/03/2023 [facility] Work Phone: Comment on above: 1 Occurrences starti ng 11/02/2022 until 11/03/2023 Tilt table test [facility] End: 01-21-2025 XR Hand - left PA and Lateral and Oblique XR HAND GENERAL 3V PA/LAT/OBL LEFT Radiology Routine Left hand pain [M79.642] 1 Occurrences starting 12/23/2023 until 01/21/2025 [facility] Work Phone: Comment on above: 1 Occurrences starti ng 12/23/2023 until 01/21/2025 XR Hand - left PA an d Lateral and Oblique XR HAND GENERAL 3V PA/LAT/OBL LEFT Radiology Routine Left hand pain [M79.642] 12/23/2023 5:29 PM EDT [facility] Immunizations Immunization Date Immunization Notes Care Provider Fa cility 09-21-2022 COVID-19 vaccine, ag e 12+ yr, bivalent ([employer]) Frankie Simmons Work Phone: [facility] 09-21-2022 pneumococcal polysaccharide vaccine, 23 valent Frankie Simmons Work Phone: [facility] 01-09-2022 diphtheria, tetanus toxoids and acellular pertussis vaccine, unspecified formulation Frankie Simmons Work Phone: [facility] Work Phone: Payers Date Payer Category Payer Unknown [id number] 2024 Self-pay 2022 Blue [employer] Blue Shield [id number] 2022 Unknown [employer]MA[employer] BLUE CARD PPO OOS [id number] 2022-Present [phone] [address] [place] [address] PPO [id number] 2022 Unknown [id number] 2022 Unknown [id number] Unknown [id number] 2 Unknown [id number] 2 Unknown [id number] 2 Unknown [id number] 2 Unknown [id number] 2 Unknown [id number] 2 Unknown [id number] 2 Unknown [id number] 2 Unknown [id number] 2 Social History Date Type Detail Facility Start: 02-23-2023 Tobacco smoking stat us MTIS Tobacco smoking consumption unknown [facility] Start: 07-20-2022 History SDOH Alcohol Frequency 1 [facility] Start: 07-20-2022 History SDOH Alcohol Std Drinks 0 [facility] Start: 07-20-2022 History SDOH Social Connections Phone 5 [facility] Start: 07-20-2022 History SDOH Social Connections Membership 2 [facility] Start: 07-20-2022 History SDOH Social Connections Living 7 [facility] Start: 1980 Sex Assigned At Not on file [facility] Start: 09-17-2022 End: 01-29-2025 Tobacco smoking status NHIS Smokes tobacco daily [facility] History of tobacco use Cigarette Smoker C [facility] Start: 09-17-2022 End: 02-18-2023 Cigarettes smoked current (pack per day) - Reported 0.5 [facility] Start: 09-17-2022 End: 08-16-2024 Tobacco use and exposure Smokeless tobacco non-user [facility] Start: 11-02-2022 End: 11-10-2024 Alcohol intake Ex-drinker (finding) [facility] Start: 1980 Sex Assigned At Female [facility] Start: 07-20-2022 End: 02-18-2023 Social connection and isolation panel [facility] Do you belong to any clubs or organizations such as pentecostalism groups, unions, fraternal or athletic groups, or school groups? No [facility] Are you now , , , , never or living with a partner? Never [facility] How often to you hav e a drink containing alcohol? Never [facility] How many standard drinks containing alcohol do you have on a typical day? Patient does not drink [facility] Do you feel stress - tense, restless, nervous, or anxious, or unable to sleep at night because your mind is troubled all the time - these days [OSQ] Very much [facility] (I/We) worried alyson (my/our) food would run out before (I/we) got money to buy more. Never true [facility] Do you feel stress - tense, restless, nervous, or anxious, or unable to sleep at night because your mind is troubled all the time - these days [OSQ] Not at all [facility] Start: 08-25-2022 Tobacco smoking stat [facility] Never smoked tobacco [facility] Start: 10-11-2024 Sex Female (finding) [facility] Start: 02-05-2025 Tobacco smoking stat [facility] Ex-smoker (finding) [facility] NEGATED: Highlighted row [facility] Mental Status Date Assessment Result Facility 01-29-2025 Cognitive function Level Of Cons ciousness Awake;Alert;Appropriate;Follow s Commands [facility] Work Phone: 02-23-2023 Cognitive function Awake;Alert;Appropriat e [facility] Work Phone: Clinical Notes 07-20-2022 to 01-29-2025 Telephone Encounter - Rebecca Cornell LPN - 01/01/2025 7:31 AM EDTTelephone Encounter - Rebecca Cornell LPN - 01/01/2025 7:31 AM Dereje Gomez APRN.WOOD BORER - 12/10/2024 3:09 PM EDT Note Date & Type Note Facility 01-29-2025 Consult note [facility] 01-29-2025 Discharge summary [facility] 01-01-2025 Telephone encounter Note Pt was sent [...] Cornell LPN January 01, 2025 7:31 AM [facility] 01-01-2025 Miscellaneous Notes Pt was sent [...] 2025 7:31 AM documented in this encounter [facility] 12-10-2024 Note HNO ID: [id number] Author: DEREJE DEL VALLE APRN.WOOD BORER Service: ? Author Type: Nurse Practitioner Type: [...] for pain management. Will be seen at [facility] Dereje Del Valle APRN.CNP [facility] 12-10-2024 History of Present illness Narrative 44-year-old [...] for pain management. Will be seen at [facility] Dereje Del Valle APRN.CNP documented in this encounter [facility] 11-17-2024 Telephone encounter Note Prescription Refill [...] MA November 17, 2024 8:32 AM / [facility] 11-17-2024 Miscellaneous Notes Prescription Refill Information [...] 8:32 AM / documented in this encounter [facility] 11-10-2024 Note HNO ID: [id number] Author: ORAL MAYER MD Service: ? Author Type: Physician Type: Progress Notes Filed: 11/10/2024 13:39 Note Text: [facility] Subjective Cady Valle is a 44 [...] the following reason(s): HANDP not suggestive Procedures [facility] 11-10-2024 History of Present illness Narrative [facility] Subjective Cady Valle is a 44 year [...] not suggestive Procedures documented in this encounter [facility] 10-10-2024 Telephone encounter Note Prescription Refill [...] Saha LPN October 10, 2024 7:12 AM [facility] 10-10-2024 Miscellaneous Notes Prescription Refill Information [...] 2024 7:12 AM documented in this encounter [facility] 09-25-2024 Telephone encounter Note Pt active on [employer]- message sent Sarah Bowles MA [facility] 09-25-2024 Miscellaneous Notes Pt active on [employer]- message sent Sarah Bowles MA Please let patient know her mammogram is negative. Patient should continue with annual screenings. documented in this encounter [facility] 09-25-2024 Telephone encounter Note Please let patient know her mammogram is negative. Patient should continue with annual screenings. [facility] 09-22-2024 History of Present illness Narrative [...] PATIENT PRESENTS WITH AN IMPLANTABLE OR ATTACHED BURR FILER: No RADIOLOGY DEPARTMENT: Mammography PERIPHERAL IV DATA: Not applicable SIGNED BY: RT Teresa(Caroline) September 22, 2024 3:00 PM documented in this encounter [facility] 09-22-2024 Note HNO ID: [id number] Author: GLORIA PÉREZ RT(R) Service: ? Author [...] PATIENT PRESENTS WITH AN IMPLANTABLE OR ATTACHED BURR FILER: No RADIOLOGY DEPARTMENT: Mammography PERIPHERAL IV DATA: Not applicable SIGNED BY: RT Teresa(Caroline) September 22, 2024 3:00 PM [facility] 08-30-2024 Telephone encounter Note Prescription Refill Information [...] 1 refill. Pt not due for Lipitor. message to pt advising of the same. Janes Bal LPN August 30, 2024 12:45 PM [facility] 08-30-2024 Miscellaneous Notes Prescription Refill Information The [...] 1 refill. Pt not due for Lipitor. message to pt advising of the same. Janes Bal LPN August 30, 2024 12:45 PM documented in this encounter [facility] 08-16-2024 Note HNO ID: [id number] Author: JOSE BUSH PA-C Service: ? Author Type: Physician Metal Machine Setter Type: Progress Notes Filed: 08/16/2024 11:24 Note Text: This note was created using [employer]. Subjective Cady Valle is a 44 year [...] for influenza. 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 Subjective Cady Valle is a 44 year [...] for influenza. 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[employer] and is in constant contact with the [...] Jose Bush PA-C documented in this encounter [facility] 07-28-2024 Telephone encounter Note Records show [...] Grover LPN July 28, 2024 7:45 AM [facility] 07-28-2024 Miscellaneous Notes Records show valid [...] 2024 7:45 AM documented in this encounter [facility] 06-26-2024 Telephone encounter Note Prescription Refill [...] Jimenez MA June 26, 2024 4:43 PM [facility] 06-26-2024 Miscellaneous Notes Prescription Refill Information [...] 2024 4:43 PM documented in this encounter [facility] 05-15-2024 Telephone encounter Note Prescription Refill [...] Crespo MA May 15, 2024 10:20 AM [facility] 05-15-2024 Miscellaneous Notes Prescription Refill Information [...] 2024 10:20 AM documented in this encounter [facility] 03-29-2024 Telephone encounter Note Prescription Refill [...] Bal LPN March 29, 2024 11:07 AM [facility] 03-29-2024 Miscellaneous Notes Prescription Refill Information [...] 2024 11:07 AM documented in this encounter [facility] 02-22-2024 Telephone encounter Note Prescription Refill [...] Saha LPN February 22, 2024 10:39 AM [facility] 02-22-2024 Miscellaneous Notes Prescription Refill Information [...] 2024 10:39 AM documented in this encounter [facility] 02-14-2024 Note HNO ID: [id number] Author: WILFRIDO CHAPA MD Service: ? Author Type: Physician Type: Progress Notes Filed: 02/14/2024 09:52 Note Text: Wilfrido Chapa MD Department of Orthopaedics [facility] [address] [facility] [facility] [address] Dept: [phone] Dept February 14, 2024 CHIEF COMPLAINT: Established [...] taking: Reported on (more content not included)... [facility] 02-14-2024 History of Present illness Narrative Wilfrido Chapa MD Department of Orthopaedics Orthopaedics [address] [facility] [address] Dept: [phone] Dept February 14, 2024 CHIEF COMPLAINT: Established [...] Wilfrido Chapa MD documented in this encounter [facility] 02-02-2024 Note Patient Outreach (IN TMMN) CADY VALLE ([id number]) 1980 F Date Time Provider Department 02/02/24 [...] for screening mammogram for breast cancer [Z12.31]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 Jones APRN.CHATO [address] [place] [address] [facility] [address] [place] [phone] Referral ID Status Reason Start Date Expiration Date Visits Requested Visits Authorized [id number] Pending Review Auto-Generat ed Referral 02/24/2023 03/25/2024 1 1 T [facility] for referral (narrative)* Diagnostic Procedure Only (Routine) - Closed Specialty Diagnoses / Procedures Referred By Mini blandon Referred To Contact [facility] Diagnoses Pain Procedures XR FOOT GENERAL 3V AP/LAT/OBL BILATERAL RADEX FOOT COMPLETE MINIMUM 3 VIEWS [place] [address] [place] [address] Referral ID Status Reason Start Date Expiration Date V isits Requested Visits Authorized [id number] Closed Auto-Generate d Referral 10/08/2022 11/07/2023 1 1 [facility] for referral (narrative)* Outpatient Procedure (Routine) - Pending Review Specialty Diagnoses / Procedures Referred By Contac t Referred To [facility] Diagnoses Bradycardia Procedures ECG COMPLETE ECG ROUTINE ECG W/LEAST 12 LDS W/I&R Scott Jones APRN.WOOD BORER [address] [place] [address] [facility] [place] [address] [place] [id number] Referral ID Status Reason Start Date Expiration Date Visits Requested Visits Authorized [id number] Pending Review Auto-Generat ed Referral 11/01/2023 10/31/2024 1 1 [facility] for referral (narrative)* Diagnostic Procedure Only (Routine) - New Request Specialty Diagnoses / Procedures Referred By Contac t Referred To Contact [facility] Diagnoses Encounter for screening mammogram for breast cancer Procedures MELVA SCREENING W DAYANARA SCREENING DIGITAL BREAST TOMOSYNTHESIS BI SCREENING MAMMOGRAPHY BI 2-VIEW BREAST INC CAD Scott Jones APRN.WOOD BORER [address] [place] [address] [facility] [address] [place] [address] Referral ID Status Reason Start Date Expiration Date Visits Requested Visits Authorized [id number] New Request Auto-Generat ed Referral 02/02/2024 03/03/2025 1 1 [facility] for referral (narrative)* Diagnostic Procedure Only (Routine) - Closed Specialty Diagnoses / Procedures Referred By Contac t Referred To Contact X[facility] Diagnoses Left hand pain Procedures XR HAND GENERAL 3V PA/LAT/OBL LEFT RADEX HAND MINIMUM 3 VIEWS Scott Jones APRN.CNP [address] [place] [address] [place] [address] Referral ID Status Reason Start Date Expiration Date V isits Requested Visits Authorized [id number] Closed Auto-Generate d Referral 12/23/2023 01/21/2025 1 1 [facility] for referral (narrative)* Diagnostic Procedure Only (Routine) - Closed Specialty Diagnoses / Procedures Referred By Contac t Referred To Contact [facility] Diagnoses Left arm pain Procedures XR SHOULDER LIMITED 2V AP/TRUE AP LEFT RADEX SHOULDER COMPLETE MINIMUM 2 VIEWS Scott Jones APRN.CNP [address] [place], [place] [id number] [place] [address] Referral ID Status Reason Start Date Expiration Date V isits Requested Visits Authorized [id number] Closed Auto-Generate d Referral 07/26/2023 08/24/2024 1 1 * Diagnostic Procedure Only (Routine) - Closed Specialty Diagnoses / Procedures Referred By Contac t Referred To Contact [facility] Diagnoses Left arm pain Procedures XR CERV OTHER 4V AP/LAT/OBL RADEX SPINE CERVICAL 4 OR 5 VIEWS Scott Jones APRN.CNP [address] [place] [address] [place] [address] Referral ID Status Reason Start Date Expiration Date V isits Requested Visits Authorized [id number] Closed Auto-Generate d Referral 07/26/2023 08/24/2024 1 1 [facility] for referral (narrative)No reason for referral information availableWSumma Health Work Phone: Reason for visit Narrative* Diagnostic Procedure Only (Routine) - Closed Specialty Diagnoses / Procedures Referred By Contac t Referred To Contact [facility] Diagnoses Pain Procedures XR FOOT GENERAL 3V AP/LAT/OBL BILATERAL RADEX FOOT COMPLETE MINIMUM 3 VIEWS Frankie Simmons [address] [place] [address] [place] [address] Referral ID Status Reason Start Date Expiration Date V isits Requested Visits Authorized [id number] Closed Auto-Generate d Referral 10/08/2022 11/07/2023 1 1 [facility] for visit Narrative* Diagnostic Procedure Only (Routine) - Closed Specialty Diagnoses / Procedures Referred By Contac t Referred To Contact [facility] Diagnoses Left hand pain Procedures XR HAND GENERAL 3V PA/LAT/OBL LEFT RADEX HAND MINIMUM 3 VIEWS Scott Jones APRN.WOOD BORER [address] [place] [address] [place] [address] Referral ID Status Reason Start Date Expiration Date V isits Requested Visits Authorized [id number] Closed Auto-Generate d Referral 12/23/2023 01/21/2025 1 1 [facility] for visit Narrative* Diagnostic Procedure Only (Routine) - Closed Specialty Diagnoses / Procedures Referred By Contac t Referred To Contact [facility] IM[facility] Diagnoses Left arm pain Procedures XR SHOULDER LIMITED 2V AP/TRUE AP LEFT RADEX SHOULDER COMPLETE MINIMUM 2 VIEWS Scott Jones APRN.WOOD BORER [address] [place] [address] [place] [address] Referral ID Status Reason Start Date Expiration Date V isits Requested Visits Authorized [id number] Closed Auto-Generate d Referral 07/26/2023 08/24/2024 1 1 [facility] for visit Narrative* Diagnostic Procedure Only (Urgent) - Closed Specialty Diagnoses / Procedures Referred By Contac t Referred To Contact XR IMAGING Diagnoses Arm pain, central, right Procedures XR HUMERUS 2V AP/LAT RIGHT RADEX HUMERUS MINIMUM 2 VIEWS Louie King APRN.WOOD BORER [address] [place] [address] [place] [address] Referral ID Status Reason Start Date Expiration Date V isits Requested Visits Authorized [id number] Closed Auto-Generate d Referral 08/25/2022 09/24/2023 1 1 [facility] Diagnostic Procedure Only (Routine) - Closed Specialty Diagnoses / Procedures Referred By Mini t Referred To Contact [facility] Diagnoses Encounter for screening mammogram for breast cancer Procedures MELVA SCREENING W DAYANARA SCREENING DIGITAL BREAST TOMOSYNTHESIS BI SCREENING MAMMOGRAPHY BI 2-VIEW BREAST INC CAD Scott Jones, CARLOS.WOOD BORER [address] [place] [address] Phone: tel: fax: [facility] [address] [place] [address] Referral ID Status Reason Start Date Expiration Date V isits Requested Visits Authorized [id number] Closed Auto-Generate d Referral 02/02/2024 03/03/2025 1 1 [facility] Summary Purpose Family History No Family History Records FoundNo Family History Records FoundNo Family History Records FoundNo Family History Records Found Advance Directives No Advanced Directives Records Found Advance Directive Response Recorded Date/ Time Living Will No February 23 3 7:39pm Power of Can Stacker No February 23 023 7:39pm Advance Directive Response Recorded Date/ Time Living Will No October 11, 2024 3:44pm Do you have a Healthcare Power of Can Stacker? No October 11, 2024 3:44pm Advance Directive Response Recorded Date/ Time Living Will No October 11, 2024 3:44pm Do you have a Healthcare Power of Can Stacker? No October 11, 2024 3:44pm Do you have a Healthcare Power of Can Stacker? No December 10, 2024 2:53pm Advance Directive Response Recorded Date/ Time Living Will No October 11, 2024 3:44pm Do you have a Healthcare Power of Can Stacker? No October 11, 2024 3:44pm Do you have a Healthcare Power of Can Stacker? No December 10, 2024 2:53pm Do you have a Healthcare Power of Can Stacker? No January 29, 2025 8:53am Chief Complaint [...] am Syncope January 29, 2025 11:0 7am Chief Complaint Admit Date R CALF PAIN October 11, 2024 1:42 pm UPPER BACK PAIN December 10, 2024 1:15p m SYNCOPE January 29, 2025 8:23 am Syncope January 29, 2025 11:0 7am S/P [facility] 01/29 Syncope February 05, 2025 10: 14am Reason for Visit Admit Date Vasovagal near syncope February 05, 2025 1 0:14am Reason for Referral Specialty Diagnoses / Procedures Referred By Contac t Referred To Contact Orthopedics Diagnoses Left hand pain Procedures CONSULT TO ORTHOPAEDICS OFFICE/OUTPATIENT [facility] 60 MINUTES Scott Jones APRN.[address] [place] [address] Referral ID Status Reason Start Date Expiration Date Visits Requested Visits Authorized [id number] Authorized PCP Requested Referral 12/23/2023 12/22/2024 1 1 Specialty Diagnoses / Procedures Referred By Contac t Referred To Contact XR IMAGING Diagnoses Left hand pain Procedures XR HAND GENERAL 3V PA/LAT/OBL LEFT RADEX HAND MINIMUM 3 VIEWS Scott Jones, CARLOS.[address] [place] [address] [place] [id number] Referral ID Status Reason Start Date Expiration Date V isits Requested Visits Authorized [id number] Closed Auto-Generate d Referral 12/23/2023 01/21/2025 1 1 Additional Source Comments Source Comments (unrecognize d section and content) In the event this informatio n is protected by the Federal Confidentiality of Alcohol and Drug Abuse Patient Records regulations: The Federal rules restrict any use of the information to criminally investigate or prosecute any alcohol or drug abuse patient.[facility] the event this information is protected by the Federal Confidentiality of Alcohol and Drug Abuse Patient Records regulations: The Federal rules restrict any use of the information to criminally investigate or prosecute any alcohol or drug abuse patient.[facility] HospitalIn the event this information is protected by the Federal Confidentiality of Alcohol and Drug Abuse Patient Records regulations: The Federal rules restrict any use of the information to criminally investigate or prosecute any alcohol or drug abuse patient.[facility] HospitalIn the event this information is protected by the Federal Confidentiality of Alcohol and Drug Abuse Patient Records regulations: The Federal rules restrict any use of the information to criminally investigate or prosecute any alcohol or drug abuse patient.[facility] HospitalIn the event this information is protected by the Federal Confidentiality of Alcohol and Drug Abuse Patient Records regulations: The Federal rules restrict any use of the information to criminally investigate or prosecute any alcohol or drug abuse patient.[facility] HospitalIn the event this information is protected by the Federal Confidentiality of Alcohol and Drug Abuse Patient Records regulations: The Federal rules restrict any use of the information to criminally investigate or prosecute any alcohol or drug abuse patient.[facility] HospitalIn the event this information is protected by the Federal Confidentiality of Alcohol and Drug Abuse Patient Records regulations: The Federal rules restrict any use of the information to criminally investigate or prosecute any alcohol or drug abuse patient.[facility] HospitalIn the event this information is protected by the Federal Confidentiality of Alcohol and Drug Abuse Patient Records regulations: The Federal rules restrict any use of the information to criminally investigate or prosecute any alcohol or drug abuse patient.[facility] HospitalIn the event this information is protected by the Federal Confidentiality of Alcohol and Drug Abuse Patient Records regulations: The Federal rules restrict any use of the information to criminally investigate or prosecute any alcohol or drug abuse patient.[facility] HospitalIn the event this information is protected by the Federal Confidentiality of Alcohol and Drug Abuse Patient Records regulations: The Federal rules restrict any use of the information to criminally investigate or prosecute any alcohol or drug abuse patient.[facility] HospitalIn the event this information is protected by the Federal Confidentiality of Alcohol and Drug Abuse Patient Records regulations: The Federal rules restrict any use of the information to criminally investigate or prosecute any alcohol or drug abuse patient.[facility] HospitalIn the event this information is protected by the Federal Confidentiality of Alcohol and Drug Abuse Patient Records regulations: The Federal rules restrict any use of the information to criminally investigate or prosecute any alcohol or drug abuse patient.[facility] HospitalIn the event this information is protected by the Federal Confidentiality of Alcohol and Drug Abuse Patient Records regulations: The Federal rules restrict any use of the information to criminally investigate or prosecute any alcohol or drug abuse patient.[facility] HospitalIn the event this information is protected by the Federal Confidentiality of Alcohol and Drug Abuse Patient Records regulations: The Federal rules restrict any use of the information to criminally investigate or prosecute any alcohol or drug abuse patient.[facility] HospitalIn the event this information is protected by the Federal Confidentiality of Alcohol and Drug Abuse Patient Records regulations: The Federal rules restrict any use of the information to criminally investigate or prosecute any alcohol or drug abuse patient.[facility] HospitalIn the event this information is protected by the Federal Confidentiality of Alcohol and Drug Abuse Patient Records regulations: The Federal rules restrict any use of the information to criminally investigate or prosecute any alcohol or drug abuse patient.[facility] HospitalIn the event this information is protected by the Federal Confidentiality of Alcohol and Drug Abuse Patient Records regulations: The Federal rules restrict any use of the information to criminally investigate or prosecute any alcohol or drug abuse patient.[facility] HospitalIn the event this information is protected by the Federal Confidentiality of Alcohol and Drug Abuse Patient Records regulations: The Federal rules restrict any use of the information to criminally investigate or prosecute any alcohol or drug abuse patient.[facility] HospitalIn the event this information is protected by the Federal Confidentiality of Alcohol and Drug Abuse Patient Records regulations: The Federal rules restrict any use of the information to criminally investigate or prosecute any alcohol or drug abuse patient.[facility] HospitalIn the event this information is protected by the Federal Confidentiality of Alcohol and Drug Abuse Patient Records regulations: The Federal rules restrict any use of the information to criminally investigate or prosecute any alcohol or drug abuse patient.[facility] HospitalIn the event this information is protected by the Federal Confidentiality of Alcohol and Drug Abuse Patient Records regulations: The Federal rules restrict any use of the information to criminally investigate or prosecute any alcohol or drug abuse patient.[facility] HospitalIn the event this information is protected by the Federal Confidentiality of Alcohol and Drug Abuse Patient Records regulations: The Federal rules restrict any use of the information to criminally investigate or prosecute any alcohol or drug abuse patient.[facility] HospitalIn the event this information is protected by the Federal Confidentiality of Alcohol and Drug Abuse Patient Records regulations: The Federal rules restrict any use of the information to criminally investigate or prosecute any alcohol or drug abuse patient.[facility] HospitalIn the event this information is protected by the Federal Confidentiality of Alcohol and Drug Abuse Patient Records regulations: The Federal rules restrict any use of the information to criminally investigate or prosecute any alcohol or drug abuse patient.[facility] HospitalIn the event this information is protected by the Federal Confidentiality of Alcohol and Drug Abuse Patient Records regulations: The Federal rules restrict any use of the information to criminally investigate or prosecute any alcohol or drug abuse patient.[facility] HospitalIn the event this information is protected by the Federal Confidentiality of Alcohol and Drug Abuse Patient Records regulations: The Federal rules restrict any use of the information to criminally investigate or prosecute any alcohol or drug abuse patient.[facility] HospitalIn the event this information is protected by the Federal Confidentiality of Alcohol and Drug Abuse Patient Records regulations: The Federal rules restrict any use of the information to criminally investigate or prosecute any alcohol or drug abuse patient.[facility] HospitalIn the event this information is protected by the Federal Confidentiality of Alcohol and Drug Abuse Patient Records regulations: The Federal rules restrict any use of the information to criminally investigate or prosecute any alcohol or drug abuse patient.[facility] HospitalIn the event this information is protected by the Federal Confidentiality of Alcohol and Drug Abuse Patient Records regulations: The Federal rules restrict any use of the information to criminally investigate or prosecute any alcohol or drug abuse patient.[facility] HospitalIn the event this information is protected by the Federal Confidentiality of Alcohol and Drug Abuse Patient Records regulations: The Federal rules restrict any use of the information to criminally investigate or prosecute any alcohol or drug abuse patient.[facility] HospitalIn the event this information is protected by the Federal Confidentiality of Alcohol and Drug Abuse Patient Records regulations: The Federal rules restrict any use of the information to criminally investigate or prosecute any alcohol or drug abuse patient.[facility] HospitalIn the event this information is protected by the Federal Confidentiality of Alcohol and Drug Abuse Patient Records regulations: The Federal rules restrict any use of the information to criminally investigate or prosecute any alcohol or drug abuse patient.[facility] HospitalIn the event this information is protected by the Federal Confidentiality of Alcohol and Drug Abuse Patient Records regulations: The Federal rules restrict any use of the information to criminally investigate or prosecute any alcohol or drug abuse patient.[facility] HospitalIn the event this information is protected by the Federal Confidentiality of Alcohol and Drug Abuse Patient Records regulations: The Federal rules restrict any use of the information to criminally investigate or prosecute any alcohol or drug abuse patient.[facility] HospitalIn the event this information is protected by the Federal Confidentiality of Alcohol and Drug Abuse Patient Records regulations: The Federal rules restrict any use of the information to criminally investigate or prosecute any alcohol or drug abuse patient.[facility] HospitalIn the event this information is protected by the Federal Confidentiality of Alcohol and Drug Abuse Patient Records regulations: The Federal rules restrict any use of the information to criminally investigate or prosecute any alcohol or drug abuse patient.[facility] HospitalIn the event this information is protected by the Federal Confidentiality of Alcohol and Drug Abuse Patient Records regulations: The Federal rules restrict any use of the information to criminally investigate or prosecute any alcohol or drug abuse patient.[facility] HospitalIn the event this information is protected by the Federal Confidentiality of Alcohol and Drug Abuse Patient Records regulations: The Federal rules restrict any use of the information to criminally investigate or prosecute any alcohol or drug abuse patient.[facility] HospitalIn the event this information is protected by the Federal Confidentiality of Alcohol and Drug Abuse Patient Records regulations: The Federal rules restrict any use of the information to criminally investigate or prosecute any alcohol or drug abuse patient.[facility] HospitalIn the event this information is protected by the Federal Confidentiality of Alcohol and Drug Abuse Patient Records regulations: The Federal rules restrict any use of the information to criminally investigate or prosecute any alcohol or drug abuse patient.[facility] HospitalIn the event this information is protected by the Federal Confidentiality of Alcohol and Drug Abuse Patient Records regulations: The Federal rules restrict any use of the information to criminally investigate or prosecute any alcohol or drug abuse patient.[facility] HospitalIn the event this information is protected by the Federal Confidentiality of Alcohol and Drug Abuse Patient Records regulations: The Federal rules restrict any use of the information to criminally investigate or prosecute any alcohol or drug abuse patient.[facility] HospitalIn the event this information is protected by the Federal Confidentiality of Alcohol and Drug Abuse Patient Records regulations: The Federal rules restrict any use of the information to criminally investigate or prosecute any alcohol or drug abuse patient.[facility] HospitalIn the event this information is protected by the Federal Confidentiality of Alcohol and Drug Abuse Patient Records regulations: The Federal rules restrict any use of the information to criminally investigate or prosecute any alcohol or drug abuse patient.[facility] HospitalIn the event this information is protected by the Federal Confidentiality of Alcohol and Drug Abuse Patient Records regulations: The Federal rules restrict any use of the information to criminally investigate or prosecute any alcohol or drug abuse patient.[facility] HospitalIn the event this information is protected by the Federal Confidentiality of Alcohol and Drug Abuse Patient Records regulations: The Federal rules restrict any use of the information to criminally investigate or prosecute any alcohol or drug abuse patient.[facility] HospitalIn the event this information is protected by the Federal Confidentiality of Alcohol and Drug Abuse Patient Records regulations: The Federal rules restrict any use of the information to criminally investigate or prosecute any alcohol or drug abuse patient.[facility] HospitalIn the event this information is protected by the Federal Confidentiality of Alcohol and Drug Abuse Patient Records regulations: The Federal rules restrict any use of the information to criminally investigate or prosecute any alcohol or drug abuse patient.[facility] HospitalIn the event this information is protected by the Federal Confidentiality of Alcohol and Drug Abuse Patient Records regulations: The Federal rules restrict any use of the information to criminally investigate or prosecute any alcohol or drug abuse patient.[facility] Reason for Visit (unrecogniz ed section [...] Pain Referred by Scott Jones Last seen 09/17/22 Right shoulder impingement Specialty Diagnoses / Procedures Referred By Mini blandon Referred To Contact Orthopedics Diagnoses Left hand pain Procedures CONSULT TO ORTHOPAEDICS OFFICE/OUTPATIENT [facility] 60 MINUTES Scott Jones, CARLOS.[address] [place] [address] Referral ID Status Reason Start Date Expiration Date V isits Requested Visits Authorized [id number] Closed PCP Requested Referral 12/23/2023 12/22/2024 1 [...] section and content) DATE CREATED AUTHOR 07/25/2022 [facility] DATE CREATED AUTHOR AUTHOR'S ORGANIZ ATION 03/02/2023 [facility] DATE CREATED AUTHOR AUTHOR'S ORGANIZ ATION 12/11/2024 [facility] DATE CREATED AUTHOR AUTHOR'S ORGANIZ ATION 02/11/2025 [facility] Care Teams (unrecognized sec tion and content) Team Status: Active Member Role Status Dates Scott Jones NP-Rusty Primary Care Provider Active Team Status: Inactive Member Role Status Dates Scott Jones NP-C Primary Care Provider Active Dr. Wilfrido Issa MD Emergency Provider Active Glove Cleaner Relationship Specialty Start Date End Date Scott Jones APRN.[employer] [address] [place] [id number] PCP - General Family Medicine 02/18/23 Glove Cleaner Relationship Specialty Start Date End Date Scott Jones APRN.[address] [address] [place] [address] PCP - General Family Medicine 02/18/23 Glove Cleaner Relationship Specialty Start Date End Date Scott Jones APRN.[address] [address] [place] [address] [id number] PCP - General Family Medicine 02/18/23 Glove Cleaner Relationship Specialty Start Date End Date Scott Jones APRN.[facility] [place] [address] PCP - General Family Medicine 02/18/23 Glove Cleaner Relationship Specialty Start Date End Date Scott Jones APRN.[employer] [address] [address] [place] [id number] PCP - General Family Medicine 02/18/23 Shahnaz Oro [address] [facility] [place] [address] Psychiatrist 03/12/23 Glove Cleaner Relationship Specialty Start Date End Date Scott Jones APRN.[employer] [address] [address] [place] [address] PCP - General Family Medicine 02/18/23 Shahnaz Oro [address] [place] [address] Psychiatrist 03/12/23 Glove Cleaner Relationship Specialty Start Date End Date Scott Jones APRN.[employer] [address] [address] [place] [address] PCP - General Family Medicine 02/18/23 Shahnaz Oro [address] [place] [address] Psychiatrist 03/12/23 Glove Cleaner Relationship Specialty Start Date End Date Scott Jones APRN.[facility] [place] [address] PCP - General Family Medicine 02/18/23 Shahnaz Oro [address] [place] [address] Psychiatrist 03/12/23 Glove Cleaner Relationship Specialty Start Date End Date Scott Jones APRN.[address] [place] [address] PCP - General Family Medicine 02/18/23 Shahnaz Oro [address] [place] [address] Psychiatrist 03/12/23 Glove Cleaner Relationship Specialty Start Date End Date Scott Jones APRN.[facility] [place] [address] PCP - General Family Medicine 02/18/23 Shahnaz Oro [address] [facility] [place] [address] Psychiatrist 03/12/23 Glove Cleaner Relationship Specialty Start Date End Date Scott Jones APRN.[employer] [address] [place] [id number] PCP - General Family Medicine 02/18/23 Shahnaz Oro [address] [facility] [place] [address] Psychiatrist 03/12/23 Glove Cleaner Relationship Specialty Start Date End Date Scott Jones APRN.[facility] [place] [address] PCP - General Family Medicine 02/18/23 Shahnaz Oro [address] [place] [address] Psychiatrist 03/12/23 Glove Cleaner Relationship Specialty Start Date End Date Scott Jones APRN.[facility] [place] [address] PCP - General Family Medicine 02/18/23 Shahnaz Oro [address] [facility] [place] [address] Psychiatrist 03/12/23 Glove Cleaner Relationship Specialty Start Date End Date Scott Jones APRN.[address] [place] [address] PCP - General Family Medicine 02/18/23 Shahnaz Oro [address] [place] [address] Psychiatrist 03/12/23 Glove Cleaner Relationship Specialty Start Date End Date Scott Jones APRN.[address] [place] [address] PCP - General Family Medicine 02/18/23 Shahnaz Oro [address] [place] [address] Psychiatrist 03/12/23 Glove Cleaner Relationship Specialty Start Date End Date Scott Jones, RN PALLIATIVE.[address] [place] [address] PCP - General Family Medicine 02/18/23 Shahnaz Oro [address] [place] [address] Psychiatrist 03/12/23 Glove Cleaner Relationship Specialty Start Date End Date Scott Jones RN PALLIATIVE.[address] [facility] [place] [address] PCP - General Family Medicine 02/18/23 Shahnaz Oro [address] [place] [address] Psychiatrist 03/12/23 Glove Cleaner Relationship Specialty Start Date End Date Scott Jones APRN.[address] [place] [address] PCP - General Family Medicine 02/18/23 Shahnaz Oro [address] [place] [address] Psychiatrist 03/12/23 Glove Cleaner Relationship Specialty Start Date End Date Scott Jones APRN.[facility] [place] [address] PCP - General Family Medicine 02/18/23 Shahnaz Oro [address] [place] [address] Psychiatrist 03/12/23 Glove Cleaner Relationship Specialty Start Date End Date Scott Jones APRN.[employer] [address] [place] [id number] PCP - General Family Medicine 02/18/23 Shahnaz Oro [address] [place] [address] Psychiatrist 03/12/23 Glove Cleaner Relationship Specialty Start Date End Date Scott Jones APRN.[facility] [place] [address] PCP - General Family Medicine 02/18/23 Shahnaz Oro [address] [place] [address] Psychiatrist 03/12/23 Glove Cleaner Relationship Specialty Start Date End Date Scott Jones, RN PALLIATIVE.[facility] [place] [address] PCP - General Family Medicine 02/18/23 Shahnaz Oro [address] [place] [address] Psychiatrist 03/12/23 Glove Cleaner Relationship Specialty Start Date End Date Scott Jones APRN.[address] [facility] [place] [address] PCP - General Family Medicine 02/18/23 Shahnaz Oro [address] [place] [address] Psychiatrist 03/12/23 Glove Cleaner Relationship Specialty Start Date End Date Scott Jones APRN.[address] [place] [address] PCP - General Family Medicine 02/18/23 Shahnaz Oro [address] [place] [address] Psychiatrist 03/12/23 Glove Cleaner Relationship Specialty Start Date End Date Scott Jones APRN.[address] [facility] [place] [place] [address] PCP - General Family Medicine 02/18/23 Shahnaz Oro [address] [place] [address] Psychiatrist 03/12/23 Glove Cleaner Relationship Specialty Start Date End Date Scott Jones APRN.[address] [place] [address] PCP - General Family Medicine 02/18/23 Shahnaz Oro [address] [place] [address] Psychiatrist 03/12/23 Glove Cleaner Relationship Specialty Start Date End Date Scott Jones APRN.[address] [place], [place] [address] PCP - General Family Medicine 02/18/23 Shahnaz Oro [address] [facility] [id number] Psychiatrist 03/12/23 Team Status: Inactive Member Role Status Dates Scott Jones SURGEON CHIEF-C Primary Care Provider Active Start: October 11, 2024 End: October 11, 2024 Dr. Shantell Gastelum , Emergency Provider Active S tart: October 11, 2024 End: October 11, 2024 Glove Cleaner Relationship Specialty Start Date End Date Scott Jones APRN.[employer] [address] [place] [address] [id number] PCP - General Family Medicine 02/18/23 Shahnaz Oro [address] [facility] [id number] Psychiatrist 03/12/23 Team Status: Inactive Member Role [...] Jones NP-C Primary Care Provider Active Start: December 10, 2024 End: December 10, 2024 Dr. Shantell Gastelum DO Emergency Provider Active S tart: December 10, 2024 End: December 10, 2024 Glove Cleaner Relationship Specialty Start Date End Date Scott Jones APRN.[employer] [address] [place] [address] PCP - General Family Medicine 02/18/23 Shahnaz Oro [address] [facility] [id number] Psychiatrist 03/12/23 Team Status: Active Member Role/Relationship Status Dates Scott Jones SURGEON CHIEF-C Primary Care Provider Active Team Status: Inactive Member Role/Relationship Status Dates Scott Jones NP-C Primary Care Provider Active Start: October 11, 2024 End: October 11, 2024 Dr. Shantell Gastelum DO Attending Provider Active S tart: October 11, 2024 End: October 11, 2024 Dr. Shantell Gastelum DO Emergency Provider Active S tart: October 11, 2024 End: October 11, 2024 Team Status: Active Member Role/Relationship Status Dates Scott Jones NP-C Primary Care Provider Active Start: October 11, 2024 Dr. Castro Serrano MD Attending Provider Active S tart: October 11, 2024 Dr. Shantell Gastelum DO Referring Provider Active S tart: October 11, 2024 Team Status: Inactive Member Role/Relationship Status Dates Scott Jones NP-C Primary Care Provider Active Start: December 10, 2024 End: December 10, 2024 Dr. Shantell Gastelum DO Attending Provider Active S tart: December 10, 2024 End: December 10, 2024 Dr. Shantell Gastelum DO Emergency Provider Active S tart: December 10, 2024 End: December 10, 2024 Team Status: Inactive Member Role/Relationship Status Dates Scott Jones NP-C Primary Care Provider Active Start: January 29, 2025 End: January 29, 2025 Dr. John Mcfadden MD Emergency Provider Active Sta rt: January 29, 2025 End: January 29, 2025 Team Status: Active Member Role/Relationship Status Dates Scott Jones NP-C Primary Care Provider Active Start: January 29, 2025 Dr. John Mcfadden MD Emergency Provider Active Sta rt: January 29, 2025 Dr. Jonathan Puga MD Attending Provider Active Start: January 29, 2025 Team Status: Inactive Member Role/Relationship Status Dates YUMI Aburto Primary Care Provider Active Start: January 29, 2025 End: January 29, 2025 Dr. John Mcfadden MD Attending Provider Active Sta rt: January 29, 2025 End: January 29, 2025 Dr. John Mcfadden MD Emergency Provider Active Sta rt: January 29, 2025 End: January 29, 2025 Team Status: Inactive Member Role/Relationship Status Dates YUMI Aburto Primary Care Provider Active Start: February 05, 2025 End: February 05, 2025 YUMI Aburto Referring Provider Active Start: February 05, 2025 End: February 05, 2025 Tia Smith NP, NP-C Attending Provider Active Start: February 05, 2025 End: February 05, 2025 Goals (unrecognized section and content) Goals [...] BE BASED ON THE PRIMARY CLINICAL RECORDS. [facility] [employer] [facility]. provides no warranty or guarantee of the accuracy or completeness of information in this document.
--- NOTE | 2025-02-11 15:14 | EX.ED.DYSGE1 ---
HPI <LYLY Hernandez - Last Filed: 02/11/25 19:21> History of Present Illness Chief Complaint: Constipation Narrative Narrative: 44-year-old female with PMH of HTN, HLD, anemia presents with constipation stating she has not had a bowel movement in 5 to 7 days. last night she developed lower abdominal discomfort. She has chronic constipation and gives herself a saline enema about once a month which usually helps but she tried it today and nothing came out. She denies fever, chills, vomiting. She has no history of bowel obstruction. PFSH <LYLY Hernandez - Last Filed: 02/11/25 19:21> [facility] Medical History High cholesterol Anxiety Depression Bipolar 1 disorder Home Medications ?Medication ?Instructions ?Recorded ?Last Taken ?Type atorvastatin 10 mg tablet 10 mg PO DAILY 02/23/23 01/28/25 History lamotrigine 200 mg tablet 200 mg PO DAILY 02/23/23 01/29/25 History (Lamictal) amlodipine 2.5 mg tablet 2.5 mg PO DAILY 01/29/25 01/28/25 History Held on 02/05/25. Instructions: syncope cholecalciferol (vitamin D3) 50 50 mcg PO DAILY 01/29/25 01/29/25 History mcg (2,000 unit) capsule clonidine HCl 0.1 mg tablet 0.1 mg PO DAILY 01/29/25 01/29/25 History diphenhydramine HCl 25 mg capsule 25 mg PO Q8H PRN allergy symptoms 01/29/25 Unknown History (Allergy (diphenhydramine)) ferrous sulfate 325 mg (65 mg 325 mg PO DAILY 01/29/25 01/29/25 History iron) tablet (FeroSul) lithium carbonate 300 mg tablet 900 mg PO DAILY 01/29/25 01/29/25 History lurasidone 120 mg tablet (Latuda) 120 mg PO QPM 01/29/25 01/28/25 History docusate sodium 100 mg capsule 100 mg PO DAILY #30 caps 02/11/25 Unknown Rx (Colace) polyethylene glycol 3350 17 17 g PO DAILY #119 grams 02/11/25 Unknown Rx gram/dose oral powder (Miralax) Allergy/AdvReac Type Severity Reaction Status Date / Time acetaminophen (From Vicodin) Allergy Mild Hives Verified 02/11/25 14:36 hydrocodone (From Vicodin) Allergy Mild Hives Verified 02/11/25 14:36 doxycycline Allergy Hives Verified 02/11/25 14:36 ketorolac (From Toradol) Allergy THROAT Verified 02/11/25 14:36 ITCHING/CLOSING methocarbamol (From Robaxin) Allergy Hives Verified 02/11/25 14:36 NSAIDS (Non-Steroidal Allergy Hives Verified 02/11/25 14:36 Anti-Inflamma sertraline (From Zoloft) Allergy HIVES Verified 02/11/25 14:36 tramadol Allergy Anaphylaxis Verified 02/11/25 14:36 Family History (Updated 02/05/25 @ 11:53 by Tia Smith NP, AEROBICS TEACHER-C) Grandfather CAD (coronary artery disease) Father Atrial fibrillation Social History housing: apartment current occupational status: employed Smoking Status: Former smoker alcohol intake: never substance use type: does not use ROS <LYLY Hernandez - Last Filed: 02/11/25 19:21> ROS ED ROS Narrative Constitutional: Negative for fever, chills, malaise. GI: Positive for abdominal pain, constipation. Negative for melena, hematochezia, vomiting. : Negative for dysuria. EXAM <LYLY Hernandez - Last Filed: 02/11/25 19:21> Physical Exam Narrative Exam Narrative: CONST: Patient sitting in no acute distress. EYES: Normal inspection. NECK: Normal inspection. RESP: No respiratory distress, CTAB. CVS: Regular rate and rhythm, no murmur, no gallop. ABD: Soft and nontender, no guarding or rebound, nondistended. MAURI: Normal external inspection, rectal vault empty. SKIN: Color normal, no rash, warm, dry, intact. EXTREMITIES: Normal appearance, no pedal edema. NEURO: Alert and answering questions appropriately. PSYCH: Normal affect. Const Vital Signs: 02/11/25 14:33 02/11/25 14:36 02/11/25 15:36 Temperature 99.5 F H 98.5 F 98.3 F Temperature Source Oral Oral Oral Pulse Rate 108 H 85 90 Respiratory Rate 16 18 18 Blood Pressure 129/96 H 125/90 H 152/88 H Blood Pressure Mean 107 101 109 Pulse Ox 99 99 99 Oxygen Delivery Method Room Air Room Air Nasal Cannula 02/11/25 16:00 02/11/25 16:36 02/11/25 18:00 Temperature 98.5 F Temperature Source Oral Pulse Rate 88 83 72 Respiratory Rate 18 18 18 Blood Pressure 135/86 H 132/84 H 127/86 H Blood Pressure Mean 102 100 99 Pulse Ox 99 99 99 Oxygen Delivery Method Room Air Room Air Room Air 02/11/25 18:42 Temperature 98.5 F Temperature Source Pulse Rate 72 Respiratory Rate 18 Blood Pressure 127/86 H Blood Pressure Mean 99 Pulse Ox 99 Oxygen Delivery Method <Dr. Vladislav Marshall DO - Last Filed: 02/11/25 22:04> Physical Exam Const Vital Signs: 02/11/25 14:33 02/11/25 14:36 02/11/25 15:36 Temperature 99.5 F H 98.5 F 98.3 F Temperature Source Oral Oral Oral Pulse Rate 108 H 85 90 Respiratory Rate 16 18 18 Blood Pressure 129/96 H 125/90 H 152/88 H Blood Pressure Mean 107 101 109 Pulse Ox 99 99 99 Oxygen Delivery Method Room Air Room Air Nasal Cannula 02/11/25 16:00 02/11/25 16:36 02/11/25 18:00 Temperature 98.5 F Temperature Source Oral Pulse Rate 88 83 72 Respiratory Rate 18 18 18 Blood Pressure 135/86 H 132/84 H 127/86 H Blood Pressure Mean 102 100 99 Pulse Ox 99 99 99 Oxygen Delivery Method Room Air Room Air Room Air 02/11/25 18:42 Temperature 98.5 F Temperature Source Pulse Rate 72 Respiratory Rate 18 Blood Pressure 127/86 H Blood Pressure Mean 99 Pulse Ox 99 Oxygen Delivery Method MDM <LYLY Hernandez - Last Filed: 02/11/25 19:21> [facility] MDM Narrative Medical decision making narrative: Differential: Constipation, obstruction, diverticulitis 44-year-old female with chronic constipation presents with 5 to 7 days of constipation and 1 day of lower abdominal discomfort. No vomiting. She appears well and nontoxic. Heart rate is 108 and she has a low-grade temp at 99.5, otherwise normal vital signs. Her abdominal exam is benign and rectal is empty. Although she reports this feels similar to her prior constipation, with abnormal vitals I ordered blood work and a CT scan to rule out an infectious etiology. WBC is 11.9, otherwise labs are unremarkable. UA negative. CT scan shows constipation without obstruction or other acute finding. She was given a soapsuds enema and had a small bowel movement. I discussed a bowel regimen and prescribed Colace and MiraLAX, recommended fluids and fiber, and follow-up with her PCP. Return precautions discussed. She was discharged in stable condition. History & Record Review Discussion w/independent historian: Patient Additional record(s) reviewed:: Prior ED visit and Prior labs Lab Data Attestation: I reviewed the patient's lab results. Labs: Laboratory Results - last 24 hr 02/11/25 02/11/25 15:14 15:51 WBC 11.9 H RBC 4.86 Hgb 14.6 Hct 42.8 MCV 88.1 MCH 30.0 MCHC 34.1 RDW Std Deviation 38.6 RDW Coeff of Cecile 12.0 Plt Count 363 MPV 9.3 Immature Gran % (Auto) 0.400 Neut % (Auto) 63.0 Lymph % (Auto) 26.7 Grand % (Auto) 7.4 Eos % (Auto) 1.9 Baso % (Auto) 0.6 Absolute Neuts (auto) 7.5 Absolute Lymphs (auto) 3.17 Nucleated RBC % 0 Sodium 139 Potassium 3.8 Chloride 103 Carbon Dioxide 23.7 Anion Gap 13 BUN 6 Creatinine 1.00 Estim Creat Clear Calc 70.99 Est GFR (MDRD) Non-Af 73 BUN/Creatinine Ratio 5.6 L Glucose 107 H Calcium 10.8 Total Bilirubin 0.61 AST 30 ALT 14 Alkaline Phosphatase 90 Total Protein 7.4 Albumin 4.6 Globulin 2.9 Albumin/Globulin Ratio 1.6 Urine Color Straw Urine Clarity Clear Urine pH 7.0 Ur Specific [place] 1.010 Urine Protein 15 H Urine Glucose (UA) Normal Urine Ketones Negative Urine Occult Blood 10 H Urine Nitrite Negative Urine Bilirubin Negative Urine Urobilinogen Normal Ur Leukocyte Esterase Negative Urine RBC 0-5 SEEN Urine WBC 0-5 SEEN Ur Squamous Epith Cells 0-5 SEEN Urine Bacteria 0 SEEN Urine Mucus 0 SEEN Radiography Diagnostic Testing: Clinical Impression(s) from Imaging Studies Abdomen/Pelvis CT 02/11/25 14:54 IMPRESSION: Prominent fecal pattern, especially in the rectum consistent with constipation [facility] <Dr. Vladislav Marshall, DO - Last Filed: 02/11/25 22:04> [facility] Narrative Medical decision making narrative: Differential: Constipation, obstruction, diverticulitis 44-year-old female with chronic constipation presents with 5 to 7 days of constipation and 1 day of lower abdominal discomfort. No vomiting. She appears well and nontoxic. Heart rate is 108 and she has a low-grade temp at 99.5, otherwise normal vital signs. Her abdominal exam is benign and rectal is empty. Although she reports this feels similar to her prior constipation, with abnormal vitals I ordered blood work and a CT scan to rule out an infectious etiology. WBC is 11.9, otherwise labs are unremarkable. UA negative. CT scan shows constipation without obstruction or other acute finding. She was given a soapsuds enema and had a small bowel movement. I discussed a bowel regimen and prescribed Colace and MiraLAX, recommended fluids and fiber, and follow-up with her PCP. Return precautions discussed. She was discharged in stable condition. Supervisory Physician Note Patient was seen and examined with the Advanced Practice Provider. Nursing notes and vital signs have been reviewed. Pertinent old records have been reviewed. I agree with the essential elements of the CON's history, physical exam, assessment, and plan. The differential diagnosis and management options were discussed with the CON. I participated in determining and agree with the management, procedures, final impression and disposition as documented. See changes noted by me. Please see addendum or separate note for any additional details. 44-year-old female with chronic constipation presents for evaluation of constipation. Patient intermittently gives herself home enemas for constipation. She does not follow a regular bowel regiment. She has not followed with GI. Mild lower abdominal discomfort. Denies any fever, chills, shortness of breath, chest pain, vomiting, dysuria. Gen: A&O x3, NAD Head: Normocephalic, atraumatic Eyes: No sclera icterus, conjunctiva clear ENT: Moist mucous membranes Neck: Trachea midline, No JVD CV: RRR, no murmurs, no peripheral edema Resp: Lungs CTA BL, no w/r/c GI: Abd soft, non-distended, non-tender, no r/r/g : No CVA tenderness Musc: Full ROM, no deformity Skin: Warm, dry Neuro: Alert, oriented, grossly intact, sensation intact Psych: Cooperative, appropriate mood and affect MAURI performed by CON Labs and imaging reviewed. Impression: 1. Constipation Lab Data Labs: Laboratory Results - last 24 hr 02/11/25 02/11/25 15:14 15:51 WBC 11.9 H RBC 4.86 Hgb 14.6 Hct 42.8 MCV 88.1 MCH 30.0 MCHC 34.1 RDW Std Deviation 38.6 RDW Coeff of Cecile 12.0 Plt Count 363 MPV 9.3 Immature Gran % (Auto) 0.400 Neut % (Auto) 63.0 Lymph % (Auto) 26.7 Grand % (Auto) 7.4 Eos % (Auto) 1.9 Baso % (Auto) 0.6 Absolute Neuts (auto) 7.5 Absolute Lymphs (auto) 3.17 Nucleated RBC % 0 Sodium 139 Potassium 3.8 Chloride 103 Carbon Dioxide 23.7 Anion Gap 13 BUN 6 Creatinine 1.00 Estim Creat Clear Calc 70.99 Est GFR (MDRD) Non-Af 73 BUN/Creatinine Ratio 5.6 L Glucose 107 H Calcium 10.8 Total Bilirubin 0.61 AST 30 ALT 14 Alkaline Phosphatase 90 Total Protein 7.4 Albumin 4.6 Globulin 2.9 Albumin/Globulin Ratio 1.6 Urine Color Straw Urine Clarity Clear Urine pH 7.0 Ur Specific [place] 1.010 Urine Protein 15 H Urine Glucose (UA) Normal Urine Ketones Negative Urine Occult Blood 10 H Urine Nitrite Negative Urine Bilirubin Negative Urine Urobilinogen Normal Ur Leukocyte Esterase Negative Urine RBC 0-5 SEEN Urine WBC 0-5 SEEN Ur Squamous Epith Cells 0-5 SEEN Urine Bacteria 0 SEEN Urine Mucus 0 SEEN Radiography Diagnostic Testing: Clinical Impression(s) from Imaging Studies Abdomen/Pelvis CT 02/11/25 14:54 IMPRESSION: Prominent fecal pattern, especially in the rectum consistent with constipation [facility] Discharge Plan Triage Chief Complaint: Constipation ED Midlevel Provider: Eileen Urbina ED Provider: Vladislav Marshall Dx/Rx/DC Orders Clinical Impression: Constipation Instructions: Eating a High-Fiber Diet, ED Constipation (Adult) Prescriptions: New docusate sodium [Colace] 100 mg capsule 100 mg PO DAILY Qty: 30 0RF polyethylene glycol 3350 [Miralax] 17 gram/dose powder 17 g PO DAILY Qty: 119 0RF No Action atorvastatin 10 mg tablet 10 mg PO DAILY lamotrigine [Lamictal] 200 mg tablet 200 mg PO DAILY clonidine HCl 0.1 mg tablet 0.1 mg PO DAILY amlodipine 2.5 mg tablet 2.5 mg PO DAILY ferrous sulfate [FeroSul] 325 mg (65 mg iron) tablet 325 mg PO DAILY lithium carbonate 300 mg tablet 900 mg PO DAILY cholecalciferol (vitamin D3) 50 mcg (2,000 unit) capsule 50 mcg PO DAILY lurasidone [Latuda] 120 mg tablet 120 mg PO QPM Rx Instructions: must administer with food (at least 350 calories) diphenhydramine HCl [Allergy (diphenhydramine)] 25 mg capsule 25 mg PO Q8H PRN (Reason: allergy symptoms) Primary Care Provider: Krista Umanzor Referrals: Krista Umanzor, AEROBICS TEACHER-C [Primary Care Provider] - Activity Restrictions/Additional Instructions: You have significant constipation that needs treated with a daily bowel regimen. Take Colace and MiraLAX every day, drink plenty of water, try to add more fiber to your diet. Follow-up with your primary care doctor. Print Language: Albanian Disposition Disposition: Home, Self Care Discharge Date/Time: 02/11/25 19:01
[2025-02-11 15:25] LABS: Hematocrit 42.8 % (37-47); Hemoglobin 14.6 g/dL (12.0-15.0); Immature Granulocytes Count 0.050 X10^3/uL (0.0-0.0); Mean Corp Hgb Conc 34.1 g/dL (32-36); Mean Corpuscular Volume 88.1 fL (81-99); Mean Platelet Vol. 9.3 fl (6.2-12.0); NRBC Flagged by Analyzer 0 % (0-5); Platelet Count 363 K/mm3 (150-450); RBC Distribution Width CV 12.0 % (11.6-14.6); RBC Distribution Width SD 38.6 fl (35.1-43.9); Red Blood Count 4.86 M/mm3 (4.2-5.4); White Blood Count 11.9 K/mm3 (4.4-11.0)
[2025-02-11] MEDS: 0.9% Normal Saline (1000mL) 1,000 ML 999 ML IV (15:50)
[2025-02-11 15:56] LABS: Mucous, Urine 0 SEEN /hpf (<or=2+)
[2025-02-11 15:59] LABS: AST(SGOT) 30 U/L (<=31); Alanine Aminotransfer ALT/SGPT 14 U/L (<=34); Albumin, Serum 4.6 g/dL (3.5-5.0); Alkaline Phosphatase 90 U/L (35-104); Anion Gap 13 (5-15); BUN 6 mg/dL (4-19); BUN/Creat Ratio 5.6 RATIO (10-20); Calcium,Total 10.8 mg/dL (7.6-11.0); Carbon Dioxide 23.7 mmol/L (21.0-32.0); Chloride 103 mmol/L (98-108); Estimated Creatinine Clearance 70.99 ml/min (50-250); Globulin 2.9 g/dL (2.2-4.2); Glucose 107 mg/dL (70-99); Potassium 3.8 mmol/L (3.3-5.1)
[2025-02-11 16:03] LABS: Color, Urine Straw (Yellow); Glucose, Dipstick Normal (Normal); Ketone-Dipstick Negative (Negative); Leukocyte Esterase-Dipstick Negative /ul (Negative); Nitrite-Dipstick Negative (Negative); Occult Blood-Urine 10 /ul (Negative); Protein-Dipstick 15 mg/dl (Negative); Specific Gravity, Urine 1.010 (1.002-1.030); Urine Bilirubin Dipstick Negative (Negative)
[2025-02-11 17:34] LABS: Red Blood Cells-Urine 0-5 SEEN /hpf (0-5); Squamous Epithelial Cells - UA 0-5 SEEN /hpf (5-10)
== END 2025-02-11 19:01 | disposition home or self-care (01) ==
PROVIDERS: Physician Assistant; Emergency Provider Surgery; PCP Nurse Practitioner Family; Visit Provider Surgery
DX: K59.00 Constipation, unspecified (principal); F31.9 Bipolar disorder, unspecified; I10 Essential (primary) hypertension; Z87.891 Personal history of nicotine dependence; E78.00 Pure hypercholesterolemia, unspecified; Z79.899 Other long term (current) drug therapy
CPT/HCPCS: 74177; 80053; 81001; 85025; 96360; 96361; 99285; Q9967

== ENCOUNTER → 2025-03-20 | Outpatient (CLI) | payer OTHER, SELFPAY ==
[2025-03-17 10:58] LABS: Hematocrit 43.2 % (37-47); Hemoglobin 14.3 g/dL (12.0-15.0); Immature Granulocytes Count 0.020 X10^3/uL (0.0-0.0); Mean Corp Hgb Conc 33.1 g/dL (32-36); Mean Corpuscular Volume 90.0 fL (81-99); Mean Platelet Vol. 9.9 fl (6.2-12.0); NRBC Flagged by Analyzer 0 % (0-5); Platelet Count 334 K/mm3 (150-450); RBC Distribution Width CV 12.4 % (11.6-14.6); RBC Distribution Width SD 40.6 fl (35.1-43.9); Red Blood Count 4.80 M/mm3 (4.2-5.4); White Blood Count 7.0 K/mm3 (4.4-11.0)
[2025-03-17 11:21] LABS: Internal QC Validated? YES +Cl - CLEAR BKGD; Pregnancy, Serum, hCG Quali. NEGATIVE Negative; Record Kit Lot#, Serum Preg. 0000947241
[2025-03-17 11:26] LABS: Anion Gap 13 (5-15); BUN 6 mg/dL (4-19); BUN/Creat Ratio 6.5 RATIO (10-20); Calcium,Total 10.1 mg/dL (7.6-11.0); Carbon Dioxide 23.3 mmol/L (21.0-32.0); Chloride 104 mmol/L (98-108); Glucose 115 mg/dL (70-99); Potassium 4.5 mmol/L (3.3-5.1)
--- NOTE | 2025-03-29 17:12 | PCM.TILTTABL ---
Staff Staff: Elizabeth Hernandez and Birdie Neely Summary Pre Test Resting HR: 81 Pre Test Resting BP: 142/92 Minimum Test HR: 53 Maximum Test HR: 148 Minimum Test BP: 0/0 Maximum Test BP: 162/99 Reason for Test Termination: Syncope Physician Tilt Table Report Patient's Physicians Primary Care Physician: Krista Umanzor Indications/Diagnosis: Syncope Procedure Comments: Patient was brought to the cardiovascular department in the postabsorptive nonsedated state. Informed consent was obtained. Initial EKG and heart rate and blood pressures were obtained. The patient was then put in the 70 degree head upright tilt position for total duration of approximately 20 minutes. Initial heart rate was noted to be 81 bpm with a blood pressure 142/92 mmHg. The patient maintained adequate heart rate and blood pressure with no significant changes. After 20 minutes the patient was put in the recumbent position and then given 0.4 mg of sublingual nitroglycerin. She was then put in the 70 degree head upright tilt position initial heart rate was 148 bpm with a blood pressure 154/109 mmHg. Patient started having symptoms of lightheadedness and feeling tingly and after approximately 7 minutes heart rate dropped to 80 bpm patient looked pale and then to 53 bpm with no recordable blood pressure. Patient was then put back in the recumbent position given IV fluids and recovered fully. Final blood pressure was 118/83 with a heart rate of 84 bpm. Summary: The above is consistent with a vasodepressive or vasovagal syncopal episode.
[2025-03-29 17:17] VITALS: BP 0/0; BP 142/92; BP 162/99
== END | disposition home or self-care (01) ==
LOC: CVS 08:58
PROVIDERS: Internal Medicine Cardiovascular Disease; PCP Nurse Practitioner Family; Referring Provider Nurse Practitioner Gerontology; Visit Provider Nurse Practitioner Gerontology
DX: R55 Syncope and collapse (principal)
CPT/HCPCS: 36415; 80048; 84703; 85025; 93660; A4216